=== PATIENT | male | born 1960 | race Caucasian/White ===

== ENCOUNTER 2018-11-16 10:16 | Outpatient (CLI) | payer BC, SELFPAY ==
[2018-11-16 10:50] LABS: Abs Immature Grans 0.05 k/cumm (0.0-0.09); Absolute Basophil Count 0.03 k/cumm (0.0-0.2); Absolute Eosinophil Count 0.41 k/cumm (0.0-0.7); Absolute Monocyte Count 0.86 k/cumm (0.11-0.7); Absolute Neutrophil Count 5.99 k/cumm (1.2-6.7); Basophils % 0.3; Eosinophils % 4.5; HCT 48.6 % (40.0-50.0); HGB 16.4 g/dL (13.5-17.5); Immature Grans % 0.6; Lymphocytes % 18.8; Mean Corp. HGB Concentration 33.7 g/dL (32.0-36.0); Mean Corpuscular Hemoglobin 30.8 pg (27.0-33.0); Mean Corpuscular Volume 91.2 fL (80-95); Mean Platelet Volume 9.9 fL (8.0-11.0); Monocytes % 9.5; Neutrophils % 66.3; Platelet Count 228 x1000/uL (130-400); RBC 5.33 m/cumm (4.50-6.00); RBC Distribution Width 13.4 % (11.8-14.1); White Blood Cell Count 9.04 k/cumm (4.4-10.8)
[2018-11-16 12:17] LABS: ALT 69 U/L (12-78); AST 34 U/L (15-37); Albumin 4.1 g/dL (3.4-5.0); Alkaline Phosphatase 74 U/L (46-116); Anion Gap 12.6 mmol/L (3-11); BUN 18 mg/dL (7-18); CO2 25.4 mmol/L (21.0-32.0); CREATININE 1.06 mg/dL (0.70-1.30); Calcium 9.4 mg/dL (8.5-10.1); Chloride 102 mmol/L (98-107); Cholesterol 189 mg/dL (50-200); Glucose 112 mg/dL (70-100); HDL Cholesterol 87 mg/dL (40-60); LDL CHOLESTEROL 80 mg/dL (<100); Potassium 4.6 mmol/L (3.5-5.1); Sodium 140 mmol/L (136-145); TSH (W/Ref FT4) 0.94 uIU/mL (0.358-3.74); Triglyceride 61 mg/dL (30-150)
== END 2018-11-16 10:36 ==
PROVIDERS: PCP Physician Assistant Medical; Visit Provider Nurse Practitioner Family
DX: F33.1 Major depressive disorder, recurrent, moderate (principal); Z79.899 Other long term (current) drug therapy; R53.83 Other fatigue
CPT/HCPCS: 36415; 80053; 80061; 83721; 84443; 85025

== ENCOUNTER 2018-12-20 02:39 | Outpatient (CLI) | payer BC, SELFPAY | END 2018-12-20 02:59 | PROVIDERS: PCP Physician Assistant Medical; Visit Provider Nurse Practitioner Family | DX: R06.02 Shortness of breath (principal); R53.83 Other fatigue | CPT/HCPCS: 93005; 93010 ==

== ENCOUNTER 2019-02-06 00:20 | Outpatient (CLI) | payer BC, SELFPAY ==
--- NOTE | 2019-02-06 13:00 | ETT_ITS ---
*[facility]* *[facility]* [address] [place] [address] Stress Electrocardiography Theodore protocol Date of study: 02/06/2019 *PATIENT PRESENTATION* Height: 177.8cm (70in) Blood Pressure: Weight: 112.7kg (248lb) BSA: 2.4m^2 Referring physician: Juliette Hamilton Ordering physician: Juliette Hamilton Impressions: Nondiagnostic for ischemia. Recommendations: Suggest getting pharmacological nuclear stress test. Indication: R06.09. History: REASON FOR TESTING: SHORTNESS OF BREATH WITH EXERTION. PT STATES THAT HIS ASTHMA IS NO DIFFERENT THAN USUAL. PMH: DEPRESSION, HYPERTENSION, ASTHMA. FAMILY HX: MOTHER- HYPERTENSION. SMOKING: QUIT 30 YEARS AGO. HAD SMOKED 3PPD X 10 YEARS. EXCERCISE: NO REGULAR EXCERCISE. PMH: Asthma. Risk factors: Family history of coronary artery disease. Hypertension. Obesity. Cholesterol: 189mg/dl. HDL: 87mg/dl. LDL: 80mg/dl. Triglycerides: 189mg/dl. ALLERGIES: NKDA. MEDICATIONS: SIMVSTATIN 20 MG DAILY, SLIDENAFIL 100 MG HS, FLUOXETINE 10 MG DAILY, ALBUTEROL 2 PUFFS BID. Protocol: Theodore protocol. Baseline ECG: NO PREVIOUS EKG FOR COMPARISON. TODAY'S EKG-SINUS BRADYCARDIA, HR 58. Stress protocol: + +---+ +---+ !Stage !HR !BP (mmHg) !Sat! + +---+ +---+ !Baseline supine !58 !150/96 (114) !---! + +---+ +---+ !Baseline standing !63 !140/90 (107) !93%! + +---+ +---+ !Stage I; 1.7mph, 10degrees; 3 min !101!156/90 (112) !89%! + +---+ +---+ !Stage II; 2.5mph, 12degrees; 3 min!114!180/90 (120) !86%! + +---+ +---+ !Recovery; 1 min !90 !200/100 (133)!---! + +---+ +---+ !Recovery; 3 min !71 !170/82 (111) !---! + +---+ +---+ !Recovery; 6 min !71 !150/80 (103) !---! + +---+ +---+ * Stress results: The rate-pressure product for the peak heart rate and blood pressure was 72448ql Hg/min. Stress ECG: EXCERCISE TESTING ENDED IN 6 MINS, 14 SECS DUE TO LOW O2 SATS, FATIGUE AND UNSTABLE WAVEFORMS ON EKG TRACING. MAX HR WAS 120, 75% OF TARGET. HYPERTENSIVE BLOOD PRESSURE AT START OF TESTING AND HYPERTENSIVE BLOOD PRESSURE RESPONSE. OXYGEN SATURATION LOW 86% WITH EXCERCISE. METS: 7.37 ECTOPY: NONE SEEN. ANGINA: NO REPORTED CHEST PAIN OR PRESSURE. ISCHEMIA: NONE SEEN, EKG VERY DIFFICULT TO READ D/T MOTION AND BODY HABITUS. FUNCTIONAL CAPACITY: MILDLY DIMINISHED CAPACITY. Study data: Aaron Spangler MD supervised and was readily available during the procedure. This study was interpreted by [facility]. Study status: Routine. Consent: The risks, benefits, and alternatives to the procedure were explained to the patient and informed consent was obtained. Procedure: Initial setup. A baseline ECG was recorded. Surface ECG leads and manual cuff blood pressure measurements were monitored. Heart sounds: Normal. Lung sounds: Normal. Treadmill exercise testing was performed using the Theodore protocol. Study completion: The patient tolerated the procedure well and was discharged from the lab. Discharge: The patient left the laboratory in stable condition. Birthdate: Patient birthdate: 1960. Sex: Gender: male. Study date: Study date: 02/06/2019. Study time: 00:01 AM. Signature Documentation: The Stress ECG portion of this study was interpreted by Aaron Spangler MD. Electronically signed by Aaron Spangler 02/06/2019 14:36
== END 2019-02-06 00:40 ==
PROVIDERS: PCP Physician Assistant Medical; Visit Provider Physician Assistant Medical
DX: R06.02 Shortness of breath (principal); R06.09 Other forms of dyspnea; I10 Essential (primary) hypertension; E78.5 Hyperlipidemia, unspecified; J45.909 Unspecified asthma, uncomplicated; Z87.891 Personal history of nicotine dependence
CPT/HCPCS: 93017

== ENCOUNTER 2019-03-10 00:04 | Outpatient (CLI) | payer BC, SELFPAY ==
--- NOTE | 2019-03-10 08:15 | MERGEMPI_ITS ---
*[facility]* *[facility]* [address] [place] [address] Myocardial Perfusion Imaging - SPECT Regadenoson Date of study: 03/10/2019 *PATIENT PRESENTATION* Height: 177.8cm (70in) Blood Pressure: Weight: 112.7kg (248lb) BSA: 2.4m^2 Referring physician: Wilmer Armenta Ordering physician: Juliette Hamilton Impressions: - Normal perfusion by Tc99m Sestamibi Imaging. - Abnormal contraction consistent with mild cardiomyopathy. Summary: 1. Myocardial perfusion imaging: No myocardial perfusion defects noted. 2. The calculated left ventricular ejection fraction after stress: 45%. Diffuse left ventricular regional motion abnormalities. Indication: R06.09. History: REASON FOR TESTING: OVER THE LAST 3-4 YEARS PATIENT HAS BEEN EXPERIENCING SOB WITH ACTIVITY WHICH HAS BEEN RELEIVED WITH HIS ASTHMA INHALER. HE ALSO REPORTS CHRONIC FATIGUE. PATIENT DENIES CHEST PAIN/PRESSURE/SOB UPON ARRIVAL TO TESTING TODAY. SIGNIFICANT PAST MEDICAL HISTORY: SHANI, DEPRESSION. SMOKING STATUS: QUIT 1979. SMOKED FOR 10 YEAR 3 PPD. EXERCISE ROUTINE: SEDENTARY LIFESTYLE. PMH: Asthma. Risk factors: Family history of coronary artery disease. Diabetes mellitus. Obesity. Cholesterol: 189mg/dl. HDL: 80mg/dl. LDL: 87mg/dl. Triglycerides: 61mg/dl. ALLERGIES: NO KNOWN MEDICATION ALLERGIES. MEDICATIONS: SIMVASTATIN 20 MG DAILY, SILDENAFIL 100 MG PRN, FLUOXETINE 10 MG DAILY, CELEBREX 100 MG DAILY, METFORMIN 100 MG BID, STERLING 180 MG DAILY. Imaging Technique: Protocol: Querydayoson. Acquisition: Gated SPECT; 1 day - rest/stress. The patient was imaged in the supine position. Attenuation correction used. Isotope administration: - Rest. Tc[99m]-sestamibi. Dose: 12.2mCi. Injection time: 08:15 AM. Injection to stress time: 00:45. - Stress. Tc[99m]-sestamibi. Dose: 38mCi. Injection time: 09:40 PM. 1-2 min before end of exercise Baseline ECG: SINUS BRADYCARDIA. HR 89 BPM. Stress protocol: +--------+--+ + + !Stage !HR!BP (mmHg) !Comments ! +--------+--+ + + !Baseline!84!140/86 (104)! ! +--------+--+ + + !1 min !98!162/84 (110)!Inject Regadenoson.! +--------+--+ + + !3 min !89!160/80 (107)! ! +--------+--+ + + !6 min !85!162/80 (107)! ! +--------+--+ + + * Stress results: STRESS TEST ENDED IN 6 MINUTES 9 SECONDS. NORMAL HEART RATE AND BLOOD PRESSURE RESPONSE TO LEXISCAN INJECTION. NO ECTOPY. NO ANGINA. NO SIGNIFICANT ST SEGMENT CHANGES. The rate-pressure product for the peak heart rate and blood pressure was 22894ob Hg/min. Myocardial perfusion: Imaging information: gated. No myocardial perfusion defects noted. Ventricular Function (Wall Motion): The calculated left ventricular ejection fraction after stress: 45%. Diffuse left ventricular regional motion abnormalities. Study data: Sean Magdaleno MD supervised and was readily available during the procedure. This study was interpreted by [facility]. Study status: Routine. Consent: The risks, benefits, and alternatives to the procedure were explained to the patient and informed consent was obtained. Procedure: Initial setup. A baseline ECG was recorded. Surface ECG leads and manual cuff blood pressure measurements were monitored. Heart sounds: Normal. Lung sounds: Normal. Regadenoson stress test. Stress testing was performed, with regadenoson by intravenous bolus, for a total dose of 0.4mgover 10.00sec, followed by a 5ml saline flush. The infusion was terminated due to per protocol. Study completion: All catheters inserted during the procedure were removed. The patient tolerated the procedure well and was discharged from the lab. Discharge: The patient left the laboratory in stable condition. Birthdate: Patient birthdate: 1960. Sex: Gender: male. Study date: Study date: 03/10/2019. Study time: 00:01 AM. Electronically signed by Sean Magdaleno MD 03/10/2019 16:24
[2019-03-10] MEDS: Regadenoson 0.4 MG/5 ML SYR IVP (12:35)
== END 2019-03-10 00:24 ==
PROVIDERS: PCP Physician Assistant Medical; Visit Provider Physician Assistant Medical
DX: R06.02 Shortness of breath (principal); R53.83 Other fatigue; J45.909 Unspecified asthma, uncomplicated; E11.9 Type 2 diabetes mellitus without complications; Z82.49 Family history of ischemic heart disease and other diseases of the circulatory system; Z87.891 Personal history of nicotine dependence; R94.39 Abnormal result of other cardiovascular function study
CPT/HCPCS: 78452; 93017; J2785

== ENCOUNTER 2019-04-08 00:09 | Outpatient (CLI) | payer BC, SELFPAY ==
--- NOTE | 2019-04-08 14:00 | MERGE_ITS ---
*[facility]* *[facility]* [address] [place] [address] Date of study: 04/08/2019 Transthoracic Echocardiography M-mode, complete 2D, complete spectral Doppler, and color Doppler *STUDY CONCLUSIONS* Summary: 1. Left ventricle: The cavity size was normal. Wall thickness was increased in a pattern of mild LVH. Systolic function was normal. The estimated ejection fraction was 60-65%. Wall motion was normal; there were no regional wall motion abnormalities. 2. Aortic valve: Trileaflet; normal thickness leaflets. There was trivial regurgitation. 3. Aorta: The aorta was mildly to moderately dilated. 4.1 cm. 4. Right ventricle: The cavity size was normal. Wall thickness was normal. Systolic function was normal. 5. Pulmonary arteries: Pulmonary systolic pressure was increased, in the range of 35mm Hg to 40mm Hg. *PATIENT PRESENTATION* Height: 177.8cm (70in ) S/D Pressure: 124 / 72 Weight: 115.7kg (254.5lb ) BSA: 2.43m^2 Test start time: 02:10 PM. Test stop time: 03:00 PM. PERFORMING Unknown PERFORMING [facility] ORDERING Juliette Hamilton REFERRING Juliette Hamilton MARKETING OPERATIONS INTERN RT Yuliya (R)(CT), [facility] *PROCEDURE DATA* Procedure information: The patient was identified by two identifiers. This study was interpreted by [facility]. Pertinent images and digital data are archived for permanent storage and are available for subsequent review. No prior study was available for comparison. Study status: Routine. Transthoracic echocardiography. M-mode, complete 2D, complete spectral Doppler, and color Doppler. A Transthoracic Echocardiogram was performed. Scanning was performed from the parasternal, apical, subcostal, and suprasternal notch acoustic windows. Images were obtained using an [id number] cardiac ultrasound machine. Image quality was adequate. Study completion: The patient tolerated the procedure well. History: PMH: Cardiomyopathy I 42.9 *CARDIAC ANATOMY* Left ventricle: The cavity size was normal. Wall thickness was increased in a pattern of mild LVH. Systolic function was normal. The estimated ejection fraction was 60-65%. Wall motion was normal; there were no regional wall motion abnormalities. Diastolic parameters were normal. Aortic valve: Trileaflet; normal thickness leaflets. Mobility was not restricted. Doppler: Transvalvular velocity was within the normal range. There was no stenosis. There was trivial regurgitation. VTI ratio of LVOT to aortic valve: 0.8. Valve area (VTI): 2.5cm^2. Indexed valve area (VTI): 1cm^2/m^2. Peak velocity ratio of LVOT to aortic valve: 0.86. Valve area (Vmax): 2.7cm^2. Indexed valve area (Vmax): 1.1cm^2/m^2. Mean velocity ratio of LVOT to aortic valve: 0.72. Valve area (Vmean): 2.3cm^2. Indexed valve area (Vmean): 0.9cm^2/m^2. Mean gradient (S): 9.1mm Hg. Peak gradient (S): 16mm Hg. Aorta: The aorta was mildly to moderately dilated. 4.1 cm. Aortic root: The aortic root was mildly dilated. Ascending aorta: The ascending aorta was mildly dilated. Mitral valve: Structurally normal valve. Mobility was not restricted. Doppler: Transvalvular velocity was within the normal range. There was no evidence for stenosis. There was no significant regurgitation. Valve area by pressure half-time: 4.3cm^2. Indexed valve area by pressure half-time: 1.7cm^2/m^2. Peak gradient (D): 2.9mm Hg. Left atrium: The atrium was normal in size. Right ventricle: The cavity size was normal. Wall thickness was normal. Systolic function was normal. Pulmonic valve: Doppler: Transvalvular velocity was within the normal range. There was no evidence for stenosis. There was no significant regurgitation. Peak gradient (S): 4mm Hg. Tricuspid valve: Structurally normal valve. Doppler: Transvalvular velocity was within the normal range. There was no evidence for stenosis. There was trivial regurgitation. Pulmonary artery: Pulmonary systolic pressure was increased, in the range of 35mm Hg to 40mm Hg. Right atrium: The atrium was normal in size. Pericardium: There was no pericardial effusion. Systemic veins: Inferior vena cava: Well visualized. The vessel was patent and normal in size. The respirophasic diameter changes were in the normal range (greater than or equal to 50%). Baseline ECG: Normal sinus rhythm. Measurements Left ventricle Value Reference LV ID, ED, PLAX 5.3 cm 3.5 - 6.0 LV ID, ES, PLAX 3.2 cm 2.1 - 4.0 LV PW thickness, ED, PLAX 1.3 cm LV end-diastolic volume, 1-p A2C 102 ml LV ejection fraction, 1-p A2C 65 % LV end-diastolic volume, 1-p A4C 132 ml LV ejection fraction, 1-p A4C 68 % LV e', lateral 0.101 m/sec LV E/e', lateral 8 LV e', medial 0.119 m/sec LV E/e', medial 7 LV e', average 0.11 m/sec LV E/e', average 8 Ventricular septum Value Reference IVS thickness, ED, PLAX 1.3 cm LVOT Value Reference LVOT ID, A-P 2.0 cm LVOT area 3.2 cm^2 LVOT peak velocity, S 1.71 m/sec LVOT mean velocity, S 1.03 m/sec LVOT VTI, S 33.0 cm LVOT peak gradient, S 11.7 mm Hg LVOT mean gradient, S 5.2 mm Hg Stroke volume (SV), LVOT DP 104 ml Stroke index (SV/bsa), LVOT DP 43 ml/m^2 Aortic valve Value Reference Aortic valve peak velocity, S 2 m/sec Aortic valve mean velocity, S 1.4 m/sec Aortic valve VTI, S 41.0 cm Aortic mean gradient, S 9.1 mm Hg Aortic peak gradient, S 16 mm Hg VTI ratio, LVOT/AV 0.8 Aortic valve area, VTI 2.5 cm^2 Velocity ratio, peak, LVOT/AV 0.86 Aortic valve area, peak velocity 2.7 cm^2 Velocity ratio, mean, LVOT/AV 0.72 Aortic valve area, mean velocity 2.3 cm^2 Aortic valve area/bsa, mean velocity 0.9 cm^2/m^2 Aorta Value Reference Aortic root ID, ED 3.9 cm Ascending aorta ID, A-P, S 4.1 cm Left atrium Value Reference LA ID, A-P, ES 3.5 cm LA ID/bsa, A-P 1.4 cm/m^2 <=2.2 LA volume/bsa, ES, 1-p A4C 23 ml/m^2 LA volume, ES, 2-p 63 ml LA volume/bsa, ES, 2-p 26 ml/m^2 LA/aortic root ratio 0.89 Mitral valve Value Reference Mitral E-wave peak velocity 0.85 m/sec Mitral A-wave peak velocity 0.74 m/sec Mitral deceleration time 178 ms 150 - 230 Mitral pressure half-time 52 ms Mitral peak gradient, D 2.9 mm Hg Mitral E/A ratio, peak 1.15 Mitral valve area, PHT, DP 4.3 cm^2 Pulmonary veins Value Reference Pulmonary vein peak velocity, S 0.6 m/sec Pulmonary vein peak velocity, D 0.42 m/sec Pulmonary vein velocity ratio, peak, 1.44 S/D Pulmonary vein A-wave reversal peak 0.34 m/sec velocity Pulmonary vein A-wave reversal 160 ms duration Tricuspid valve Value Reference Tricuspid regurg peak velocity 2.9 m/sec Tricuspid peak RV-RA gradient 33.6 mm Hg Right atrium Value Reference RA area, ES, A4C (H) 20.5 cm^2 8.3 - 19.5 Pulmonic valve Value Reference Pulmonic peak gradient, S 4 mm Hg Legend: (L) and (H) issa values outside specified reference range. I have personally reviewed the images and have reviewed and edited the reported findings. Electronically signed by Santiago Marquis 04/08/2019 16:08
== END 2019-04-08 00:29 ==
PROVIDERS: PCP Physician Assistant Medical; Visit Provider Physician Assistant Medical
DX: I42.9 Cardiomyopathy, unspecified (principal); I35.1 Nonrheumatic aortic (valve) insufficiency; I10 Essential (primary) hypertension; E11.9 Type 2 diabetes mellitus without complications
CPT/HCPCS: 93306

== ENCOUNTER 2019-11-25 12:16 | Outpatient (REF) | payer BC, SELFPAY ==
[2019-11-25 20:50] LABS: ALT 97 U/L (16-63); AST 50 U/L (15-37); Albumin 4.1 g/dL (3.4-5.0); Alkaline Phosphatase 70 U/L (46-116); Anion Gap 12.9 mmol/L (3-11); BUN 14 mg/dL (7-18); Bilirubin, Total 1.2 mg/dL (0.2-1.0); CO2 26.1 mmol/L (21.0-32.0); CREATININE 1.05 mg/dL (0.70-1.30); Calcium 9.6 mg/dL (8.5-10.1); Calculated LDL 114 mg/dL (<100); Chloride 101 mmol/L (98-107); Cholesterol 222 mg/dL (<200); Glucose 131 mg/dL (74-106); HDL Cholesterol 94 mg/dL (40-60); Hemoglobin A1C 7.1 % (3.8-5.6); Potassium 4.1 mmol/L (3.5-5.1); Sodium 140 mmol/L (136-145); Total Protein 7.5 g/dL (6.4-8.2); Triglyceride 74 mg/dL (<150)
== END 2019-11-25 12:36 ==
LOC: NCHCN 12:16
PROVIDERS: PCP Physician Assistant Medical; Visit Provider Physician Assistant Medical
DX: E78.5 Hyperlipidemia, unspecified (principal); E11.9 Type 2 diabetes mellitus without complications
CPT/HCPCS: 80053; 80061; 83036

== ENCOUNTER 2019-12-19 11:53 | Outpatient (REF) | payer BC, SELFPAY ==
[2019-12-19 19:01] LABS: Abs Immature Grans 0.02 k/cumm (0.0-0.09); Absolute Basophil Count 0.02 k/cumm (0.0-0.2); Absolute Eosinophil Count 0.35 k/cumm (0.0-0.7); Absolute Lymphocyte Count 1.26 k/cumm (1.2-3.4); Absolute Neutrophil Count 6.21 k/cumm (1.2-6.7); Basophils % 0.2; HGB 15.2 g/dL (13.5-17.5); Immature Grans % 0.2 %; Lymphocytes % 14.4; Mean Corp. HGB Concentration 33.8 g/dL (32.0-36.0); Mean Corpuscular Hemoglobin 32.2 pg (27.0-33.0); Mean Corpuscular Volume 95.3 fL (80-95); Mean Platelet Volume 10.5 fL (8.0-11.0); Monocytes % 10.3; Neutrophils % 70.9; Platelet Count 172 x1000/uL (130-400); RBC 4.72 m/cumm (4.50-6.00); RBC Distribution Width 14.4 % (11.8-14.1); White Blood Cell Count 8.76 k/cumm (4.4-10.8)
[2019-12-19 19:19] LABS: ALT 97 U/L (16-63); AST 61 U/L (15-37); Alkaline Phosphatase 62 U/L (46-116); Amylase 166 U/L (25-115); Anion Gap 9.5 mmol/L (3-11); BUN 18 mg/dL (7-18); Bilirubin, Total 1.3 mg/dL (0.2-1.0); CO2 28.5 mmol/L (21.0-32.0); CREATININE 1.15 mg/dL (0.70-1.30); Calcium 8.3 mg/dL (8.5-10.1); Chloride 100 mmol/L (98-107); Glucose 132 mg/dL (74-106); Lipase 156 U/L (73-393); Sodium 138 mmol/L (136-145); Total Protein 7.3 g/dL (6.4-8.2)
== END 2019-12-19 12:13 ==
LOC: NCHCN 11:53
PROVIDERS: PCP Physician Assistant Medical; Visit Provider Physician Assistant Medical
DX: R10.9 Unspecified abdominal pain (principal)
CPT/HCPCS: 80053; 83690; 82150; 85025

== ENCOUNTER 2020-10-11 14:59 | Outpatient (REF) | payer BC, SELFPAY ==
[2020-10-11 17:34] LABS: ALT 60 U/L (16-63); AST 43 U/L (15-37); Albumin 3.9 g/dL (3.4-5.0); Alkaline Phosphatase 100 U/L (46-116); Anion Gap 13.2 mmol/L (3-11); BUN 16 mg/dL (7-18); Bilirubin, Total 0.8 mg/dL (0.2-1.0); CO2 24.8 mmol/L (21.0-32.0); CREATININE 1.14 mg/dL (0.70-1.30); Calcium 9.4 mg/dL (8.5-10.1); Chloride 96 mmol/L (98-107); Glucose 145 mg/dL (74-106); Potassium 3.9 mmol/L (3.5-5.1); Sodium 134 mmol/L (136-145); Total Protein 7.8 g/dL (6.4-8.2)
[2020-10-11 20:48] LABS: Calculated LDL 153 mg/dL (<100); Cholesterol 258 mg/dL (<200); HDL Cholesterol 86 mg/dL (40-60); Triglyceride 96 mg/dL (<150)
[2020-10-12 17:52] LABS: PSA, Diagnostic 2.2 ng/mL (0.0-4.5)
== END 2020-10-11 15:19 ==
LOC: NCHCN 14:59
PROVIDERS: PCP Physician Assistant Medical; Visit Provider Physician Assistant Medical
DX: E78.5 Hyperlipidemia, unspecified (principal); E11.9 Type 2 diabetes mellitus without complications; R39.11 Hesitancy of micturition
CPT/HCPCS: 80053; 80061; 84153

== ENCOUNTER 2020-11-19 13:52 | Outpatient (REF) | payer BC, SELFPAY ==
[2020-11-19 16:15] LABS: TSH (W/Ref FT4) 1.01 uIU/mL (0.36-3.74); Vitamin B12 507 pg/mL (193-986)
[2020-11-22 12:15] LABS: Syphilis Serology (RPR) Negative (Negative)
== END 2020-11-19 13:53 | disposition home or self-care (01) ==
LOC: NCHCN 13:52
PROVIDERS: PCP Physician Assistant Medical; Visit Provider Physician Assistant Medical
DX: R41.82 Altered mental status, unspecified (principal)
CPT/HCPCS: 82607; 84443; 86592

== ENCOUNTER 2021-01-05 10:34 | Outpatient (REF) | payer BC, SELFPAY ==
[2021-01-05 16:15] LABS: ALT 144 U/L (16-63); AST 123 U/L (15-37); Alkaline Phosphatase 67 U/L (46-116); Anion Gap 0.6 mmol/L (3-11); BUN 7 mg/dL (7-18); Bilirubin, Total 1.5 mg/dL (0.2-1.0); CO2 29.4 mmol/L (21.0-32.0); Calcium 9.3 mg/dL (8.5-10.1); Calculated LDL 80 mg/dL (<100); Chloride 105 mmol/L (98-107); Cholesterol 214 mg/dL (<200); Glucose 149 mg/dL (74-106); HDL Cholesterol 124 mg/dL (40-60); Potassium 4.4 mmol/L (3.5-5.1); Sodium 135 mmol/L (136-145); Total Protein 7.8 g/dL (6.4-8.2); Triglyceride 53 mg/dL (<150)
[2021-01-06 13:18] LABS: COVID-19 RT-PCR UVMMC Result Positive (Negative)
== END 2021-01-05 10:35 | disposition home or self-care (01) ==
LOC: NCHCN 10:34
PROVIDERS: PCP Physician Assistant Medical; Visit Provider Physician Assistant Medical
DX: E78.5 Hyperlipidemia, unspecified (principal); Z20.822 Contact with and (suspected) exposure to COVID-19
CPT/HCPCS: 80053; 80061; U0003

== ENCOUNTER 2021-05-24 16:21 | Outpatient (REF) | payer BC, SELFPAY ==
[2021-05-24 19:21] LABS: Abs Immature Grans 0.02 10^3/uL (0.0-0.06); Absolute Basophil Count 0.04 10^3/uL (0.0-0.2); Absolute Eosinophil Count 0.23 10^3/uL (0.0-0.7); Absolute Lymphocyte Count 1.09 10^3/uL (1.2-3.4); Absolute Monocyte Count 1.13 10^3/uL (0.1-0.8); Absolute Neutrophil Count 4.42 10^3/uL (1.2-6.7); Basophils % 0.6; Eosinophils % 3.3; HCT 39.7 % (40.0-50.0); HGB 13.9 g/dL (13.5-17.5); Immature Grans % 0.3; Lymphocytes % 15.7; MCH 34.5 pg (27.0-33.0); MCV 98.5 fL (80-95); MPV 11.6 fL (8.0-11.0); Monocytes % 16.3; Neutrophils % 63.8; Nucleated RBC 0 %; Platelet Count 440 10^3/uL (130-400); RBC 4.03 10^6/uL (4.36-5.78); RDW 13.2 % (11.8-14.1); RDW-SD 47.1 fL; WBC 6.93 10^3/uL (4.4-10.8)
[2021-05-24 20:03] LABS: ALT 84 U/L (16-63); AST 53 U/L (15-37); Albumin 3.7 g/dL (3.4-5.0); Alkaline Phosphatase 58 U/L (46-116); Anion Gap 6.7 mmol/L (3-11); BUN 7 mg/dL (7-18); Bilirubin, Total 0.8 mg/dL (0.2-1.0); CO2 28.3 mmol/L (21.0-32.0); Calcium 9.6 mg/dL (8.5-10.1); Chloride 107 mmol/L (98-107); Glucose 139 mg/dL (74-106); Potassium 4.2 mmol/L (3.5-5.1); Sodium 142 mmol/L (136-145); TSH (W/Ref FT4) 1.45 uIU/mL (0.36-3.74); Total Protein 6.6 g/dL (6.4-8.2)
== END 2021-05-24 16:22 | disposition home or self-care (01) ==
LOC: NCHCN 16:21
PROVIDERS: PCP Physician Assistant Medical; Visit Provider Physician Assistant Medical
DX: R06.00 Dyspnea, unspecified (principal); R53.83 Other fatigue
CPT/HCPCS: 80053; 84443; 85025

== ENCOUNTER 2021-10-14 11:58 | Outpatient (REF) | payer BC, SELFPAY ==
[2021-10-14 20:53] LABS: Hemoglobin A1C 6.4 % (<5.7)
[2021-10-14 21:30] LABS: ALT 97 U/L (16-63); AST 64 U/L (15-37); Albumin 3.9 g/dL (3.4-5.0); Alkaline Phosphatase 59 U/L (46-116); BUN 13 mg/dL (7-18); Bilirubin, Total 1.7 mg/dL (0.2-1.0); Calcium 9.2 mg/dL (8.5-10.1); Calculated LDL 89 mg/dL (<100); Chloride 102 mmol/L (98-107); Cholesterol 181 mg/dL (<200); Glucose 144 mg/dL (74-106); HDL Cholesterol 82 mg/dL (40-60); Potassium 4.3 mmol/L (3.5-5.1); Sodium 138 mmol/L (136-145); Total Protein 7.3 g/dL (6.4-8.2); Triglyceride 53 mg/dL (<150)
[2021-10-17 09:44] LABS: PSA, Screening 0.4 ng/mL (0.0-4.5)
== END 2021-10-14 11:59 | disposition home or self-care (01) ==
LOC: NCHCN 11:58
PROVIDERS: PCP Physician Assistant Medical; Visit Provider Physician Assistant Medical
DX: E11.9 Type 2 diabetes mellitus without complications (principal); E78.5 Hyperlipidemia, unspecified
CPT/HCPCS: 80053; 80061; 84153; 85027; 83036

== ENCOUNTER 2022-05-01 09:09 | Outpatient (REF) | payer OTHER, SELFPAY ==
[2022-05-01 16:24] LABS: HCT 47.1 % (40.0-50.0); HGB 16.1 g/dL (13.5-17.5); MCH 32.5 pg (27.0-33.0); MCHC 34.2 % (32.0-36.0); MCV 95 fL (80-95); MPV 10.6 fL (8.0-11.0); Platelet Count 171 10^3/uL (130-400); RBC 4.95 10^6/uL (4.36-5.78); RDW 13.2 % (11.8-14.1); RDW-SD 46.1 fL; WBC 8.95 10^3/uL (4.4-10.8)
[2022-05-01 16:42] LABS: Hemoglobin A1C 6.9 % (<5.7)
[2022-05-01 16:48] LABS: ALT 86 U/L (16-63); AST 61 U/L (15-37); Alkaline Phosphatase 72 U/L (46-116); Anion Gap 11.2 mmol/L (3-11); BUN 15 mg/dL (7-18); Bilirubin, Total 2.1 mg/dL (0.2-1.0); CO2 24.8 mmol/L (21.0-32.0); CREATININE 1.1 mg/dL (0.70-1.30); Calcium 9.4 mg/dL (8.5-10.1); Chloride 102 mmol/L (98-107); Glucose 194 mg/dL (74-106); Potassium 3.7 mmol/L (3.5-5.1); Sodium 138 mmol/L (136-145); Total Protein 7.9 g/dL (6.4-8.2)
== END 2022-05-01 09:10 | disposition home or self-care (01) ==
LOC: NCHCN 09:09
PROVIDERS: PCP Physician Assistant Medical; Visit Provider Physician Assistant Medical
DX: R79.89 Other specified abnormal findings of blood chemistry (principal); E11.9 Type 2 diabetes mellitus without complications
CPT/HCPCS: 80053; 85027; 83036

== ENCOUNTER 2023-01-26 15:34 | Outpatient (REF) | payer OTHER, SELFPAY ==
[2023-01-26 18:05] LABS: Abs Immature Grans 0.02 10^3/uL (0.0-0.06); Absolute Basophil Count 0.08 10^3/uL (0.0-0.2); Absolute Eosinophil Count 0.37 10^3/uL (0.0-0.7); Absolute Lymphocyte Count 1.27 10^3/uL (1.2-3.4); Absolute Monocyte Count 0.56 10^3/uL (0.1-0.8); Absolute Neutrophil Count 3.81 10^3/uL (1.2-6.7); Basophils % 1.3; Eosinophils % 6.1; HCT 48.9 % (40.0-50.0); HGB 16.7 g/dL (13.5-17.5); Immature Grans % 0.3; Lymphocytes % 20.8; MCH 31.7 pg (27.0-33.0); MCHC 34.2 % (32.0-36.0); MCV 93 fL (80-95); MPV 10.2 fL (8.0-11.0); Monocytes % 9.2; Neutrophils % 62.3; Platelet Count 213 10^3/uL (130-400); RBC 5.27 10^6/uL (4.36-5.78); RDW-SD 44.3 fL; WBC 6.11 10^3/uL (4.4-10.8)
[2023-01-26 18:38] LABS: ALT 122 U/L (16-63); AST 83 U/L (15-37); Albumin 4.2 g/dL (3.4-5.0); Alkaline Phosphatase 74 U/L (46-116); Anion Gap 10.9 mmol/L (3-11); BUN 13 mg/dL (7-18); Bilirubin, Total 1.5 mg/dL (0.2-1.0); CO2 25.1 mmol/L (21.0-32.0); CREATININE 1.1 mg/dL (0.70-1.30); Calcium 9.5 mg/dL (8.5-10.1); Calculated LDL 140 mg/dL (<100); Chloride 102 mmol/L (98-107); Cholesterol 271 mg/dL (<200); Estimated GFR 74.96 (mL/min/1.73m2); Glucose 145 mg/dL (74-106); HDL Cholesterol 118 mg/dL (40-60); Potassium 4.5 mmol/L (3.5-5.1); Sodium 138 mmol/L (136-145); TSH (W/Ref FT4) 1.04 uIU/mL (0.36-3.74); Total Protein 8.6 g/dL (6.4-8.2); Triglyceride 66 mg/dL (<150); Vitamin B12 421 pg/mL (193-986); Vitamin D 25 Total 13.9 ng/mL (30-100)
== END 2023-01-26 15:35 | disposition home or self-care (01) ==
LOC: NCHCN 15:34
PROVIDERS: PCP Physician Assistant Medical; Visit Provider Registered Nurse
DX: F32.9 Major depressive disorder, single episode, unspecified (principal); E66.9 Obesity, unspecified; E55.9 Vitamin D deficiency, unspecified; R41.9 Unspecified symptoms and signs involving cognitive functions and awareness
CPT/HCPCS: 80053; 80061; 82306; 82607; 84443; 85025

== ENCOUNTER 2023-05-03 03:53 | Outpatient (CLI) | payer OTHER, SELFPAY ==
[2023-05-03 16:15] LABS: Ammonia 12 umol/L (11-32)
[2023-05-03 17:58] LABS: ALT 188 U/L (16-63); AST 147 U/L (15-37); Albumin 3.9 g/dL (3.4-5.0); Alkaline Phosphatase 72 U/L (46-116); Bilirubin, Direct 0.6 mg/dL (0.0-0.2); Bilirubin, Total 1.5 mg/dL (0.2-1.0); Total Protein 7.5 g/dL (6.4-8.2)
[2023-05-03 18:06] LABS: Iron 94 ug/dL (65-175); Total Iron Binding Capacity 310 ug/dL (250-450); Transferrin Sat 30 % (20-55)
[2023-05-03 18:07] LABS: Vitamin D 25 Total 17.3 ng/mL (30-100)
== END 2023-05-03 03:54 | disposition home or self-care (01) ==
LOC: LBO 03:53
PROVIDERS: PCP Physician Assistant Medical; Visit Provider Registered Nurse
DX: F33.1 Major depressive disorder, recurrent, moderate (principal); F10.20 Alcohol dependence, uncomplicated; F90.9 Attention-deficit hyperactivity disorder, unspecified type
CPT/HCPCS: 36415; 80076; 82306; 82140; 83540; 83550

== ENCOUNTER 2023-06-29 14:29 | Outpatient (REF) | payer OTHER, SELFPAY ==
[2023-06-29 15:53] LABS: HCT 44.4 % (40.0-50.0); HGB 15.2 g/dL (13.5-17.5); MCH 32.7 pg (27.0-33.0); MCHC 34.2 % (32.0-36.0); MCV 96 fL (80-95); MPV 10.3 fL (8.0-11.0); Platelet Count 158 10^3/uL (130-400); RBC 4.65 10^6/uL (4.36-5.78); RDW 13.4 % (11.8-14.1); RDW-SD 47.4 fL; WBC 6.05 10^3/uL (4.4-10.8)
[2023-06-29 16:14] LABS: ALT 96 U/L (16-63); AST 83 U/L (15-37); Alkaline Phosphatase 68 U/L (46-116); BUN 8 mg/dL (7-18); Bilirubin, Total 1.5 mg/dL (0.2-1.0); CREATININE 1.1 mg/dL (0.70-1.30); Calcium 9.4 mg/dL (8.5-10.1); Chloride 104 mmol/L (98-107); Estimated GFR 74.96 (mL/min/1.73m2); Glucose 194 mg/dL (74-106); Potassium 3.8 mmol/L (3.5-5.1); Sodium 141 mmol/L (136-145); Total Protein 8.4 g/dL (6.4-8.2)
== END 2023-06-29 14:30 | disposition home or self-care (01) ==
LOC: NCHCN 14:29
PROVIDERS: PCP Physician Assistant Medical; Visit Provider Physician Assistant Medical
DX: E11.9 Type 2 diabetes mellitus without complications (principal); K74.60 Unspecified cirrhosis of liver
CPT/HCPCS: 80053; 85027; 83036

== ENCOUNTER 2024-01-16 19:00 | Outpatient (REF) | payer OTHER, SELFPAY ==
[2024-01-16 15:28] LABS: Abs Immature Grans 0.05 10^3/uL (0.0-0.06); Absolute Basophil Count 0.06 10^3/uL (0.0-0.2); Absolute Lymphocyte Count 1.69 10^3/uL (1.2-3.4); Absolute Monocyte Count 0.66 10^3/uL (0.1-0.8); Absolute Neutrophil Count 5.21 10^3/uL (1.2-6.7); Basophils % 0.7; Eosinophils % 6.1; HCT 45.4 % (40.0-50.0); HGB 15.6 g/dL (13.5-17.5); Immature Grans % 0.6; Lymphocytes % 20.7; MCH 32.7 pg (27.0-33.0); MCHC 34.4 % (32.0-36.0); MCV 95 fL (80-95); MPV 10.4 fL (8.0-11.0); Monocytes % 8.1; Neutrophils % 63.8; Platelet Count 180 10^3/uL (130-400); RBC 4.77 10^6/uL (4.36-5.78); RDW 13.1 % (11.8-14.1); RDW-SD 46.2 fL; WBC 8.17 10^3/uL (4.4-10.8)
[2024-01-16 15:44] LABS: ALT 55 U/L (16-63); AST 37 U/L (15-37); Albumin 3.7 g/dL (3.4-5.0); Alkaline Phosphatase 73 U/L (46-116); Anion Gap 10.8 mmol/L (3-11); BUN 16 mg/dL (7-18); Bilirubin, Total 1.1 mg/dL (0.2-1.0); CO2 25.2 mmol/L (21.0-32.0); CREATININE 1.2 mg/dL (0.70-1.30); Calcium 8.8 mg/dL (8.5-10.1); Calculated LDL 69 mg/dL (<100); Chloride 100 mmol/L (98-107); Cholesterol 170 mg/dL (<200); Estimated GFR 67.11 (mL/min/1.73m2); Glucose 280 mg/dL (74-106); HDL Cholesterol 90 mg/dL (40-60); Potassium 4.7 mmol/L (3.5-5.1); Sodium 136 mmol/L (136-145); Total Protein 7.7 g/dL (6.4-8.2); Triglyceride 55 mg/dL (<150)
[2024-01-16 15:56] LABS: Hemoglobin A1C 8.1 % (<5.7)
== END 2024-01-16 19:01 | disposition home or self-care (01) ==
LOC: NCHCN 19:00
PROVIDERS: PCP Physician Assistant Medical; Visit Provider Physician Assistant Medical
DX: E11.9 Type 2 diabetes mellitus without complications (principal); F10.20 Alcohol dependence, uncomplicated; E78.5 Hyperlipidemia, unspecified
CPT/HCPCS: 80053; 80061; 83036; 85025

== ENCOUNTER 2024-03-07 10:57 | Outpatient (REF) | payer OTHER, SELFPAY ==
[2024-03-07 15:13] LABS: Abs Immature Grans 0.03 10^3/uL (0.0-0.06); Absolute Basophil Count 0.05 10^3/uL (0.0-0.2); Absolute Eosinophil Count 0.39 10^3/uL (0.0-0.7); Absolute Lymphocyte Count 1.28 10^3/uL (1.2-3.4); Absolute Neutrophil Count 3.31 10^3/uL (1.2-6.7); Basophils % 0.9 %; HCT 45.3 % (40.0-50.0); HGB 15.4 g/dL (13.5-17.5); Immature Grans % 0.5 %; MCH 32.8 pg (27.0-33.0); MCV 97 fL (80-95); Neutrophils % 59.6 %; Platelet Count 160 10^3/uL (130-400); RBC 4.69 10^6/uL (4.36-5.78); RDW 13.9 % (11.8-14.1); RDW-SD 49.6 fL; WBC 5.56 10^3/uL (4.4-10.8)
[2024-03-07 15:25] LABS: ALT 74 U/L (16-63); AST 57 U/L (15-37); Albumin 4.2 g/dL (3.4-5.0); Alkaline Phosphatase 68 U/L (46-116); Anion Gap 11.7 mmol/L (3-11); BUN 21 mg/dL (7-18); Bilirubin, Total 1.4 mg/dL (0.2-1.0); CO2 24.3 mmol/L (21.0-32.0); CREATININE 1.3 mg/dL (0.70-1.30); Calcium 9.3 mg/dL (8.5-10.1); Chloride 101 mmol/L (98-107); Estimated GFR 60.96 (mL/min/1.73m2); Glucose 189 mg/dL (74-106); Potassium 4.4 mmol/L (3.5-5.1); Sodium 137 mmol/L (136-145)
[2024-03-07 15:52] LABS: Hemoglobin A1C 7.3 % (<5.7)
== END 2024-03-07 10:58 | disposition home or self-care (01) ==
LOC: NCHCN 10:57
PROVIDERS: PCP Physician Assistant Medical; Visit Provider Physician Assistant Medical
DX: E11.9 Type 2 diabetes mellitus without complications (principal); E78.5 Hyperlipidemia, unspecified; Z01.818 Encounter for other preprocedural examination
CPT/HCPCS: 80053; 83036; 85025

== ENCOUNTER 2024-10-06 17:15 | Outpatient (REF) | payer OTHER, SELFPAY ==
--- OUTSIDE RECORDS SUMMARY | 2024-10-06 17:17 | XMS_ITS | Encounter Summary ---
Author Organization [facility] Address [facility] [place] [address] Care Team Providers Care Lmft Name Role Phone Juliette Hamilton Primary Care Provider [phone] Encounter Details Date Type Department Care Team (Late st Contact Info) Description 11/14/2023 [place] [address] Makayla Collier RN Social History Tobacco Use Types Packs/Day Years Used Date Smoking Tobacco: Former Cigarettes 3 10 0 12/21/1977 - 12/22/1987 Smokeless Tobacco: Never Alcohol Use Standard Drinks/Week Comments Yes 0 (1 standard drink = 0.6 oz pur e alcohol) rarely Sex and Gender Information Value Date Recorded Sex Assigned at Not on file Gender Identity Not on file Sexual Orientation Not on file documented as of this encounter Miscellaneous Notes * Telephone Encounter - Makayla Collier RN - 11/14/2023 4:36 PM EST TC with patient to schedule the US (abdomen) that was ordered on 07/06/2023 by NP. Edwards (6-month f/u; due December 2023). The patient stated that he is driving right now, therefore not a good time to schedule. Indicated to patient that I will sent him the phone number for the [place] Dept via the [facility] portal. documented in this encounter Plan of Treatment Not on file documented as of this encounter Visit Diagnoses Not on filedocumented in this encounter Care Teams Lmft Relationship Specialty Start Date End Date Juliette Hamilton PA [address] [place] [address] PCP - General Family Medicine 02/07/21 documented as of this encounter
--- OUTSIDE RECORDS SUMMARY | 2024-10-06 17:17 | XMS_ITS | Encounter Summary ---
Author Organization [facility] Address [address] [place] [address] Care Team Providers Care Print Production Coordinator Name Role Phone Maria A Urena MD Primary Care Provider [phone] Encounter Details Date Type Department Care Team (Late st Contact Info) Description 10/12/2020 Lab Requisition [facility] Pathology & Laboratory Medicine - [address] [address] Outr Resulting Lab, Provider Social History Tobacco Use Types Packs/Day Years Used Date Smoking Tobacco: Never Assessed Interpersonal Safety Answer Date Record ed Physically Hurt Never 05/09/2020 Verbally Threaten Not on file 05/09/2020 Sex and Gender Information Value Date Recorded Sex Assigned at Not on file Legal Sex Male 18:35 EST Gender Identity Not on file Sexual Orientation Not on file documented as of this encounter Plan of Treatment Not on file documented as of this encounter Procedures Procedure Name Priority Date/Time Associated Diagnosis Comments PSA TOTAL, DIAGNOSTIC Routine 10/11/2020 12:20 EST documented in this encounter Results * PSA TOTAL, DIAGNOSTIC (10/11/2020 12:20 EST) PSA 2.2 0.0 - 4.5 ng/mL 10/12/2020 17:47 EST [facility] Blood VENOUS BLOOD / Unknown 10/11/2020 12:20 EST 10/12/2020 15:43 EST Narrative [facility] - 10/12/2020 17:47 EST NOTE: Serum PSA concentration should not be interpreted as absolute evidence for the presence or absence of malignant disease. Assayed on Siemens ADVIA Centaur XPT using chemiluminescent technology.??Values obtained by using different assay methods cannot be used interchangeably. us Provider Outr Resulting Lab CHEMISTRY & BLOOD GA S ORDERABLES Final Result [facility] [address] [place] [address] documented in this encounter Visit Diagnoses Not on filedocumented in this encounter Additional Health Concerns Infection Onset Date Last Indicated Resolved Time COVID-19 01/05/2021 01/05/2021 02/04/2021 22:1 6 EDT documented as of this encounter Care Teams Print Production Coordinator Relationship Specialty Start Date End Date Maria A Urena MD PCP - General 08/14/15 documented as of this encounter
--- OUTSIDE RECORDS SUMMARY | 2024-10-06 17:17 | XMS_ITS | Encounter Summary ---
Author Organization [facility] Address [address] [place] [address] Care Team Providers Care Geometry Tutor Name Role Phone Unavailable Primary Care Provider Unavailabl e Encounter Details Date Type Department Care Team (Late st Contact Info) Description 03/02/2005 Results Only [facility] [address] [place] [address] Ky Tatum MD [address] [place] [phone] Social History Tobacco Use Types Packs/Day Years Used Date Smoking Tobacco: Never Assessed Sex and Gender Information Value Date Recorded Sex Assigned at Not on file Legal Sex Male 18:35 EST Gender Identity Not on file Sexual Orientation Not on file documented as of this encounter Plan of Treatment Not on file documented as of this encounter Procedures Procedure Name Priority Date/Time Associated Diagnosis Comments SURGICAL PATHOLOGY Routine 03/02/2005 0:00 EDT documented in this encounter Results * SURGICAL PATHOLOGY (03/02/2005 0:00 EDT) Pathology Report: SURGICAL PATHOLOGY REPORT Reports generated via electronic interface contain original data; however they are lacking the format of the original report. Caution should be taken when reading/interpreti ng unformatted reports. Name: ? CHANO WAGNER ? Accession #: ? [id number] ? : ? 1960 (Age: 44) ??M ? Collect Date: ? 03/02/2005 ? Location: ? [facility] ? Receive Date: ? 03/02/2005 ? Provider: KY TATUM MD Copy to: LO MEJIA MD ? Final Pathologic Diagnosis: ? Sinus contents, evacuation: - ??Chronic inflammation. Document reviewed and electronically signed by: JEANNE ZAMORA MD Report ??Date: 03/07/2005 17:29 By the signature above, the attending physician certifies that he/she has personally conducted a gross and/or microscopic examination of the described specimens and rendered or confirmed the above diagnosis. Specimen(s) Received: ? Nasal contents Clinical History: ? Dx: ??Chronic sinusitis Gross Description: ? Received in formalin labelled John Paul and nasal contents is a 1.7 x 1.2 x 0.6 cm aggregate of moreira-pink soft tissue admixed with clotted blood, submitted in toto as (A1) ??(A3). ??(Marcella Tenorio)/[facility] End of Report [facility] 03/02/2005 03/02/2005 15: 27 EDT us Ky Tatum MD PATHOLOGY ORDERABLES Final Resul t [facility] [address] [place] [address] documented in this encounter Visit Diagnoses Not on filedocumented in this encounter
--- OUTSIDE RECORDS SUMMARY | 2024-10-06 17:17 | XMS_ITS | Encounter Summary ---
[place] [address] Care Team Providers Care Candles Pourer Name Role Phone Juliette Hamilton Primary Care Provider [phone]- [phone] Reason for Referral * Diagnostic Test (Routine) - Closed Specialty Diagnoses / Procedures Referred By Contac t Referred To Contact Radiology Diagnoses Alcoholic cirrhosis of liver without ascites Procedures CT Abdomen w Contrast CT Abdomen wwo Contrast Gay Moran MD [facility] [place] [address] [facility] [place] [address] Referral ID Status Reason Start Date Expiration Date V isits Requested Visits Authorized [id number] Closed Specialty Service Requested 05/22/2023 11/22/2024 1 1 Reason for Visit * Diagnostic Test (Routine) - Closed Specialty Diagnoses / Procedures Referred By Contac t Referred To Contact Radiology Diagnoses Alcoholic cirrhosis of liver without ascites Procedures CT Abdomen w Contrast CT Abdomen wwo Contrast Gay Moran MD [facility] [place] [address] [facility] [place] [address] Referral ID Status Reason Start Date Expiration Date V isits Requested Visits Authorized [id number] Closed Specialty Service Requested 05/22/2023 11/22/2024 1 1 Encounter Details Date Type Department Care Team (Latest Contact Info) Description 07/04/2023 11:02 AM EDT - 07/04/2023 11:59 PM EDT Hospital Encounter CT Scan at [facility] [place] [address] [facility] [place] [address] Alcoholic cirrhosis of liver without ascites Discharge Disposition: Home Social History Tobacco Use Types Packs/Day Years [...] on file documented as of this encounter Medications at Time of Discharge Medication Sig Dispensed Refills Start Date End Date Ozempic 1 mg/dose (4 mg/3 mL) Pen Injector Inject 1 mg subcutaneously once a week. 03/08/2023 mirtazapine (REMERON) 30 mg Tablet Take 15 mg by mouth nightly. 07/17/2022 tiotropium bromide (Spiriva Respimat) 1.25 mcg/actuation MistIndications:Moder ate persistent asthma, uncomplicated Inhale 2 puffs into the lungs daily. 12 g 3 01/18/2022 LORazepam (Ativan) 1 mg Tablet Take 1 mg by mouth daily as needed. 07/04/2021 Desvenlafaxine 100 mg Tablet Sustained Release 24 hr Take 100 mg by mouth daily. 03/14/2021 tamsulosin (Flomax) 0.4 mg Capsule Take 0.4 mg by mouth daily. 01/11/2021 fluticasone propion-salmeteroL (ADVAIR HFA) 230-21 mcg/actuation HFA Aerosol InhalerIndications:Mo derate persistent asthma, uncomplicated Inhale 2 puffs into the lungs 2 times daily. 3 Inhaler 3 04/15/2020 Combivent Respimat 20-100 mcg/actuation MistIndications:Moder ate persistent asthma, uncomplicated Inhale 1 puff into the lungs every 6 hours as needed for Wheezing. 1 Inhaler 2 02/16/2020 zolpidem (AMBIEN CR) 12.5 mg Tablet, Multiphasic Release Take 12.5 mg by mouth nightly as needed. 11/19/2018 celecoxib (CELEBREX) 100 mg Capsule Take 100 mg by mouth 2 times daily. 2018 metFORMIN (GLUCOPHAGE-XR) 500 mg Tablet Sustained Release 24 hr Take 1,000 mg by mouth 2 times daily. 12/19/2016 simvastatin (ZOCOR) 20 mg Tablet Take 40 mg by mouth nightly. lamoTRIgine (LAMICTAL) 100 mg tablet Take 200 mg by mouth daily. celecoxib (CeleBREX) 100 mg capsule Take 200 mg by mouth daily. 09/29/2022 08/20/2023 vitamin D 50,000 unit capsule Take 50,000 Units by mouth once a week. 05/04/2023 08/20/2023 omeprazole (PriLOSEC) 20 mg Capsule, Delayed Release(E.C.) Take 20 mg by mouth daily. 01/21/2021 08/20/2023 ARIPiprazole (ABILIFY) 10 mg Tablet Take 10 mg by mouth daily. 12/07/2018 08/20/2023 modafinil (PROVIGIL) 200 mg Tablet Take 200 mg by mouth daily. 11/12/2018 08/20/2023 armodafiniL (NuvigiL) 200 mg Tablet Take 200 mg by mouth daily. 08/20/2023 cetirizine (ZYRTEC) 10 mg Tablet Take 10 mg by mouth daily. Reported on 03/12/2017 08/20/2023 Atomoxetine (Strattera) 80 mg Capsule Take 1 capsule by mouth daily. 08/20/2023 sildenafiL (VIAGRA) 100 mg Tablet Take 100 mg by mouth as needed for Erectile Dysfunction. PRN 08/20/2023 documented as of this encounter Plan of Treatment Not on file documented as of this encounter Procedures Procedure Name Priority Date/Time Associated Diagnosis Comments CT ABDOMEN W CONTRAST Routine 07/04/2023 11:28 AM EDT Alcoholic cirrhosis of liver without ascites documented in this encounter Results * CT Abdomen w Contrast (07/04/2023 11:28 AM EDT) Anatomical Region Laterality Modality Abdomen Computed Tomogra phy Impressions 07/05/2023 8:39 AM EDT 1. ??Hepatic steatosis. 2. ??No abnormality to correspond to lesions seen on prior ultrasound. ??No suspicious hepatic lesions. LI-RADS Categories: LR-TIV = Tumor in vein LR-5 = Definitely hepatocellular carcinoma (concordant with OPTN 5) LR-4 = Probably hepatocellular carcinoma LR-3 = Intermediate probability for hepatocellular carcinoma LR-2 = Probably benign LR-1 = Definitely benign LR-TR Viable = Treated, probably or definitely viable LR-TR Equivocal = Treated, equivocal viable LR-TR Nonviable = Treated, probably or definitely not viable LR-TR Nonevaluable = Treated, Response not evaluable (due to image omission or degradation) LR-M = Probably or definitely malignant but not HCC specific LR-NC = Not categorizable (due to image omission or degradation) NOTE: LI-RADS categories should be interpreted in the context of other available data, such as biomarkers and the patient's prior probability of developing or having hepatocellular carcinoma. The LI-RADS / OPTN classification of liver lesions has been adopted to standardize CT and MRI scan reporting in patients at risk for hepatocellular carcinoma. The imaging criteria for definite hepatocellular carcinoma are concordant for the LI-RADS and OPTN systems. LI-RADS criteria and documentation are available online at https://www.acr.org/Clinical-Resources/Fxcrnqzes-ibt-Vwui-Systems/LI-RADS. This report utilizes LI-RADS version 2018. Thank you for letting us participate in the care of this patient. ??If you are a health care provider and have any questions regarding this report, please contact the number below. ??For patients who have questions please contact the health urgent care physician assistant that requested your imaging first. ? Narrative 07/05/2023 8:39 AM EDT EXAMINATION: CT ABDOMEN W CONTRAST CLINICAL HISTORY: 62-year-old male with indeterminate hepatic lesions. ??Hepatic cirrhosis. ??2 approximately 1 cm nodules on screening ultrasound. ??Elevated AFP. Significant claustrophobia. TECHNIQUE: Helical CT of the abdomen following the intravenous administration of contrast. Administered 120.0 ml of OMNIPAQUE 350.00 mg/ml. Oral contrast was not administered. COMPARISON: Correlation is made to abdominal ultrasound dated May 22, 2023 FINDINGS: Chocolatier Images: Noncontributory. Lower chest: There is mild dependent atelectasis bilaterally. ??There is a a few air-containing cyst at the bilateral lung bases. ??There is mild multifocal atherosclerotic calcification of the coronary arteries. Liver: Prior hepatic interventions: None. Liver Morphology: The liver is diffusely hypoattenuating, consistent with hepatic steatosis. ??There are no focal enhancing hepatic lesions. ??There is no abnormality to correspond to lesions seen on prior sonographic examination. Portal Vein: Patent. Varices: None. Ascites: None. Bile ducts: Normal. Gallbladder: Normal. Pancreas: Normal. Spleen: Normal. Adrenals: Normal. Kidneys: Normal. Vasculature: The aorta is normal in course and caliber. ??There is mild multifocal atherosclerotic calcification of the abdominal aorta and its branch vessels. ??The inferior vena cava is normal in course and caliber. ??The superior mesenteric, splenic, and portal veins are patent. ??The hepatic veins are patent. The renal veins are patent. Lymph Nodes: No pathologically enlarged lymph nodes. Bowel: Limited evaluation the distal esophagus is unremarkable. ??The stomach is partially distended. ??The duodenum is normal in course and caliber. ??The remainder of the visualized small and large bowel are within normal limits. Peritoneum and retroperitoneum: No free fluid or loculated fluid collection. No pneumoperitoneum. No mesenteric inflammation. Abdominal wall: Normal. Osseous structures: There are no suspicious osseous lesions. ??There are mild degenerative changes of visualized spine with endplate sclerosis and osteophyte formation. ??There is a densely sclerotic, 989 Hounsfield unit, lesion within the T9 vertebral body, consistent with a bone island. ??There is a similar sclerotic focus within the L4 vertebral body, also consistent with a bone island. ??There is grade 1 anterolisthesis of L4 and L5. Procedure Note Eran Choe, DO - 07/05/2023 EXAMINATION: CT ABDOMEN W CONTRAST CLINICAL HISTORY: 62-year-old male with indeterminate hepatic lesions.Hepatic cirrhosis. 2 approximately 1 cm nodules on screening ultrasound.Elevated AFP. Significant claustrophobia. TECHNIQUE: Helical CT of the abdomen following the intravenousadministration of contrast. Administered 120.0 ml of OMNIPAQUE 350.00 mg/ml. Oral contrastwas not administered. COMPARISON: Correlation is made to abdominal ultrasound dated May FINDINGS: Chocolatier Images: Noncontributory. Lower chest: There is mild dependent atelectasis bilaterally. There is aa few air-containing cyst at the bilateral lung bases. There is mildmultifocal atherosclerotic calcification of the coronary arteries. Liver: Prior hepatic interventions: None. Liver Morphology: The liver is diffusely hypoattenuating, consistentwith hepatic steatosis. There are no focal enhancing hepatic lesions. Thereis no abnormality to correspond to lesions seen on prior sonographicexamination. Portal Vein: Patent. Varices: None. Ascites: None. Bile ducts: Normal. Gallbladder: Normal. Pancreas: Normal. Spleen: Normal. Adrenals: Normal. Kidneys: Normal. Vasculature: The aorta is normal in course and caliber. There is mild multifocal atherosclerotic calcification of the abdominal aorta and itsbranch vessels. The inferior vena cava is normal in course and caliber. Thesuperior mesenteric, splenic, and portal veins are patent. The hepatic veins arepatent. The renal veins are patent. Lymph Nodes: No pathologically enlarged lymph nodes. Bowel: Limited evaluation the distal esophagus is unremarkable. Thestomach is partially distended. The duodenum is normal in course and caliber. The remainder of the visualized small and large bowel are within normallimits. Peritoneum and retroperitoneum: No free fluid or loculated fluidcollection. No pneumoperitoneum. No mesenteric inflammation. Abdominal wall: Normal. Osseous structures: There are no suspicious osseous lesions. There aremild degenerative changes of visualized spine with endplate sclerosis andosteophyte formation. There is a densely sclerotic, 989 Hounsfield unit, lesionwithin the T9 vertebral body, consistent with a bone island. There is a similarsclerotic focus within the L4 vertebral body, also consistent with a bone island.There is grade 1 anterolisthesis of L4 and L5. IMPRESSION 1. Hepatic steatosis. 2. No abnormality to correspond to lesions seen on prior ultrasound.No suspicious hepatic lesions. LI-RADS Categories: LR-TIV = Tumor in vein LR-5 = Definitely hepatocellular carcinoma (concordant with OPTN 5) LR-4 = Probably hepatocellular carcinoma LR-3 = Intermediate probability for hepatocellular carcinoma LR-2 = Probably benign LR-1 = Definitely benign LR-TR Viable = Treated, probably or definitely viable LR-TR Equivocal = Treated, equivocal viable LR-TR Nonviable = Treated, probably or definitely not viable LR-TR Nonevaluable = Treated, Response not evaluable (due to imageomission or degradation) LR-M = Probably or definitely malignant but not HCC specific LR-NC = Not categorizable (due to image omission or degradation) NOTE: LI-RADS categories should be interpreted in the context of otheravailable data, such as biomarkers and the patient's prior probability of developingor having hepatocellular carcinoma. The LI-RADS / OPTN classification ofliver lesions has been adopted to standardize CT and MRI scan reporting inpatients at risk for hepatocellular carcinoma. The imaging criteria for definite hepatocellular carcinoma are concordant for the LI-RADS and OPTNsystems. LI-RADS criteria and documentation are available online at https://www.acr.org/Clinical-Resources/Paqsurpgy-ynt-Fbev-Systems/LI-RADS.This report utilizes LI-RADS version 2018. Thank you for letting us participate in the care of this patient. If youare a health care provider and have any questions regarding this report,please contact the number below. For patients who have questions please contactthe health urgent care physician assistant that requested your imaging first. Gay Moran MD IMG CT ORDERABLES documented in this encounter Visit Diagnoses Diagnosis Alcoholic cirrhosis of liver without ascites Alcoholic cirrhosis of liver documented in this encounter Administered Medications Inactive Administered Medications - up to 3 most recent administrations Medication Order MAR Action Action Date Dose Rate Site iohexoL (Omnipaque) (350 mg/mL) solution 0-200 mL 0-200 mL, Intravenous, ONCE PRN, 1 dose, Starting on Sun07/04/23 at 1121, Until Sun07/04/23 at 1121, Per Protocol, Warning Vesicant/Irritant Medication , Radiology Contrast, Routine Given 07/04/2023 11:21 AM EDT 120 mLs documented in this encounter Care Teams Candles Pourer Relationship Specialty Start Date End Date Juliette Hamilton PA [address] [place] [address] PCP - General Family Medicine 02/07/21 documented as of this encounter
--- OUTSIDE RECORDS SUMMARY | 2024-10-06 17:17 | XMS_ITS | Encounter Summary ---
[place] [address] Care Team Providers Care Coconut Boiler Name Role Phone Juliette Hamilton Primary Care Provider +1- [phone] Reason for Visit * Reason Onset Date Comments Appointment 11/21/2023 US/Abdomen Encounter Details Date Type Department Care Team ([facility] Contact Info) Description 11/21/2023 [place] [id number] Yin Mendez RN Appointment (US/Abdomen) Social History Tobacco Use Types Packs/Day Years [...] encounter Miscellaneous Notes * Telephone Encounter - Yin Mendez RN - 11/21/2023 12:51 PM EST Reached out to patient to schedule Ultra Sound/Abdomen ([facility]) Unique Edwards APRN ordered 07/06/23 to be completed 12/2023 Spoke with patient and he was transferred to Radiology/US to schedule the above imaging documented in this encounter Plan of Treatment Not on file documented as of this encounter Visit Diagnoses Not on filedocumented in this encounter Care Teams Coconut Boiler Relationship Specialty Start Date End Date Juliette Hamilton PA [address] [place] [address] PCP - General Family Medicine 02/07/21 documented as of this encounter
--- OUTSIDE RECORDS SUMMARY | 2024-10-06 17:17 | XMS_ITS | Continuity of Care Document ---
Author Organization [facility] Ambulatory Clinics Address [address] [place] [address] Care Team Providers Care Client Services Coordinator Name Role Phone LONA HOROWITZ PA-C Primary Care Andres betsey Encounter [facility] NBR [id number] Date(s): 10/22/23 - 10/22/23 [facility] Ambulatory Clinics [address] [place], [place] [address] Encounter Diagnosis Erectile dysfunction(Discharge Diagnosis) - 10/22/23 Discharge Disposition: Home or Self Care Attending Physician: Brandy Jones MD Allergies, Adverse Reactions, Alerts Substance Reaction Severity Status Lipitor Unknown Active PROzac Unknown Active Assessment and Plan Future Appointments Medications Advair Diskus 100 mcg-50 mcg inhalation powder 0 Refill(s) Start Date: 08/24/23 Status: Ordered celecoxib 100 mg oral capsule 0 Refill(s) Start Date: 08/24/23 Status: Ordered Combivent Respimat CFC free 20 mcg-100 mcg/inh inhalation aerosol 1 puffs, Inhale, QID, # 4 g, 0 Refill(s) Start Date: 08/24/23 Status: Ordered DuoNeb 0 Refill(s) Start Date: 08/24/23 Status: Ordered metFORMIN 500 mg oral tablet 500 mg = 1 tab, Oral, BID, # 180 tab, 0 Refill(s) Start Date: 08/24/23 Status: Ordered modafinil 200 mg oral tablet 0 Refill(s) Start Date: 08/24/23 Status: Ordered simvastatin 20 mg oral tablet 0 Refill(s) Start Date: 08/24/23 Status: Ordered Strattera 80 mg oral capsule 80 mg = 1 cap, Oral, every morning, # 30 cap, 0 Refill(s) Start Date: 08/24/23 Status: Ordered traZODone 100 mg oral tablet 0 Refill(s) Start Date: 08/24/23 Status: Ordered zolpidem 6.25 mg oral tablet, extended release 0 Refill(s) Start Date: 08/24/23 Status: Ordered ZyrTEC 10 mg oral tablet 0 Refill(s) Start Date: 08/24/23 Status: Ordered Problem List Condition Confirmation Course Effective Dates Status Health St atus Informant Erectile dysfunction Confirmed Active Peyronie's disease Confirmed Active 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 Procedures Procedure Date Related Diagnosis Body Site Status Tonsillectomy Completed Vital Signs Most recent to oldest [Reference Range]: 1 Temperature Temporal Artery [36-38 Deg C ] 36.7 Deg C (10/22/23 8:40 AM) Peripheral Pulse Rate [60-100 bpm] 80 bp m (10/22/23 8:40 AM) Blood Pressure [90-140/60-90 mmHg] 154/8 2mmHg *HI* (10/22/23 8:40 AM) Mean Arterial Pressure, Cuff [70-110 mmH g] 106 mmHg (10/22/23 8:40 AM) Weight 117.93 kg (10/22/23 8:40 AM) Weight Measured (lbs) 259.991 lb (10/22/23 8:40 AM) Weight Dosing 117.930 kg (10/22/23 8:40 AM) [place] Body Weight Calculated 73.181 kg (10/22/23 8:40 AM) Height 178 cm (10/22/23 8:40 AM) Height/Length Measured (inches) 70.08 in ch (10/22/23 8:40 AM) BSA Measured 2.41 m2 (10/22/23 8:40 AM) Body Mass Index 37.22 kg/m2 (10/22/23 8:40 AM) Social History Social History Type Response Tobacco Former tobacco user Tobacco Use:. 3 PPD per day. Sex Physician Outpatient Note * Brandy Jones MD: PERFORM Event Display: Office Clinic Note Physician Authored Date: [id number] LEENA WAGNER :1960 Age:62 years Sex:Male Visit Date:10/22/2023 Primary Care Physician: LONA HOROWITZ PA-C History of Present Illness Mr. Wagner is a pleasant 62 ??year-old man who presents today for follow-up of ED in the context of Peyronie's disease.? He first noticed the curvature??over a year ago.?He thinks the curvature has stabilized, and it does not cause him or his partner any pain or difficulties with intercourse.?? He does not recall any inciting trauma.? He was last seen on this in February 2022. ?? The curvature is to the left, and measures about 20 degrees. He denies penile pain, and the curvature does not cause his partner any discomfort during intercourse.? He has also had ED for years, and feels it has gotten much worse over the last year. He has been using Viagra for the past 11 years, but states that it no longer works for him.? He has not had a morning erection in years.? He has not noticed much change in his libido; he feels his sexual desire is normal.? He currently only ever gets a partial erection that is not adequate for intercourse. ?? He also complains of anorgasmia. He has not been able to orgasm for years, and is not sure why thisis the case because he does feel adequately aroused. He is not sure if the issue related to losing the erection prior to orgasm. ?? He has minimal LUTS. He denies nocturia. He voids about every 3h while awake.? He has occasionalurinary urgency. He has a fairly strong stream, and never strains to void.? He takes tamsulosin,and finds it??fairly helpful.?? He denies gross hematuria. He has never had urolithiasis.?? He denies dysuria, denies SP pain. ?? His co-morbidities include DMII, cardiomyopathy, covid-induced asthma, and SHANI. Physical Exam Vitals & Measurements T:??36.7?C ??(Temporal Artery)?? HR:??80??(Peripheral)?? BP:??154/82?? SpO2:??91%?? HT:??178??cm?? WT:??117.93??kg?? BMI:??37.22?? BSA:??2.41?? GENERAL APPEARANCE:??alert and oriented in NAD; appropriate with good affect.??.?? NEURO:??grossly intact.?? HEENT:??NCAT; EOMI.?? NECK:??supple.?? CHEST:??symmetric excursions.?? ABDOMEN:??soft, NT, ND.?? MUSCULOSKELETAL:??good gait and station.?? EXTREMITIES:??no c/c/e??.?? BACK/SPINE:??no CVAT.?? :??deferred. Assessment/Plan ASSESSMENT:?? Mr. Wagner is a pleasant 62 year-old man with ED that is no longer responding to oral medication. He also has mild Peyronie's disease. We discussed both intracavernosal injection therapy for ED, as well as IPP placement.?? He would like to trial Trimix. ?? PLAN: 1. He will follow up for Trimix teaching. 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 Erectile dysfunction Peyronie's disease Historical No qualifying data Procedure/Surgical History ???Tonsillectomy Medications Advair Diskus 100 mcg-50 mcg inhalation powder celecoxib 100 mg oral capsule Combivent Respimat CFC free 20 mcg-100 mcg/inh inhalation aerosol, 1 puffs, Inhale, QID DuoNeb metFORMIN 500 mg oral tablet, 500 mg= 1 tab, Oral, BID modafinil 200 mg oral tablet simvastatin 20 mg oral tablet Strattera 80 mg oral capsule, 80 mg= 1 cap, Oral, every morning traZODone 100 mg oral tablet zolpidem 6.25 mg oral tablet, extended release ZyrTEC 10 mg oral tablet Allergies Lipitor PROzac Social History Alcohol Current, Beer, Daily Electronic Cigarette/Vaping Electronic Cigarette Use: Never. Tobacco Former tobacco user Tobacco Use:. 3 PPD per day. Family History Cancer: Father. Diabetes mellitus: Mother. Hypertension: Mother. Electronically Signed on 10/22/23 09:12 AM Brandy Jones MD Patient Care team information Care Team Personnel Name: CARLOS MANUEL CAREY, LONA CARREON Position: No Access Member Role: Primary Care Physician Address: Address: [address] Care Team Related Persons Name: HUMBERTO WAGNER
--- OUTSIDE RECORDS SUMMARY | 2024-10-06 17:17 | XMS_ITS | Encounter Summary ---
Author Organization [facility] Address [address] [place] [address] Care Team Providers Care Community Fundraiser Name Role Phone Maria A Urena MD Primary Care Provider [phone] Encounter Details Date Type Department Care Team ([facility] st Contact Info) Description 01/05/2021 Lab Requisition [facility] Pathology & Laboratory Medicine - [address] [address] Outr Resulting Lab, Provider Social History Tobacco [...] Procedure Name Priority Date/Time Associated Diagnosis Comments ZZCOVID-19 TEST [facility] PCR Today 01/05/2021 8:30 EDT COVID-19 TESTING Routine 01/05/2021 8:30 EDT documented in this encounter Results * COVID-19 TEST [facility] PCR (01/05/2021 8:30 EDT) Swab ENTIRE NASOPHARYNX / Unknown 01/05/2021 8:30 EDT 01/05/2021 21:51 EDT us Provider Outr Resulting Lab MICROBIOLOGY - GENER AL ORDERABLES Final Result [facility] [address] [place] [address] * (ABNORMAL) COVID-19 TESTING (01/05/2021 8:30 EDT) COVID-19 rt-PCR Result Positive( AA) Negative 01/06/2021 13:13 EDT [facility] Comment: This test has not been FDA cleared or approved. This test has been authorized by FDA under an EUA for use by authorized laboratories. This test has been authorized only for detection of nucleic acid from 2019-nCoV, not for any other viruses or pathogens. This test is only authorized for the duration of the declaration that circumstances exist justifying the authorization of emergency use of in vitro diagnostic tests for detection and/or diagnosis of 2019-nCoV under section 564(b)(1) of Act, 21 U.S.C ?? 360bbb-3(b) (1), unless the authorization is terminated or revoked sooner. Testing was performed using the tyler SARS-CoV-2 assay ([employer] on the Tyler 6800 System Performing Lab [facility] [address] [facility] 01/06/2021 13:13 EDT [facility] Swab 01/05/2021 8:30 EDT 01/05/2021 21:51 EDT us Provider Outr Resulting Lab MICROBIOLOGY - GENER AL ORDERABLES Final Result [facility] [address] [place] [address] documented in this encounter Visit Diagnoses Not on filedocumented in this encounter Additional Health Concerns Infection Onset Date Last Indicated Resolved Time COVID-19 01/05/2021 01/05/2021 02/04/2021 22:1 6 EDT documented as of this encounter Care Teams Community Fundraiser Relationship Specialty Start Date End Date Maria A Urena MD PCP - General 08/14/15 documented as of this encounter
--- OUTSIDE RECORDS SUMMARY | 2024-10-06 17:17 | XMS_ITS | Encounter Summary ---
Author Organization [facility] Address [address] [place] [address] Care Team Providers Care Machines Technician Name Role Phone Maria A Urena MD Primary Care Provider Encounter Details Date Type Department Care Team (Late st Contact Info) Description 03/12/2020 Lab Requisition [facility] Pathology & Laboratory Medicine - [address] [address] Baljeet Vuong MD [address] [place] [id number] Encounter for screening for malignant neoplasm of colon Social History Tobacco Use Types Packs/Day Years [...] Priority Date/Time Associated Diagnosis Comments SURGICAL PATHOLOGY Today 03/12/2020 10 :23 EDT Encounter for screening for malignant neoplasm of colon documented in this encounter Results * SURGICAL PATHOLOGY (03/12/2020 10:23 EDT) Final Diagnosis A. COLON, TRANSVERSE, POLYP, BIOPSY: - Tubular adenoma. B. COLON, PROXIMAL ASCENDING, POLYP, BIOPSY: - Fragments of tubular adenoma. C. COLON, DISTAL ASCENDING, POLYP, BIOPSY: - Tubular adenoma. D. COLON, MID TRANSVERSE, POLYP, BIOPSY: - Fragments of tubular adenoma. E. COLON, PROXIMAL DESCENDING, POLYP, BIOPSY: - Tubular adenoma. 03/15/2020 12:27 [facility] at 1227 Attestation By the signature below, the attending physician certifies that they have 1) personally conducted a gross and/or microscopic examination of the described specimen(s), and/or personally interpreted the results of laboratory testing of the described specimen(s), and 2) personally rendered or confirmed the above diagnosis. 03/15/2020 12:27 [facility] at 1227 Clinical History Abdominal pain 03/15/2020 12:27 [facility] Gross Description A. Received in formalin labelled with proper patient identification (initials R, G) and A. Transverse colon polyp is a single moreira tissue (0.4 x 0.3 x 0.3 cm). Submitted intact in A1. B. Received in formalin labelled with proper patient identification (initials R, G) and B. Proximal ascending colon polyp is several firm pale moreira focally moreira pieces of tissue (0.8 x 0.8 x 0.2 cm). Submitted intact in B1. C. Received in formalin labelled with proper patient identification (initials R, G) and C. Distal ascending colon polyp are three moreira focally dark moreira tissues (0.4 x 0.2 x 0.2 cm to 0.2 x 0.1 x 0.1 cm). Entirely submitted in C1. D. Received in formalin labelled with proper patient identification (initials R, G) and D. Mid transverse colon polyp are four moreira tissues (0.5 x 0.4 x 0.3 cm to 0.2 x 0.1 x 0.1 cm). Entirely submitted in D1-D2. E. Received in formalin labelled with proper patient identification (initials R, G) and E. Proximal descending colon polyp are two moreira tissues (0.3 x 0.2 x 0.2 cm and 0.2 x 0.2 x 0.1 cm). Entirely submitted in E1. Roland Motta 03/13/2020 8:05 03/15/2020 12:27 [facility] Scanned Images 03/15/2020 12:27 [facility] Tissue DESCENDING COLON STRUCTURE / Unknown 03/12/2020 10:23 EDT 03/12/2020 16:56 EDT Tissue specimen (specimen) ASCENDING COLON STRUCTURE / Unknown 03/12/2020 10:23 EDT 03/12/2020 16:56 EDT Tissue specimen (specimen) ASCENDING COLON STRUCTURE / Unknown 03/12/2020 10:23 EDT 03/12/2020 16:56 EDT Tissue specimen (specimen) TRANSVERSE COLON STRUCTURE / Unknown 03/12/2020 10:23 EDT 03/12/2020 16:56 EDT Tissue specimen (specimen) DESCENDING COLON STRUCTURE / Unknown 03/12/2020 10:23 EDT 03/12/2020 16:56 EDT us Baljeet Vuong MD PATHOLOGY ORDERABLES Final Result [facility] [address] [place] [address] documented in this encounter Visit Diagnoses Diagnosis Encounter for screening for malignant neoplasm of colon Special screening for malignant neoplasms, colon documented in this encounter Additional Health Concerns Infection Onset Date Last Indicated Resolved Time COVID-19 01/05/2021 01/05/2021 02/04/2021 22:1 6 EDT documented as of this encounter Care Teams Machines Technician Relationship Specialty Start Date End Date Maria A Urena MD PCP - General 08/14/15 documented as of this encounter
--- OUTSIDE RECORDS SUMMARY | 2024-10-06 17:17 | XMS_ITS | Encounter Summary ---
Author Organization [facility] [place] [place] [address] Care Team Providers Care Mailer Name Role Phone Juliette Hamilton Primary Care Provider [phone] Encounter Details Date Type Department Care Team (Late st Contact Info) Description 08/15/2024 Orders [place] [address] [facility] [place] [address] Hepatic cirrhosis, unspecified hepatic cirrhosis type, unspecified whether ascites present Social History Tobacco Use Types Packs/Day Years [...] as of this encounter Plan of Treatment Scheduled Orders Name Type Priority Associated Diagnoses Orde r Schedule US Abdomen Limited Hepatology Protocol Imaging Routine Hepatic cirrhosis, unspecified hepatic cirrhosis type, unspecified whether ascites present Expected: 08/15/2024, Expires: 02/14/2025 Comprehensive metabolic panel Non-fasting Lab Routine Hepatic cirrhosis, unspecified hepatic cirrhosis type, unspecified whether ascites present Expected: 08/15/2024 (Approximate), Expires: 08/15/2025 CBC (with Diff) Lab Routine Hepatic cirrhosis, unspecified hepatic cirrhosis type, unspecified whether ascites present Expected: 08/15/2024 (Approximate), Expires: 08/15/2025 Prothrombin Time Lab Routine Hepatic cirrhosis, unspecified hepatic cirrhosis type, unspecified whether ascites present Expected: 08/15/2024 (Approximate), Expires: 08/15/2025 AFP tumor marker Lab Routine Hepatic cirrhosis, unspecified hepatic cirrhosis type, unspecified whether ascites present Expected: 08/15/2024 (Approximate), Expires: 02/14/2025 documented as of this encounter Visit Diagnoses Diagnosis Hepatic cirrhosis, unspecified hepatic cirrhosis type, unspecified whether ascites present documented in this encounter Care Teams Mailer Relationship Specialty Start Date End Date Juliette Hamilton PA [address] [place] [address] PCP - General Family Medicine 02/07/21 documented as of this encounter
--- OUTSIDE RECORDS SUMMARY | 2024-10-06 17:17 | XMS_ITS | Continuity of Care Document ---
Author Organization [facility] Address [address] [place] [address] Care Team Providers Care Senior Risk Manager Name Role Phone LONA HOROWITZ PA-C Primary Care Andres betsey Encounter [facility] FIN NBR [id number] Date(s): 05/12/24 - 05/12/24 [facility] [address] [place], [place] [address] Discharge Disposition: Home Allergies, Adverse Reactions, Alerts Substance Reaction Severity Status atorvastatin Unknown Unknown Active Lipitor Unknown Active PROzac Unknown Active Assessment and Plan Future Appointments Future Scheduled Tests Radiology* MRI Spine Lumbar w/o Contrast 05/09/24 Medications Advair Diskus 100 mcg-50 mcg inhalation [...] Related Diagnosis Body Site Status Tonsillectomy Completed Social History Social History Type Response Tobacco Former tobacco user Tobacco Use:. 3 PPD per day. Sex Patient Care team information Care Team Personnel Name: LONA HOROWITZ PA-C Position: No Access Member Role: Primary Care Physician Address: Address: [address] Care Team Related Persons Name: HUMBERTO WAGNER
--- OUTSIDE RECORDS SUMMARY | 2024-10-06 17:17 | XMS_ITS | Encounter Summary ---
Author Organization [facility] Address [facility] [place] [address] Care Team Providers Care Sculpture Instructor Name Role Phone Juliette Hamilton Primary Care Provider [phone] Encounter Details Date Type Department Care Team (Late st Contact Info) Description 09/29/2024 [place] [address] Makayla Collier RN Social History [...] Telephone Encounter - Makayla Collier RN - 09/29/2024 10:30 AM EST Reaching out to assist patient in scheduling the US (Abdomen Limited Hepatology Protocol) ordered on 08/15/24 by NP. Edwards. The patient stated that he is driving, therefore not a good time to schedule. He said that he doesn't use the [facility] portal. Asked pt to call the GI clinic to coordinate imaging, labs, f/u visit. documented in this encounter Plan of Treatment Not on file documented as of this encounter Visit Diagnoses Not on filedocumented in this encounter Care Teams Sculpture Instructor Relationship Specialty Start Date End Date Juliette Hamilton PA [address] [place] [address] PCP - General Family Medicine 02/07/21 documented as of this encounter
--- OUTSIDE RECORDS SUMMARY | 2024-10-06 17:17 | XMS_ITS | Clinical Summary ---
Author Organization [facility] Address [facility] [place] [address] Care Team Providers Care Computer Video Game Designer Name Role Phone Juliette Hamilton Primary Care Provider [phone]- [phone] Allergies Active Allergy Reactions Criticality Noted Date Comments House Dust Mite 02/11/2021 Medications Medication Sig Dispensed Refills Start Date End Date Status lamoTRIgine (LAMICTAL) 100 mg tablet Take 200 mg by mouth daily. Active simvastatin (ZOCOR) 20 mg Tablet Take 40 mg by mouth nightly. Active metFORMIN (GLUCOPHAGE-XR) 500 mg Tablet Sustained Release 24 hr Take 1,000 mg by mouth 2 times daily. 12/19/2016 Active zolpidem (AMBIEN CR) 12.5 mg Tablet, Multiphasic Release Take 12.5 mg by mouth nightly as needed. 11/19/2018 Active celecoxib (CELEBREX) 100 mg Capsule Take 100 mg by mouth 2 times daily. 2018 Active Combivent Respimat 20-100 mcg/actuation MistIndications:Mod erate persistent asthma, uncomplicated Inhale 1 puff into the lungs every 6 hours as needed for Wheezing. 1 Inhaler 2 02/16/2020 Active fluticasone propion-salmeteroL (ADVAIR HFA) 230-21 mcg/actuation HFA Aerosol InhalerIndications: Moderate persistent asthma, uncomplicated Inhale 2 puffs into the lungs 2 times daily. 3 Inhaler 3 04/15/2020 Active Desvenlafaxine 100 mg Tablet Sustained Release 24 hr Take 100 mg by mouth daily. 03/14/2021 Active tamsulosin (Flomax) 0.4 mg Capsule Take 0.4 mg by mouth daily. 01/11/2021 Active LORazepam (Ativan) 1 mg Tablet Take 1 mg by mouth daily as needed. 07/04/2021 Active tiotropium bromide (Spiriva Respimat) 1.25 mcg/actuation MistIndications:Mod erate persistent asthma, uncomplicated Inhale 2 puffs into the lungs daily. 12 g 3 01/18/2022 Active mirtazapine (REMERON) 30 mg Tablet Take 15 mg by mouth nightly. 07/17/2022 Active Vraylar 1.5 mg capsule Take 1.5 mg by mouth daily. 08/14/2023 Active Ozempic 1 mg/dose (4 mg/3 mL) Pen Injector Inject 1 mg subcutaneously once a week. 03/08/2023 Active lisinopriL (Zestril) 20 mg tablet Take 20 mg by mouth daily. Active traMADoL (Ultram) 50 mg tablet Take 50 mg by mouth every 6 hours as needed. 10/18/2023 Active cyclobenzaprine (Flexeril) 10 mg tablet 10/18/2023 Active Active Problems Patient Care Coordination No te Formatting of this note migh t be different from the original. 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 Seen in f/u 07/2010 and continued to have insufficient sleep (7 hours) but symptoms improved as on dextroamphetamine. Encounters Date Type Department Care Team Description 10/06/2024 [place] [address] Makayla Collier RN 09/29/2024 [place] [address] Makayla Collier RN 09/05/2024 [place] [address] Angela Marquez 08/15/2024 Orders [place] [address] Unique Edwards APRN Hepatic cirrhosis, unspecified hepatic cirrhosis type, unspecified whether ascites present from Last 3 Months Immunizations Name Administration Dates Next Due Influenza Quadrivalent, Preservative Free 2021 Pneumococcal 23-Valent Polysaccharide (Pneumovax 23) 05/16/2004 Family History Medical History Relation Comments Chronic Obstructive Pulmonary Disease Mother Rheumatologic Disease Mother Relation Status Comments Mother Social History Tobacco Use Types Packs/Day Years Used Date Smoking Tobacco: Former Cigarettes 3 10 0 12/21/1977 - 12/22/1987 Smokeless Tobacco: Never Tobacco Cessation:Counseling Given: Not Answered Alcohol Use Standard Drinks/Week Comments Yes 0 (1 standard drink = 0.6 oz pur e alcohol) rarely Sex and Gender Information Value Date Recorded Sex Assigned at Not on file Gender Identity Not on file Sexual Orientation Not on file Last Filed Vital Signs Vital Sign Reading Time Taken Comments Blood Pressure 138/71 10/29/2023 9:58 AM EST Pulse 84 10/29/2023 9:58 AM EST Temperature 35.9 ??C (96.6 ??F) 10/29/2023 9:58 AM ES T Respiratory Rate 16 10/29/2023 9:58 AM EST Oxygen Saturation 90% 10/29/2023 9:58 AM EST Inhaled Oxygen Concentration - - Weight 117.9 kg (260 lb) 10/29/2023 9:58 AM EST Height 172.7 cm (5' 8) 10/29/2023 9:58 AM EST Body Mass Index 39.53 10/29/2023 9:58 AM EST Plan of Treatment Health Maintenance Due Date Last Done Comments CT Colonography 1960 FIT DNA 1960 FIT 1960 Sigmoidoscopy 1960 Tetanus/Diphtheria/Pertussis Vaccines (1 - Tdap) 1977 Pneumoccocal Vaccine: 65+ (2 of 2 - PCV) 05/16/2005 05/16/2004 Zoster vaccine (1 of 2) 2008 Advance Directive 2013 RSV Vaccine (1 - Risk 60-74 years 1-dose series) 2018 AAA Screen 12/25/2023 Covid-19 Vaccine (1 - 2023- season) 2024 Influenza (Flu) vaccine (1 o f 1 - Influenza standard series) 06/08/2024 06/26/2022 Diabetes Screening (HgbA1C o r Glucose) 05/22/2026 05/22/2023, 05/19/2022, 04/01/2021 Colonoscopy 08/28/2032 08/28/2022, 08/28/2022 Colorectal Cancer Screening 08/28/2032 Sigmoidoscopy (10 year) with FIT yearly 08/28/2032 08/28/2022, 08/28/2022 HIV screen Completed 05/19/2022 Hepatitis C Screening Completed 05/19/2022 Procedures Procedure Name Priority Date/Time Associated Diagnosis Comments COMPREHENSIVE METABOLIC PANEL Routine 05/22/2023 11:26 AM EDT Alcoholic cirrhosis of liver without ascites COLONOSCOPY Routine 08/28/2022 11:11 AM EST HC HIV SCREEN, 4TH GENERATION Routine 05/19/2022 10:13 AM EDT Elevated liver enzymes HC HEPATITIS C ANTIBODY Routine 05/19/2022 10:13 AM EDT Elevated liver enzymes from Last 3 Months or Most Recently Relevant to Health Maintenance Results * (ABNORMAL) Comprehensive metabolic panel (non-fasting) (05/22/2023 11:26 AM EDT) Glucose 174 65 - 199 mg/dL [facility] Comment:Diabetes: >=200 mg/d L plus symptoms Blood Urea Nitrogen 7(L) 10 - 20 mg/dL [facility] Creatinine 0.88 0.80 - 1.50 mg/dL [facility] Sodium 141 135 - 145 mmol/L [facility] Potassium 4.2 3.5 - 5.0 mmol/L [facility] Comment: Please note: ??Patients with WBC >100,000 may have falsely elevated Potassium levels. ??For accurate Potassium quantification in these patients send serum separator tube (gold top) for subsequent determinations. ??Contact the Clinical Chemistry Laboratory if there are any questions. Chloride 104 98 - 107 mmol/L [facility] Carbon Dioxide 24 22 - 31 mmol/L [facility] Anion Gap 13 5 - 15 mmol/L [facility] Calcium 9.6 8.5 - 10.5 mg/dL [facility] Protein, Total 7.6 6.1 - 8.0 g/dL [facility] Albumin 4.3 3.2 - 5.2 g/dL [facility] Aspartate Aminotransferase 117(H) 0 - 39 unit/L [facility] Alanine Aminotransferase 146(H) 0 - 55 unit/L [facility] Alkaline Phosphatase 72 40 - 130 unit/L [facility] Bilirubin, Total 1.4(H) 0.2 - 1.3 mg/dL [facility] Est Glomerular Filtration Rate 96 >=60 mL/min/1. 73 m?? [facility] Comment: This patient's estimated GFR was calculated using the 2020 CKD-EPI equation. The estimated GFR can vary from the measured GFR by up to 30% in the absence of rapidly changing kidney function. Assessment of the estimated GFR is not appropriate when creatinine concentrations are rapidly changing. For clinical situations in which a more precise estimate of GFR is necessary, consider alternative methods of GFR estimation such as a 24-hour urine creatinine clearance. Assignment of CKD stage 1-5 for patients with an eGFR near the transition point between stages may be based on clinical assessment of muscle mass and symptoms in addition to eGFR. Blood 05/22/2023 11:2 6 AM EDT 05/22/2023 11:46 AM EDT Narrative Resulting Agency Comment Spec In Lab Gay Moran MD CHEMISTRY ORDERABLES [facility] [place] [address] * COLONOSCOPY (08/28/2022 11:11 AM EST) [facility] COLONOSCOPY [facility] Procedure Date: 08/28/2022 11:11 AM ? Patient Name: Chano Coker ? Date of : 1960 ? Age: 61 ? Order #: [id number] ? Instrument Name: [id number] ? Procedure: ? Colonoscopy Indications: ? High risk colon cancer ? surveillance: Personal history of ? colonic polyps Providers: ? Breezy Saldivar MD, Dash Hodges ? Nancy Hobbs, ? High School Teacher Referring : ?MORGAN Sparks Medicines: ? Monitored Anesthesia Care Complications: ? No immediate complications. Procedure: ? Pre-Anesthesia Assessment: ? - Prior to the procedure, a History ? and Physical was performed, and ? patient medications and allergies ? were reviewed. The patient is ? competent. The risks and benefits ? of the procedure and the sedation ? options and risks were discussed ? with the patient. All questions ? were answered and informed consent ? was obtained. Patient ? identification and proposed ? procedure were verified by the ? physician in the pre-procedure ? area. Mental Status Examination: ? alert and oriented. Airway ? Examination: normal oropharyngeal ? airway and neck mobility. ? Respiratory Examination: clear to ? auscultation. CV Examination: ? normal. Prophylactic Antibiotics: ? The patient does not require ? prophylactic antibiotics. Prior ? Anticoagulants: The patient has ? taken no anticoagulant or ? antiplatelet agents. ASA Grade ? Assessment: III - A patient with ? severe systemic disease. After ? reviewing the risks and benefits, ? the patient was deemed in ? satisfactory condition to undergo ? the procedure. The anesthesia plan ? was to use monitored anesthesia ? care (MAC). Immediately prior to ? administration of medications, the ? patient was re-assessed for ? adequacy to receive sedatives. The ? heart rate, respiratory rate, ? oxygen saturations, blood pressure, ? adequacy of pulmonary ventilation, ? and response to care were monitored ? throughout the procedure. The ? physical status of the patient was ? re-assessed after the procedure. ? The procedure, indications, ? benefits, risks and alternatives ? were explained to the patient. ? Specifically discussed were ? potential complications including, ? but not limited to, bleeding, ? perforation, infection, missing a ? cancer, and adverse medication ? reactions. The patient was placed ? in the left lateral decubitus ? position, and a digital rectal exam ? was performed. The Colonoscope was ? inserted in the anus and under ? direct visualization, advanced to ? the cecum, identified by ? appendiceal orifice and ileocecal ? valve. Careful inspection was made ? as the colonoscope was withdrawn. ? The colonoscopy was performed ? without difficulty. The patient ? tolerated the procedure well. The ? quality of the bowel preparation ? was good. ? Findings: ? The perianal and digital rectal examinations were ? normal. ? Four sessile polyps were found in the sigmoid colon ? and transverse colon. The polyps were 3 to 4 mm in ? size. These polyps were removed with a cold snare. ? Resection and retrieval were complete. 3 polyps in ? transverse (one jar) and one in sigmoid (one jar) ? Moderate Sedation: ? Not applicable - See Anesthesia documentation Impression: ?- Four 3 to 4 mm polyps in the ? sigmoid colon and in the transverse ? colon, removed with a cold snare. ? Resected and retrieved. Recommendation: ?- Await pathology results ? Attending Participation: ? I personally performed the entire procedure. ? ___ Breezy Saldivar MD 08/28/2022 11:52:57 AM This report has been signed electronically. Number of Addenda: 0 Note Initiated On: 08/28/2022 11:11 AM PROVATION 08/28/2022 11:1 1 AM EST Unknown GENERAL SURGICAL ORD ERABLES Performing Organization Address City/[facility]/ZIP Co de Phone Number PROVATION * Hepatitis C Antibody (05/19/2022 10:13 AM EDT) Hepatitis C Antibody Negative Negative [facility] Blood 05/19/2022 10:1 3 AM EDT 05/19/2022 10:20 AM EDT Narrative Resulting Agency Comment Spec In Lab Gay Moran MD CHEMISTRY ORDERABLES [facility] [place] [address] * HIV Screen, 4th Generation (MC/CGP/APD/NLH) (05/19/2022 10:13 AM EDT) HIV Ab/Ag Screen Negative Negative [facility] Comment: This 4th Generation HIV test screens for the presence of the HIV-1 p24 antigen as well as antibodies reactive against HIV-1 and HIV-2. A negative screen does not rule out an acute HIV infection. If acute HIV infection is suspected, testing should be repeated in 2 - 3 weeks or HIV nucleic acid testing performed. HIV Comment Low Risk of HIV Infection [facility] Blood 05/19/2022 10:1 3 AM EDT 05/19/2022 10:20 AM EDT Narrative Resulting Agency Comment Spec In Lab Gay Moran MD CHEMISTRY ORDERABLES [facility] [place] [address] from Last 3 Months or Most Recently Relevant to Health Maintenance Care Teams Computer Video Game Designer Relationship Specialty Start Date End Date Juliette Hamilton PA [address] [place], [place] [address] PCP - General Family Medicine 02/07/21
--- OUTSIDE RECORDS SUMMARY | 2024-10-06 17:17 | XMS_ITS | Continuity of Care Document ---
Author Organization [facility] Address [address] [place] [address] Care Team Providers Care Teamsite Developer Name Role Phone LONA HOROWITZ PA-C Primary Care Andres leggett Encounter [facility] NBR [id number] Date(s): 08/22/23 - 08/22/23 [facility] [address] [place] [address]- [place] Discharge Disposition: Home or Self Care Attending Physician: LONA HOROWITZ PA-C Admitting Physician: LONA HOROWITZ PA-C Referring Physician: LONA HOROWITZ PA-C Assessment and Plan Future Appointments Results Radiology Reports * Exam Date Time Procedure Performing Provider Status 08/22/23 9:53 AM XR Spine Lumbosacral 2 or 3 Views Harrison Carranza (Verified) Notes: (XR Spine Lumbosacral 2 or 3 Views) Reason For Exam: BACK PAIN XR Spine Lumbosacral 2 or 3 Views EXAM DESCRIPTION: XR Spine Lumbosacral 2 or 3 Views 08/22/2023 INDICATION: BACK PAIN COMPARISON: 05/16/2021 IMPRESSION: No acute fracture. Grade 1 anterolisthesis at L4-5 with mild retrolisthesis at L2-3 and L3-4. Mild dextroscoliosis Spondylotic changes in the mid-lower lumbar region as well as in the visualized lower thoracic spine with intervertebral disc space narrowing and endplate osteophyte formation SI joints appear symmetric Regional vascular calcification. JOB #: [id number] Final Signed by: Manny Knight MD Signed (Electronic Signature): 08/22/2023 9:57 am Patient Care team information Care Team Personnel Name: LONA HOROWITZ PA-C Position: No Access Member Role: Primary Care Physician Address: Address: [place] [address] [address] [place] [address]- Care Team Related Persons Name: HUMBERTO WAGNER
--- OUTSIDE RECORDS SUMMARY | 2024-10-06 17:17 | XMS_ITS | Encounter Summary ---
Author Organization [facility] [place] [address] Care Team Providers Care Director Of Instruction Name Role Phone Juliette Hamilton Primary Care Provider +1- [phone] Encounter Details Date Type Department Care Team (Latest Contact Info) Description 01/04/2024 Travel Social History Tobacco Use Types Packs/Day Years [...] on filedocumented in this encounter Care Teams Director Of Instruction Relationship Specialty Start Date End Date Juliette Hamilton PA [address] [place], [place] [address] PCP - General Family Medicine 02/07/21 documented as of this encounter
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
--- OUTSIDE RECORDS SUMMARY | 2024-10-06 17:17 | XMS_ITS | Encounter Summary ---
Author Organization [facility] [place] [address] Care Team Providers Care Desizing Pad Operator Name Role Phone Juliette [place] Primary Care Provider [phone]- [phone] Encounter Details Date Type Department Care Team (Late st Contact Info) Description 07/04/2023 1:30 PM EDT Office [place] [id number] Unique Mike ASSISTANT REFINERY OPERATOR [facility] [place] [address] Hepatic cirrhosis, unspecified hepatic cirrhosis type, unspecified [...] on file documented as of this encounter Last Filed Vital Signs Vital Sign Reading Time Taken Comments Blood Pressure 145/91 07/04/2023 1:49 PM EDT Pulse 81 07/04/2023 1:49 PM EDT Temperature - - Respiratory Rate - - Oxygen Saturation 96% 07/04/2023 1:49 PM EDT Inhaled Oxygen Concentration - - Weight 118.2 kg (260 lb 8 oz) 07/04/2023 1:49 PM EDT Height 172.7 cm (5' 8) 07/04/2023 1:49 PM EDT Body Mass Index 39.61 07/04/2023 1:49 PM EDT documented in this encounter Progress Notes * Unique Mike APRN - 07/04/2023 1:30 PM EDT Hepatology Follow Up Note Patient: Chano Wagner Gender: male : 1960 Provider: Unique Mike NP Referring Physician: MORGAN Marin Problem List: #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 These may represent focal fatty sparing but the differential diagnosis includes regenerating nodules and HCC. Latest Reference Range & Units 05/22/23 11:26 AFP <=8.3 ng/mL 10.6 (H) #At risk for esophageal varices - EUS negative for varices 08/2022 #MELD 3.0 - 8 on 05/22/2023 #History of colon polyps - Reports having annual colonoscopy in [place] due to high number of colon polyps, last colonoscopy 2 years ago (delayed due to COVID) - [place] 08/2022, 3 TA in transverse (3-4 mm), one hyperplastic polyp sigmoid Interval History: He is here today for results of his CT scan which was done to follow up on nodules on his recent ultrasound. Current Outpatient Medications Medication Sig Dispense Refill mirtazapine (REMERON) 30 mg Tablet tiotropium bromide (Spiriva Respimat) 1.25 mcg/actuation Mist Inhale 2 puffs into the lungs daily. 12 g 3 LORazepam (Ativan) 1 mg Tablet Take 1 mg by mouth daily as needed. Desvenlafaxine 100 mg Tablet Sustained Release 24 hr Take 100 mg by mouth daily. omeprazole (PriLOSEC) 20 mg Capsule, Delayed Release(E.C.) Take 20 mg by mouth daily. tamsulosin (Flomax) 0.4 mg Capsule Take 0.4 mg by mouth daily. fluticasone propion-salmeteroL (ADVAIR HFA) 230-21 mcg/actuation HFA Aerosol Inhaler Inhale 2 puffsinto the lungs 2 times daily. 3 Inhaler 3 Combivent Respimat 20-100 mcg/actuation Mist Inhale 1 puff into the lungs every 6 hours as needed for Wheezing. 1 Inhaler 2 zolpidem (AMBIEN CR) 12.5 mg Tablet, Multiphasic Release Take 12.5 mg by mouth nightly as needed. ARIPiprazole (ABILIFY) 10 mg Tablet Take 10 mg by mouth daily. celecoxib (CELEBREX) 100 mg Capsule Take 100 mg by mouth 2 times daily. modafinil (PROVIGIL) 200 mg Tablet Take 200 mg by mouth daily. armodafiniL (NuvigiL) 200 mg Tablet Take 200 mg by mouth daily. metFORMIN (GLUCOPHAGE-XR) 500 mg Tablet Sustained Release 24 hr Take 1,000 mg by mouth 2 times daily. simvastatin (ZOCOR) 20 mg Tablet Take 20 mg by mouth nightly. cetirizine (ZYRTEC) 10 mg Tablet Take 10 mg by mouth daily. Reported on 03/12/2017 Atomoxetine (Strattera) 80 mg Capsule Take 1 capsule by mouth daily. sildenafiL (VIAGRA) 100 mg Tablet Take 100 mg by mouth as needed for Erectile Dysfunction. PRN lamoTRIgine (LAMICTAL) 100 mg tablet Take 200 mg by mouth daily. No current facility-administered medications for this visit. Vitals: 07/04/23 1349 BP: (!) 145/91 BP Location (NBP): Right arm Patient Position: Sitting BP Cuff Sizes: Large Adult (32-43 cm) Pulse: 81 SpO2: 96% Weight: 118.2 kg (260 lb 8 oz) Height: 172.7 cm (5' 8) Body mass index is 39.61 kg/m??. Exam: Looks well CT Abdomen 07/04/2023: IMPRESSION 1. Hepatic steatosis. 2. No abnormality to correspond to lesions seen on prior ultrasound. No suspicious hepatic lesions. Assessment and Plan: #EtOH Cirrhosis Discussed low MELD 3.0 score indicating preserved liver function. #Follow up CT scan for nodules seen on ultrasound. CT scan today shows no liver lesions. AFP was slightly elevated to 10.6 on last blood work in May, can continue to monitor and repeat ultrasound in 6 months. #At risk for esophageal varices EUS negative for varices 08/2022, next screening due in 08/2024. Unique Mike APRN Section of Gastroenterology [place] [address] Cc: MORGAN Marin documented in this encounter Plan of Treatment Not on file documented as of this encounter Results * US Abdomen Limited Hepatology Protocol (01/04/2024 9:33 AM EDT) Anatomical Region Laterality Modality Abdomen Ultrasound 01/04/2024 9:32 AM EDT Impressions 01/04/2024 10:00 AM EDT 1. Mild hepatomegaly with markedly increased hepatic echogenicity, decreased through sound transmission and capsular nodularity suggesting steatosis and cirrhosis. No focal hepatic lesion seen. 2. The main portal vein is patent with normal directional flow. 3. No ascites. 4. The gallbladder and biliary ductal system are normal. Thank you for letting us participate in the care of this patient. If you are a health care provider and have any questions regarding this report, please contact the number above. For patients who have questions, please contact the health janitor caretaker that requested your imaging first. ?Medardo Trent, Staff Physician Electronically Signed Final Report ?? 01/04/2024 09:59 am Narrative 01/04/2024 10:00 AM EDT Abdominal ? (Signed Final 01/04/2024 09:59 am) PATIENT INFO: ID #: ? [id number] ?: ??[birth year] (63 yrs)(M) Name: ? CHANO WAGNER ? Visit Date: 01/04/2024 09:32 am PERFORMED BY: Attending: ?Miley SALOMON, Medardo Severino Performed By: ? Hitesh Reyna RDMS Referred By: ?UNIQUE MIKE Location: ? [place] [facility] Hep[facility] Protocol - Abdominal ?[id number] Limited Survey Single Organ or Quadrant - [id number] INDICATIONS: cirrhosis, screen for HCC COMPARISON: US: Hepatology 05/22/23 ------ LIVER: ------ Right Lobe Length: ?? 17.5 ?? cm Echogenicity/Echotexture: ?? Coarse, echogenic heterogenous ? parenchyma with capsular ? nodularity Portal Veins: ?Hepatopetal Comment: ?No focal lesion seen. Hepatomegaly. GALLBLADDER: Cholelithiasis: ?No stones visualized Wall Thickness: ?Normal wall thickness Focal Tenderness: ?Negative sonographic Ambriz's sign Comment: ?No pericholecystic fluid or wall hyperemia seen. BILIARY TRACT: Intrahepatic Ducts: ?? Normal Extrahepatic Ducts: ?? Normal Common Duct Size: ? 3.2 ? mm FLUID COLLECTIONS: Ascites not present on 4 quadrant evaluation. Procedure Note Medardo Trent MD - 01/04/2024 Abdominal (Signed Final 01/04/2024 09:59 am) PATIENT INFO: ID #: [id number] : [birth year] (63 yrs)(M) Name: CHANO WAGNER Visit Date: 01/04/2024 09:32 am PERFORMED BY: Attending: Medardo Trent MD Performed By: Hitesh Reyna RDMS Referred By: UNIQUE MIKE Location: [place] SERVICE(S) [facility] Hepat[facility] Protocol - Abdominal [id number] Limited Survey Single Organ or Quadrant - [id number] INDICATIONS: cirrhosis, screen for HCC COMPARISON: US: Hepatology 05/22/23 ------ LIVER: ------ Right Lobe Length: 17.5 cm Echogenicity/Echotexture: Coarse, echogenic heterogenous parenchyma with capsular nodularity Portal Veins: Hepatopetal Comment: No focal lesion seen. Hepatomegaly. GALLBLADDER: Cholelithiasis: No stones visualized Wall Thickness: Normal wall thickness Focal Tenderness: Negative sonographic Ambriz's sign Comment: No pericholecystic fluid or wall hyperemia seen. BILIARY TRACT: Intrahepatic Ducts: Normal Extrahepatic Ducts: Normal Common Duct Size: 3.2 mm FLUID COLLECTIONS: Ascites not present on 4 quadrant evaluation. IMPRESSION 1. Mild hepatomegaly with markedly increased hepatic echogenicity, decreased through sound transmission and capsular nodularity suggesting steatosis and cirrhosis. No focal hepatic lesion seen. 2. The main portal vein is patent with normal directional flow. 3. No ascites. 4. The gallbladder and biliary ductal system are normal. Thank you for letting us participate in the care of this patient. If you are a health care provider and have any questions regarding this report, please contact the number above. For patients who have questions, please contact the health janitor caretaker that requested your imaging first. Medardo Trent, Staff Physician Electronically Signed Final Report 01/04/2024 09:59 am Unique Mike APRN [facility] [place] [facility] GEN ORDERAB LES documented in this encounter Visit Diagnoses Diagnosis Hepatic cirrhosis, unspecified hepatic cirrhosis type, unspecified whether ascites present Hepatic cirrhosis, unspecified hepatic cirrhosis type, unspecified whether ascites present documented in this encounter Care Teams Desizing Pad Operator Relationship Specialty Start Date End Date Juliette [place] PA [address] [place] [address] PCP - General Family Medicine 02/07/21 documented as of this encounter
--- OUTSIDE RECORDS SUMMARY | 2024-10-06 17:17 | XMS_ITS | Encounter Summary ---
Author [facility] [place] [address] Care Team Providers Care Refrigeration System Installer Name Role Phone Juliette Hamilton Primary Care Provider [phone] Encounter Details Date Type Department Care Team (Late st Contact Info) Description 05/22/2023 Telephone [place] [id number] Indiana Sheffield Social History Tobacco Use Types Packs/Day Years [...] encounter Miscellaneous Notes * Telephone Encounter - Indiana Sheffield - 05/22/2023 3:32 PM EDT Called patient again to let him know that he does not need to go to the 3L Lab at 10:00 am on 07/04/[address] scan because he had blood work drawn today and those labs will be within the45 day guideline (it will have only been 43 days since his most recent labs were drawn). LVM for patient. * Telephone Encounter - Indiana Sheffield - 05/22/2023 2:47 PM EDT Called and lvm for patient with upcoming appointment information-as ordered and requested by Gay Cantu MD. LAB SundayJuly 04 10:00 AM (Arrive by 9:45 AM) Lab 3L [facility] [id number] Arrive at: Environmental Sustainability Manager Area 3L CT Abd W/WO SundayJuly 04 11:20 AM (Arrive by 11:05 AM) Please arrive at the time instructed to complete oral preparation for your examination. CT Scan at [facility] [id number] Arrive at: 3Z RADIOLOGY Follow Up Visit with Unique Edwards SundayJuly 04 1:30 PM (Arrive by 1:15 PM) Gastroenterology at [facility] [id number] Arrive at: Environmental Sustainability Manager Area 4L documented in this encounter Plan of Treatment Not on file documented as of this encounter Visit Diagnoses Not on filedocumented in this encounter Care Teams Refrigeration System Installer Relationship Specialty Start Date End Date Juliette Hamilton PA [address] [place] [address] PCP - General Family Medicine 02/07/21 documented as of this encounter
--- OUTSIDE RECORDS SUMMARY | 2024-10-06 17:17 | XMS_ITS | Encounter Summary ---
[place] [address] Care Team Providers Care Cotton Candy Maker Name Role Phone Juliette Hamilton Primary Care Provider [phone]- [phone] Encounter Details Date Type Department Care Team (Latest Contact Info) Description 05/22/2023 11:30 AM EDT Laboratory Appointment [place] [phone] Alcoholic cirrhosis of liver without ascites Social History Tobacco Use Types Packs/Day Years [...] Procedure Name Priority Date/Time Associated Diagnosis Comments HEMOGRAM Routine 05/22/2023 11:26 AM EDT Alcoholic cirrhosis of liver without ascites DIFFERENTIAL, AUTOMATED Routine 05/22/2023 11:26 AM EDT Alcoholic cirrhosis of liver without ascites AFP TUMOR MARKER Routine 05/22/2023 11:2 6 AM EDT Alcoholic cirrhosis of liver without ascites PROTHROMBIN TIME Routine 05/22/2023 11:2 6 AM EDT Alcoholic cirrhosis of liver without ascites CBC (WITH DIFF) Routine 05/22/2023 11:26 AM EDT Alcoholic cirrhosis of liver without ascites COMPREHENSIVE METABOLIC PANEL Routine 05/22/2023 11:26 AM EDT Alcoholic cirrhosis of liver without ascites documented in this encounter Results * Differential, Automated (05/22/2023 11:26 AM EDT) Neutrophil % 73.7 % [facility] Neutrophil Absolute 4.97 1.70 - 6.10 x10(3)/[facility] Lymph % 15.1 % [facility] Lymphocytes Abs 1.0 0.9 - 3.2 x10(3)/[facility]ORAT[facility] Monocyte % 9.0 % [facility] Monocyte Abs 0.6 0.3 - 0.9 x10(3)/[facility]OR[facility] Eos % 1.0 % [facility] Eosinophils Abs 0.1 0.0 - 0.4 x10(3)/[facility] Basophil % 0.6 % [facility] Baso Absolute 0.0 0.0 - 0.1 x10(3)/[facility] Immature Gran % 0.60 % [facility] Comment: Immature granulocytes(IG's)percentage and absolute count will include metamyelocytes, myelocytes, and promyelocytes. Blood smears from CBCs yielding IG's will be scanned manually for concordance. If this scan disagrees with the automated IG or if promyelocytes are noted, a manual differential will be performed. Immature Gran Absolute 0.04 0.00 - 0.04 x10(3)/[facility] Blood 05/22/2023 11:2 6 AM EDT 05/22/2023 11:46 AM EDT Narrative Resulting Agency Comment Spec In Lab Gay Moran MD HEMATOLOGY ORDERABLE S [facility] [place] [address] * (ABNORMAL) Hemogram (05/22/2023 11:26 AM EDT) White Blood Cell 6.8 4.0 - 9.5 x10(3)/mc L [facility] Red Blood Cell 4.66 4.58 - 5.54 x10(6)/mc L [facility] Hemoglobin 15.5 13.7 - 16.5 g/dL [facility] Hematocrit 45.2 40.5 - 48.5 % [facility] Mean Cell Volume 97.0(H) 82.9 - 93.1 fL [facility] Mean Cell Hemoglobin 33.3(H) 27.5 - 32.1 pg [facility] Mean Cell Hemoglobin Concentration 34.3 32.0 - 35.7 g/dL [facility] Platelet 217 145 - 357 x10(3)/mc L [facility] RDW Standard Deviation 46.7(H) 36.0 - 45.0 fL [facility] RDW coefficient of variation 13.0 11.4 - 13.8 % [facility] Mean Platelet Volume 9.2 7.6 - 12.9 fL [facility] NRBC% auto 0.0 % [facility] NRBC Absolute 0.000 0.000 - 0.000 x10(3)/ L [facility] Blood 05/22/2023 11:2 6 AM EDT 05/22/2023 11:46 AM EDT Narrative Resulting Agency Comment Spec In Lab Gay Moran MD HEMATOLOGY ORDERABLE S [facility] [place] [address] * (ABNORMAL) Comprehensive metabolic panel (non-fasting) (05/22/2023 11:26 AM EDT) Glucose 174 65 - 199 mg/dL [facility] Comment:Diabetes: >=200 mg/d L plus symptoms Blood Urea Nitrogen 7(L) 10 - 20 mg/dL [facility] Creatinine 0.88 0.80 - 1.50 mg/dL [facility] Sodium 141 135 - 145 mmol/L [facility] Potassium 4.2 3.5 - 5.0 mmol/L [facility] Comment: Please note: ??Patients with WBC >100,000 may have falsely elevated Potassium levels. ??For accurate Potassium quantification in these patients send serum separator tube (gold top) for subsequent determinations. ??Contact the Clinical Chemistry Laboratory if there are any questions. Chloride 104 98 - 107 mmol/L [facility] Carbon Dioxide 24 22 - 31 mmol/L [facility] Anion Gap 13 5 - 15 mmol/L [facility] Calcium 9.6 8.5 - 10.5 mg/dL [facility] Protein, Total 7.6 6.1 - 8.0 g/dL [facility] Albumin 4.3 3.2 - 5.2 g/dL [facility] Aspartate Aminotransferase 117(H) 0 - 39 unit/L [facility] Alanine Aminotransferase 146(H) 0 - 55 unit/L [facility] Alkaline Phosphatase 72 40 - 130 unit/L [facility] Bilirubin, Total 1.4(H) 0.2 - 1.3 mg/dL [facility] Est Glomerular Filtration Rate 96 >=60 mL/min/1. 73 m?? [facility] Comment: This patient's estimated GFR was [...] In Lab Gay Moran MD CHEMISTRY ORDERABLES [facility] [place] [address] * (ABNORMAL) Prothrombin Time (05/22/2023 11:26 AM EDT) Prothrombin Time 12.6(H) 9.4 - 12.5 sec [facility] International Normalization Ratio 1.1 [facility] Comment: An INR <2.0 indicates adequate procoagulant activity for hemostasis in most patients without underlying bleeding disorders, though the INR may not adequately reflect hemostatic capacity in patients with liver disease and synthetic impairment. The recommended target INR range for therapeutic anticoagulation is 2.0 ? 3.0 for most applications, though lower and higher ranges may be appropriate depending on clinical circumstances. Blood 05/22/2023 11:2 6 AM EDT 05/22/2023 11:46 AM EDT Narrative Resulting Agency Comment Spec In Lab Gay Moran MD HEMATOLOGY ORDERABLE S Performing Organization Address City/[facility]/ZIP Co de Phone Number [facility] [place] [address] * (ABNORMAL) AFP tumor marker (05/22/2023 11:26 AM EDT) Alpha Fetoprotein 10.6(H) <=8.3 ng/mL [facility] Comment: This result was generated using a Mat Jessie immunoassay. ??Results obtained from other methods or manufacturers cannot be used interchangeably with this method. Blood 05/22/2023 11:2 6 AM EDT 05/22/2023 11:46 AM EDT Narrative Resulting Agency Comment Spec In Lab Gay Moran MD CHEMISTRY ORDERABLES Performing Organization Address City/[facility] Co de Phone Number [facility] [place] [address] documented in this encounter Visit Diagnoses Diagnosis Alcoholic cirrhosis of liver without ascites Alcoholic cirrhosis of liver documented in this encounter Care Teams Cotton Candy Maker Relationship Specialty Start Date End Date Juliette Hamilton PA [address] [place] [address] PCP - General Family Medicine 02/07/21 documented as of this encounter
--- OUTSIDE RECORDS SUMMARY | 2024-10-06 17:17 | XMS_ITS | Encounter Summary ---
Author Organization [facility] Address [address] [place] [address] Care Team Providers Care Junior Automation Engineer Name Role Phone Maria A Urena MD Primary Care Provider [phone] Encounter Details Date Type Department Care Team (Late st Contact Info) Description 10/15/2021 Lab Requisition [facility] Pathology & Laboratory Medicine - [address] [address] Outr Resulting Lab, Provider Social History Tobacco [...] Associated Diagnosis Comments PSA TOTAL, DIAGNOSTIC Routine 10/14/2021 8:55 EST documented in this encounter Results * PSA TOTAL, DIAGNOSTIC (10/14/2021 8:55 EST) PSA 0.4 0.0 - 4.5 ng/mL 10/17/2021 9:40 EST [facility] Blood VENOUS BLOOD / Unknown 10/14/2021 8:55 EST 10/16/2021 16:26 EST Narrative [facility] - 10/17/2021 9:40 EST NOTE: Serum PSA concentration should not be interpreted as absolute evidence for the presence or absence of malignant disease. Assayed on Siemens ADVIA Centaur XPT using chemiluminescent technology.??Values obtained by using different assay methods cannot be used interchangeably. us Provider Outr Resulting Lab CHEMISTRY & BLOOD GA S ORDERABLES Final Result [facility] [address] [place] [id number] documented in this encounter Visit Diagnoses Not on filedocumented in this encounter Care Teams Junior Automation Engineer Relationship Specialty Start Date End Date Maria A Urena MD PCP - General 08/14/15 documented as of this encounter
--- OUTSIDE RECORDS SUMMARY | 2024-10-06 17:17 | XMS_ITS | Continuity of Care Document ---
Author Organization [facility] Address [address] [place] [address] Care Team Providers Care Icd 9 Coder Name Role Phone LONA HOROWITZ PA-C Primary Care Andres leggett Encounter [facility] NBR [id number] Date(s): 05/09/24 - 05/09/24 [facility] [address] [place], [place] [address] Encounter Diagnosis Lumbar radicular pain(Discharge Diagnosis) - 05/09/24 Lumbar spondylosis(Discharge Diagnosis) - 05/09/24 Spondylolisthesis of lumbar region(Discharge Diagnosis) - 05/09/24 Discharge Disposition: Home or Self Care Attending Physician: Sintia Powell DO Referring Physician: LONA HOROWITZ PA-C Allergies, Adverse Reactions, Alerts Substance Reaction Severity Status atorvastatin Unknown Unknown Active Lipitor Unknown Active PROzac Unknown Active Assessment and Plan Extracted from: [facility] Note - Pain Management A uthor:Sintia Powell DO Date:05/09/24 Lumbar radicular pain??M54.1 6 Ordered: MRI Spine Lumbar w/o Contrast, 05/09/24, Routine, Reason: low back pain with radiation down anterior legs with intermittent numbness in feet, evaluate for stenosis, No, No, please send MRI to [facility], Transport Mode: Ambulatory, Lumbar radicular pain... ?? Lumbar spondylosis??M47.816 Ordered: MRI Spine Lumbar w/o Contrast, 05/09/24, Routine, Reason: low back pain with radiation down anterior legs with intermittent numbness in feet, evaluate for stenosis, No, No, please send MRI to [facility], Transport Mode: Ambulatory, Lumbar radicular pain... ?? Spondylolisthesis of lumbar region??M43.16 Ordered: MRI Spine Lumbar w/o Contrast, 05/09/24, Routine, Reason: low back pain with radiation down anterior legs with intermittent numbness in feet, evaluate for stenosis, No, No, please send MRI to [facility] [place] [facility], Transport Mode: Ambulatory, Lumbar radicular pain... ? Chano??is here for evaluation of back pain with??intermittent leg pain and numbness/tingling.?? Pain is worse with standing in place and better with walking or sitting.?? Symptoms do appear to be radicular in nature. ??X-ray of the lumbar spine was completed in August 2023 which shows??degenerative disc change most significant at L5-S1. ??At L4-5, there is??grade 1 spondylolisthesis.?? There is also multilevel??facet arthropathy. ?? His leg symptoms appear to be radicular in nature, suspect possible lumbar canal??stenosis at L4-5 given spondylolisthesis. ??He is agreeable to pursuing an MRI of the lumbar spine to??further evaluate the etiology of his symptoms.?? Briefly reviewed??potential treatment options once the lumbar MRI is complete, including??a lumbar epidural steroid injection, if indicated. ??He states he would be interested in moving forward with an injection once the additional imaging is complete.? He will follow up in clinic after lumbar MRI is complete to review findings and confirm next steps. ? Future Appointments Future Scheduled Tests Radiology* MRI [...] Most recent to oldest [Reference Range]: 1 Peripheral Pulse Rate [60-100 bpm] 88 bp m (05/09/24 3:53 PM) Blood Pressure [90-140/60-90 mmHg] 134/7 8mmHg (05/09/24 3:53 PM) Mean Arterial Pressure, Cuff [65-140 mmH g] 97 mmHg (05/09/24 3:53 PM) Weight 123.01 kg (05/09/24 3:53 PM) Weight Measured (lbs) 271.19 lb (05/09/24 3:53 PM) Weight Dosing 123.010 kg (05/09/24 3:53 PM) [place] Body Weight Calculated 73 kg (05/09/24 3:53 PM) Height 177.80 cm (05/09/24 3:53 PM) Height/Length Measured (inches) 70 inch (05/09/24 3:53 PM) BSA Measured 2.46 m2 (05/09/24 3:53 PM) Body Mass Index 38.91 kg/m2 (05/09/24 3:53 PM) Social History Social History Type Response Tobacco Former tobacco user Tobacco Use:. 3 PPD per day. Sex Physician Outpatient Note * Sintia Powell, DO: PERFORM, MODIFY Event Display: Office Clinic Note Physician Authored Date: [id number] CHANO WAGNER Jesus :1960 Age:63 years Sex:Male Visit Date:05/09/2024 Primary Care Physician: LONA HOROWITZ PA-C Chief Complaint Lower back pain in L4 and L5 History of Present Illness ?? Chano is here for evaluation of??low back pain, which has been ongoing??for at least 20 years, gradually worsening. ??Pain is across both sides of the low back which is sharp and stabbing in quality.?? He describes a burning discomfort radiating down the front of both legs??to the shins. ??He de scribes??intermittent numbness??in the legs??and tingling in the toes.?? Pain is worse with standing still. ??Pain tends to be better with walking and is also better with sitting and laying down. ??He states that he needs to sit while doing dishes. ??70% of the discomfort is in the low back versus 30% in the legs. ??He states he participated in physical therapy??last year??in [place]??withoutany improvement in his symptoms.?? He takes Celebrex daily, mainly for??wrist??pain. ??He states hewas recently started on a new medication for his back pain but he is not sure??the name of the medication. Review of Systems Constitutional:?No fevers/chills Respiratory:?shortness of breath on exertion due to asthma Cardiovascular:?No Chest pain Gastrointestinal:?No bowel dysfunction Genitourinary:?No bladder dysfunction Musculoskeletal:??Positive for back pain Neurological: No new weakness,??+ numbness/tingling Physical Exam Vitals & Measurements HR:??88??(Peripheral)?? BP:??134/78?? SpO2:??93%?? HT:??177.80??cm?? WT:??123.01??kg?? BMI:??38.91?? BSA:??2.46?? General: no acute distress HEENT: Facial movements symmetric Resp: Breathing comfortably, unlabored respirations Lumbar ROM: Flexion to 70 degrees, extension to about 5 degrees.?? mild tenderness to palpation of the right lower lumbar??paraspinal/SI joint Facet loading negative on left, mildly positive on right Neuro: Motor:Strength is 5 out of 5 lower extremities bilaterally HF KE AD PF Sensation:Intact to light touch lower extremities bilaterally Reflexes: Unable to obtain reflexes at knees and ankles.??No clonus. Provocative tests: Seated straight leg raise appears negative Hips: No groin pain with internal or external rotation. Gait: steady?? Assessment/Plan Lumbar radicular pain??M54.16 Ordered: MRI Spine Lumbar w/o Contrast, 05/09/24, Routine, Reason: low back pain with radiation down anterior legs with intermittent numbness in feet, evaluate for stenosis, No, No, please send MRI to [facility] [place] [facility], Transport Mode: Ambulatory, Lumbar radicular pain... ?? Lumbar spondylosis??M47.816 Ordered: MRI Spine Lumbar w/o Contrast, 05/09/24, Routine, Reason: low back pain with radiation down anterior legs with intermittent numbness in feet, evaluate for stenosis, No, No, please send MRI to [facility] [place] [facility], Transport Mode: Ambulatory, Lumbar radicular pain... ?? Spondylolisthesis of lumbar region??M43.16 Ordered: MRI Spine Lumbar w/o Contrast, 05/09/24, Routine, Reason: low back pain with radiation down anterior legs with intermittent numbness in feet, evaluate for stenosis, No, No, please send MRI to [facility] [place] [facility], Transport Mode: Ambulatory, Lumbar radicular pain... ? Chano??is here for evaluation of back pain with??intermittent leg pain and numbness/tingling.?? Pain is worse with standing in place and better with walking or sitting.?? Symptoms do appear to be radicular in nature. ??X-ray of the lumbar spine was completed in August 2023 which shows??degenerative disc change most significant at L5-S1. ??At L4-5, there is??grade 1 spondylolisthesis.?? There is also multilevel??facet arthropathy. ?? His leg symptoms appear to be radicular in nature, suspect possible lumbar canal??stenosis at L4-5 given spondylolisthesis. ??He is agreeable to pursuing an MRI of the lumbar spine to??further evaluate the etiology of his symptoms.?? Briefly reviewed??potential treatment options once the lumbar MRIis complete, including??a lumbar epidural steroid injection, if indicated. ??He states he would be interested in moving forward with an injection once the additional imaging is complete.? He will follow up in clinic after lumbar MRI is complete to review findings and confirm next steps. Images X-ray lumbar spine from August 2023 independently interpreted and agree with radiology report Problem List/Past Medical History Ongoing Anorgasmia of [...] 10 mg oral tablet Allergies Lipitor PROzac atorvastatin??(Unknown) Social History Alcohol Current, Beer, Daily Electronic Cigarette/Vaping Electronic Cigarette Use: Never. Tobacco Former tobacco user Tobacco Use:. 3 PPD per day. Family History Cancer: Father. Diabetes mellitus: Mother. Hypertension: Mother. Electronically Signed on 05/09/2024 16:27 EDT Sintia Powell, Patient Care team information Care Team Personnel Name: LONA HOROWITZ PA-C Position: No Access Member Role: Primary Care Physician Address: Address: [facility] [address] [place] [address]- Care Team Related Persons Name: HUMBERTO WAGNER
--- OUTSIDE RECORDS SUMMARY | 2024-10-06 17:17 | XMS_ITS | Encounter Summary ---
Author Organization [facility] Address [facility] [place] [address] Care Team Providers Care Income Tax Consultant Name Role Phone Juliette Hamilton Primary Care Provider +1- [phone] Encounter Details Date Type Department Care Team (Late st Contact Info) Description 10/29/2023 10:30 AM EST Office [place] [phone] Maine Henley MD [facility] [place] [address] Moderate persistent asthma, uncomplicated; SHANI on CPAP; Post-acute COVID-19 syndrome Social History Tobacco Use Types Packs/Day Years [...] Mass Index 39.53 10/29/2023 9:58 AM EST documented in this encounter Patient Instructions * Patient Instructions* Maine Henley MD - 10/29/2023 10:30 AM EST Try to increase your exercise this winter. You could try walking in the pool. The number for [facility] to ask about their pool is [phone] (main phone number; ask to transferred to the [facility].) Talk to your PCP about the RSV vaccine. I'd encourage you to get this vaccine to protect you from the respiratory syncicial virus. I recommend you get an updated pneumonia vaccine when you turn 63 too. documented in this encounter Progress Notes * Maine Henley MD - 10/29/2023 10:30 AM EST Images from the original note were not included. [facility] Section of Pulmonary and Critical Care Medicine Outpatient Consultation Date of Encounter: 10/29/2023 Reason for Evaluation: Mr. Chano Coker returns to the pulmonary clinic for follow-up of asthmaand recent covid19 infection. I independently interviewed the patient, have examined the patient ifthis visit was conducted in the office and have reviewed available records. Dear MORGAN Marin, As you know, Chano Coker is a 62 y.o. male with asthma and covid19 pneumonia spring 2020, and resolved pulmonary abscess, last seen in pulmonary clinic in April 2023. Mr. Coker reports he is doing pretty well. Still gets winded walking short distances, avoids walking up stairs due to dyspnea. Does not experience wheezing or cough. Having back pain ongoing in lumbar spine, chronic changes, no acute injury. Short term memory remains very poor; ongoing issue since covid infection. No recent acute illnesses. No recent infections or prednisone use. Still using cpap nightly, works well, uses consistently. He previously looked into pulmonary rehab but there was no local option and distance remains a barrier. Remains on advair 230-21 two puffs BID and spiriva respimat 1.25 mcg two inhalations daily, combivent PRN (uses regularly when walking), zyrtec daily. He remains on [facility] disability related to his covid19 illness/dyspnea. 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 No improvement in dyspnea over the past year to change this assessment. No smoke exposure. Current Medications at Start of Encounter: Outpatient Medications Prior to Visit Medication Sig Dispense Refill traMADoL (Ultram) 50 mg tablet Take 50 mg by mouth every 6 hours as needed. cyclobenzaprine (Flexeril) 10 mg tablet Vraylar 1.5 mg capsule Take 1.5 mg by mouth daily. lisinopriL (Zestril) 20 mg tablet Take 20 mg by mouth daily. mirtazapine (REMERON) 30 mg Tablet Take 15 mg by mouth nightly. tiotropium bromide (Spiriva Respimat) 1.25 mcg/actuation Mist Inhale 2 puffs into the lungs daily. 12 g 3 LORazepam (Ativan) 1 mg Tablet Take 1 mg by mouth daily as needed. Desvenlafaxine 100 mg Tablet Sustained Release 24 hr Take 100 mg by mouth daily. tamsulosin (Flomax) 0.4 [...] 12.5 mg by mouth nightly as needed. celecoxib (CELEBREX) 100 mg Capsule Take 100 mg by mouth 2 times daily. lamoTRIgine (LAMICTAL) 100 mg tablet Take 200 mg by mouth daily. Ozempic 1 mg/dose (4 mg/3 mL) Pen Injector Inject 1 mg subcutaneously once a week. metFORMIN (GLUCOPHAGE-XR) 500 mg Tablet Sustained Release 24 hr Take 1,000 mg by mouth 2 times daily. simvastatin (ZOCOR) 20 mg Tablet Take 40 mg by mouth nightly. No facility-administered medications prior to visit. Review of Systems: A focused ROS was completed and was positive as noted in HPI, and otherwise negative. Physical Examination: BP 138/71 (BP Location (NBP): Left arm, Patient Position: Sitting, BP Cuff Sizes: Large Adult (32-43 cm)) Pulse 84 Temp 35.9 ??C (96.6 ??F) (Temporal) Resp 16 Ht 172.7 cm (5' 8) Wt 117.9 kg (260 lb) SpO2 90% BMI 39.53 kg/m?? GEN: NAD, alert, conversational, comfortable, overweight HEENT: MMM, neck supple CV: RRR, no murmur PULM: normal WOB, small inspiratory crackles left lung base, no wheezing ABD: soft, ND MSK: no joint swelling, he is easily ambulatory EXT: no significant edema NEURO: AAO, voice is clear Pulmonary Function Test Results: 06/08/2021: Findings: FEV1 2.44 L (72% pred), FVC 3.42 L (78% pred), FEV1/FVC 71; DLCO 71% pred Impression: normal airflow, mildly impaired diffusing capacity Prior spirometry in 2018 shows moderate airflow obstruction with reduced FEF 25- 75 flows, normal DLCO, and normal total lung volume with increased RV and RV/TLC. Ambulatory oxygen testing 03/2022: SpO2 decreased from 97% to 90% with ambulation of 500 feet on room air. 04/30/2023: Findings: FEV1 2.29 L (71% pred), FVC 3.43 L (81% pred), FEV1/FVC 67; DLCO 77% predicted. Impression: normal airflow, normal diffusing capacity. Compared with prior testing in 2020 the diffusing capacity is increased and now normal. Labs, Microbiology and Imaging: I personally reviewed relevant laboratory, microbiologic and radiology results which were significant for: Chest CT 04/18/2021: near-complete resolution of prior right cavitary lesion, with some residual scarring, minimal atelectasis. eosinophils 100 in 03/2021, 200 on 05/19/2022, 100 on 05/22/2023 Hgb 15.5 AST/ALT 117 and 146 in 05/2023, T bili 1.[address] 07/04/2023: hepatic steatosis Immunization History: Flu vaccine: has had 2022 flu vaccine COVID-19 vaccine: has had primary and at least one booster Pneumovax: has had pneumovax-23 in 2003 Impression and Recommendations: Chano Coker is a 62 y.o. man with moderate persistent asthma, SHANI on CPAP, resolved pulmonary cavitary pneumonia, allergies and rhinitis, with post-covid syndrome involving persistent and limiting exertional dyspnea, memory impairment and fatigue following covid19 infection in spring 2020, as well as deconditioning and possible component of restriction from obesity. Prior workup shows normalairflow and normal diffusing capacity, with moderate desaturation with ambulation. Overall respiratory health is stable over the past > 1 year. Increased exercise and weight loss are strongly encouraged to address his dyspnea; we discussed option of trying pool walking as back pain has been limiting exercise. At baseline he does not require supplemental oxygen, but supplemental oxygen has been helpful for management of dyspnea when sick and he may use supplemental O2 as needed with activity for dyspnea. He remains on high dose ICS/LABA and LAMA therapy for asthma, and should continue to use combivent or albuterol before exercise and PRN. Not a good candidate for singulair given ongoing depression. He remains on nocturnal chronic CPAP for SHANI, managed by sleep team. RSV vaccine recommended; he wishes to discuss this with his PCP. Updated pneumovax-20 also appropriate this year. Summary Recommendations: - continue advair 230-21 two puffs BID and spiriva respimat 1.25 mcg two inhalations daily, combivent PRN, zyrtec PRN during allergy season - continue nocturnal CPAP use - exercise and weight loss encouraged; try pool walking - may use supplemental NC O2 with exertion for dyspnea when experiencing acute respiratory flares, goal sat >/=88% Follow-up with in-office visit in 1 year Thank you for involving me in Mr. Coker's care. Please feel free to contact me with any further questions or concerns. I personally spent 24 minutes of this encounter with the patient discussing their pulmonary diseaseand treatment recommendations as outlined in my assessment and plan above. This visit involved a total of 42 minutes of clinical time on day of visit. MD Jennifer [facility] [address] Dept: [phone] Loc: [phone] documented in this encounter Plan of Treatment Not on file documented as of this encounter Visit Diagnoses Diagnosis Moderate persistent asthma, uncomplicated Unspecified asthma SHANI on CPAP Obstructive sleep apnea (adult) (pediatric) Post-acute COVID-19 syndrome documented in this encounter Care Teams Income Tax Consultant Relationship Specialty Start Date End Date Juliette Hamilton PA [address] [place] [address] PCP - General Family Medicine 02/07/21 documented as of this encounter
--- OUTSIDE RECORDS SUMMARY | 2024-10-06 17:17 | XMS_ITS | Encounter Summary ---
Author Organization [facility] [place] [address] Care Team Providers Care Barrel Charrer Helper Name Role Phone Juliette Hamilton Primary Care Provider [phone]- [phone] Encounter Details Date Type Department Care Team (Latest Contact Info) Description 10/29/2023 Travel Social History Tobacco Use Types Packs/Day [...] on filedocumented in this encounter Care Teams Barrel Charrer Helper Relationship Specialty Start Date End Date Juliette Hamilton PA [address] [place], [place] [address] PCP - General Family Medicine 02/07/21 documented as of this encounter
--- OUTSIDE RECORDS SUMMARY | 2024-10-06 17:17 | XMS_ITS | Encounter Summary ---
Author Organization [facility] Address [address] [place] [address] Care Team Providers Care Truck Trailer Mechanic Name Role Phone Maria A Urena MD Primary Care Provider [phone] Encounter Details Date Type Department Care Team (Late st Contact Info) Description 11/19/2020 Lab Requisition [facility] Pathology & Laboratory Medicine - [address] [address] Outr Resulting Lab, Provider Social History Tobacco [...] Procedure Name Priority Date/Time Associated Diagnosis Comments SYPHILIS SEROLOGY Routine 11/19/2020 11: 10 EST documented in this encounter Results * SYPHILIS SEROLOGY (11/19/2020 11:10 EST) Syphilis Serology Negative Negative 11/22/2020 12:11 EST [facility] Blood VENOUS BLOOD / Unknown 11/19/2020 11:10 EST 11/19/2020 21:18 EST us Provider Outr Resulting Lab IMMUNOLOGY AND SEROL OGY ORDERABLES Final Result [facility] [address] [place] [address] documented in this encounter Visit Diagnoses Not on filedocumented in this encounter Additional Health Concerns Infection Onset Date Last Indicated Resolved Time COVID-19 01/05/2021 01/05/2021 02/04/2021 22:1 6 EDT documented as of this encounter Care Teams Truck Trailer Mechanic Relationship Specialty Start Date End Date Maria A Urena MD PCP - General 08/14/15 documented as of this encounter
--- OUTSIDE RECORDS SUMMARY | 2024-10-06 17:17 | XMS_ITS | Clinical Summary ---
Author Organization [facility] Address [address] [place] [address] Care Team Providers Care Forming Machine Tender Name Role Phone Maria A Urena MD Primary Care Provider [phone] Social History Tobacco Use Types Packs/Day Years Used Date Smoking Tobacco: Never Assessed Interpersonal Safety Answer Date Record ed Physically Hurt Never 05/09/2020 Verbally Threaten Not on file 05/09/2020 Sex and Gender Information Value Date Recorded Sex Assigned at Not on file Legal Sex Male 18:35 EST Gender Identity Not on file Sexual Orientation Not on file Plan of Treatment Health Maintenance Due Date Last Done Comments Hepatitis C Screen 1960 Fall Risk Screening 12/25/2023 COVID-19 Vaccine (2023-25 season) 2024 RSV Immunization ( o r 60+ Years) (1 - 1-dose 75+ series) 2033 Insurance [facility] OOS Care Teams Forming Machine Tender Relationship Specialty Start Date End Date Maria A Urena MD PCP - General 08/14/15
--- OUTSIDE RECORDS SUMMARY | 2024-10-06 17:17 | XMS_ITS | Continuity of Care Document ---
Author Organization [facility] Amb[facility] Address [address] [place] [address] Care Team Providers Care French Folder Name Role Phone LONA HOROWITZ PA-C Primary Care Andres leggett Encounter 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) - 08/06/24 Lumbar canal stenosis(Discharge Diagnosis) - 08/06/24 Spondylolisthesis of lumbar region(Discharge Diagnosis) - 08/06/24 Discharge Disposition: Home or Self Care Attending Physician: Sintia Powell DO Referring Physician: LONA HOROWITZ PA-C Allergies, Adverse Reactions, Alerts Substance Criticality Severity Reaction Reaction Severity Status atorvastatin Unable to assess criticality Unknown Unknown Active Lipitor Unable to assess criticality Unknown Active PROzac Unable to assess criticality Unknown Active Assessment and Plan Future Appointments [...] Range]: 1 Peripheral Pulse Rate [60-100 bpm] 100 b pm (08/06/24 11:33 AM) Respiratory Rate [12-24 br/min] 20 br/mi n (08/06/24:33 AM) Blood Pressure [90-120/60-80 mmHg] 126/7 6mmHg *HI* (08/06/24 11:33 AM) Mean Arterial Pressure, Cuff [65-140 mmH g] 93 mmHg (08/06/24 11:33 AM) Weight 119.7 kg (08/06/24: AM) Weight Measured (lbs) 263.893 lb (08/06/24 11: AM) Weight Dosing 119.700 kg (08/06/24: AM) [place] Body Weight Calculated 73 kg (08/06/24: AM) Height 177.80 cm (08/06/24: AM) Height/Length Measured (inches) 70 inch (08/06/24:33 AM) BSA Measured 2.43 m2 (08/06/24: AM) Body Mass Index 37.86 kg/m2 (08/06/24 11:33 AM) Social History Social History Type Response Tobacco Former tobacco user Tobacco Use:. 3 PPD per day. Sex Sex Representation Male (finding) Patient Care team information Care Team Personnel Name: LONA HOROWITZ PA-C Position: No Access Member Role: Primary Care Physician Address: [place] [address]- Care Team Related Persons Name: HUMBERTO WAGNER Insurance Providers Guarantor name: LEENA WAGNER Health Plan Information #: 2 Payer: MEDICARE [facility] Member Number: [id number] Policy Number: NA Health Plan Information #: 1 Payer: [facility] Member Number: [id number] Policy Number: NA
--- OUTSIDE RECORDS SUMMARY | 2024-10-06 17:17 | XMS_ITS | Encounter Summary ---
Author Organization [facility] [place] [address] Care Team Providers Care Uptwister Tender Name Role Phone Juliette Hamilton Primary Care Provider [phone]- [phone] Encounter Details Date Type Department Care Team (Latest Contact Info) Description 07/04/2023 Travel Social History Tobacco Use Types Packs/Day [...] on filedocumented in this encounter Care Teams Uptwister Tender Relationship Specialty Start Date End Date Juliette Hamilton PA [address] [place], [place] [address] PCP - General Family Medicine 02/07/21 documented as of this encounter
--- OUTSIDE RECORDS SUMMARY | 2024-10-06 17:17 | XMS_ITS | Referral Summary ---
Author Organization [facility] Address [address] [place] [address] Care Team Providers Care Chiller Operator Name Role Phone Maria A Urena MD Primary Care Provider Social History Tobacco Use Types Packs/Day Years Used Date Smoking Tobacco: Never Assessed Interpersonal Safety Answer Date Record ed Physically Hurt Never 05/09/2020 Verbally Threaten Not on file 05/09/2020 Sex and Gender Information Value Date Recorded Sex Assigned at Not on file Legal Sex Male 18:35 EST Gender Identity Not on file Sexual Orientation Not on file Plan of Treatment Not on file Insurance [facility] OOS Care Teams Chiller Operator Relationship Specialty Start Date End Date Maria A Urena MD PCP - General 08/14/15
--- OUTSIDE RECORDS SUMMARY | 2024-10-06 17:17 | XMS_ITS | Encounter Summary ---
Author Organization [facility] Address [facility] [place] [address] Care Team Providers Care Drain Tiler Name Role Phone Juliette Hamilton Primary Care Provider [phone] Encounter Details Date Type Department Care Team (Latest Contact Info) Description 01/04/2024 8:52 AM EDT - 01/04/2024 11:59 PM EDT Hospital Encounter [place] [address] Unique Mike, BLUEPRINT ASSEMBLER [facility] [place] [address] Hepatic cirrhosis, unspecified hepatic cirrhosis type, unspecified whether ascites present Discharge Disposition: Home Social History Tobacco Use [...] Sig Dispensed Refills Start Date End Date traMADoL (Ultram) 50 mg tablet Take 50 mg by mouth every 6 hours as needed. 10/18/2023 cyclobenzaprine (Flexeril) 10 mg tablet 10/18/2023 Vraylar 1.5 mg capsule Take 1.5 mg by mouth daily. 08/14/2023 Ozempic 1 mg/dose (4 mg/3 mL) Pen Injector Inject 1 mg subcutaneously once a week. 03/08/2023 lisinopriL (Zestril) 20 mg tablet Take 20 mg by mouth daily. mirtazapine (REMERON) 30 mg Tablet Take 15 mg by mouth nightly. 07/17/2022 tiotropium bromide (Spiriva Respimat) 1.25 mcg/actuation MistIndications:Modera te persistent asthma, uncomplicated Inhale 2 puffs into the lungs daily. 12 g 3 01/18/2022 LORazepam (Ativan) 1 mg Tablet Take 1 mg by mouth daily as needed. 07/04/2021 Desvenlafaxine 100 mg Tablet Sustained Release 24 hr Take 100 mg by mouth daily. 03/14/2021 tamsulosin (Flomax) 0.4 mg Capsule Take 0.4 mg by mouth daily. 01/11/2021 fluticasone propion-salmeteroL (ADVAIR HFA) 230-21 mcg/actuation HFA Aerosol InhalerIndications:Mod erate persistent asthma, uncomplicated Inhale 2 puffs into the lungs 2 times daily. 3 Inhaler 3 04/15/2020 Combivent Respimat 20-100 mcg/actuation MistIndications:Modera te persistent asthma, uncomplicated Inhale 1 puff into [...] tablet Take 200 mg by mouth daily. documented as of this encounter Plan of Treatment Not on file documented as of this encounter Procedures Procedure Name Priority Date/Time Associated Diagnosis Comments US ABDOMEN LIMITED HEPATOLOGY PROTOCOL Routine 01/04/2024 9:33 AM EDT Hepatic cirrhosis, unspecified hepatic cirrhosis type, unspecified whether ascites present documented in this encounter Results * US Abdomen Limited [...] gallbladder and biliary ductal system are normal. Electronically signed by: Medardo Trent MD, [facility] ([phone]), at 01/04/2024 9:53 AM Thank you for letting us participate in the care of this patient. If you are a health care provider and have any questions regarding this report, please contact the number above. For patients who have questions, please contact the health sub acute care nurse that requested your imaging first. ?Medardo Trent, Staff Physician Electronically Signed Final Report ?? 01/04/2024 09:59 am Narrative 01/04/2024 10:00 AM EDT Abdominal ? (Signed Final 01/04/2024 09:59 am) PATIENT INFO: ID #: ? [id number] ?: ??[birth year] (63 yrs)(M) Name: ? CHANO WAGNER ? Visit Date: 01/04/2024 09:32 am PERFORMED BY: Attending: ?Miley SALOMON, Medardo Severino Performed By: ? Hitesh Reyna RDMS Referred By: ?UNIQUE MIKE Location: ? [place] SERVICE(S) PROVIDED: [facility] - Hepatology Protocol - Abdominal ?[id number] Limited Survey Single Organ or Quadrant - [id number] INDICATIONS: cirrhosis, screen for HCC COMPARISON: US: [...] 01/04/2024 09:59 am) PATIENT INFO: ID #: [id number] : [birth year] (63 yrs)(M) Name: CHANO WAGNER Visit Date: 01/04/2024 09:32 am PERFORMED BY: Attending: Medardo Trent MD Performed By: Hitehs Reyna RDMS Referred By: UNIQUE MIKE Location: [place] SERVICE(S) PROVIDED: [facility] - Hepatology Protocol - Abdominal [id number] Limited Survey Single Organ or Quadrant - [id number] INDICATIONS: cirrhosis, screen for HCC COMPARISON: US: [...] gallbladder and biliary ductal system are normal. Electronically signed by: Medardo Trent MD, [facility] ([phone]), at 01/04/2024 9:53 AM Thank you for letting us participate in the care of this patient. If you are a health care provider and have any questions regarding this report, please contact the number above. For patients who have questions, please contact the health sub acute care nurse that requested your imaging first. Medardo Trent, Staff Physician Electronically Signed Final Report 01/04/2024 09:59 am Unique Mike APRN IMG US GEN ORDERAB LES documented in this encounter Visit Diagnoses Diagnosis Hepatic cirrhosis, unspecified hepatic cirrhosis type, unspecified whether ascites present documented in this encounter Care Teams Drain Tiler Relationship Specialty Start Date End Date Juliette Hamilton PA [address] [place] [address] PCP - General Family Medicine 02/07/21 documented as of this encounter
--- OUTSIDE RECORDS SUMMARY | 2024-10-06 17:17 | XMS_ITS | Encounter Summary ---
Author Organization [facility] Address [facility] [place] [address] Care Team Providers Care Magisterial District Judge Name Role Phone Juliette Hamilton Primary Care Provider [phone]- [phone] Encounter Details Date Type Department Care Team (Late st Contact Info) Description 10/06/2024 [place] [address] Makayla Collier RN Social History [...] Telephone Encounter - Makayla Collier RN - 10/06/2024 11:19 AM EST Reaching out to assist patient in scheduling the US (Abdomen Limited Hepatology Protocol) ordered on 08/15/24 by NP. Edwards. The patient declined, stating that he just doesn't want to do this. Ordering provider notified. documented in this encounter Plan of Treatment Not on file documented as of this encounter Visit Diagnoses Not on filedocumented in this encounter Care Teams Magisterial District Judge Relationship Specialty Start Date End Date Juliette Hamilton PA [address] [place] [address] PCP - General Family Medicine 02/07/21 documented as of this encounter
--- OUTSIDE RECORDS SUMMARY | 2024-10-06 17:17 | XMS_ITS | Encounter Summary ---
Author Organization [facility] [place] [address] Care Team Providers Care Pediatric Nurse Practitioner Name Role Phone Juliette Hamilton Primary Care Provider +1- [phone] Encounter Details Date Type Department Care Team ([facility] st Contact Info) Description 09/05/2024 Telephone [place] [id number] Angela Marquez Social History Tobacco Use Types Packs/Day Years [...] encounter Miscellaneous Notes * Telephone Encounter - Angela Marquez - 09/05/2024 11:19 AM EST I called and left a voice mail for this patient he is over due for his labs, ultrasound and follow up with Unique Edwards. I am sending him a recall letter as well. documented in this encounter Plan of Treatment Not on file documented as of this encounter Visit Diagnoses Not on filedocumented in this encounter Care Teams Pediatric Nurse Practitioner Relationship Specialty Start Date End Date Juliette Hamilton PA [address] [place] [address] PCP - General Family Medicine 02/07/21 documented as of this encounter
--- OUTSIDE RECORDS SUMMARY | 2024-10-06 17:17 | XMS_ITS | Encounter Summary ---
Author Organization [facility] [place] [address] Care Team Providers Care Orange Picker Machine Operator Name Role Phone Juliette Hamilton Primary Care Provider +1- [phone] Encounter Details Date Type Department Care Team (Latest Contact Info) Description 05/22/2023 Travel Social History Tobacco Use Types Packs/Day [...] on filedocumented in this encounter Care Teams Orange Picker Machine Operator Relationship Specialty Start Date End Date Juliette Hamilton PA [address] [place], [place] [address] PCP - General Family Medicine 02/07/21 documented as of this encounter
--- OUTSIDE RECORDS SUMMARY | 2024-10-06 17:17 | XMS_ITS | Encounter Summary ---
Author Organization [facility] Address [address] [place] [address] Care Team Providers Care Sound Ranging Crewmember Name Role Phone Unavailable Primary Care Provider Unavailabl e Encounter Details Date Type Department Care Team (Late st Contact Info) Description 01/04/2009 Before PRISM Converted Visit (Maple) [facility] Medicine [address] [id number] Homero Velasquez MD [address] [place] [address] Social History Tobacco Use Types Packs/Day Years [...] Date/Time Associated Diagnosis Comments SURGICAL PATHOLOGY Routine 01/04/2009 0:00 EDT documented in this encounter Results * SURGICAL PATHOLOGY (01/04/2009 0:00 EDT) Pathology Report: SURGICAL PATHOLOGY REPORT ? Reports generated via electronic interface contain original data; ? however they are lacking the format of the original report. ? Caution should be taken when reading/interpreti ng unformatted reports. ? Name: ? CHANO WAGNER ? Accession #: ? [id number] ? : ? 1960 (Age: 48) ??M ? Collect Date: ? 01/04/2009 ? Location: ? [facility] ? Receive Date: ? 01/04/2009 ? Provider: HOMERO WALKO MD ? Copy to: GUY READY MD ? Final Pathologic Diagnosis: ? A. ?Colon, descending/sigmoid , 45 cm, biopsy: ? 1. ?Focal superficial active colitis. ??See comment. ? 2. ? Melanosis coli, mild. ? B. ?Colon, rectosigmoid, 15 cm, polyp, biopsy: ? 1. ?Juvenile-type (retention) polyp. ? 2. ? No dysplasia identified. ? C. ?Colon, valve/15 cm, biopsy: ? 1. ?Colonic mucosa with surface hyperplastic changes. ? 2. ? No dysplasia identified. ? Comment: ? Sections from the descending/sigmoid colon (A) show focal acute ? inflammation involving the superficial epithelium with patchy, mild melanosis ?? coli. ??No architectural distortion or granulomas are identified to suggest ? chronicity. ??Overall, the findings are nonspecific but could be related to an ?? acute/self-limited infectious colitis versus possible prep effect. ??Clinical and endoscopic correlation is recommended. ??(Dr. Le)/mpl ? Document reviewed and electronically signed by: ? Dyana Le, MD ? Report ??Date: 01/06/2009 13:28 ? By the signature above, the attending physician certifies that he/she has ? personally conducted a gross and/or microscopic examination of the described ? specimens and rendered or confirmed the above diagnosis. ? Specimen(s) Received: ? A. ?Bx descending-sigmoid 45 cm ? B. ? Rectosigmoid polyp 15 cm ? C. ? Valve 15 cm mucosa ? Clinical History: ? Colorectal screening; A. Patchy colitis ? Gross Description: ? Received in Suman's fixative labelled Chano Wagner and #1 bx ? descending sigmoid, patchy colitis 45 cm are two biopsies measuring 0.2 x 0.2 x 0.1 cm each. ??The specimen is submitted intact as (A). ? Received in Suman's fixative labelled Chano Wagner and #2 rectosigmoid polyp 15 cm is a 1.2 x 1.0 x 0.9 cm polypoid structure. ??The resection margin ?? is inked black and the specimen is serially sectioned and submitted entirely as (B1) to (B3). ? Received in Suman's fixative labelled Chano Wagner and #3 bx valve 15 ?? cm mucosa are five biopsies which vary in size from 0.2 x 0.2 x 0.2 cm up to ?? 0.5 x 0.2 x 0.2 cm. ??The specimen is submitted intact as (C1) and (C2). ??(JUAN CARLOS ? Tessitore)/tmg ? End of Report ? [facility] 01/04/2009 01/04/2009 9:3 1 EDT us Homero Velasquez MD PATHOLOGY ORDERABLES Final Resul t [facility] [address] [place] [address] documented in this encounter Visit Diagnoses Not on filedocumented in this encounter
--- OUTSIDE RECORDS SUMMARY | 2024-10-06 17:18 | XMS_ITS | Encounter Summary ---
Author Organization [facility] [place] [address] Care Team Providers Care Growth Media Mixer Mushroom Name Role Phone Juliette Hamilton Primary Care Provider +1- [phone] Reason for Visit * Auth/Cert Specialty Diagnoses / Procedures Referred By Contac t Referred To Contact Diagnoses ?cirrhosis, ALFORD/EtOH, elevated liver enzymes >30 yrs, Fibroscan elevated Procedures PRO ENDOSCOPIC US EXAM, ESOPH PRO COLONOSCOPY, DIAGNOSTIC UPPER EUS- ENDOSCOPIC ULTRASOUND COLONOSCOPY, DIAGNOSTIC Breezy Saldivar MD [facility] [address] [facility] Referral ID Status Reason Start Date Expiration Date Visits Re quested Visits Authorized [id number] 1 1 Encounter Details Date Type Department Care Team (Late st Contact Info) Description 08/28/2022 11:19 AM EST Anesthesia Event [place] [address] Shantal Wadsworth MD [facility] [place] [address] Anesthesia Record Procedure Summary Procedure Name Responsible Anesthesiologist Anesthesia Start Time Anesthesia Stop Time UPPER EUS- ENDOSCOPIC ULTRASOUND (WRVU 3.47) (Trunk) Shantal Wadsworth MD 08/28/22 1119 08/28/22 1225 Events Date Time Event Comment 08/28/2022 0955 1119 AN Verify 1119 Start 1119 An Start Data 1125 An Induction 1128 Anesthesia Ready 1140 Break/Relief In I assumed ca re for Break Relief before which we: 1. Identified the patient 2. Identified the responsible provider(s) 3. Reviewed the pertinent medical history 4. Discussed the surgical plan and course 5. Reviewed intra-op anesthesia management and issues during anesthesia 6. Set expectations for the relief (and/or post-procedure) period 7. Allowed opportunity for questions and acknowledgement of understanding SHANTAL WADSWORTH MD 1218 an stop data 1225 Recovery or ICU Handoff Traci ent care was transferred to the destination unit staff after review of the patient's medical history, current anesthetic/surgical status and plan, according to the Provider Handoff Checklist. 1225 Stop Meds Name Total Propofol 200 mg Propofol INF 949.2 mg lactated ringers infusion 400 mL * Agents Name O2 Air N2O O2 Auxiliary Flowmeter 1 * Blood No blood administrations on file. Lines, Drains, and Airways Type Details Placement Removal Supraglottic Oral Airway: 100 mm (5) 01/29/15 1032 by Amanda Combs CRNA (RETIRED) Peripheral IV Line - Single Lumen 08/28/22; 1111; cephalic vein (lateral side of arm), right; [id number] catheter system; US Not Used; 22 gauge; Marcella Benito RN; distraction; 0; 08/28/22; 1400 08/28/22 1111 by Tiffanie Benito, YAMILE 08/28/22 1400 by Norma Moran RN documented in this encounter Social History Tobacco Use Types Packs/Day Years [...] on file documented as of this encounter OR Notes * Anesthesia Postprocedure Evaluation - Shantal Wadsworth MD - 08/28/2022 12:38 PM EST Department of Anesthesiology Post-procedure Note Patient: Chano Coker Procedure Summary Date: 08/28/22 Room / Location: [facility] ENDO 2 / [facility] ENDOSCOPY Anesthesia Start: 1119 Anesthesia Stop: 1225 Procedures: UPPER EUS- ENDOSCOPIC ULTRASOUND (Trunk) COLONOSCOPY, POLYPECTOMY, REMOVAL LESION BY SNARE (WRVU 4.67) (Trunk) FINE NEEDLE ASPIRATION BIOPSY, INC US GUIDANCE; FIRST LESION Diagnosis: Elevated liver enzymes (?cirrhosis, ALFORD/EtOH, elevated liver enzymes >30 yrs, Fibroscan elevated) Surgeons: Breezy Saldivar MD Responsible Provider: Shantal Wadsworth MD Anesthesia Type: general ASA Status: 3 All Anesthesia Providers: Anesthesiologist: Shantal Wadsworth MD SIGNALER: Shanell Maharaj CRNA Vitals Value Taken Time BP 131/88 08/28/22 1230 Temp Pulse Resp 18 08/28/22 1230 SpO2 91 % 08/28/22 1238 Pain Level 0 08/28/22 1230 Vitals shown include unvalidated device data. Patient Location: PACU/[facility] Level of Consciousness: Awake and Alert Pain Management: Satisfactory Analgesia PONV: None Cardiovascular Status: At Baseline Respiratory Status: Room Air and Stable Respiratory Status Postoperative Fluid Status: Intravascular EUvolemia Possible Anesthetic Complications: NONE apparent at time of evaluation Final Primary Anesthesia Type: General (The anesthetic type performed was the same as planned.) Comments: Mr. Coker tolerated the procedure well and without complication. VSS on RA. * Anesthesia Preprocedure Evaluation - Shantal Wadsworth MD - 08/28/2022 9:45 AM EST Pre-Anesthesia Evaluation for: Chano Coker a 61 y.o. male. Procedure(s): UPPER EUS- ENDOSCOPIC ULTRASOUND COLONOSCOPY, DIAGNOSTIC Patient Active Problem List Diagnosis Date Noted ??? 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 Osteoarthritis of right wrist 12/21/2014 ??? Insufficient sleep syndrome 07/31/2011 ??? Insomnia 07/31/2011 ??? Depression 07/31/2011 ??? SHANI on CPAP 05/16/2009 Past Medical History: Diagnosis Date ??? Depression 07/31/2011 ??? Insomnia 07/31/2011 ??? Insufficient sleep syndrome 07/31/2011 ??? SHANI on CPAP 05/16/2009 Past Surgical History: Procedure Laterality Date ??? PRO REMOVAL OF PROX ROW CARPAL BONES Right 01/29/2015 CARPECTOMY, ALL BONES OF PROXIMAL ROW performed by Garcia Campos MD at [facility] Social History Tobacco Use ??? Smoking status: Former Packs/day: 3.00 Years: 10.00 Pack years: 30.00 Types: Cigarettes Quit date: 12/22/1987 Years since quittin.7 ??? Smokeless tobacco: Never Substance Use Topics ??? Alcohol use: Yes Comment: rarely Social History Substance and Sexual Activity Drug Use No Allergies Allergen Reactions ??? House Dust Mite Medications: MAR and/or home medications have been reviewed. Physical Exam: Preprocedure Vitals Current as of 08/28/22 0945 No BP, pulse, respiration, SpO2, or temperature recorded. Height: 177.8 cm (5' 10) (05/19/22) Weight: 114 kg (251 lb 6.4 oz) (05/19/22) BMI: 36.07 IBW: 73 kg (160 lb 15 oz) Airway Assessment: Mallampati: III TM distance: >3 FB Neck ROM: full Cardiovascular Assessment: system normal Pulmonary Assessment: pulmonary exam normal Dental Assessment: - normal exam Misc Assessment: Patient is wearing No contact(s). IV access: Peripheral line Last Filed Perioperative Cognitive Screening None Anesthesia Plan: ASA 3 general, with a(n) intravenous induction Mr. Coker is a 61 year old male with PMhx of SHANI on CPAP, asthma, depression, insufficient sleep syndrome and a question of cirrhosis/ALFORD/elevated liver enzymes scheduled for EUS/colonoscopy. Pt has NKDA. Plan for preoperative Duoneb, propofol gtt. Risks were discussed at length, and all questions and concerns were addressed. Consent was obtained, and the appropriate paperwork was placed in the patient's chart. Region - Other Informed Consent: Anesthetic plan and risks discussed with patient. Plan discussed with SIGNALER. Anesthesia Screening documented in this encounter Plan of Treatment Not on file documented as of this encounter Visit Diagnoses Not on filedocumented in this encounter Administered Medications Inactive Administered Medications - up to 3 most recent administrations Medication Order MAR Action Action Date Dose Rate Site lactated ringers infusion 100 mL/hr, Intravenous, CONTINUOUS, Starting on Sun08/28/22 at 1115, Until Sun08/28/22 at 1223, Endoscopy (Day of Procedure) Restarted 08/28/2022 11:53 AM EST New Bag 08/28/2022 11:12 AM EST 100 mL/hr 100 mL/hr propofoL (Diprivan) (10 mg/mL) infusion Intravenous, CONTINUOUS PRN, Starting on Sun08/28/22 at 1125, Until Sun08/28/22 at 1225, Anesthesia Intra-op, Routine New Bag 08/28/2022 11:25 AM EST 200 mcg/kg/min 135.6 mL/hr propofoL (Diprivan) 10 mg/mL bolus injection (Anesthesia) Intravenous, PRN, Starting on Sun08/28/22 at 1125, Until Sun08/28/22 at 1225, Anesthesia Intra-op Given 08/28/2022 11:29 AM EST 50 mg Given 08/28/2022 11:27 AM EST 50 mg Given 08/28/2022 11:26 AM EST 50 mg documented in this encounter Care Teams Growth Media Mixer Mushroom Relationship Specialty Start Date End Date Juliette Hamilton PA [address] [place] [address] PCP - General Family Medicine 02/07/21 documented as of this encounter
--- OUTSIDE RECORDS SUMMARY | 2024-10-06 17:18 | XMS_ITS | Encounter Summary ---
Author Organization [place] [address] Care Team Providers Care Web Application Dev Specialist Name Role Phone Juliette Hamilton Primary Care Provider +1- [phone] Encounter Details Date Type Department Care Team (Late st Contact Info) Description 12/20/2022 [place] [phone] Jose Yost RN Social History Tobacco Use Types Packs/Day [...] encounter Miscellaneous Notes * Telephone Encounter - Jose Yost RN - 12/20/2022 3:10 PM EDT RN called back and was able to reach Rajat. RN updated that paperwork had been received, and wouldbe forwarded to provider. * Telephone Encounter - Jose Yost RN - 12/20/2022 3:06 PM EDT Copied from CRM #[id number]. Topic: Specialty Dept CRMs - Generic Call >> Dec 20, 2022 12:46 PM Madisyn Abdi wrote: Specialist: Dr Henley Relationship (if other than patient-full name): rajat/[employer] Reason for Call: Rajat called to ask about the fax that was received 12/01/22 regarding permanent disability. He would like it to be completed and returned to him. Please call him to discuss documented in this encounter Plan of Treatment Not on file documented as of this encounter Visit Diagnoses Not on filedocumented in this encounter Care Teams Web Application Dev Specialist Relationship Specialty Start Date End Date Juliette Hamilton PA [address] [place] [address] PCP - General Family Medicine 02/07/21 documented as of this encounter
--- OUTSIDE RECORDS SUMMARY | 2024-10-06 17:18 | XMS_ITS | Encounter Summary ---
[place] [address] Care Team Providers Care Mud Grinder Name Role Phone Juliette Hamilton Primary Care Provider +1- [phone] Encounter Details Date Type Department Care Team (Late st Contact Info) Description 02/14/2022 Telephone [place] [phone] Suzanne Geller Social History Tobacco Use Types Packs/Day Years [...] on filedocumented in this encounter Care Teams Mud Grinder Relationship Specialty Start Date End Date Juliette Hamilton PA [address] [place] [address] PCP - General Family Medicine 02/07/21 documented as of this encounter
--- OUTSIDE RECORDS SUMMARY | 2024-10-06 17:18 | XMS_ITS | Encounter Summary ---
Author Organization [facility] Address [facility] [place] [address] Care Team Providers Care Certified Ophthalmic Assistant Name Role Phone Juliette Hamilton Primary Care Provider +1- [phone] Encounter Details Date Type Department Care Team (Latest Contact Info) Description 05/19/2022 9:23 AM EDT - 05/19/2022 11:59 PM EDT Hospital [place] [address] Guy Moran MD [facility] [place] [address] Elevated liver enzymes Discharge Disposition: Home Social History Tobacco Use [...] Sig Dispensed Refills Start Date End Date tiotropium bromide (Spiriva Respimat) 1.25 mcg/actuation MistIndications:Moderate persistent asthma, uncomplicated Inhale 2 puffs into the lungs daily. 12 g 3 01/18/2022 LORazepam (Ativan) 1 mg Tablet Take 1 mg by mouth daily as needed. 07/04/2021 Desvenlafaxine 100 mg Tablet Sustained Release 24 hr Take 100 mg by mouth daily. 03/14/2021 tamsulosin (Flomax) 0.4 mg Capsule Take 0.4 mg by mouth daily. 01/11/2021 fluticasone propion-salmeteroL (ADVAIR HFA) 230-21 mcg/actuation HFA Aerosol InhalerIndications:Moder ate persistent asthma, uncomplicated Inhale 2 puffs into the lungs 2 times daily. 3 Inhaler 3 04/15/2020 Combivent Respimat 20-100 mcg/actuation MistIndications:Moderate persistent asthma, uncomplicated Inhale 1 puff into [...] tablet Take 200 mg by mouth daily. omeprazole (PriLOSEC) 20 mg Capsule, Delayed Release(E.C.) Take 20 mg by mouth daily. 01/21/2021 08/20/2023 traZODone (Desyrel) 100 mg Tablet Take 200 mg by mouth nightly as needed. 03/10/2021 06/26/2022 ARIPiprazole (ABILIFY) 10 mg Tablet Take 10 [...] Comments US ABDOMEN LIMITED HEPATOLOGY PROTOCOL Routine 05/19/2022 9:42 AM EDT Elevated liver enzymes documented in this encounter Results * US Abdomen Limited Hepatology Protocol (05/19/2022 9:42 AM EDT) Anatomical Region Laterality Modality Abdomen Ultrasound 05/19/2022 9:40 AM EDT Impressions 05/19/2022 10:03 AM EDT 1. ??Hepatomegaly and fatty infiltration of the liver without focal lesion identified. 2. ??The study is otherwise within normal limits. Thank you for letting us participate in the care of this patient. If you are a health care provider and have any questions regarding this report, please contact the number above. For patients who have questions, please contact the health direct care staffer that requested your imaging first. ??Zaira Cisneros, [facility] & Dept Chair - Rad Electronically Signed Final Report ?? 05/19/2022 10:02 am Narrative 05/19/2022 10:03 AM EDT Abdominal ? (Signed Final 05/19/2022 10:02 am) PATIENT INFO: ID #: ? [id number] ?: ??[birth year] (61 yrs)(M) Name: ? CHANO WAGNER ? Visit Date: 05/19/2022 09:40 am PERFORMED BY: Performed By: ? Anna Mckeon RDMS Attending: ?Amelia SALOMON, Zaira Juarez Referred By: ?GUY MORAN Location: ? [place] [facility] Hep[facility] Protocol - Abdominal ?[id number] Limited Survey Single Organ or Quadrant - [id number] INDICATIONS: pt with elevated liver enzymes >30 years, ALFORD risk factors, EtOH, ?steatosis, ?cirrhosis, ?portal hypertension ------ LIVER: ------ Right Lobe Length: ?? 17.4 ?? cm Echogenicity/Echotexture: ?? Markedly increased echogenicity Portal Veins: ?Hepatopetal Comment: ?No focal lesion seen. GALLBLADDER: Cholelithiasis: ?No stones visualized Wall Thickness: ?1. mm Focal Tenderness: ?Negative sonographic Ambriz's sign BILIARY TRACT: Intrahepatic Ducts: ?? Normal Extrahepatic Ducts: ?? Normal Common Duct Size: ? 3.0 ? mm ------- SPLEEN: ------- Size (cm) ?L: ??9.2 ? AP: ??9.1 ? TV: ??3.2 Vol (ml): ?140.3 Comment: ?Within Normal Limits FLUID COLLECTIONS: No ascites seen in the imaged RUQ and RLQ. Procedure Note Zaira Cisneros MD - 05/19/2022 Abdominal (Signed Final 05/19/2022 10:02 am) PATIENT INFO: ID #: [id number] : [birth year] (61 yrs)(M) Name: CHANO WAGNER Visit Date: 05/19/2022 09:40 am PERFORMED BY: Performed By: Anna Mckeon RDMS Attending: Zaira Cisneros MD Referred By: GUY MORAN Location: [place] SERVICE(S) PROVIDED: [facility] - Hepatology Protocol - Abdominal [id number] Limited Survey Single Organ or Quadrant - [id number] INDICATIONS: pt with elevated liver enzymes >30 years, ALFORD risk factors, EtOH, ?steatosis, ?cirrhosis, ?portal hypertension ------ LIVER: ------ Right Lobe Length: 17.4 cm Echogenicity/Echotexture: Markedly increased echogenicity Portal Veins: Hepatopetal Comment: No focal lesion seen. GALLBLADDER: Cholelithiasis: No stones visualized Wall Thickness: 1. mm Focal Tenderness: Negative sonographic Ambriz's sign BILIARY TRACT: Intrahepatic Ducts: Normal Extrahepatic Ducts: Normal Common Duct Size: 3.0 mm ------- SPLEEN: ------- Size (cm) L: 9.2 AP: 9.1 TV: 3.2 Vol (ml): 140.3 Comment: Within Normal Limits FLUID COLLECTIONS: No ascites seen in the imaged RUQ and RLQ. IMPRESSION 1. Hepatomegaly and fatty infiltration of the liver without focal lesion identified. 2. The study is otherwise within normal limits. Thank you for letting us participate in the care of this patient. If you are a health care provider and have any questions regarding this report, please contact the number above. For patients who have questions, please contact the health direct care staffer that requested your imaging first. Zaira Cisneros, [facility] & Dept Chair - Rad Electronically Signed Final Report 05/19/2022 10:02 am Guy Moran MD IMG US GEN ORDERABLE S documented in this encounter Visit Diagnoses Diagnosis Elevated liver enzymes Nonspecific elevation of levels of transaminase or lactic acid dehydrogenase (LDH) documented in this encounter Care Teams Certified Ophthalmic Assistant Relationship Specialty Start Date End Date Juliette Hamilton PA [address] [place] [address] PCP - General Family Medicine 02/07/21 documented as of this encounter
--- OUTSIDE RECORDS SUMMARY | 2024-10-06 17:18 | XMS_ITS | Encounter Summary ---
Author Organization [facility] [place] [address] Care Team Providers Care Public Relations Player Name Role Phone Juliette Hamilton Primary Care Provider +1- [phone] Reason for Visit * Reason Onset Date Comments Referral 01/30/2022 Pulmonary Rehab Encounter Details Date Type Department Care Team ([facility] Contact Info) Description 01/30/2022 [place] [phone] Jose Yost RN Referral (Pulmonary Rehab) Social History Tobacco Use Types Packs/Day Years [...] Miscellaneous Notes * Telephone Encounter - Jose Ysot RN - 01/30/2022 10:08 AM EDT RN called [place], confirming that they had received the previously submitted Pulmonary Rehab Referral. RN called patient and updated that referral had been received. RN requested patient call RN back ifhe did not heard from their office to allow follow up. documented in this encounter Plan of Treatment Not on file documented as of this encounter Visit Diagnoses Not on filedocumented in this encounter Care Teams Public Relations Player Relationship Specialty Start Date End Date Juliette Hamilton PA [address] [place] [address] PCP - General Family Medicine 02/07/21 documented as of this encounter
--- OUTSIDE RECORDS SUMMARY | 2024-10-06 17:18 | XMS_ITS | Encounter Summary ---
Author Organization [facility] Address [facility] [place] [address] Care Team Providers Care Pilot Boat Deckhand Name Role Phone Juliette Hamilton Primary Care Provider +1- [phone] Reason for Visit * Consultation (Routine) - Closed Specialty Diagnoses / Procedures Referred By Contac t Referred To Contact Gastroenterology Diagnoses Elevated LFTs liver - elevated lfts Juliette Hamilton PA [address] [place] [address] [facility] [address] [place] [address] Referral ID Status Reason Start Date Expiration Date V isits Requested Visits Authorized [id number] Closed Consult, Test & Treat PCP Updated and/or Approved 12/30/2021 12/30/2022 1 1 Encounter Details Date Type Department Care Team (Latest Contact Info) Description 02/20/2022 11:30 AM EDT TH Visit (TeleHealth) [place] [address] Guy Moran MD [facility] [place] [address] Elevated liver enzymes Social History Tobacco Use Types Packs/Day Years [...] as of this encounter Progress Notes * Guy Moran MD - 02/20/2022 11:30 AM EDT Images from the original note were not included. GASTROENTEROLOGY TELEHEALTH PROGRAM - NEW PATIENT VISIT Chief Complaint: Chano Wagner is a 61 y.o. patient referred for consultation by Dr. Hamilton for elevated liver enzymes. History of Present Illness: 61 y.o. male with with asthma and covid19 pneumonia spring 2020, pulmonary abscess, colon polyps, DM type 2, hyperlipidemia, and EtOH abuse. He reports his liver enzymes have been elevated since his early 30's. No jaundice, ascites, N/V, or hepatic encephalopathy. He have black stools, no sticky or loose, about once per week. He does not take iron, eat liver, ordrink Guiness. EtOH: 1-12 beers per day, with 3 days a week with 12 beers in a day. He reports drinking around this level for the last 8 years. He reports being sober 30 years due to health issues, but started drinking again 10 years ago. He had a DUI 7-8 years ago. No issues at work due to EtOH. ALFORD risk factors: obese, DM type 2, and hyperlipidemia He reports prior testing Hep B and Hep C with PCP, but unsure when this was done. No blood transfusions. Tattoo (non-professional at age 8, professionally done 10 years ago). No IV drug use or intranasal drug use. No other risk factors for viral hepatitis. No family history of liver disease. Latest Reference Range & Units 04/01/21 10:55 Total Bilirubin 0.2 - 1.3 mg/dL 1.8 (H) Alk Phos 40 - 130 unit/L 64 AST 0 - 39 unit/L 96 (H) ALT 0 - 55 unit/L 105 (H) Review of systems: 14-point review of systems reviewed and negative except as above. Medications: Outpatient Medications Prior to Visit Medication Sig Dispense Refill ??? tiotropium bromide (Spiriva Respimat) 1.25 mcg/actuation Mist Inhale 2 puffs into the lungs daily. 12 g 3 ??? LORazepam (Ativan) 1 mg Tablet Take 1 mg by mouth daily as needed. ??? Desvenlafaxine 100 mg Tablet Sustained Release 24 hr Take 100 mg by mouth daily. ??? omeprazole (PriLOSEC) 20 mg Capsule, Delayed Release(E.C.) Take 20 mg by mouth daily. ??? traZODone (Desyrel) 100 mg Tablet Take 200 mg by mouth nightly as needed. ??? tamsulosin (Flomax) 0.4 mg Capsule Take 0.4 mg by mouth daily. ??? fluticasone propion-salmeteroL (ADVAIR HFA) 230-21 mcg/actuation HFA Aerosol Inhaler Inhale 2 puffs into the lungs 2 times daily. 3 Inhaler 3 ??? Combivent Respimat 20-100 mcg/actuation Mist Inhale 1 puff into the lungs every 6 hours as needed for Wheezing. 1 Inhaler 2 ??? zolpidem (AMBIEN CR) 12.5 mg Tablet, Multiphasic Release Take 12.5 mg by mouth nightly as needed. ??? ARIPiprazole (ABILIFY) 10 mg Tablet Take 10 mg by mouth daily. ??? celecoxib (CELEBREX) 100 mg Capsule Take 100 mg by mouth 2 times daily. ??? modafinil (PROVIGIL) 200 mg Tablet Take 200 mg by mouth daily. ??? armodafiniL (NuvigiL) 200 mg Tablet Take 200 mg by mouth daily. ??? metFORMIN (GLUCOPHAGE-XR) 500 mg Tablet Sustained Release 24 hr Take 1,000 mg by mouth 2 times daily. ??? simvastatin (ZOCOR) 20 mg Tablet Take 20 mg by mouth nightly. ??? cetirizine (ZYRTEC) 10 mg Tablet Take 10 mg by mouth daily. Reported on 03/12/2017 ??? Atomoxetine (Strattera) 80 mg Capsule Take 1 capsule by mouth daily. ??? sildenafiL (VIAGRA) 100 mg Tablet Take 100 mg by mouth as needed for Erectile Dysfunction. ??? lamoTRIgine (LAMICTAL) 100 mg tablet Take 200 mg by mouth daily. No facility-administered medications prior to visit. Allergies: is allergic to house dust mite. Past Medical History: has a past medical history of Depression (07/31/2011), Insomnia (07/31/2011),Insufficient sleep syndrome (07/31/2011), and SHANI on CPAP (05/16/2009). DM type 2, HLD, EtOH abuse. Past Surgical History: has a past surgical history that includes Removal Of Prox Row Carpal Bones (65810) (Right, 01/29/2015). Family History: family history includes Chronic Obstructive Pulmonary Disease in his mother; Rheumatologic Disease in his mother. Denies family history of colon cancer, IBD, liver disease, or celiac disease in mother father or other family members Social History: reports that he quit smoking about 34 years ago. His smoking use included cigarettes. He has a 30.00 pack-year smoking history. He has never used smokeless tobacco. He reports currentalcohol use. He reports that he does not use drugs. Physical exam: No Physical Examination performed during this telemedicine visit Laboratory studies, imaging, and procedures (my review of prior records): See HPI Assessment/Plan: Mr. Wagner is a 61 y.o. patient with elevated liver enzymes per her's report dating back for 30 years. Reviewed that he he has significant risk factors for metabolic associated fatty liver disease and his level of alcohol consumption is also concerning for alcohol-related liver disease. However, Iwould recommend testing for genetic causes of liver disease (iron studies, ferritin, alpha-1 antitrypsin levels), autoimmune causes of liver disease (AFUA, IgG level, SPEP, smooth muscle antibody, andantimitochondrial antibody), and viral hepatitis (hepatitis B, hepatitis C, and HIV). I recommendedan ultrasound to assess the liver parenchyma given his long duration of elevated liver enzymes as well as to assess the spleen to look for signs of cirrhosis and portal hypertension. Finally, I have recommended an in person visit to allow for FibroScan for fibrosis assessment. I did advise him thateven if a cause other than alcohol was found as a cause for his elevated liver enzymes consuming alcohol would only exacerbate the elevation in his liver tests and potentially cause worsening fibrosis. I advised to reduce his alcohol consumption or preferably stop all alcohol consumption. He stateshe feels he can stop all alcohol consumption and denies any prior symptoms of withdrawal. The patient was located in [place] at the time of their visit. Guy Moran MD [facility] [place] [id number] documented in this encounter Plan of Treatment Not on file documented as of this encounter Results * A1AT Serum Concentration (05/19/2022 10:13 AM EDT) A1AT 116 90 - 200 mg/dL [facility] Blood 05/19/2022 10:1 3 AM EDT 05/19/2022 10:20 AM EDT Narrative Resulting Agency Comment Spec In Lab Guy Moran MD CHEMISTRY ORDERABLES [facility] [place] [address] * (ABNORMAL) Ferritin (05/19/2022 10:13 AM EDT) Ferritin 723(H) 30 - 400 ng/mL [facility] Comment: Pediatric reference ranges not verified at [facility], interpret with caution. Reference ranges for females greater than 50 years of age approach values for men, i.e., 30-400 ng/mL. Blood 05/19/2022 10:1 3 AM EDT 05/19/2022 10:20 AM EDT Narrative Resulting Agency Comment Spec In Lab Guy Moran MD CHEMISTRY ORDERABLES [facility] [place] [address] * (ABNORMAL) Iron and TIBC (05/19/2022 10:13 AM EDT) Iron 163(H) 45 - 160 mcg/dL [facility] TIBC 329 250 - 450 mcg/dL [facility] Iron Saturation 50 20 - 50 % [facility] Blood 05/19/2022 10:1 3 AM EDT 05/19/2022 10:20 AM EDT Narrative Resulting Agency Comment Spec In Lab Guy Moran MD CHEMISTRY ORDERABLES Performing Organization Address [facility] Co de Phone Number [facility] [place] [address] * Protein Electrophoresis, serum (05/19/2022 10:13 AM EDT) Total Prot Electrophoresis 7.8 6.1 - 8.0 g/dL [facility] Albumin Electrophoresis 4.66 3.60 - 6.00 g/dL [facility] Alpha 1 Globulin 0.17 0.10 - 0.30 g/dL [facility] Alpha 2 Globulin 0.85 0.40 - 0.90 g/dL [facility] Beta Globulin 1.00 0.50 - 1.00 g/dL [facility] Gamma Globulin 1.12 0.50 - 1.30 g/dL [facility] M1 Band None Detected None Detected [facility] Blood 05/19/2022 10:1 3 AM EDT 05/19/2022 10:20 AM EDT Narrative Resulting Agency Comment Spec In Lab Guy Moran MD CHEMISTRY ORDERABLES Performing Organization Address [facility] de Phone Number [facility] [place] [address] * IgG (05/19/2022 10:13 AM EDT) Immunoglobulin G 1,347 700 - 1,600 mg/dL [facility] Comment: Pediatric Reference Intervals obtained from the Caliper Reference Interval project. http://www.sickkids.ca/caliperproject/index.html Blood 05/19/2022 10:1 3 AM EDT 05/19/2022 10:20 AM EDT Narrative Resulting Agency Comment Spec In Lab Guy Moran MD CHEMISTRY ORDERABLES Performing Organization Address City/[facility]/ZIP Co de Phone Number [facility] [place] [address] * (ABNORMAL) Mitochondrial Antibody, M2 (05/19/2022 10:13 AM EDT) Mitochon Ab (FEBRUARY) 0.1(H) <0.1 (Negative) U [facility] Comment: Interpretation: Borderline (0.1-0.3) Test Performed by: [facility] [place] [address] Cloth Bolt Bander: Barber Henao M.D. Ph.D.; CLIA# [id number] Blood 05/19/2022 10:1 3 AM EDT 05/19/2022 3:27 PM EDT Narrative Resulting Agency Comment Spec In Lab Guy Moran MD LAB SEND OUT ORDERAB LES Performing Organization Address [facility]/ZIP Co de Phone Number [facility] [place] [address] * Smooth Muscle Antibody (05/19/2022 10:13 AM EDT) Pathologist [facility] Sm Muscle Ab (FEBRUARY) Negative Negative [facility] Comment: Negative: No further testing will be performed ADDITIONAL INFORMATION This test was developed and its performance characteristics determined by [facility] in a manner consistent with CLIA requirements. This test has not been cleared or approved by the U.S. Food and Drug Administration. Test Performed by: [facility] [place] [address] Cloth Bolt Bander: Barber Henao M.D. Ph.D.; CLIA# [id number] Blood 05/19/2022 10:1 3 AM EDT 05/19/2022 3:27 PM EDT Narrative Resulting Agency Comment Spec In Lab Guy Moran MD LAB SEND OUT ORDERAB LES Performing Organization Address [facility]/ZIP Co de Phone Number [facility] [place] [address] * (ABNORMAL) AFUA (05/19/2022 10:13 AM EDT) AFUA Ab Screen Test ?Result ? Flag ??Unit ??RefValue Antinuclear Ab, HEp-2 Substrate, ?Positive 1:160 ??@ ?<1:80 (Negative) ??S ? ADDITIONAL INFORMATION --------- ?Method: Immunofluorescence using HEp-2 cellular substrate. ??AFUA Titer: ?1:160 ??AFUA Pattern: ?Speckled ?Test Performed by: ?[facility] ?[address] [place] [address] ?Cloth Bolt Bander: Barber Henao M.D. Ph.D.; CLIA# [id number] ([id number]) [facility] Blood 05/19/2022 10:1 3 AM EDT 05/19/2022 3:27 PM EDT Narrative Resulting Agency Comment Spec In Lab Guy Moran MD LAB SEND OUT ORDERAB LES [facility] [place] [address] * HIV Screen, 4th Generation ([facility]/CGP/APD/NLH) (05/19/2022 10:13 AM EDT) HIV Ab/Ag Screen Negative Negative [facility] Comment: This 4th Generation HIV [...] HIV Comment Low Risk of HIV Infection [facility] Blood 05/19/2022 10:1 3 AM EDT 05/19/2022 10:20 AM EDT Narrative Resulting Agency Comment Spec In Lab Guy Moran MD CHEMISTRY ORDERABLES Performing Organization Address [facility]/ZIP Co de Phone Number [facility] [place] [address] * Hepatitis C Antibody (05/19/2022 10:13 AM EDT) Hepatitis C Antibody Negative Negative [facility] Blood 05/19/2022 10:1 3 AM EDT 05/19/2022 10:20 AM EDT Narrative Resulting Agency Comment Spec In Lab Guy Moran MD CHEMISTRY ORDERABLES Performing Organization Address City/[facility]/ZIP Co de Phone Number [facility] [place] [address] * Hepatitis B Core Antibody, Total (05/19/2022 10:13 AM EDT) Hepatitis B Core Antibody Negative Negative [facility] Blood 05/19/2022 10:1 3 AM EDT 05/19/2022 10:20 AM EDT Narrative Resulting Agency Comment Spec In Lab Guy Moran MD CHEMISTRY ORDERABLES Performing Organization Address City/[facility]/ZIP Co de Phone Number [facility] [place] [address] * Hepatitis B Surface Antigen (05/19/2022 10:13 AM EDT) Hepatitis B Surface Antigen Negative Negative [facility] Blood 05/19/2022 10:1 3 AM EDT 05/19/2022 10:20 AM EDT Narrative Resulting Agency Comment Spec In Lab Guy Moran MD CHEMISTRY ORDERABLES Performing Organization Address [facility] Co de Phone Number [facility] [place] [address] * Hepatitis B Surface Antibody (05/19/2022 10:13 AM EDT) Hepatitis B Surface Antibody, Quantitative <3.5 IU/L [facility] Comment: HepB Surface Ab Quant: Unvaccinated: < 8.5 IU/L Vaccinated: > 11.5 IU/L Hepatitis B Surface Antibody Negative [facility] Comment: Patient is presumed to be not vaccinated or immune to HBV infection. Expected Results: Vaccinated: Positive Unvaccinated: Negative Blood 05/19/2022 10:1 3 AM EDT 05/19/2022 10:20 AM EDT Narrative Resulting Agency Comment Spec In Lab Guy Moran MD CHEMISTRY ORDERABLES Performing Organization Address [facility] Co de Phone Number [facility] [place] [address] * Hepatitis A Antibody, Total (05/19/2022 10:13 AM EDT) Hepatitis A ANTIBODY, TOTAL Negative Negative [facility] Blood 05/19/2022 10:1 3 AM EDT 05/19/2022 10:20 AM EDT Narrative Resulting Agency Comment Spec In Lab Guy Moran MD CHEMISTRY ORDERABLES Performing Organization Address City/[facility]/ZIP Co de Phone Number [facility] [place] [address] * (ABNORMAL) Prothrombin Time (05/19/2022 10:13 AM EDT) Prothrombin Time 13.6(H) 9.4 - 12.[address] [facility] International Normalization Ratio 1.2 [facility] Comment: An INR <2.0 indicates adequate procoagulant activity for hemostasis in most patients without underlying bleeding disorders, though the INR may not adequately reflect hemostatic capacity in patients with liver disease and synthetic impairment. The recommended target INR range for therapeutic anticoagulation is 2.0 ? 3.0 for most applications, though lower and higher ranges may be appropriate depending on clinical circumstances. Blood 05/19/2022 10:1 3 AM EDT 05/19/2022 10:20 AM EDT Narrative Resulting Agency Comment Spec In Lab Guy Moran MD HEMATOLOGY ORDERABLE S [facility] [place] [address] * (ABNORMAL) Comprehensive metabolic panel (non-fasting) (05/19/2022 10:13 AM EDT) Pathologist [facility] Glucose 220(H) 65 - 199 mg/dL [facility] Comment:Diabetes: >=200 mg/d L plus symptoms Blood Urea Nitrogen 8(L) 10 - 20 mg/dL [facility] Creatinine 0.95 0.80 - 1.50 mg/dL [facility] Sodium 132(L) 135 - 145 mmol/L [facility] Potassium 4.1 3.5 - 5.0 mmol/L [facility] Comment: Please note: ??Patients with WBC >100,000 may have falsely elevated Potassium levels. ??For accurate Potassium quantification in these patients send serum separator tube (gold top) for subsequent determinations. ??Contact the Clinical Chemistry Laboratory if there are any questions. Chloride 99 98 - 107 mmol/L [facility] Carbon Dioxide 24 22 - 31 mmol/L [facility] Anion Gap 9 5 - 15 mmol/L [facility] Calcium 9.3 8.5 - 10.5 mg/dL [facility] Protein, Total 7.9 6.1 - 8.0 g/dL [facility] Albumin 4.4 3.2 - 5.2 g/dL [facility] Aspartate Aminotransferase 78(H) 0 - 39 unit/L [facility] Alanine Aminotransferase 82(H) 0 - 55 unit/L [facility] Alkaline Phosphatase 87 40 - 130 unit/L [facility] Bilirubin, Total 1.8(H) 0.2 - 1.3 mg/dL [facility] Est Glomerular Filtration Rate 90 >=60 mL/min/1. 73 m?? [facility] Comment: This patient's estimated GFR was [...] and symptoms in addition to eGFR. Blood 05/19/2022 10:1 3 AM EDT 05/19/2022 10:20 AM EDT Narrative Resulting Agency Comment Spec In Lab Guy Moran MD CHEMISTRY ORDERABLES [facility] [place] [address] * US Abdomen Limited Hepatology Protocol (05/19/2022 [...] who have questions, please contact the health healthcare architect that requested your imaging first. ??Zaira Cisneros, [facility] & Dept Chair - Rad Electronically Signed Final Report ?? 05/19/2022 10:02 am Narrative 05/19/2022 10:03 AM EDT Abdominal ? (Signed Final 05/19/2022 10:02 am) PATIENT INFO: ID #: ? [id number] ?: ??[birth year] (61 yrs)(M) Name: ? CHANO WAGNER ? Visit Date: 05/19/2022 09:40 am PERFORMED BY: Performed By: ? Anna Mckeon RDMS Attending: ?Amelia SALOMON, Zaira Juarez Referred By: ?GUY MORAN Location: ? [place] SERVICE(S) PROVIDED: [facility] - Hepatology Protocol - Abdominal ?87005 Limited Survey Single Organ or Quadrant - [id number] INDICATIONS: pt with elevated liver enzymes >30 [...] 05/19/2022 10:02 am) PATIENT INFO: ID #: [id number] : [birth year] (61 yrs)(M) Name: CHANO WAGNER Visit Date: 05/19/2022 09:40 am PERFORMED BY: Performed By: Anna Mckeon RDMS Attending: Zaira Cisneros MD Referred By: GUY MORAN Location: [place] SERVICE(S) PROVIDED: [facility] - Hepatology Protocol - Abdominal 62572 Limited Survey Single Organ or Quadrant - [id number] INDICATIONS: pt with elevated liver enzymes >30 [...] who have questions, please contact the health healthcare architect that requested your imaging first. Zaira Cisneros, [facility] & Dept Chair - Rad Electronically Signed Final Report 05/19/2022 10:02 am Guy Moran MD IMG US GEN ORDERABLE S documented in this encounter Visit Diagnoses Diagnosis Elevated liver enzymes Nonspecific elevation of levels of transaminase or lactic acid dehydrogenase (LDH) Elevated liver enzymes Nonspecific elevation of levels of transaminase or lactic acid dehydrogenase (LDH) documented in this encounter Care Teams Pilot Boat Deckhand Relationship Specialty Start Date End Date Juliette Hamilton PA [address] [place] [address] PCP - General Family Medicine 02/07/21 documented as of this encounter
--- OUTSIDE RECORDS SUMMARY | 2024-10-06 17:18 | XMS_ITS | Encounter Summary ---
Author Organization [facility] [place] [address] Care Team Providers Care Tie Buyer Name Role Phone Juliette Hamilton Primary Care Provider +1- [phone] Encounter Details Date Type Department Care Team (Late st Contact Info) Description 02/15/2023 [place] [id number] Jose Yost RN Social History Tobacco Use [...] Telephone Encounter - Jose Yost RN - 02/15/2023 2:53 PM EDT RN updated that paperwork was awaiting completion from Dr. Henley. This will be faxed once received from provider. * Telephone Encounter - Jose Yost RN - 02/15/2023 2:43 PM EDT Copied from CRM #[id number]. Topic: Specialty Dept CRMs - Generic Call >> February 15, 2023 12:44 PM Madisyn Abdi wrote: Specialist: Dr Henley Relationship (if other than patient-full name): svetlana [facility] Reason for Call: Svetlana called again wondering when the disability form will be signed off. The form is in Dr Henley's folder. Please call him to discuss documented in this encounter Plan of Treatment Not on file documented as of this encounter Visit Diagnoses Not on filedocumented in this encounter Care Teams Tie Buyer Relationship Specialty Start Date End Date Juliette Hamilton PA [address] [place] [address] PCP - General Family Medicine 02/07/21 documented as of this encounter
--- OUTSIDE RECORDS SUMMARY | 2024-10-06 17:18 | XMS_ITS | Encounter Summary ---
Author Organization [facility] [place] [address] Care Team Providers Care Hot Dipper Name Role Phone Juliette Hamilton Primary Care Provider +1- [phone] Encounter Details Date Type Department Care Team (Late st Contact Info) Description 03/17/2022 Telephone [place] [phone] Madisyn Abdi Social History Tobacco Use Types Packs/Day Years [...] encounter Miscellaneous Notes * Telephone Encounter - Madisyn Abdi - 03/17/2022 8:22 AM EDT resched pft due to work conflict.pt aware dtl documented in this encounter Plan of Treatment Not on file documented as of this encounter Visit Diagnoses Not on filedocumented in this encounter Care Teams Hot Dipper Relationship Specialty Start Date End Date Juliette Hamilton PA [address] [place] [address] PCP - General Family Medicine 02/07/21 documented as of this encounter
--- OUTSIDE RECORDS SUMMARY | 2024-10-06 17:18 | XMS_ITS | Encounter Summary ---
Author Organization [facility] [place] [address] Care Team Providers Care Forklift Driver Name Role Phone Juliette Hamilton Primary Care Provider +1- [phone] Encounter Details Date Type Department Care Team (Late st Contact Info) Description 03/29/2022 Orders [place] [address] Korey Murray MD [facility] [place] [address] Supplemental oxygen dependent Social History Tobacco Use Types Packs/Day Years [...] Type Priority Associated Diagnoses Orde r Schedule Pulmonary Function Testing PFT Routine Supplemental oxygen dependent Expected: 03/29/2022, Expires: 09/28/2023 documented as of this encounter Visit Diagnoses Diagnosis Supplemental oxygen dependent Dependence on supplemental oxygen documented in this encounter Care Teams Forklift Driver Relationship Specialty Start Date End Date Juliette Hamilton PA [address] [place] [address] PCP - General Family Medicine 02/07/21 documented as of this encounter
--- OUTSIDE RECORDS SUMMARY | 2024-10-06 17:18 | XMS_ITS | Encounter Summary ---
Author Organization [facility] [place] [address] Care Team Providers Care Hog Pusher Name Role Phone Juliette Hamilton Primary Care Provider +1- [phone] Reason for Visit * Reason Onset Date Comments Disability Paperwork 01/16/2023 Encounter Details Date Type Department Care Team (Late st Contact Info) Description 01/16/2023 [place] [phone] Jose Yost RN Disability Paperwork Social History Tobacco Use Types Packs/Day Years [...] Telephone Encounter - Jose Yost RN - 01/16/2023 1:22 PM EDT Rec'd copy of disability paperwork from [employer], via [employer]. Put in red folder and dropped in Dr. Henley's inbox. documented in this encounter Plan of Treatment Not on file documented as of this encounter Visit Diagnoses Not on filedocumented in this encounter Care Teams Hog Pusher Relationship Specialty Start Date End Date Juliette Hamilton PA [address] [place] [address] PCP - General Family Medicine 02/07/21 documented as of this encounter
--- OUTSIDE RECORDS SUMMARY | 2024-10-06 17:18 | XMS_ITS | Encounter Summary ---
Author Organization [facility] [place] [address] Care Team Providers Care Hall Manager Name Role Phone Juliette Hamilton Primary Care Provider +1- [phone] Encounter Details Date Type Department Care Team (Late st Contact Info) Description 06/23/2022 Telephone [place] [phone] Abby Cordero RMA Social History Tobacco Use Types Packs/Day Years [...] encounter Miscellaneous Notes * Telephone Encounter - Abby Cordero RMA - 06/23/2022 3:57 PM EDT Spoke with pt... allergies, meds & tobacco reviewed. documented in this encounter Plan of Treatment Not on file documented as of this encounter Visit Diagnoses Not on filedocumented in this encounter Care Teams Hall Manager Relationship Specialty Start Date End Date Juliette Hamilton PA [address] [place] [address] PCP - General Family Medicine 02/07/21 documented as of this encounter
--- OUTSIDE RECORDS SUMMARY | 2024-10-06 17:18 | XMS_ITS | Encounter Summary ---
Author Organization [facility] Address [facility] [place] [address] Care Team Providers Care Furniture Painter Name Role Phone Juliette Hamilton Primary Care Provider +1- [phone] Encounter Details Date Type Department Care Team (Late st Contact Info) Description 11/01/2022 10:00 AM EST [place] [phone] Maine Henley MD [facility] [place] [address] Moderate persistent asthma, uncomplicated; SHANI on CPAP; Post-acute COVID-19 syndrome; Class 2 obesity with body mass index (BMI) of 36.0 to 36.9 in adult, unspecified obesity type, unspecified whether serious comorbidity present Social History Tobacco Use Types Packs/Day [...] Sign Reading Time Taken Comments Blood Pressure 149/94 11/01/2022 9:43 AM EST Pulse 80 11/01/2022 9:43 AM EST Temperature 36.3 ??C (97.3 ??F) 11/01/2022 9:43 AM ES T Respiratory Rate 20 11/01/2022 9:43 AM EST Oxygen Saturation 93% 11/01/2022 9:43 AM EST Inhaled Oxygen Concentration - - Weight 112.7 kg (248 lb 6.4 oz) 11/01/2022 9:43 AM EST Height 177.8 cm (5' 10) 11/01/2022 9:43 AM EST Body Mass Index 35.64 11/01/2022 9:43 AM EST documented in this encounter Patient Instructions * Patient Instructions* Maine Henley MD - 11/01/2022 10:00 AM EST Keep working on increasing exercise and working on weight loss. Continue on inhalers. documented in this encounter Progress Notes * Maine Henley MD - 11/01/2022 10:00 AM EST Images from the original note were not included. [facility] Section of Pulmonary and Critical Care Medicine Outpatient Consultation Date of Encounter: 11/01/2022 Reason for Evaluation: Mr. Chano Coker returns to the pulmonary clinic for follow-up of asthmaand recent covid19 infection. I independently interviewed the patient, have examined the patient ifthis visit was conducted in the office and have reviewed available records. Dear MORGAN Marin, As you know, Chano Coker is a 61 y.o. male with asthma and covid19 pneumonia spring 2020, and resolved pulmonary abscess, last seen in pulmonary clinic in Jun 2022. Mr. Coker reports he is still struggling with shortness of breath with walking. Unchanged from June. Gets very winded and breathless with moderate activity. Dyspnea improves with pausing to catch his breath and sometimes when he uses rescue combivent. No chest congestion. Doesn't notice much cough or wheezing. Does walk the dog 2-3 times a day. Trying to exercise more. Sinuses are doing okay, had a cold a few weeks ago that is slowly resolving. No fevers, but having some fatigue. Memory is still a challenge, difficult short term memory. Started on modafinil, helps some with energy. No chest pain, no leg swelling. Occasionally remembers to use oxygen during the day when short of breath, but isn't using very much. Using CPAP at night consistently though. Sleeping well. He looked into pulmonary rehab but there was no local option. He has had covid19 vaccine primary series and booster #1. Remains on advair 230-21 two puffs BID and spiriva respimat 1.25 mcg two inhalations daily, combivent PRN (using only occasionally now), zyrtec daily. Hasn't been able to return to work activities. He remains on snf disability related to his covid19 illness. No smoke exposure. Current Medications at Start [...] Take 20 mg by mouth daily. ??? fluticasone propion-salmeteroL [...] mg by mouth 2 times daily. ??? armodafiniL (NuvigiL) 200 mg Tablet Take 200 mg by mouth daily. ??? metFORMIN (GLUCOPHAGE-XR) 500 mg Tablet Sustained Release 24 hr Take 1,000 mg by mouth 2 times daily. ??? simvastatin (ZOCOR) 20 mg Tablet Take 20 mg by mouth nightly. ??? sildenafiL (VIAGRA) 100 mg Tablet Take 100 mg by mouth as needed for Erectile Dysfunction. PRN ??? mirtazapine (REMERON) 30 mg Tablet ??? tamsulosin (Flomax) 0.4 mg Capsule Take 0.4 mg by mouth daily. ??? modafinil (PROVIGIL) 200 mg Tablet Take 200 mg by mouth daily. ??? cetirizine (ZYRTEC) 10 mg Tablet Take 10 mg by mouth daily. Reported on 03/12/2017 ??? Atomoxetine (Strattera) 80 mg Capsule Take 1 capsule by mouth daily. ??? lamoTRIgine (LAMICTAL) 100 mg tablet Take 200 mg by mouth daily. No facility-administered medications prior to visit. Review of Systems: A focused ROS was completed and was positive as noted in HPI, and otherwise negative. Physical Examination: BP (!) 149/94 Pulse 80 Temp 36.3 ??C (97.3 ??F) (Temporal) Resp 20 Ht 177.8 cm (5' 10) Wt 112.7 kg (248 lb 6.4 oz) SpO2 93% BMI 35.64 kg/m?? GEN: NAD, alert, conversational, generally well appearing, overweight HEENT: MMM, neck supple CV: RRR, no murmur PULM: normal WOB, lungs are clear, no crackles or wheezing ABD: soft, ND MSK: no joint swelling, he is easily ambulatory EXT: no edema, not tender NEURO: AAO, voice is clear Pulmonary Function [...] ambulation of 500 feet on room air. Labs, Microbiology and Imaging: I personally reviewed relevant laboratory, microbiologic and radiology results which were significant for: Chest CT 04/18/2021: near-complete resolution of prior right cavitary lesion, with some residual scarring, minimal atelectasis. Last eosinophils 100 in 03/2021, 200 on 05/19/2022 Hgb 17 Immunization History: Flu vaccine: has had 2021 flu vaccine COVID-19 vaccine: has had primary and at least one booster Pneumovax: Prevnar-13: Impression and Recommendations: Chano Coker is a 61 y.o. man with moderate persistent asthma, SHANI on CPAP, resolved pulmonary cavitary pneumonia, history of rhinitis, with post-covid syndrome involving persistent and limiting exertional dyspnea, memory impairment and fatigue following covid19 infection in spring 2020, as well as deconditioning and possible component of restriction from obesity. He feels he is not making further progress despite triple inhaled therapy; lungs are clear and he does not seem to have increase in asthma symptoms. We will repeat PFTs to assess for new pulmonary baseline and airflow obstruction with his next visit. Increased exercise and weight loss are strongly encouraged to address his dyspnea. He may use supplemental O2 as needed with activity for dyspnea, though saturation was adequate withambulation on room air when tested in the clinic. He remains on high dose ICS/LABA and LAMA therapy for asthma, and should continue to use combivent or albuterol before exercise and PRN. He remains on nocturnal chronic CPAP for SHANI, managed by sleep team. Summary Recommendations: - increased exercise and weight loss strongly recommended - continue advair 230-21 two puffs BID and spiriva respimat 1.25 mcg two inhalations daily, combivent PRN, zyrtec daily - continue nocturnal CPAP use - may use supplemental NC O2 with exertion for dyspnea, goal sat >/=88% - repeat osiris/DLCO/ambulatory O2 testing with next visit. Follow-up with in-office visit in 4 months Thank you for involving me in Mr. Coker's care. Please feel free to contact me with any further questions or concerns. I personally spent 25 minutes of this encounter with the patient discussing their pulmonary diseaseand treatment recommendations as outlined in my assessment and plan above. This visit involved a total of 35 minutes of clinical time on day of visit. Maine Henley MD [facility] PULMONOLOGY AT [facility] [address] Dept: [phone] Loc: [phone] documented in this encounter Plan of Treatment Not on file documented as of this encounter Results * Pulmonary Function Testing (04/30/2023 2:04 PM EDT) FVC Actual Pre-BD 3.43 L COMPAS PFT FVC Pre-BD % of Predicted 81 % COMPAS PFT FVC Predicted 4.21 L COMPAS PFT FVC Pre-BD Z-Score -1.24 COMPAS PFT FVC Lower Limits of Normal 3.17 L COMPAS PFT FEV1 Actual Pre-BD 2.29 L COMPAS PFT FEV1 Pre-BD % of Predicted 71 % COMPAS PFT FEV1 Predicted 3.24 L COMPAS PFT FEV1 Pre-BD Z-Score -1.85 COMPAS PFT FEV1 Lower Limits of Normal 2.40 L COMPAS PFT FEV1 / FVC Actual Pre-BD 67 % COMPAS PFT FEV1/FVC Pre-BD Z-Score -1.32 COMPAS PFT FEV1 / FVC LLN 64 % COMPAS PFT [id number] Actual Pre-BD 1.30 L/s COMPAS PFT OPA25-15 Pre-BD % of Predicted 49 % COMPAS PFT SOS46-58 Predicted 2.63 L/s COMPAS PFT HET70-41 Pre-BD Z-Score -1.54 COMPAS PFT DLCO Hb Actual Pre-BD 19.69 mL/min/mmHg COMPAS PFT DLCO Hb Pre-BD % of Predicted 77 % COMPAS PFT DLCO Hb Pre-BD Z-Score -1.45 COMPAS PFT DLCO Hb Predicted 25.48 mL/min/mmHg COMPAS PFT DLCO UNC ACT PRE-BD 19.69 mL/min/mmHg COMPAS PFT DLCO UNC PRE-BD % of PRED 77 % COMPAS PFT DLCO UNC PRE-BD Z-SCORE -1.45 % COMPAS PFT DLCO UNC Predicted 25.48 mL/min/mmHg COMPAS PFT DLCO/VA Actual Pre-BD 3.13 mL/min/mmHg /L COMPAS PFT DLCO/VA Pre-BD % of Predicted 74 % COMPAS PFT DLCO/VA Pre-BD Z-Score -1.70 COMPAS PFT DLCO/VA Predicted 4.21 mL/min/mmHg /L COMPAS PFT Narrative COMPAS PFT - 04/30/2023 2:04 PM EDT FINDINGS: FEV1 is reduced, FVC and FEV1/VC are normal. Diffusion capacity is normal. IMPRESSION: Spirometry with non-specific isolated reduction in FEV1. No diffusion impairment. By ATS criteria, these pulmonary function tests do not support a diagnosis of COPD, but note the FEV1/FVC ratio (67 %) is less than 70 %, but above the lower limit of normal (64 %). ??There was a 6% desaturation to 90% with ambulation. Procedure Note Korey Murray MD - 05/01/2023 FINDINGS: FEV1 is reduced, FVC and FEV1/VC are normal. Diffusion capacityis normal. IMPRESSION: Spirometry with non-specific isolated reduction in FEV1. Nodiffusion impairment. By ATS criteria, these pulmonary function tests do not support a diagnosisof COPD, but note the FEV1/FVC ratio (67 %) is less than 70 %, but above the lower limit ofnormal (64 %). There was a 6% desaturation to 90% with ambulation. Maine Henley MD PFT ORDERABLES COMPAS PFT documented in this encounter Visit Diagnoses Diagnosis Moderate persistent asthma, uncomplicated Unspecified asthma SHANI on CPAP Obstructive sleep apnea (adult) (pediatric) Post-acute COVID-19 syndrome Class 2 obesity with body mass index (BMI) of 36.0 to 36.9 in adult, unspecified obesity type, unspecified whether serious comorbidity present Moderate persistent asthma, uncomplicated Unspecified asthma documented in this encounter Care Teams Furniture Painter Relationship Specialty Start Date End Date Juliette Hamilton PA [address] [place] [address] PCP - General Family Medicine 02/07/21 documented as of this encounter
--- OUTSIDE RECORDS SUMMARY | 2024-10-06 17:18 | XMS_ITS | Encounter Summary ---
[place] [address] Care Team Providers Care Breeder Hen Service Technician Name Role Phone Juliette Hamilton Primary Care Provider +1- [phone] Encounter Details Date Type Department Care Team (Late st Contact Info) Description 03/26/2023 [place] [phone] Suzanne Geller Social History Tobacco Use Types [...] on filedocumented in this encounter Care Teams Breeder Hen Service Technician Relationship Specialty Start Date End Date Juliette Hamilton PA [address] [place] [address] PCP - General Family Medicine 02/07/21 documented as of this encounter
--- OUTSIDE RECORDS SUMMARY | 2024-10-06 17:18 | XMS_ITS | Encounter Summary ---
Author Organization [facility] [place] [address] Care Team Providers Care Design Engineer Name Role Phone Juliette Hamilton Primary Care Provider +1- [phone] Encounter Details Date Type Department Care Team (Latest Contact Info) Description 04/30/2023 Travel Social History Tobacco Use Types Packs/Day [...] on filedocumented in this encounter Care Teams Design Engineer Relationship Specialty Start Date End Date Juliette Hamilton PA [address] [place], [place] [address] PCP - General Family Medicine 02/07/21 documented as of this encounter
--- OUTSIDE RECORDS SUMMARY | 2024-10-06 17:18 | XMS_ITS | Encounter Summary ---
[place] [address] Care Team Providers Care Distribution Transformer Assembler Name Role Phone Juliette aHmilton Primary Care Provider +1- [phone] Encounter Details Date Type Department Care Team (Late st Contact Info) Description 03/23/2022 [place] [phone] Suzanne Geller Social History Tobacco Use Types [...] on filedocumented in this encounter Care Teams Distribution Transformer Assembler Relationship Specialty Start Date End Date Juliette Hamilton PA [address] [place] [address] PCP - General Family Medicine 02/07/21 documented as of this encounter
--- OUTSIDE RECORDS SUMMARY | 2024-10-06 17:18 | XMS_ITS | Encounter Summary ---
Author Organization [facility] [place] [address] Care Team Providers Care Framework Developer Name Role Phone Juliette Hamilton Primary Care Provider +1- [phone] Reason for Visit * Reason Onset Date Comments Disability Paperwork 03/12/2023 Encounter Details Date Type Department Care Team (Late st Contact Info) Description 03/12/2023 Telephone [place] [phone] Latasha Win RN Disability Paperwork Social History Tobacco Use [...] encounter Miscellaneous Notes * Telephone Encounter - Anna Sanches RN - 03/26/2023 6:52 AM EDT Copied from [facility] #[id number]. Topic: Specialty Dept CRMs - Form Status >> Jan 30, 2023 1:07 PM Duarte Nava wrote: Form Status Request Specialist Maine Henley MD Relationship (if other than patient-full name): Danilo Santos [employer] Type of Form/Paperwork: Long-term disability How Was Form/Paperwork Given to Office: Faxed Date Form/Paperwork was Sent to Office: 12/01/2022 Tom stated the Disablity forms need to be completed, signed and faxed back to [phone], please use ref #[id number]. Patient Informed, completion of this request can take 5-7 business days. * Telephone Encounter - Latasha Win RN - 03/12/2023 4:22 PM EDT Call placed to patient to follow-up. Chano states he is doing fine, and advises that he rescheduled his visit for May. He is willing to come sooner if there is a cancellation. He would like to have ultrasound performed here at but willing to have labs drawn locally. He asks if orders can be faxed to PCP office. Will work to arrange for sooner follow-up visit. November lab orders faxed to PCP office. * Telephone Encounter - Latasha Win RN - 03/12/2023 4:20 PM EDT ----- Message from Gay Moran MD sent at 03/06/2023 2:55 PM EDT ----- Regarding: No show He didn't come in for his appointments today, can you reach out to check on him? thanks documented in this encounter Plan of Treatment Not on file documented as of this encounter Visit Diagnoses Not on filedocumented in this encounter Care Teams Framework Developer Relationship Specialty Start Date End Date Juliette Hamilton PA [address] [place] [address] PCP - General Family Medicine 02/07/21 documented as of this encounter
--- OUTSIDE RECORDS SUMMARY | 2024-10-06 17:18 | XMS_ITS | Encounter Summary ---
Author Organization [facility] [place] [address] Care Team Providers Care Retail Inventory Control Clerk Name Role Phone Juliette Hamilton Primary Care Provider +1- [phone] Encounter Details Date Type Department Care Team (Late st Contact Info) Description 01/27/2022 Telephone [place] [phone] Madisyn Abdi Social History Tobacco Use Types [...] * Telephone Encounter - Madisyn Abdi - 01/27/2022 12:27 PM EDT pt states that Dr Henley was going to send a referral for Pulm Rehab [facility] fax [phone]. any questions call pt documented in this encounter Plan of Treatment Not on file documented as of this encounter Visit Diagnoses Not on filedocumented in this encounter Care Teams Retail Inventory Control Clerk Relationship Specialty Start Date End Date Juliette Hamilton PA [address] [place] [address] PCP - General Family Medicine 02/07/21 documented as of this encounter
--- OUTSIDE RECORDS SUMMARY | 2024-10-06 17:18 | XMS_ITS | Encounter Summary ---
Author Organization [facility] [place] [address] Care Team Providers Care Modeler Name Role Phone Juliette Hamilton Primary Care Provider +1- [phone] Reason for Visit * Reason Onset Date Comments Referral 01/27/2022 Pulmonary Rehab Encounter Details Date Type Department Care Team ([facility] Contact Info) Description 01/27/2022 [place] [phone] Jose Yost RN Referral (Pulmonary Rehab) Social [...] Telephone Encounter - Jose Yost RN - 01/31/2022 12:31 PM EDT Faxed completed pulmonary rehab referral, signed by Dr. Henley, to [facility]. Attached to this was the following items: Patient Demographics, Office Visit Notes dated 01/02/2022 PFT results dated 06/08/2021 Fax submission confirmation time stamped for 01/27/2022 @ 9834. 31 pages with cover sheet. documented in this encounter Plan of Treatment Not on file documented as of this encounter Visit Diagnoses Not on filedocumented in this encounter Care Teams Modeler Relationship Specialty Start Date End Date Juliette Hamilton PA [address] [place] [address] PCP - General Family Medicine 02/07/21 documented as of this encounter
--- OUTSIDE RECORDS SUMMARY | 2024-10-06 17:18 | XMS_ITS | Encounter Summary ---
[place] [address] Care Team Providers Care Senior Publications Specialist Name Role Phone Juliette Hamilton Primary Care Provider +1- [phone] Reason for Referral * Diagnostic Test (Routine) - Closed Specialty Diagnoses / Procedures Referred By Contac t Referred To Contact Radiology Diagnoses Alcoholic cirrhosis of liver without ascites Procedures CT Abdomen w Contrast CT Abdomen wwo Contrast Gay Moran MD [facility] [place] [address] [facility] [place] [address] Referral ID Status Reason Start Date Expiration Date V isits Requested Visits Authorized [id number] Closed Specialty Service Requested 05/22/2023 11/22/2024 1 1 Encounter Details Date Type Department Care Team (Late st Contact Info) Description 05/22/2023 1:00 PM EDT Office [place] [address] Gay Moran MD [facility] [place] [address] Alcoholic cirrhosis of liver without ascites Social [...] Sign Reading Time Taken Comments Blood Pressure 154/79 05/22/2023 1:08 PM EDT Pulse 98 05/22/2023 1:08 PM EDT Temperature - - Respiratory Rate - - Oxygen Saturation - - Inhaled Oxygen Concentration - - Weight 112.2 kg (247 lb 6.4 oz) 05/22/2023 1:08 PM EDT Height 172.7 cm (5' 8) 05/22/2023 1:08 PM EDT Body Mass Index 37.62 05/22/2023 1:08 PM EDT documented in this encounter Progress Notes * Gay Moran MD - 05/22/2023 1:00 PM EDT Gastroenterology and Hepatology Follow Up Note Patient: Chano Coker : 1960 Provider: Gay Moran MD Problem List: #Cirrhosis secondary to EtOH Liver [...] polyps - Reports having annual colonoscopy in [place] due to high number of colon polyps, last colonoscopy 2 years ago (delayed due to COVID) - [place] 08/2022, 3 TA in transverse (3-4 mm), one hyperplastic polyp sigmoid Interval History: No signs of liver decompensation. He reports cutting back on his alcohol to 3-4 beers per day. Current Outpatient Medications Medication Sig Dispense Refill [...] current facility-administered medications for this visit. Vitals: 05/22/23 1308 BP: 154/79 BP Location ([facility]): Right arm Patient Position: Sitting BP Cuff Sizes: Adult (25-34 cm) Pulse: 98 Weight: 112.2 kg (247 lb 6.4 oz) Height: 172.7 cm (5' 8) Body mass index is 37.62 kg/m??. Exam: Looks well Assessment and Plan: #EtOH Cirrhosis Discussed low MELD 3.0 score indicating preserved liver function. Advised he continue to work with psychiatry on stopping all alcohol consumption. #Two liver nodules on screening ultrasound Discussed elevated AFP and two new nodules on ultrasound. Discussed the importance of follow up cross section imaging as these could be HCC. He has significant claustrophobia with MRI, therefore willorder CT abdomen with same day visit to review the results. #At risk for esophageal varices EUS negative for varices 08/2022, next screening due in 08/2024. Gay Moran MD Section of Gastroenterology & Hepatology [address] [place] [address] Cc: MORGAN Marin documented in this encounter Plan of Treatment Not on file documented as of this encounter Results * CT Abdomen w [...] criteria and documentation are available online at [email or web address]. This report utilizes LI-RADS version 2018. Thank you for letting us participate in the care of this patient. ??If you are a health care provider and have any questions regarding this report, please contact the number below. ??For patients who have questions please contact the health janitor caretaker that requested your imaging first. ? Electronically signed by: Eran Choe DO, [facility] ([phone]), at 07/05/2023 8:39 AM Narrative 07/05/2023 8:39 AM EDT EXAMINATION: CT [...] abdominal ultrasound dated May 22, 2023 FINDINGS: [employer] Images: Noncontributory. Lower chest: There is mild [...] L4 and L5. Procedure Note Eran Choe, - 07/05/2023 EXAMINATION: CT ABDOMEN W CONTRAST CLINICAL HISTORY: 62-year-old male with indeterminate hepatic lesions.Hepatic cirrhosis. 2 approximately 1 cm nodules on screening ultrasound.Elevated AFP. Significant claustrophobia. TECHNIQUE: Helical CT of the abdomen following the intravenousadministration of contrast. Administered 120.0 ml of OMNIPAQUE 350.00 mg/ml. Oral contrastwas not administered. COMPARISON: Correlation is made to abdominal ultrasound dated May FINDINGS: [employer] Images: Noncontributory. Lower chest: There is mild [...] criteria and documentation are available online at [email or web address].org/Clinical-[email or web address].This report utilizes LI-RADS version 2018. Thank you for letting us participate in the care of this patient. If youare a health care provider and have any questions regarding this report,please contact the number below. For patients who have questions please contactthe health janitor caretaker that requested your imaging first. Electronically signed by: Eran Choe DO, [facility]([phone]), at 07/05/2023 8:39 AM Gay Moran MD IMG CT ORDERABLES documented in this encounter Visit Diagnoses Diagnosis Alcoholic cirrhosis of liver without ascites Alcoholic cirrhosis of liver Alcoholic cirrhosis of liver without ascites Alcoholic cirrhosis of liver documented in this encounter Care Teams Senior Publications Specialist Relationship Specialty Start Date End Date Juliette Hamilton PA [address] [place] [address] PCP - General Family Medicine 02/07/21 documented as of this encounter
--- OUTSIDE RECORDS SUMMARY | 2024-10-06 17:18 | XMS_ITS | Encounter Summary ---
Author Organization [facility] [place] [address] Care Team Providers Care Tawer Name Role Phone Juliette Hamilton Primary Care Provider +1- [phone] Encounter Details Date Type Department Care Team (Latest Contact Info) Description 03/29/2022 8:51 AM EDT - 03/29/2022 11:59 PM EDT Hospital En[place] [address] Supplemental oxygen dependent Discharge Disposition: Home Social History Tobacco Use [...] Function Testing PFT Routine Supplemental oxygen dependent 1 Occurrences starting 03/29/2022 until 03/29/2022 Pulmonary Function Testing PFT Routine Supplemental oxygen dependent 1 Occurrences starting 08/16/2022 until 08/16/2022 documented as of this encounter Visit Diagnoses Diagnosis Supplemental oxygen dependent Dependence on supplemental oxygen documented in this encounter Care Teams Tawer Relationship Specialty Start Date End Date Juliette Hamilton PA [address] [place] [address] PCP - General Family Medicine 02/07/21 documented as of this encounter
--- OUTSIDE RECORDS SUMMARY | 2024-10-06 17:18 | XMS_ITS | Encounter Summary ---
[place] [address] Care Team Providers Care Hog Pusher Name Role Phone Juliette Hamilton Primary Care Provider +1- [phone] Encounter Details Date Type Department Care Team (Latest Contact Info) Description 05/19/2022 10:30 AM EDT Laboratory Appointment Lab [address] [place] [id number] Elevated liver enzymes Social History Tobacco Use [...] Priority Date/Time Associated Diagnosis Comments HEMOGRAM Routine 05/19/2022 10:13 AM EDT Elevated liver enzymes DIFFERENTIAL, AUTOMATED Routine 05/19/20 10:13 AM EDT Elevated liver enzymes HC HEPATITIS C ANTIBODY Routine 05/19/20 10:13 AM EDT Elevated liver enzymes HC IRON BINDING CAPACITY Routine 05/19/2022 10:13 AM EDT Elevated liver enzymes HC A1AT (ALPHA-1 ANTITRYPSIN) Routine 05/19/2022 10:13 AM EDT Elevated liver enzymes HC HEPATITIS A, TOTAL Routine 05/19/2022 10:13 AM EDT Elevated liver enzymes HC PCH MITOCHONDRIAL ANTIBODY Routine 05/19/2022 10:13 AM EDT Elevated liver enzymes HC HEPATITIS B CORE AB Routine 10:13 AM EDT Elevated liver enzymes HC PCH SMOOTH MUSCLE AB, SERUM Routine 05/19/2022 10:13 AM EDT Elevated liver enzymes HC HIV SCREEN, 4TH GENERATION Routine 05/19/2022 10:13 AM EDT Elevated liver enzymes HC HEPATITIS B SURFACE AB Routine 05/19/2022 10:13 AM EDT Elevated liver enzymes HC HEPATITIS B SURFACE AG Routine 05/19/2022 10:13 AM EDT Elevated liver enzymes HC PROTHROMBIN TIME Routine 05/19/2022 1 0:13 AM EDT Elevated liver enzymes HC CBC,PLT & AUTO DIFF Routine 10:13 AM EDT Elevated liver enzymes HC PCH ANATITRE (ANDPATTERN) Routine 05/19/2022 10:13 AM EDT Elevated liver enzymes HC SERUM PROT. ELECTROPHORESIS Routine 05/19/2022 10:13 AM EDT Elevated liver enzymes HC IGG, SERUM Routine 05/19/2022 10:13 AM EDT Elevated liver enzymes HC FERRITIN, SERUM Routine 05/19/2022 10 :13 AM EDT Elevated liver enzymes COMPREHENSIVE METABOLIC PANEL Routine 05/19/2022 10:13 AM EDT Elevated liver enzymes documented in this encounter Results * (ABNORMAL) Differential, Automated (05/19/2022 10:13 AM EDT) Neutrophil % 69.0 % [facility] Neutrophil Absolute 4.60 1.70 - 6.10 x10(3)/[facility] Lymph % 17.9 % [facility] Lymphocytes Abs 1.2 0.9 - 3.2 x10(3)/[facility] Monocyte % 8.7 % [facility] Monocyte Abs 0.6 0.3 - 0.9 x10(3)/[facility] Eos % 2.7 % [facility] Eosinophils Abs 0.2 0.0 - 0.4 x10(3)/[facility] Basophil % 0.9 % [facility] Baso Absolute 0.1 0.0 - 0.1 x10(3)/[facility] LAB[facility] Immature Gran % 0.80 % [facility] Comment: Immature granulocytes(IG's)percentage and absolute count will include metamyelocytes, myelocytes, and promyelocytes. Blood smears from CBCs yielding IG's will be scanned manually for concordance. If this scan disagrees with the automated IG or if promyelocytes are noted, a manual differential will be performed. Immature Gran Absolute 0.05(H) 0.00 - 0.04 x10(3)/[facility] Blood 05/19/2022 10:1 3 AM EDT 05/19/2022 10:20 AM EDT Narrative Resulting Agency Comment Spec In Lab Gay Moran MD HEMATOLOGY ORDERABLE S [facility] [place] [address] * (ABNORMAL) Hemogram (05/19/2022 10:13 AM EDT) White Blood Cell 6.7 4.0 - 9.5 x10(3)/[facility] Red Blood Cell 5.13 4.58 - 5.54 x10(6)/mc L [facility] Hemoglobin 17.0(H) 13.7 - 16.5 g/dL [facility] Hematocrit 48.4 40.5 - 48.5 % [facility] Mean Cell Volume 94.3(H) 82.9 - 93.1 fL [facility] Mean Cell Hemoglobin 33.1(H) 27.5 - 32.1 pg [facility] Mean Cell Hemoglobin Concentration 35.1 32.0 - 35.7 g/dL [facility] Platelet 197 145 - 357 x10(3)/mc L [facility] RDW Standard Deviation 46.0(H) 36.0 - 45.0 [facility] RDW coefficient of variation 13.3 11.4 - 13.8 % [facility] Mean Platelet Volume 9.9 7.6 - 12.9 [facility] NRBC% auto 0.0 % [facility] NRBC Absolute 0.000 0.000 - 0.000 x10(3)/mc L [facility] Blood 05/19/2022 10:1 3 AM EDT 05/19/2022 10:20 AM EDT Narrative Resulting Agency Comment Spec In Lab Gay Moran MD HEMATOLOGY ORDERABLE S [facility] [place] [address] * (ABNORMAL) Comprehensive metabolic panel (non-fasting) (05/19/2022 10:13 AM EDT) Glucose 220(H) 65 - 199 mg/dL [facility] Comment:Diabetes: >=200 mg/d L plus symptoms Blood Urea Nitrogen 8(L) 10 - 20 mg/dL [facility] Creatinine 0.95 0.80 - 1.50 mg/dL [facility] Sodium 132(L) 135 - 145 mmol/L [facility] Potassium 4.1 3.5 - 5.0 mmol/L [facility] Comment: Please note: ??Patients with WBC >100,000 may have falsely elevated Potassium levels. ??For accurate Potassium quantification in these patients send serum separator tube (gold top) for subsequent determinations. ??Contact the Clinical Chemistry Laboratory if there are any questions. Chloride 99 98 - 107 mmol/L [facility] Carbon Dioxide 24 22 - 31 mmol/L [facility] Anion Gap 9 5 - 15 mmol/L [facility] Calcium 9.3 8.5 - 10.5 mg/dL [facility] Protein, Total 7.9 6.1 - 8.0 g/dL [facility] Albumin 4.4 3.2 - 5.2 g/dL [facility] Aspartate Aminotransferase 78(H) 0 - 39 unit/L [facility] Alanine Aminotransferase 82(H) 0 - 55 unit/L [facility] Alkaline Phosphatase 87 40 - 130 unit/L [facility] Bilirubin, Total 1.8(H) 0.2 - 1.3 mg/dL [facility] Est Glomerular Filtration Rate 90 >=60 mL/min/1. 73 m?? [facility] Comment: This patient's estimated GFR [...] Moran MD CHEMISTRY ORDERABLES Performing Organization Address [facility]/ZIP Co de Phone Number [facility] [place] [address] * (ABNORMAL) Prothrombin Time (05/19/2022 10:13 AM EDT) Prothrombin Time 13.6(H) 9.4 - 12.5 sec [facility] International Normalization Ratio 1.2 [facility] Comment: An INR <2.0 indicates [...] MD HEMATOLOGY ORDERABLE S Performing Organization Address [facility]/ZIP Co de Phone Number [facility] [place] [address] * Hepatitis A Antibody, Total (05/19/2022 10:13 AM EDT) Pathologist [facility] Hepatitis A ANTIBODY, TOTAL Negative Negative [facility] Blood 05/19/2022 10:1 3 AM EDT 05/19/2022 10:20 AM EDT Narrative Resulting Agency Comment Spec In Lab Gay Moran MD CHEMISTRY ORDERABLES Performing Organization Address [facility] Co de Phone Number [facility] [place] [address] * Hepatitis B Surface Antibody (05/19/2022 10:13 AM EDT) Pathologist [facility] Hepatitis B Surface Antibody, Quantitative <3.5 IU/L [facility] Comment: HepB Surface Ab Quant: Unvaccinated: < 8.5 IU/L Vaccinated: > 11.5 IU/L Hepatitis B Surface Antibody Negative [facility] Comment: Patient is presumed to be not vaccinated or immune to HBV infection. Expected Results: Vaccinated: Positive Unvaccinated: Negative Blood 05/19/2022 10:1 3 AM EDT 05/19/2022 10:20 AM EDT Narrative Resulting Agency Comment Spec In Lab Gay Rizwan Moran MD CHEMISTRY ORDERABLES Performing Organization Address City/[facility]/ZIP Co de Phone Number [facility] [place] [address] * Hepatitis B Surface Antigen (05/19/2022 10:13 AM EDT) Hepatitis B Surface Antigen Negative Negative [facility] Blood 05/19/2022 10:1 3 AM EDT 05/19/2022 10:20 AM EDT Narrative Resulting Agency Comment Spec In Lab Gay Rizwan Moran MD CHEMISTRY ORDERABLES Performing Organization Address City/[facility]/ZIP Co de Phone Number [facility] [place] [address] * Hepatitis B Core Antibody, Total (05/19/2022 10:13 AM EDT) Hepatitis B Core Antibody Negative Negative [facility] Blood 05/19/2022 10:1 3 AM EDT 05/19/2022 10:20 AM EDT Narrative Resulting Agency Comment Spec In Lab Gay Rizwan Moran MD CHEMISTRY ORDERABLES Performing Organization Address City/[facility]/ZIP Co de Phone Number [facility] [place] [address] * Hepatitis C Antibody (05/19/2022 10:13 AM EDT) Hepatitis C Antibody Negative Negative [facility] Blood 05/19/2022 10:1 3 AM EDT 05/19/2022 10:20 AM EDT Narrative Resulting Agency Comment Spec In Lab Gay Moran MD CHEMISTRY ORDERABLES Performing Organization Address [facility] Co de Phone Number [facility] [place] [address] * HIV Screen, 4th Generation ([facility]/CGP/APD/NLH) (05/19/2022 10:13 AM EDT) HIV Ab/Ag Screen Negative Negative [facility] Comment: This 4th Generation HIV [...] HIV Comment Low Risk of HIV Infection [facility] Blood 05/19/2022 10:1 3 AM EDT 05/19/2022 10:20 AM EDT Narrative Resulting Agency Comment Spec In Lab Gay Moran MD CHEMISTRY ORDERABLES Performing Organization Address [facility] Co de Phone Number [facility] [place] [address] * (ABNORMAL) AFUA (05/19/2022 10:13 AM EDT) AFUA Ab Screen Test ?Result ? Flag ??Unit ??RefValue Antinuclear Ab, HEp-2 Substrate, ?Positive 1:160 ??@ ?<1:80 (Negative) ??S ? ADDITIONAL INFORMATION --------- ?Method: Immunofluorescence using HEp-2 cellular substrate. ??AFUA Titer: ?1:160 ??AFUA Pattern: ?Speckled ?Test Performed by: ?[facility] [employer] [facility] ?[address] [place] [address] ?Bell Staff: Barber Henao M.D. Ph.D.; CLIA# [id number] ([id number]) [facility] Blood 05/19/2022 10:1 3 AM EDT 05/19/2022 3:27 PM EDT Narrative Resulting Agency Comment Spec In Lab Gay Moran MD LAB SEND OUT ORDERAB LES [facility] [place] [address] * Smooth Muscle Antibody (05/19/2022 10:13 AM EDT) Sm Muscle Ab (MAY) Negative Negative [facility] Comment: Negative: No further testing will be performed ADDITIONAL INFORMATION This test was developed and its performance characteristics determined by [facility] in a manner consistent with CLIA requirements. This test has not been cleared or approved by the U.S. Food and Drug Administration. Test Performed by: [facility] [address] [place] [address] Bell Staff: Barber Henao M.D. Ph.D.; CLIA# [id number] Blood 05/19/2022 10:1 3 AM EDT 05/19/2022 3:27 PM EDT Narrative Resulting Agency Comment Spec In Lab Gay Moran MD LAB SEND OUT ORDERAB LES Performing Organization Address City/[facility]/ZIP Co de Phone Number [facility] [place] [address] * (ABNORMAL) Mitochondrial Antibody, M2 (05/19/2022 10:13 AM EDT) [facility] Mitochon Ab (FEBRUARY) 0.1(H) <0.1 (Negative) U [facility] Comment: Interpretation: Borderline (0.1-0.3) Test Performed by: [facility] [address] [place] [address] Bell Staff: Barber Henao M.D. Ph.D.; CLIA# [id number] Blood 05/19/2022 10:1 3 AM EDT 05/19/2022 3:27 PM EDT Narrative Resulting Agency Comment Spec In Lab Gay Moran MD LAB SEND OUT ORDERAB LES Performing Organization Address [facility]/ZIP Co de Phone Number [facility] [place] [address] * IgG (05/19/2022 10:13 AM EDT) [facility] Immunoglobulin G 1,347 700 - 1,600 mg/dL [facility] Comment: Pediatric Reference Intervals obtained from the Caliper Reference Interval project. http://www.sickkids.ca/caliperproject/index.html Blood 05/19/2022 10:1 3 AM EDT 05/19/2022 10:20 AM EDT Narrative Resulting Agency Comment Spec In Lab Gay Moran MD CHEMISTRY ORDERABLES Performing Organization Address [facility]/ZIP Co de Phone Number [facility] [place] [address] * Protein Electrophoresis, serum (05/19/2022 10:13 AM EDT) [facility] Total Prot Electrophoresis 7.8 6.1 - 8.0 g/dL [facility] Albumin Electrophoresis 4.66 3.60 - 6.00 g/dL [facility] Alpha 1 Globulin 0.17 0.10 - 0.30 g/dL [facility] Alpha 2 Globulin 0.85 0.40 - 0.90 g/dL [facility] Beta Globulin 1.00 0.50 - 1.00 g/dL [facility] Gamma Globulin 1.12 0.50 - 1.30 g/dL [facility] M1 Band None Detected None Detected [facility] Blood 05/19/2022 10:1 3 AM EDT 05/19/2022 10:20 AM EDT Narrative Resulting Agency Comment Spec In Lab Gay Moran MD CHEMISTRY ORDERABLES Performing Organization Address City/[facility]/ZIP Co de Phone Number [facility] [place] [address] * (ABNORMAL) Iron and TIBC (05/19/2022 10:13 AM EDT) Iron 163(H) 45 - 160 mcg/dL [facility] TIBC 329 250 - 450 mcg/dL [facility] Iron Saturation 50 20 - 50 % [facility] Blood 05/19/2022 10:1 3 AM EDT 05/19/2022 10:20 AM EDT Narrative Resulting Agency Comment Spec In Lab Gay Moran MD CHEMISTRY ORDERABLES [facility] [place] [address] * (ABNORMAL) Ferritin (05/19/2022 10:13 AM EDT) Ferritin 723(H) 30 - 400 ng/mL [facility] Comment: Pediatric reference ranges not verified at [facility], interpret with caution. Reference ranges for females greater than 50 years of age approach values for men, i.e., 30-400 ng/mL. Blood 05/19/2022 10:1 3 AM EDT 05/19/2022 10:20 AM EDT Narrative Resulting Agency Comment Spec In Lab Gay Moran MD CHEMISTRY ORDERABLES Performing Organization Address City/[facility]/ZIP Co de Phone Number [facility] [place] [address] * A1AT Serum Concentration (05/19/2022 10:13 AM EDT) A1AT 116 90 - 200 mg/dL [facility] Blood 05/19/2022 10:1 3 AM EDT 05/19/2022 10:20 AM EDT Narrative Resulting Agency Comment Spec In Lab Gay Moran MD CHEMISTRY ORDERABLES Performing Organization Address City/[facility] Co de Phone Number [facility] [place] [address] documented in this encounter Visit Diagnoses Diagnosis Elevated liver enzymes Nonspecific elevation of levels of transaminase or lactic acid dehydrogenase (LDH) documented in this encounter Care Teams Hog Pusher Relationship Specialty Start Date End Date Juliette Hamilton PA [address] [place] [address] PCP - General Family Medicine 02/07/21 documented as of this encounter
--- OUTSIDE RECORDS SUMMARY | 2024-10-06 17:18 | XMS_ITS | Encounter Summary ---
Author Organization [facility] [place] [address] Care Team Providers Care Finger Grip Machine Operator Name Role Phone Juliette Hamilton Primary Care Provider [phone]- [phone] Reason for Visit * Auth/Cert Specialty Diagnoses / Procedures Referred By Contac t Referred To Contact Diagnoses ?cirrhosis, ALFORD/EtOH, elevated liver enzymes >30 yrs, Fibroscan elevated Procedures PRO ENDOSCOPIC US EXAM, ESOPH PRO COLONOSCOPY, DIAGNOSTIC UPPER EUS- ENDOSCOPIC ULTRASOUND COLONOSCOPY, DIAGNOSTIC Breezy Saldivar MD [facility] [address] [facility] Referral ID Status Reason Start Date Expiration Date Visits Re quested Visits Authorized [id number] 1 1 Encounter Details Date Type Department Care Team (Latest Contact Info) Description 08/28/2022 9:28 AM EST - 08/28/2022 2:10 PM [facility] Hospital Encounter [place] [address] Breezy Saldivar MD [facility] [place] [address] Discharge Disposition: Home Social History Tobacco Use [...] Sign Reading Time Taken Comments Blood Pressure 136/94 08/28/2022 1:50 PM EST Pulse 59 08/28/2022 11:02 AM EST Temperature - - Respiratory Rate 18 08/28/2022 1:50 PM EST Oxygen Saturation 95% 08/28/2022 1:50 PM EST Inhaled Oxygen Concentration - - Weight - - Height - - Body Mass Index - - documented in this encounter Discharge Instructions * Discharge Instructions* Norma Robbins RN - 08/28/2022 12:23 PM EST Colonoscopy: What to Expect at Home Your Recovery Your doctor will talk to you about when you will need your next colonoscopy. Your doctor can help you decide how often you need to be checked. This will depend on the results of your test and your risk for colorectal cancer. After the test, you may be bloated or have gas pains. You may need to pass gas. If a biopsy was done or a polyp was removed, you may have streaks of blood in your stool (feces) for a few days. Problems such as heavy rectal bleeding may not occur until several weeks after the test. This isn't common. But it can happen after polyps are removed. This care sheet gives you a general idea about how long it will take for you to recover. But each person recovers at a different pace. Follow the steps below to get better as quickly as possible. How can you care for yourself at home? Activity Rest when you feel tired. You can do your normal activities when it feels okay to do so. Diet Follow your doctor's directions for eating. Unless your doctor has told you not to, drink plenty of fluids. This helps to replace the fluids that were lost during the colon prep. Do not drink alcohol. Medicines Your doctor will tell you if and when you can restart your medicines. He or she will also give you instructions about taking any new medicines. If you take blood thinners, such as warfarin (Coumadin), clopidogrel (Plavix), or aspirin, be sure to talk to your doctor. He or she will tell you if and when to start taking those medicines again. Make sure that you understand exactly what your doctor wants you to do. If polyps were removed or a biopsy was done during the test, your doctor may tell you not to take aspirin or other anti-inflammatory medicines for a few days. These include ibuprofen (Advil, Motrin) and naproxen (Aleve). Other instructions For your safety, do not drive or operate machinery until the medicine wears off and you can think clearly. Your doctor may tell you not to drive or operate machinery until the day after your test. Do not sign legal documents or make major decisions until the medicine wears off and you can think clearly. The anesthesia can make it hard for you to fully understand what you are agreeing to. Additional Information for Sedation Patients For patients who received sedation: You may have received medications before and/or during your procedure which effects your judgement and reaction time. Do not drive, operate machinery, drink alcoholic beverages or make important decisions for 24 hours. Be careful on stairs as you may be unsteady on your feet. You may eat a regular diet as tolerated. Do not smoke if you are alone. IV site: Slight redness or tenderness is normal, you can use a warm compress if you would like. If tenderness and/or redness increase or if foul drainage occurs, please contact your Doctor. Please call [phone] before 8pm Mon-Fri with problems, questions or concerns. If you call after 8pm or on weekends, call the Hospital at [phone] and ask to speak to the Director Of Emergency Nursing specification manager and the pilot plant operator will contact that person for you. When should you call for help? Call [phone] anytime you think you may need emergency care. For example, call if: You passed out (lost consciousness). You pass maroon or bloody stools. You have trouble breathing. Call your doctor now or seek immediate medical care if: You have pain that does not get better after you take pain medicine. You are sick to your stomach or cannot drink fluids. You have new or worse belly pain. You have blood in your stools. You have a fever. You cannot pass stools or gas. Watch closely for changes in your health, and be sure to contact your doctor if you have any problems. Where can you learn more? myD- View your After Visit Summary and more online at [email or web address] If you would like to provide feedback about your hospital experience, please call the Office of Patient and Family Relations at . If you have received this After Visit Summary in error, please immediately return it in person to the department, or notify the [facility] Privacy Office by calling toll free at between the hours of 8AM and 5PM to arrange for our retrieval of the documents at no cost to you. Content Version: 12.2 ?? 5240-9909 [email or web address]. Care instructions adapted under license by [facility]. If you have questions about a medical condition or this instruction, always ask your healthcare professional. [email or web address] disclaims any warranty or liability for your use of this information. documented in this encounter Medications at Time of Discharge Medication Sig Dispensed Refills Start Date End Date mirtazapine (REMERON) 30 mg Tablet Take 15 mg by mouth nightly. 07/17/2022 tiotropium bromide (Spiriva Respimat) 1.25 mcg/actuation MistIndications:Moderate [...] PRN 08/20/2023 documented as of this encounter H&P Notes * Breezy Saldivar MD - 08/28/2022 11:20 AM EST PROBLEM LIST Patient Active Problem List Diagnosis Code ??? SHANI on CPAP G47.33, Z99.89 ??? Insufficient sleep syndrome F51.12 ??? Insomnia G47.00 ??? Depression F32.A ??? 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 Osteoarthritis of left wrist M19.032 HISTORY OF PRESENT ILLNESS Chano Coker is a 61 y.o. y/o who presents for EUS for liver bx to stage cirrhosis and surveillance colonoscopy (paz hx of polyps). MEDICATIONS No current facility-administered medications on file prior to encounter. Current Outpatient Medications on File Prior to Encounter Medication Sig Dispense Refill ??? LORazepam (Ativan) 1 mg Tablet Take [...] 2 times daily. 3 Inhaler 3 ??? zolpidem (AMBIEN CR) 12.5 mg Tablet, Multiphasic Release Take 12.5 mg by mouth nightly as needed. ??? ARIPiprazole (ABILIFY) 10 mg Tablet Take 10 mg by mouth daily. ??? armodafiniL (NuvigiL) 200 mg Tablet Take 200 mg by mouth daily. ??? metFORMIN (GLUCOPHAGE-XR) 500 mg Tablet Sustained Release 24 hr Take 1,000 mg by mouth 2 times daily. ??? simvastatin (ZOCOR) 20 mg Tablet Take 20 mg by mouth nightly. ??? Atomoxetine (Strattera) 80 mg Capsule Take 1 capsule by mouth daily. ??? tiotropium bromide (Spiriva Respimat) 1.25 mcg/actuation Mist Inhale 2 puffs into the lungs daily. 12 g 3 ??? tamsulosin (Flomax) 0.4 mg Capsule Take 0.4 mg by mouth daily. ??? Combivent Respimat 20-100 mcg/actuation Mist Inhale 1 puff into the lungs every 6 hours as needed for Wheezing. 1 Inhaler 2 ??? celecoxib (CELEBREX) 100 mg Capsule Take 100 mg by mouth 2 times daily. ??? modafinil (PROVIGIL) 200 mg Tablet Take 200 mg by mouth daily. ??? cetirizine (ZYRTEC) 10 mg Tablet Take 10 mg by mouth daily. Reported on 03/12/2017 ??? sildenafiL (VIAGRA) 100 mg Tablet Take 100 mg by mouth as needed for Erectile Dysfunction. ??? lamoTRIgine (LAMICTAL) 100 mg tablet Take 200 mg by mouth daily. PHYSICAL EXAM: Blood pressure 133/82, pulse 59, SpO2 95 %. GEN: Alert, cooperative. Pleasant. In NAD MP II ASA III HEENT: No oropharyngeal lesions. Neck supple. No masses. Thyroid symmetric LUNGS: CTAB CARD: RRR without m/g/r RECENT LABS No results found for this or any previous visit (from the past 24 hour(s)). ASSESSMENT AND PLAN Chano Coker is a 61 y.o. y/o who presents for endoscopic evaluation. Risks extensively discussed including bleeding, infection, reaction to anesthesia, perforation, pancreatitis, bile duct injury, missing a cancer and/or other unforseen complication. Specially discussed the risk of bleeding extensively or bile duct injury related to liver biopsy. Consent signed and patient well informed of the risks of the procedure. documented in this encounter Plan of Treatment Not on file documented as of this encounter Procedures Procedure Name Priority Date/Time Associated Diagnosis Comments SPECIMEN TO PATHOLOGY Routine 08/28/2022 12:10 PM EST SPECIMEN TO PATHOLOGY Routine 08/28/2022 11:54 AM EST SPECIMEN TO PATHOLOGY Routine 08/28/2022 11:54 AM EST SURGICAL PATHOLOGY REPORT Routine 08/28/2022 11:44 AM EST Fine Needle Aspiration Bx W/Us Gdn 1St Lesion (78708) 08/28/2022 11:20 AM EST Elevated liver enzymes Colonoscopy, Nic Hughes, Snare ([id number]) 08/28/2022 11:20 AM EST Elevated liver enzymes Endoscopic Us Exam, Esoph ([id number]) 08/28/2022 11:20 AM EST Elevated liver enzymes COLONOSCOPY Routine 08/28/2022 11:11 AM EST UPPER EUS-ENDOSCOPIC ULTRASOUND Routine 08/28/2022 11:11 AM EST documented in this encounter Results * Specimen to Pathology (08/28/2022 12:10 PM EST) AP Specimen 08/28/2022 12:1 0 PM EST 08/28/2022 12:10 PM EST [facility] - 08/28/2022 12:10 PM EST Specimen requisition ordered. ??Separate Pathology report to follow Breezy Saldivar MD PATHOLOGY/CYTOLOGY ORDERABLES Performing Organization Address [facility] [place] [address] * Specimen to Pathology (08/28/2022 11:54 AM EST) AP Specimen 08/28/2022 11:5 4 AM EST 08/28/2022 11:54 AM EST Narrative [facility] - 08/28/2022 11:54 AM EST Specimen requisition ordered. ??Separate Pathology report to follow Breezy Saldivar MD PATHOLOGY/CYTOLOGY ORDERABLES Performing Organization Address [facility] [place] [address] * Specimen to Pathology (08/28/2022 11:54 AM EST) AP Specimen 08/28/2022 11:5 4 AM EST 08/28/2022 11:54 AM EST Narrative [facility] - 08/28/2022 11:54 AM EST Specimen requisition ordered. ??Separate Pathology report to follow Breezy Saldivar MD PATHOLOGY/CYTOLOGY ORDERABLES Performing Organization Address [facility] [place] [address] * Surgical Pathology Report (08/28/2022 11:44 AM EST) Pathologist [facility] Final Diagnosis [id number] ? Location: 4T; EA07; A The signing pathologist has (i) examined the relevant preparation(s) for the specimen(s) and (ii) rendered or confirmed the diagnosis(es). . ?Surgical Pathology DIAGNOSIS A - Transverse colon polyps, resection (Multiple): - ??Fragments of tubular adenoma. B - Sigmoid colon polyp, resection: - ??Hyperplastic polyp. C - Liver, biopsy: - Moderate steatosis with steatohepatitis, ?stage 4/4 (cirrhosis) ??(see note). Note: ??Ballooning hepatocytes are ??conspicuous . Chronic parenchymal and septal inflammation is mild. Iron stain is negative. Trichrome stain was evaluated for final diagnosis. KISHAN total score* = 5 - Steatosis ?= 2 - Lobular Inflammation = 1 - Ballooning ? = 2 Fibrosis score ?? = 4 *(KISHAN >/= 4 with at least 1 in each component represents steatohepatitis) ?KISHAN SCORING Steatosis ? 0 ??<5% ?1 ??5-33% ?2 ??34-66% ?3 ??67-100% Lobular Inflammation ??0 ??no foci ?1 ??< 2 foci per 200x field ?2 ??2-4 foci per 200x field ?3 ??> 4 foci per 200 x field Ballooning ?0 ??None ?1 ??Rare or diagnostically borderline ?2 ??Many or prominent ballooned hepatocytes ?FIBROSIS SCORE None ?0 Mild zone 3 perisinusoidal ?1a Moderate zone 3 perisinusoidal ?1b Portal/periportal only ?1c Portal, periportal and perisinusoidal ?? 2 Bridging ?3 Cirrhosis ? 4 Electronically signed by: ?Kiko SALOMON, Booker Verified: ??08/30/2022 15:13 ??Pathologist Performed at: ??-[facility] Dept. [place]ology, [place] [address] Ship Unloader: Liz Calvert MD, FCAP, ??CLIA Certificate: [id number] ADDITIONAL STUDIES Whole slide scan: A1, TRICHROME . SPECIMEN(S) SUBMITTED A - Transverse colon polyps, resection (Multiple) B - Sigmoid colon polyp, resection (1) C - Liver, biopsy (1) CLINICAL INFORMATION 61-year-old male; Hx of polyps, surveillance colonoscopy. SPECIMEN PROCESSING A - Labeled/Fixative: Transverse colon polyps, formalin. Quantity/Size: Three, ranging from 0.6-1.0 cm. Tissue Description: Soft, wells-pink tissues. Sections/Processi ng: Largest fragment is bisected and the specimen is entirely submitted in 1 cassette labeled A1. B - Labeled/Fixative: Sigmoid colon polyp, formalin. Quantity/Size: Single, 1.1 cm. Tissue Description: Wells-pink polypoid tissue. Sections/Processi ng: Inked, trisected and entirely submitted in 1 cassette labeled B1. C - Labeled/Fixative: Liver, formalin. Quantity/Size: Fragments, ranging from 0.3 x 0.1-1.4 x 0.1 cm Tissue Description: Wells-pink needle core biopsies. Sections/Processi ng: Entirely submitted in 1 cassette labeled C1. ??jnr 08/30/2022 3:13 PM [facility] LIVER STRUCTURE / Unknown 08/28/2022 11:44 AM EST 08/28/2022 11:44 AM EST GI Biopsy 08/28/2022 11:4 4 AM EST 08/28/2022 11:44 AM EST LIVER STRUCTURE / Unknown 08/28/2022 11:44 AM EST 08/28/2022 11:44 AM EST Breezy Saldivar MD PATHOLOGY/CYTOLOGY ORDERABLES [facility] [place] [address] * COLONOSCOPY (08/28/2022 11:11 AM EST) COLONOSCOPY [facility] Endoscopy Procedure Date: 08/28/2022 11:11 AM ? Patient Name: Chano Coker ? N: [id number] ? Date of : 1960 ? Age: 61 ? Order #: [id number] ? Instrument Name: [id number]- [id number] ? Procedure: ? Colonoscopy Indications: ? High risk colon cancer ? surveillance: Personal history of ? colonic polyps Providers: ? Breezy Saldivar MD, Dash Hodges ? Nancy Hobbs, ? Seed Collector Referring : ?MORGAN Sparks Medicines: ? Monitored [...] AM EST Unknown GENERAL SURGICAL ORD ERABLES PROVATION * UPPER EUS-ENDOSCOPIC ULTRASOUND (08/28/2022 11:11 AM EST) UPPER ENDOSCOPIC ULTRASOUND [facility] Endoscopy Procedure Date: 08/28/2022 11:11 AM ? Patient Name: Chano Coker ? Date of : 1960 ? Age: 61 ? Order #: [id number] ? Instrument Name: [id number]- [id number] - [id number] ? Procedure: ? Upper EUS Indications: ? EUS guided liver bx Providers: ? Breezy Saldivar MD, Dash Hodges ? Nancy Hobbs, ? Seed Collector Referring : ?MORGAN Sparks Medicines: ? Monitored [...] cancer, and adverse medication ? reactions. The Endoscope was ? introduced through the mouth, and ? advanced to the third part of ? duodenum. The Endoscope was ? introduced through the mouth, and ? advanced to the third part of ? duodenum. The upper EUS was ? accomplished without difficulty. ? The patient tolerated the procedure ? well. ? Findings: ? ENDOSCOPIC FINDING: : ? The examined esophagus was endoscopically normal. The ? GE junction was at 39 cm. There were no esophageal ? biopsies. ? The entire examined stomach was endoscopically normal ? with the exception of a slight scalloping appearance ? consistent with portal hypertensive gastropathy. ? There were no gastric varices. ? The examined duodenum was endoscopically normal. ? ENDOSONOGRAPHIC FINDING: : ? There was no sign of significant endosonographic ? abnormality in the esophagus, stomach, duodenum or ? celiac axis. ? There was no sign of significant endosonographic ? abnormality in the ampulla. ? There was no sign of significant endosonographic ? abnormality in the left lobe of the liver. Fine ? needle biopsy was performed. Color Doppler imaging ? was utilized prior to needle puncture to confirm a ? lack of significant vascular structures within the ? needle path. One pass was made with the 19 gauge ? SharkCore biopsy needle using a transgastric ? approach. A visible core of tissue was obtained. ? Final cytology results are pending. ? There was no sign of significant endosonographic ? abnormality in the entire pancreas. The pancreatic ? duct measured up to 2 mm in diameter. ? No lymphadenopathy seen. ? Moderate Sedation: ? Not applicable - See Anesthesia documentation Impression: ?- Liver bx performed ? - Mild portal hypertensive ? gastropathy ? - No esophageal or gastric varices Recommendation: ?- Await biopsy results ? Attending Participation: ? I personally performed the entire procedure. ? ___ Breezy Saldivar MD 08/28/2022 12:14:25 PM This report has been signed electronically. Number of Addenda: 0 Note Initiated On: 08/28/2022 11:11 AM PROVATION 08/28/2022 11:1 1 AM EST Unknown GENERAL SURGICAL ORD ERABLES PROVATION documented in this encounter Visit Diagnoses Not on filedocumented in this encounter Administered Medications Inactive Administered Medications - up to 3 most recent administrations Medication Order MAR Action Action Date Dose Rate Site ipratropium-albuteroL (Duoneb) 0.5 mg-3 mg(2.5 mg base)/3 mL nebulizer solution 3 mL 3 mL, Nebulization, ONCE, 1 dose, On Sun08/28/22 at 1100, Day of Surgery (Day of Procedure), Routine Given 08/28/2022 10:46 AM EST 3 mLs lactated ringers infusion 100 mL/hr, Intravenous, CONTINUOUS, Starting on Sun08/28/22 at 1115, Until Sun08/28/22 at 1223, Endoscopy (Day of Procedure) Restarted 08/28/2022 11:53 AM EST New Bag 08/28/2022 11:12 AM EST 100 mL/hr 100 mL/hr documented in this encounter Active and Recently Administered Medications Times are shown in EST. Scheduled Medication Order 08/26/2022 08/27/2022 08/28/2022 ipratropium-albuteroL (Duoneb) 0.5 mg-3 mg(2.5 mg base)/3 mL nebulizer solution 3 mL (COMPLETED) 3 mL, Nebulization, ONCE, 1 dose, On Sun08/28/22 at 1100, Day of Surgery (Day of Procedure), Routine 1046 (Given - Provid er: Bindu Morejon RN) Continuous Medication Order 08/26/2022 08/27/2022 08/28/2022 lactated ringers infusion (CANCELED) 100 mL/hr, Intravenous, CONTINUOUS, Starting on Sun08/28/22 at 1115, Until Sun08/28/22 at 1223, Endoscopy (Day of Procedure) 1112 (New Bag - Prov ider: Tiffanie Benito RN)1152 (Paused - Provider: Shantal Wadsworth MD - Comment: Switch to gravity)1153 (Restarted - Provider: Shantal Wadsworth MD)1212 (Anesthesia Volume Adjustment - Provider: Shantal Wadsworth MD) documented in this encounter Care Teams Finger Grip Machine Operator Relationship Specialty Start Date End Date Juliette Hamilton PA [address] [place] [address] PCP - General Family Medicine 02/07/21 documented as of this encounter
--- OUTSIDE RECORDS SUMMARY | 2024-10-06 17:18 | XMS_ITS | Encounter Summary ---
[place] [address] Care Team Providers Care Manager Dairy Name Role Phone Juliette Hamitlon Primary Care Provider +1- [phone] Reason for Referral * Psychiatric (Routine) - Closed Specialty Diagnoses / Procedures Referred By Contac t Referred To Contact Psychiatry Diagnoses Depression, unspecified depression type TREATMENT RESISTANT DEPRESSION DESPITE MULTIPLE MED Fely Hahn, SHERIF [address] [place] [address] [facility] [place] [address] Referral ID Status Reason Start Date Expiration Date V isits Requested Visits Authorized [id number] Closed Consult, Test & Treat PCP Updated and/or Approved 05/04/2023 05/03/2024 6 6 Encounter Details Date Type Department Care Team (Latest Contact Info) Description 05/04/2023 Transcribe Orders eDH Incoming Referrals [phone] Fely Hahn, SEMICONDUCTOR [employer] ETCHER STRIPPER [address] [facility] [place] [id number] Depression, unspecified depression type Social History Tobacco Use Types Packs/Day Years [...] of this encounter Plan of Treatment Scheduled Referrals Name Type Priority Associated Diagnoses Orde r Schedule Referral to Psychiatry Outpatient Referral Routine Depression, unspecified depression type Ordered: 05/04/2023 documented as of this encounter Visit Diagnoses Diagnosis Depression, unspecified depression type documented in this encounter Care Teams Manager Dairy Relationship Specialty Start Date End Date Juliette Hamilton PA [address] [place] [address] PCP - General Family Medicine 02/07/21 documented as of this encounter
--- OUTSIDE RECORDS SUMMARY | 2024-10-06 17:18 | XMS_ITS | Encounter Summary ---
Author Organization [facility] [place] [address] Care Team Providers Care Ironer Machine Name Role Phone Juliette Hamilton Primary Care Provider +1- [phone] Encounter Details Date Type Department Care Team (Latest Contact Info) Description 11/01/2022 Travel Social History Tobacco Use Types Packs/Day [...] on filedocumented in this encounter Care Teams Ironer Machine Relationship Specialty Start Date End Date Juliette Hamilton PA [address] [place], [place] [id number] PCP - General Family Medicine 02/07/21 documented as of this encounter
--- OUTSIDE RECORDS SUMMARY | 2024-10-06 17:18 | XMS_ITS | Encounter Summary ---
[facility] [place] [address] Care Team Providers Care Creative Art Director Name Role Phone Juliette Hamilton Primary Care Provider +1- [phone] Encounter Details Date Type Department Care Team (Late st Contact Info) Description 10/31/2022 [place] [id number] Abby Cordero RMA Social History Tobacco Use [...] Telephone Encounter - Abby Cordero RMA - 10/31/2022 1:11 PM EST Spoke with pt... allergies, meds, & tobacco reviewed. documented in this encounter Plan of Treatment Not on file documented as of this encounter Visit Diagnoses Not on filedocumented in this encounter Care Teams Creative Art Director Relationship Specialty Start Date End Date Juliette Hamilton PA [address] [place] [address] PCP - General Family Medicine 02/07/21 documented as of this encounter
--- OUTSIDE RECORDS SUMMARY | 2024-10-06 17:18 | XMS_ITS | Encounter Summary ---
Author Organization [facility] Address [facility] [place] [address] Care Team Providers Care Minute Clerk Name Role Phone Juliette Hamilton Primary Care Provider [phone]- [phone] Encounter Details Date Type Department Care Team (Late st Contact Info) Description 04/30/2023 3:00 PM EDT [place] [phone] Maine Henley MD [facility] [place] [address] Moderate persistent asthma, uncomplicated; SHANI on CPAP; Post-acute COVID-19 syndrome; Class 2 obesity in adult, unspecified BMI, unspecified obesity type, unspecified whether serious comorbidity [...] Sign Reading Time Taken Comments Blood Pressure 132/81 04/30/2023 2:32 PM EDT Pulse 79 04/30/2023 2:32 PM EDT Temperature 36.4 ??C (97.5 ??F) 04/30/2023 2:32 PM ED T Respiratory Rate 16 04/30/2023 2:32 PM EDT Oxygen Saturation 91% 04/30/2023 2:32 PM EDT Inhaled Oxygen Concentration - - Weight 109 kg (240 lb 4.8 oz) 04/30/2023 2:32 PM EDT Height 173.4 cm (5' 8.27) 04/30/2023 2:32 PM ED T Body Mass Index 36.25 04/30/2023 2:32 PM EDT documented in this encounter Progress Notes * Maine Henley MD - 04/30/2023 3:00 PM EDT Images from the original note were not included. [facility] Outpatient Consultation Date of Encounter: 04/30/2023 Reason for Evaluation: Mr. Chano Coker returns [...] abscess, last seen in pulmonary clinic in Oct 2022. Mr. Coker reports he is doing pretty well. Still gets short of breath with exertion, unchanged. Gets winded with walking short distances. Has to stop walking frequently on hills due to dyspnea. Does try to walk for exercise, but distance is limited. Still has baseline chest phlegm daily and describes this as mild. Denies cough or wheezing though. Had more dyspnea this spring with allergy season, used oxygen some then for dyspnea. No acute respiratory flares or ED visits. No LE edema or chest pain. He has some dog bites - new puppy - not infected. Memory remains a challenge. This has been an ongoing issues since covid19 infection 2020. Impacts ability to attend to daily activities (ex: trouble remembering what to potato picker at the grocery store.) Depression has been worse recently. Working with PCPs office on this. Using CPAP at night consistently though. Sleeping well. He previously looked into pulmonary rehab but there was no local option and distance remains a barrier. Remains on advair 230-21 two puffs BID and spiriva respimat 1.25 mcg two inhalations daily, combivent PRN (using only occasionally now), zyrtec daily. Hasn't been able to return to work activities. 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 No smoke exposure. Current Medications at Start of Encounter: Outpatient Medications Prior to Visit Medication Sig Dispense Refill mirtazapine (REMERON) 30 mg Tablet tiotropium bromide (Spiriva Respimat) 1.25 mcg/actuation Mist Inhale 2 puffs into the lungs daily. 12 g 3 omeprazole (PriLOSEC) 20 mg Capsule, Delayed Release(E.C.) [...] 100 mg by mouth 2 times daily. armodafiniL (NuvigiL) 200 mg Tablet Take 200 mg by mouth daily. metFORMIN (GLUCOPHAGE-XR) 500 mg Tablet Sustained Release 24 hr Take 1,000 mg by mouth 2 times daily. Atomoxetine (Strattera) 80 mg Capsule Take 1 capsule by mouth daily. sildenafiL (VIAGRA) 100 mg Tablet Take 100 mg by mouth as needed for Erectile Dysfunction. PRN LORazepam (Ativan) 1 mg Tablet Take 1 mg by mouth daily as needed. Desvenlafaxine 100 mg Tablet Sustained Release 24 hr Take 100 mg by mouth daily. modafinil (PROVIGIL) 200 mg Tablet Take 200 mg by mouth daily. simvastatin (ZOCOR) 20 mg Tablet Take 20 mg by mouth nightly. cetirizine (ZYRTEC) 10 mg Tablet Take 10 mg by mouth daily. Reported on 03/12/2017 lamoTRIgine (LAMICTAL) 100 mg tablet Take 200 mg by mouth daily. No facility-administered medications prior to visit. Review of Systems: A focused ROS was completed and was positive as noted in HPI, and otherwise negative. Physical Examination: BP 132/81 Pulse 79 Temp 36.4 ??C (97.5 ??F) (Temporal) Resp 16 Ht 173.4 cm (5' 8.27) Wt 109 kg (240 lb 4.8 oz) SpO2 91% BMI 36.25 kg/m?? GEN: NAD, alert, conversational, generally well appearing, overweight HEENT: MMM, neck supple CV: RRR, no murmur PULM: normal WOB, CTAB, no wheezing ABD: soft, ND MSK: no [...] one booster Pneumovax: has had pneumovax-23 in 2004 Impression and Recommendations: Chano Cokre is a 62 y.o. man with moderate persistent asthma, SHANI on CPAP, resolved pulmonary cavitary pneumonia, allergies and rhinitis, with post-covid syndrome involving persistent and limiting exertional dyspnea, memory impairment and fatigue following covid19 infection in spring 2020, as well as deconditioning and possible component of restriction from obesity. He remains on triple inhaled therapy and updated PFTs show normal airflow and normalization of diffusing capacity (improved from prior), but he continues to have significant exertional dyspnea which limits activity and frequent increase in respiratory symptoms in response to environmental triggers such as dyspnea and allergies. Unfortunately functional recovery seems to have plateaued despite improved lung function. Increased exercise and weight loss are strongly encouraged to address his dyspnea. At baseline he does not require supplemental [...] managed by sleep team. Summary Recommendations: - continue advair 230-21 two puffs BID and spiriva respimat 1.25 mcg two inhalations daily, combivent PRN, zyrtec PRN during allergy season - continue nocturnal CPAP use - exercise and weight loss encouraged - may use supplemental NC O2 with exertion for dyspnea, goal sat >/=88% Follow-up with in-office visit in 6 months Thank you for involving me in Mr. Coker's care. Please feel free to contact me with any further questions or concerns. Maine Henley MD [facility] PULMONOLOGY AT [facility] [address] Dept: [phone] Loc: [phone] documented in this encounter Plan of Treatment Not on file documented as of this encounter Visit Diagnoses Diagnosis Moderate persistent asthma, uncomplicated Unspecified asthma SHANI on CPAP Obstructive sleep apnea (adult) (pediatric) Post-acute COVID-19 syndrome Class 2 obesity in adult, unspecified BMI, unspecified obesity type, unspecified whether serious comorbidity present documented in this encounter Care Teams Minute Clerk Relationship Specialty Start Date End Date Juliette Hamilton PA [address] [place] [address] PCP - General Family Medicine 02/07/21 documented as of this encounter
--- OUTSIDE RECORDS SUMMARY | 2024-10-06 17:18 | XMS_ITS | Encounter Summary ---
Author Organization [facility] [place] [address] Care Team Providers Care Software Tools Engineer Name Role Phone Juliette Hamilton Primary Care Provider [phone]- [phone] Encounter Details Date Type Department Care Team (Late st Contact Info) Description 02/28/2023 Telephone [place] [phone] Jose Yost RN Social History Tobacco Use [...] Telephone Encounter - Jose Yost RN - 02/28/2023 12:59 PM EDT RN faxed last office visit notes (dated 11/01/2022), along with original home oxygen orders to [facility], Attn: Elizabeth. Fax submission confirmation time stamped for 02/28/2023 @ 2760, 14 pages with coversheet. * Telephone Encounter - Jose Yost RN - 02/28/2023 12:57 PM EDT Copied from [facility] #[id number]. Topic: Specialty Dept CRMs - Generic Call >> February 26, 2023 3:16 PM Meggan Morejon wrote: Specialist: Dr. Maine Henley Relationship (if other than patient-full name):Elizabeth-[employer] Assistant Superintendent Reason for Call: Elizabeth called and is inquiring if the patient is currently 24 hour oxygen. Please call to further discuss or fax document. Claim # [id number] documented in this encounter Plan of Treatment Not on file documented as of this encounter Visit Diagnoses Not on filedocumented in this encounter Care Teams Software Tools Engineer Relationship Specialty Start Date End Date Juliette Hamilton PA [address] [place] [address] PCP - General Family Medicine 02/07/21 documented as of this encounter
--- OUTSIDE RECORDS SUMMARY | 2024-10-06 17:18 | XMS_ITS | Encounter Summary ---
Author Organization [facility] [place] [address] Care Team Providers Care Manager Social Services Name Role Phone Juliette Hamilton Primary Care Provider [phone]- [phone] Encounter Details Date Type Department Care Team (Latest Contact Info) Description 10/10/2022 11:30 AM EST TH Visit (TeleHealth) [place] [address] Gay Moran MD [facility] [place] [address] Alcoholic cirrhosis of liver without ascites Social [...] as of this encounter Progress Notes * Gay Moran MD - 10/10/2022 11:30 AM EST GASTROENTEROLOGY TELEMEDICINE PROGRAM - ESTABLISHED PATIENT VISIT Chief Complaint: Leena Coker is a 61 y.o. patient of Juliette Hamilton PA here for follow-up of cirrhosis. Detailed history: #Elevated liver enzymes ? Latest Reference Range & Units 04/01/21 10:55 05/19/22 10:13 Total Bilirubin 0.2 - 1.3 mg/dL 1.8 (H) 1.8 (H) Alk Phos 40 - 130 unit/L 64 87 AST 0 - 39 unit/L 96 (H) 78 (H) ALT 0 - 55 unit/L 105 (H) 82 (H) ? Liver Fibrosis Score (Fib 4) was 2.75 [...] Moderate steatosis with steatohepatitis, stage 4/4 (cirrhosis) #History of colon polyps - Reports having annual colonoscopy in [place] due to high number of colon polyps, last colonoscopy 2 years ago (delayed due to COVID) - [place] 08/2022, 3 TA in transverse (3-4 mm), one hyperplastic polyp sigmoid Interval history: He reports cutting back on his EtOH. He had one bottle of wine yesterday, but that was his only EtOH that week. He reports he had stopped 30 years in the past. He is working with his psychiatrist on achieving sobriety. MELD-Na score: 11 at 05/19/2022 10:13 AM MELD score: 11 at 05/19/2022 10:13 AM Calculated from: Serum Creatinine: 0.95 mg/dL (Using min of 1 mg/dL) at 05/19/2022 10:13 AM Serum Sodium: 132 mmol/L at 05/19/2022 10:13 AM Total Bilirubin: 1.8 mg/dL at 05/19/2022 10:13 AM INR(ratio): 1.2 at 05/19/2022 10:13 AM Age: 61 years Review of systems: 14-point review of systems [...] Take 20 mg by mouth daily. ??? tamsulosin (Flomax) 0.4 mg Capsule Take [...] syndrome (07/31/2011), and SHANI on CPAP (05/16/2009). Past Surgical History: has a past surgical history that includes Removal Of Prox Row Carpal Bones (64090) (Right, 01/29/2015); Endoscopic Us Exam, Esoph (03383) (N/A, 08/28/2022); Colonoscopy, Audrey Taveras (90930) (N/A, 08/28/2022); and Fine Needle Aspiration Bx W/Us Gdn 1St Lesion (20622) (08/28/2022). Family History: family history includes Chronic Obstructive Pulmonary Disease in his mother; Rheumatologic Disease in his mother. Social History: reports that he quit smoking about 34 years ago. His smoking use included cigarettes. He has a 30.00 pack-year smoking history. He has never used smokeless tobacco. He reports currentalcohol use. He reports that he does not use drugs. Physical exam: No Physical Examination performed during this telemedicine visit Laboratory studies, imaging, and procedures (my review of prior records): Admission on 08/28/2022, Discharged on 08/28/2022 Component Date Value Ref Range Status ??? COLONOSCOPY 08/28/2022 Final Value:[facility] Procedure Date: 08/28/2022 11:11 AM Patient Name: Leena Coker Date of : 1960 Age: 61 Order #: [id number] Instrument Name: [id number]- [id number] Procedure: Colonoscopy Indications: High risk colon cancer surveillance: Personal history of colonic polyps Providers: Breezy Saldivar MD, Nancy Melendez, Fur Mixer Operator Referring MD: MORGAN Sparks Medicines: Monitored Anesthesia Care Complications: No immediate complications. Procedure: Pre-Anesthesia Assessment: - Prior to the procedure, a History and Physical was performed, and patient medications and allergies were reviewed. The patient is competent. The risks and benefits of the procedure and the sedation options and risks were discussed with the patient. All questions were answered and informed consent was obtained. Patient identification and proposed procedure were verified by the physician in the pre-procedure area. Mental Status Examination: alert and oriented. Airway Examination: normal oropharyngeal airway and neck mobility. Respiratory Examination: clear to auscultation. CV Examination: normal. Prophylactic Antibiotics: The patient does not require prophylactic antibiotics. Prior Anticoagulants: The patient has taken no anticoagulant or antiplatelet agents. ASA Grade Assessment: III - A patient with severe systemic disease. After reviewing the risks and benefits, the patient was deemed in satisfactory condition to undergo the procedure. The anesthesia plan was to use monitored anesth esia care (MAC). Immediately prior to administration of medications, the patient was re-assessed for adequacy to receive sedatives. The heart rate, respiratory rate, oxygen saturations, blood pressure, adequacy of pulmonary ventilation, and response to care were monitored throughout the procedure. The physical status of the patient was re-assessed after the procedure. The procedure, indications, benefits, risks and alternatives were explained to the patient. Specifically discussed were potential complications including, but not limited to, bleeding, perforation, infection, missing a cancer, and adverse medication reactions. The patient was placed in the left lateral decubitus position, and a digital rectal exam was performed. The Colonoscope was inserted in the anus and under direct visualization, advanced to the cecum, identified by appendiceal orifice and ileocecal valve. Careful inspection was made as the colonoscope was withdrawn. The colonoscopy was performed without difficulty. The patient tolerated the procedure well. The quality of the bowel preparation was good. Findings: The perianal and digital rectal examinations were normal. Four sessile polyps were found in the sigmoid colon and transverse colon. The polyps were 3 to 4 mm in size. These polyps were removed with a cold snare. Resection and retrieval were complete. 3 polyps in transverse (one jar) and one in sigmoid (one jar) Moderate Sedation: Not applicable - See Anesthesia documentation Impression: - Four 3 to 4 mm polyps in the sigmoid colon and in the transverse colon, removed with a cold snare. Resected and retrieved. Recommendation: - Await pathology results Attending Participation: I personally performed the entire procedure. ___ Breezy Saldivar MD 08/28/2022 11:52:57 AM This report has been signed electronically. Number of Addenda: 0 Note Initiated On: 08/28/2022 11:11 AM ??? UPPER ENDOSCOPIC ULTRASOUND 08/28/2022 Final Value:[facility] Procedure Date: 08/28/2022 11:11 AM Patient Name: Leena Coker Date of : 1960 Age: 61 Order #: [id number] Instrument Name: [id number]- [id number] Procedure: Upper EUS Indications: EUS guided liver bx Providers: Breezy Saldivar MD, aNncy Melendez, Fur Mixer Operator Referring MD: MORGAN Sparks Medicines: Monitored Anesthesia Care Complications: No immediate complications. Procedure: Pre-Anesthesia Assessment: - Prior to the procedure, a History and Physical was performed, and patient medications and allergies were reviewed. The patient is competent. The risks and benefits of the procedure and the sedation options and risks were discussed with the patient. All questions were answered and informed consent was obtained. Patient identification and proposed procedure were verified by the physician in the pre-procedure area. Mental Status Examination: alert and oriented. Airway Examination: normal oropharyngea l airway and neck mobility. Respiratory Examination: clear to auscultation. CV Examination: normal. Prophylactic Antibiotics: The patient does not require prophylactic antibiotics. Prior Anticoagulants: The patient has taken no anticoagulant or antiplatelet agents. ASA Grade Assessment: III - A patient with severe systemic disease. After reviewing the risks and benefits, the patient was deemed in satisfactory condition to undergo the procedure. The anesthesia plan was to use monitored anesthesia care (MAC). Immediately prior to administration o f medications, the patient was re-assessed for adequacy to receive sedatives. The heart rate, respiratory rate, oxygen saturations, blood pressure, adequacy of pulmonary ventilation, and response to care were monitored throughout the procedure. The physical status of the patient was re-assessed after the procedure. The procedure, indications, benefits, risks and alternatives were explained to the patient. Specifically discussed were potential complications including, but not limited to, bleeding, perforation, infection, missing a cancer, and adverse medication reactions. The Endoscope was introduced through the mouth, and advanced to the third part of duodenum. The Endoscope was introduced through the mouth, and advanced to the third part of duodenum. The upper EUS was accomplished without difficulty. The patient tolerated the procedure well. Findings: ENDOSCOPIC FINDING: : The examined esophagus was endoscopically normal. The GE junction was at 39 cm. There were no esophageal biopsies. The entire examined stomach was endoscopically normal with the exception of a slight scalloping appearance consistent with portal hypertensive gastropathy. There were no gastric varices. The examined du odenum was endoscopically normal. ENDOSONOGRAPHIC FINDING: : There was no sign of significant endosonographic abnormality in the esophagus, stomach, duodenum or celiac axis. There was no sign of significant endosonographic abnormality in the ampulla. There was no sign of significant endosonographic abnormality in the left lobe of the liver. Fine needle biopsy was performed. Color Doppler imaging was utilized prior to needle puncture to confirm a lack of significant vascular structures within the needle path. One pass was made with the 19 gauge Software 2000 biopsy needle using a transgastric approach. A visible core of tissue was obtained. Final cytology results are pending. There was no sign of significant endosonographic abnormality in the entire pancreas. The pancreatic duct measured up to 2 mm in diameter. No lymphadenopathy seen. Moderate Sedation: Not applicable - See Anesthesia documentation Impression: - Liver bx performed - Mild portal hypertensive gastropathy - No esophageal or gastric varices Recommendation: - Await biopsy results Attending Participation: I personally performed the entire procedure. Breezy Saldivar MD 08/28/2022 12:14:25 PM This report has been signed electronically. Number of Addenda: 0 Note Initiated On: 08/28/2022 11:11 AM ??? Surgical Pathology Report 08/28/2022 Final Value:[id number] Location: 4T; EA07; A The signing pathologist has (i) examined the relevant preparation(s) for the specimen(s) and (ii) rendered or confirmed the diagnosis(es). . Surgical Pathology DIAGNOSIS A - Transverse colon polyps, resection (Multiple): - Fragments of tubular adenoma. B - Sigmoid colon polyp, resection: - Hyperplastic polyp. C - Liver, biopsy: - Moderate steatosis with steatohepatitis, stage 4/4 (cirrhosis) (see note). Note: Ballooning hepatocytes are conspicuous . Chronic parenchymal and septal inflammation is mild. Iron stain is negative. Trichrome stain was evaluated for final diagnosis. KISHAN total score* = 5 - Steatosis = 2 - Lobular Inflammation = 1 - Ballooning = 2 Fibrosis score = 4 *(KISHAN >/= 4 with at least 1 in each component represents steatohepatitis) KISHAN SCORING Steatosis 0 <5% 1 5-33% 2 34-66% 3 67-100% Lobular Inflammation 0 no foci 1 < 2 foci per 200x field 2 2-4 foci per 200x field 3 > 4 foci per 200 x field Ballooning 0 None 1 Rare or diagnostically borderline 2 Many or prominent ballooned hepatocytes FIBROSIS SCORE None 0 Mild zone 3 perisinusoidal 1a Moderate zone 3 perisinusoidal 1b Portal/periportal only 1c Portal, periportal and perisinusoidal 2 Bridging 3 Cirrhosis 4 Electronically signed by: Booker Hoover MD Verified: 08/30/2022 15:13 Pathologist Performed at: -[facility] Dept. of Pathology, [place] [id number] Survey Technician: Liz Calvert MD, FCAP, [place] Certificate: [id number] ADDITIONAL STUDIES Whole slide scan: A1, TRICHROME . SPECIMEN(S) SUBMITTED A - Transverse colon polyps, resection (Multiple) B - Sigmoid colon polyp, resection (1) C - Liver, biopsy (1) CLINICAL INFORMATION 61-year-old male; Hx of polyps, surveillance colonoscopy. SPECIMEN PROCESSING A - Labeled/Fixative: Transverse colon polyps, formalin. Quantity/Size: Three, ranging from 0.6-1.0 cm. Tissue Description: Soft, moreira-pink tissues. Sections/Processing: Largest fragment is bisected and the specimen is entirely submitted in 1 cassette labeled A1. B - Labeled/Fixative: Sigmoid colon polyp, formalin. Quantity/Size: Single, 1.1 cm. Tissue Description: Moreira-pink polypoid tissue. Sections/Processing: Inked, trisected and entirely submitted in 1 cassette labeled B1. C - Labeled/Fixative: Liver, formalin. Quantity/Size: Fragments, ranging from 0.3 x 0.1-1.4 x 0.1 cm Tissue Description: Moreira-pink needle core biopsies. Sections/Processing: Entirely submitted in 1 cassette labeled C1. jnr Assessment/Plan: Mr. Coker is a 61 y.o. patient with cirrhosis secondary to EtOH. We reviewed that his liver biopsy confirms cirrhosis of the liver secondary to alcohol. He will continue to work with his psychiatrist on achieving sobriety. He declined any medications at this time to help with alcohol use disorder. Reviewed his increased risk for development of hepatocellular carcinoma. Recommend an ultrasound every 6 months. Last ultrasound was negative in May 2022. Ultrasound ordered for November 2022. Reviewed the meld score. His current meld score is 11 which is low. Recommended continued sobriety andgood nutrition to help improve his liver function and avoid hepatic decompensation. EGD in August2022 was negative for varices, next upper endoscopy due in August 2024. I will see him in clinic in November 2022 for repeat her laboratory investigations at the time of his ultrasound. I spent 20 minutes face to face with the patient. 20 minutes were spent on counseling and discussion as of the above during this telemedicine visit. The patient was located in [place] at the time of their visit. Approximae time in review of records and documentation 10 minutes. Approximate total time devoted to this single encounter on the day of the encounter: 30 minutes Gay Moran [place] [address] documented in this encounter Plan of Treatment Not on file documented as of this encounter Results * (ABNORMAL) AFP tumor marker (05/22/2023 11:26 AM EDT) Alpha Fetoprotein 10.6(H) <=8.3 ng/mL [facility] Comment: This result was generated using a Mat Jessie immunoassay. ??Results obtained from other methods or manufacturers cannot be used interchangeably with this method. Blood 05/22/2023 11:2 6 AM EDT 05/22/2023 11:46 AM EDT Narrative Resulting Agency Comment Spec In Lab Gay Moran MD CHEMISTRY ORDERABLES Performing Organization Address [facility] Co de Phone Number [facility] [place] [address] * (ABNORMAL) Prothrombin Time (05/22/2023 11:26 AM EDT) Prothrombin Time 12.6(H) 9.4 - 12.5 sec [facility] International Normalization Ratio 1.1 [facility] Comment: An INR <2.0 indicates [...] MD HEMATOLOGY ORDERABLE S Performing Organization Address City/[facility]/ZIP Co de Phone Number [facility] [place] [address] * (ABNORMAL) Comprehensive metabolic panel (non-fasting) (05/22/2023 11:26 AM EDT) Glucose 174 65 - 199 mg/dL [facility] Comment:Diabetes: >=200 mg/d L plus symptoms Blood Urea Nitrogen 7(L) 10 - 20 mg/dL [facility] Creatinine 0.88 0.80 - 1.50 mg/dL [facility] Sodium 141 135 - 145 mmol/L [facility] Potassium 4.2 3.5 - 5.0 mmol/L [facility] Comment: Please note: ??Patients with WBC >100,000 may have falsely elevated Potassium levels. ??For accurate Potassium quantification in these patients send serum separator tube (gold top) for subsequent determinations. ??Contact the Clinical Chemistry Laboratory if there are any questions. Chloride 104 98 - 107 mmol/L [facility] Carbon Dioxide 24 22 - 31 mmol/L [facility] Anion Gap 13 5 - 15 mmol/L [facility] Calcium 9.6 8.5 - 10.5 mg/dL [facility] Protein, Total 7.6 6.1 - 8.0 g/dL [facility] Albumin 4.3 3.2 - 5.2 g/dL [facility] Aspartate Aminotransferase 117(H) 0 - 39 unit/L [facility] Alanine Aminotransferase 146(H) 0 - 55 unit/L [facility] Alkaline Phosphatase 72 40 - 130 unit/L [facility] Bilirubin, Total 1.4(H) 0.2 - 1.3 mg/dL [facility] Est Glomerular Filtration Rate 96 >=60 mL/min/1. 73 m?? [facility] Comment: This patient's estimated GFR [...] In Lab Gay Moran MD CHEMISTRY ORDERABLES [facility] [place] [address] * US Abdomen Limited Hepatology Protocol (05/22/2023 10:47 AM EDT) Anatomical Region Laterality Modality Abdomen Ultrasound 05/22/2023 10:1 0 AM EDT Impressions 05/22/2023 11:01 AM EDT 1. Diffusely echogenic liver without capsular nodularity consistent with chronic liver disease. There are two, small hypoechoic foci in the right lobe of the liver measuring 1.2 and 0.8 cm respectively. These may represent focal fatty sparing but the differential diagnosis includes regenerating nodules and HCC. MRI is recommended for more specific characterization. 2. The main portal vein is patent with normal directional flow. No splenomegaly or ascites. 3. The gallbladder and biliary ductal system are normal. Thank you for letting us participate in the care of this patient. If you are a health care provider and have any questions regarding this report, please contact the number above. For patients who have questions, please contact the health manager progressive care that requested your imaging first. ?Medardo Trent, Staff Physician Electronically Signed Final Report ?? 05/22/2023 11:00 am Narrative 05/22/2023 11:01 AM EDT Abdominal ? (Signed Final 05/22/2023 11:00 am) PATIENT INFO: ID #: ? [id number] ?: ??[birth year] (62 yrs)(M) Name: ? LEENA Gann KRISTY ? Visit Date: 05/22/2023 10:10 am PERFORMED BY: Attending: ?Miley SALOMON, Medardo Severino Performed By: ? Pat Hyde RDMS Referred By: ?GAY MORAN Location: ? [place] [facility] Hepat[facility] Protocol - Abdominal ?07060 Limited Survey Single Organ or Quadrant - [id number] INDICATIONS: cirrhosis, HCC screening COMPARISON: US abdomen limited hepatology protocol 05/19/2022 ------ LIVER: ------ Right Lobe Length: ?? 14.7 ?? cm Echogenicity/Echotexture: ?? Diffusely Echogenic Portal Veins: ?Hepatopetal Comment: ?Irregular hypoechoic areas in right lobe, possible ? areas of fatty sparing. GALLBLADDER: Cholelithiasis: ?No stones visualized Wall Thickness: ?3.0 mm Focal Tenderness: ?Negative sonographic Ambriz's sign Comment: ?Distended gallbladder. BILIARY TRACT: Intrahepatic Ducts: ?? Normal Extrahepatic Ducts: ?? Normal Common Duct Size: ? 4.0 ? mm FLUID COLLECTIONS: Ascites not present on 4 quadrant evaluation. Procedure Note Medardo Trent MD - 05/22/2023 Abdominal (Signed Final 05/22/2023 11:00 am) PATIENT INFO: ID #: [id number] : [birth year] (62 yrs)(M) Name: LEENA COKER Visit Date: 05/22/2023 10:10 am PERFORMED BY: Attending: Medardo Trent MD Performed By: Pat Hyde RDMS Referred By: GAY MORAN Location: [facility] SERVICE(S) PROVIDED: [facility] - Hepatology Protocol - Abdominal 87158 Limited Survey Single Organ or Quadrant - [id number] INDICATIONS: cirrhosis, HCC screening COMPARISON: US abdomen limited hepatology protocol 05/19/2022 ------ LIVER: ------ Right Lobe Length: 14.7 cm Echogenicity/Echotexture: Diffusely Echogenic Portal Veins: Hepatopetal Comment: Irregular hypoechoic areas in right lobe, possible areas of fatty sparing. GALLBLADDER: Cholelithiasis: No stones visualized Wall Thickness: 3.0 mm Focal Tenderness: Negative sonographic Ambriz's sign Comment: Distended gallbladder. BILIARY TRACT: Intrahepatic Ducts: Normal Extrahepatic Ducts: Normal Common Duct Size: 4.0 mm FLUID COLLECTIONS: Ascites not present on 4 quadrant evaluation. IMPRESSION 1. Diffusely echogenic liver without capsular nodularity consistent with chronic liver disease. There are two, small hypoechoic foci in the right lobe of the liver measuring 1.2 and 0.8 cm respectively. These may represent focal fatty sparing but the differential diagnosis includes regenerating nodules and HCC. MRI is recommended for more specific characterization. 2. The main portal vein is patent with normal directional flow. No splenomegaly or ascites. 3. The gallbladder and biliary ductal system are normal. Thank you for letting us participate in the care of this patient. If you are a health care provider and have any questions regarding this report, please contact the number above. For patients who have questions, please contact the health manager progressive care that requested your imaging first. Medardo Trent, Staff Physician Electronically Signed Final Report 05/22/2023 11:00 am Gay Moran MD IMG GEN ORDERABLE S documented in this encounter Visit Diagnoses Diagnosis Alcoholic cirrhosis of liver without ascites Alcoholic cirrhosis of liver Alcoholic cirrhosis of liver without ascites Alcoholic cirrhosis of liver documented in this encounter Care Teams Manager Social Services Relationship Specialty Start Date End Date Juliette Hamilton PA [address] [place] [address] PCP - General Family Medicine 02/07/21 documented as of this encounter
--- OUTSIDE RECORDS SUMMARY | 2024-10-06 17:18 | XMS_ITS | Encounter Summary ---
[facility] [place] [address] Care Team Providers Care Cartridge Feeder Name Role Phone Juliette Hamilton Primary Care Provider +1- [phone] Encounter Details Date Type Department Care Team (Latest Contact Info) Description 04/30/2023 1:20 PM EDT - 04/30/2023 11:59 PM EDT Hospital [place] [address] Moderate persistent asthma, uncomplicated Discharge Disposition: Home Social History Tobacco Use [...] 200 mg by mouth daily. 09/29/2022 08/20/2023 omeprazole (PriLOSEC) 20 mg Capsule, Delayed [...] Procedure Name Priority Date/Time Associated Diagnosis Comments COMMON PULMONARY FUNCTION TEST Routine 04/30/2023 2:04 PM EDT Moderate persistent asthma, uncomplicated documented in this encounter Results * Pulmonary Function Testing [...] / FVC LLN 64 % COMPAS PFT [id number] Actual Pre-BD 1.30 L/s COMPAS PFT [id number] Pre-BD % of Predicted 49 % COMPAS PFT [id number] Predicted 2.63 L/s COMPAS PFT [id number] Pre-BD Z-Score -1.54 COMPAS PFT DLCO Hb [...] Diagnosis Moderate persistent asthma, uncomplicated Unspecified asthma documented in this encounter Care Teams Cartridge Feeder Relationship Specialty Start Date End Date Juliette Hamilton PA [address] [place] [address] PCP - General Family Medicine 02/07/21 documented as of this encounter
--- OUTSIDE RECORDS SUMMARY | 2024-10-06 17:18 | XMS_ITS | Encounter Summary ---
Author Organization [facility] [place] [address] Care Team Providers Care Autocad Technician Name Role Phone Juliette Hamilton Primary Care Provider +1- [phone] Reason for Visit * Reason Onset Date Comments Request For Record 07/31/2022 Encounter Details Date Type Department Care Team ([facility] Contact Info) Description 07/31/2022 [place] [address] Jose Yost RN Request For Record Social History Tobacco Use Types Packs/Day Years [...] Telephone Encounter - Jose Yost RN - 07/31/2022 9:45 AM EDT Rec'd records request from [facility]. Forwarded to Medical Records Release of Information documented in this encounter Plan of Treatment Not on file documented as of this encounter Visit Diagnoses Not on filedocumented in this encounter Care Teams Autocad Technician Relationship Specialty Start Date End Date Juliette Hamilton PA [address] [place] [address] PCP - General Family Medicine 02/07/21 documented as of this encounter
--- OUTSIDE RECORDS SUMMARY | 2024-10-06 17:18 | XMS_ITS | Encounter Summary ---
Author Organization [facility] [place] [address] Care Team Providers Care Shrink Pit Operator Name Role Phone Juliette Hamilton Primary Care Provider +1- [phone] Encounter Details Date Type Department Care Team (Late st Contact Info) Description 03/01/2023 [place] [phone] Jsoe Yost RN Social History Tobacco Use Types [...] Telephone Encounter - Jose Yost RN - 03/01/2023 1:14 PM EDT Refaxed the following: Office visit notes dated 11/01/2022, Home Oxygen Order dated 09/28/2021. Fax submission confirmation time stamped for 03/01/2023 @ 1183. * Telephone Encounter - Jose Yost RN - 03/01/2023 12:58 PM EDT Copied from CRM #[id number]. Topic: Specialty Dept CRMs - Generic Call >> February 28, 2023 4:12 PM Remedios Reed wrote: Specialist: Maine Henley MD Relationship (if other than patient-full name): Elizabeth - [facility] Reason for Call: Elizabeth from [facility] called and stated that she received the fax, however, stated that only the cover sheet came through but not the notes. Elizabeth stated that she will need this re faxed. Please call with any questions. documented in this encounter Plan of Treatment Not on file documented as of this encounter Visit Diagnoses Not on filedocumented in this encounter Care Teams Shrink Pit Operator Relationship Specialty Start Date End Date Juliette Hamilton PA [address] [place] [address] PCP - General Family Medicine 02/07/21 documented as of this encounter
--- OUTSIDE RECORDS SUMMARY | 2024-10-06 17:18 | XMS_ITS | Encounter Summary ---
Author Organization [facility] [place] [address] Care Team Providers Care Leader Tier Name Role Phone Juliette Hamilton Primary Care Provider +1- [phone] Reason for Visit * Auth/Cert Specialty Diagnoses / Procedures Referred By Contac t Referred To Contact Diagnoses ?cirrhosis, [place]/EtOH, elevated liver enzymes >30 yrs, Fibroscan elevated Procedures PRO ENDOSCOPIC US EXAM, ESOPH PRO COLONOSCOPY, DIAGNOSTIC UPPER EUS- ENDOSCOPIC ULTRASOUND COLONOSCOPY, DIAGNOSTIC Breezy Saldivar MD [facility] [place] [address] [facility] Referral ID Status Reason Start Date Expiration Date Visits Re quested Visits Authorized [id number] 1 1 Encounter Details Date Type Department Care Team (Late st Contact Info) Description 08/28/2022 11:15 AM EST - 08/28/2022 12:45 PM EST Surgery [place] [address] Breezy Saldivar MD [facility] [place] [address] UPPER EUS- ENDOSCOPIC ULTRASOUND (WRVU 3.47) Social History Tobacco Use Types Packs/Day Years [...] Sign Reading Time Taken Comments Blood Pressure 126/82 08/28/2022 12:40 PM EST Pulse 59 08/28/2022 11:02 AM EST Temperature - - Respiratory Rate 18 08/28/2022 12:40 PM EST Oxygen Saturation 96% 08/28/2022 12:40 PM EST Inhaled Oxygen Concentration - - [...] occurs, please contact your Doctor. Please call [phone] before 8pm Mon-Fri with problems, questions or concerns. If you call after 8pm or on weekends, call the Hospital at [phone] and ask to speak to the Finisher Screwdown traffic control signaler and the electric car operator will contact that person for you. When should you call for help? Call [phone] anytime you think you may need emergency [...] any problems. Where can you learn more? [facility] View your After Visit Summary and more online at [email or web address] If you would like to provide feedback [...] cost to you. Content Version: 12.2 ?? [id number] CONEXANCE MD. Care instructions adapted under license by [facility]. If you have questions about a medical condition or this instruction, always ask your healthcare professional. CONEXANCE MD disclaims any warranty or liability for your [...] Needle Aspiration Bx W/Us Gdn 1St Lesion (06285) 08/28/2022 11:20 AM EST Elevated liver enzymes Colonoscopy, Nic Hughes, Snare (00032) 08/28/2022 11:20 AM EST Elevated liver enzymes Endoscopic Us Exam, Esoph (28228) 08/28/2022 11:20 AM EST Elevated liver enzymes COLONOSCOPY Routine 08/28/2022 11:11 AM EST UPPER EUS-ENDOSCOPIC ULTRASOUND Routine 08/28/2022 11:11 AM EST documented in this encounter Results * Specimen to Pathology (08/28/2022 12:10 PM EST) AP Specimen 08/28/2022 12:1 0 PM EST 08/28/2022 12:10 PM EST [facility] LABORATORY - 08/28/2022 12:10 PM EST Specimen requisition ordered. ??Separate Pathology report to follow Breezy Sladivar MD PATHOLOGY/CYTOLOGY ORDERABLES Performing Organization Address [facility] [place] [address] * Specimen to Pathology (08/28/2022 11:54 AM EST) AP Specimen 08/28/2022 11:5 4 AM EST 08/28/2022 11:54 AM EST Narrative [facility] - 08/28/2022 11:54 AM EST Specimen requisition ordered. ??Separate Pathology report to follow Breezy Saldivar MD PATHOLOGY/CYTOLOGY ORDERABLES Performing Organization Address [facility] [place] [address] * Specimen to Pathology (08/28/2022 11:54 AM EST) AP Specimen 08/28/2022 11:5 4 AM EST 08/28/2022 11:54 AM EST Narrative [facility] - 08/28/2022 11:54 AM EST Specimen requisition ordered. ??Separate Pathology report to follow Breezy Saldivar MD PATHOLOGY/CYTOLOGY ORDERABLES Performing Organization Address [facility] [place] [address] * Surgical Pathology Report (08/28/2022 11:44 AM EST) Pathologist [facility] Final Diagnosis [id number] ? Location: 4T; EA07; A The signing [...] Booker Verified: ??08/30/2022 15:13 ??Pathologist Performed at: ??-[facility] Dept. of Pathology, [place] [address] Patient Transition Specialist: Liz Calvert MD, FCAP, ??CLIA Certificate: [id number] ADDITIONAL STUDIES Whole slide scan: A1, TRICHROME [...] cassette labeled C1. ??jnr 08/30/2022 3:13 PM EST [facility] LIVER STRUCTURE / Unknown 08/28/2022 11:44 AM EST 08/28/2022 11:44 AM EST GI Biopsy 08/28/2022 11:4 4 AM EST 08/28/2022 11:44 AM EST LIVER STRUCTURE / Unknown 08/28/2022 11:44 AM EST 08/28/2022 11:44 AM EST Breezy Saldivar MD PATHOLOGY/CYTOLOGY ORDERABLES [facility] [place] [address] * COLONOSCOPY (08/28/2022 11:11 AM EST) COLONOSCOPY [facility] Endoscopy Procedure Date: 08/28/2022 11:11 AM ? Patient Name: Chano Coker ? N: [id number] ? Date of : 1960 ? Age: 61 ? Order #: [id number] ? Instrument Name: [id number] ? Procedure: ? Colonoscopy Indications: ? High risk colon cancer ? surveillance: Personal history of ? colonic polyps Providers: ? Breezy Saldivar MD, Dash Hodges ? Nancy Hobbs, ? Hog Room Supervisor Referring : ?MORGAN Sparks Medicines: ? Monitored [...] (08/28/2022 11:11 AM EST) UPPER ENDOSCOPIC ULTRASOUND [facility] Endoscopy Procedure Date: 08/28/2022 11:11 AM ? Patient Name: Chano Coker ? Date of : 1960 ? Age: 61 ? Order #: [id number] ? Instrument Name: [id number]- [id number] - [id number] ? Procedure: ? Upper EUS Indications: ? EUS guided liver bx Providers: ? Breezy Saldivar MD, Dash Hodges ? Nancy Hobbs, ? Hog Room Supervisor Referring : ?MORGAN Sparks Medicines: ? Monitored [...] PROVATION documented in this encounter Visit Diagnoses Diagnosis Elevated liver enzymes Nonspecific elevation of levels of transaminase or lactic acid dehydrogenase (LDH) documented in this encounter Administered Medications Inactive [...] 1112 (New Bag - Prov ider: Tiffanie M Thong, RN)1152 (Paused - Provider: Shantal Wadsworth MD - Comment: Switch to gravity)1153 (Restarted - Provider: Shantal Wadsworth MD)1212 (Anesthesia Volume Adjustment - Provider: Shantal Wadsworth MD) documented in this encounter Care Teams Leader Tier Relationship Specialty Start Date End Date Juliette Hamilton PA [address] [place] [address] PCP - General Family Medicine 02/07/21 documented as of this encounter
--- OUTSIDE RECORDS SUMMARY | 2024-10-06 17:18 | XMS_ITS | Encounter Summary ---
Author Organization [facility] Address [facility] [place] [address] Care Team Providers Care Top Spotter Name Role Phone Juliette Hamilton Primary Care Provider +1- [phone] Encounter Details Date Type Department Care Team (Latest Contact Info) Description 05/22/2023 10:07 AM EDT - 05/22/2023 11:59 PM EDT Hospital [place] [address] Guy Moran MD [facility] [place] [address] Alcoholic cirrhosis of liver without ascites Discharge [...] Comments US ABDOMEN LIMITED HEPATOLOGY PROTOCOL Routine 05/22/2023 10:47 AM EDT Alcoholic cirrhosis of liver without ascites documented in this encounter Results * US Abdomen Limited Hepatology Protocol (05/22/2023 [...] have questions, please contact the health manager wound care that requested your imaging first. ?Medardo Trent, Staff Physician Electronically Signed Final Report ?? 05/22/2023 11:00 am Narrative 05/22/2023 11:01 AM EDT Abdominal ? (Signed Final 05/22/2023 11:00 am) PATIENT INFO: ID #: ? [id number] ?: ??[birth year] (62 yrs)(M) Name: ? CHANO WAGNER ? Visit Date: 05/22/2023 10:10 am PERFORMED BY: Attending: ?Miley SALOMON, Medardo Severino Performed By: ? Pat Hyde RDMS Referred By: ?GUY MORAN Location: ? [place] [facility] - Abdominal ?46165 Limited Survey Single Organ or Quadrant - [id number] INDICATIONS: cirrhosis, HCC screening COMPARISON: US abdomen [...] 05/22/2023 11:00 am) PATIENT INFO: ID #: [id number] : [birth year] (62 yrs)(M) Name: CHANO WAGNER Visit Date: 05/22/2023 10:10 am PERFORMED BY: Attending: Medardo Trent MD Performed By: Pat Hyde RDMS Referred By: GUY MORAN Location: [place] [facility]ICE[facility] Hep[facility] Protocol - Abdominal 79822 Limited Survey Single Organ or Quadrant - [id number] INDICATIONS: cirrhosis, HCC screening COMPARISON: US abdomen [...] have questions, please contact the health manager wound care that requested your imaging first. Medardo Trent, Staff Physician Electronically Signed Final Report 05/22/2023 11:00 am Guy Moran MD IMG US GEN ORDERABLE S documented in this encounter Visit Diagnoses Diagnosis Alcoholic cirrhosis of liver without ascites Alcoholic cirrhosis of liver documented in this encounter Care Teams Top Spotter Relationship Specialty Start Date End Date Juliette Hamilton PA [address] [place] [address] PCP - General Family Medicine 02/07/21 documented as of this encounter
--- OUTSIDE RECORDS SUMMARY | 2024-10-06 17:18 | XMS_ITS | Encounter Summary ---
Author Organization [facility] [place] [address] Care Team Providers Care Development Coach Name Role Phone Juliette Hamilton Primary Care Provider +1- [phone] Encounter Details Date Type Department Care Team (Latest Contact Info) Description 06/26/2022 9:00 AM EDT [place] [address] [facility] [place] [address] Moderate persistent asthma, uncomplicated; SHANI on CPAP; Post-acute COVID-19 syndrome; Class 2 obesity with body mass index (BMI) of 36.0 to 36.9 in adult, unspecified obesity type, unspecified whether serious comorbidity present; Physical deconditioning Social History Tobacco Use Types Packs/Day Years [...] Sign Reading Time Taken Comments Blood Pressure 142/74 06/26/2022 9:05 AM EDT Pulse 94 06/26/2022 9:05 AM EDT Temperature 36.9 ??C (98.4 ??F) 06/26/2022 9:05 AM ED T Respiratory Rate 20 06/26/2022 9:05 AM EDT Oxygen Saturation 94% 06/26/2022 9:05 AM EDT Inhaled Oxygen Concentration - - Weight 115.3 kg (254 lb 3.2 oz) 06/26/2022 9:05 AM EDT Height 177.8 cm (5' 10) 06/26/2022 9:05 AM EDT Body Mass Index 36.47 06/26/2022 9:05 AM EDT documented in this encounter Patient Instructions * Patient Instructions* Maine Henley MD - 06/26/2022 9:00 AM EDT Start exercising, 30 minutes 3 to 5 days a week. You should use oxygen if your SpO2 is <88% with exercise; otherwise okay to use for shortness ofbreath even if oxygen doesn't drop below 88%. Consider stopping drinking soda to help with weight loss. Please discuss your memory concerns and your elevated blood pressure with your PCP. documented in this encounter Progress Notes * Maine Henley MD - 06/26/2022 9:00 AM EDT Images from the original note were not included. [facility] Section of Pulmonary and Critical Care Medicine Outpatient Consultation Date of Encounter: 06/26/2022 Reason for Evaluation: Mr. Chano Coker returns to the pulmonary clinic for follow-up of asthmaand recent covid19 infection. I independently interviewed the patient, have examined the patient ifthis visit was conducted in the office and have reviewed available records. Dear MORGAN Marin, As you know, Chano Coker is a 61 y.o. male with asthma and covid19 pneumonia spring 2020, and pulmonary abscess, last seen in pulmonary clinic in December 2021. Mr. Coker reports that he is still feeling pretty short of breath with any activity. Over the summer he noticed the humidity made him a lot more short of breath. Has been using oxygen PRN for dyspnea more in the heat. He denies wheezing, cough, chest congestion, chest pain. Denies LE edema. Denies any sinus allergies or allergic triggers. He has not had any acute flares or ED visits. No recent infections. Exercise currently includes walking when golfing about once a week. Thinking about rejoining a gym. He looked into pulmonary rehab but there was no local option. He has gained about 20 lbs recently. Identifies drinking a lot of soda as a challenge. Still dealing with short term memory challenges. Has not yet discussed with PCP. Forgets what he was sent to the store for, for instance. He is back to using the CPAP nightly, sleeping well. Helps a lot. No longer requiring oxygen through the CPAP per sleep med recs. He has had covid19 vaccine primary series and booster #1. Remains on advair 230-21 two puffs BID and spiriva respimat 1.25 mcg two inhalations daily, combivent PRN (using only occasionally now), zyrtec daily. 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 He remains on assisted disability related to his covid19 illness. No [...] Take 100 mg by mouth daily. ??? tamsulosin (Flomax) [...] tablet Take 200 mg by mouth daily. ??? omeprazole (PriLOSEC) 20 mg Capsule, Delayed Release(E.C.) Take 20 mg by mouth daily. ??? traZODone (Desyrel) 100 mg Tablet Take 200 mg by mouth nightly as needed. ??? armodafiniL (NuvigiL) 200 mg Tablet Take 200 mg by mouth daily. No facility-administered medications prior to visit. Review of Systems: A focused ROS was completed and was positive as noted in HPI, and otherwise negative. Physical Examination: BP 142/74 (BP Location (NBP): Left arm, Patient Position: Sitting) Pulse 94 Temp 36.9 ??C (98.4??F) (Temporal) Resp 20 Ht 177.8 cm (5' 10) Wt 115.3 kg (254 lb 3.2 oz) SpO2 94% BMI 36.47 kg/m?? GEN: NAD, alert, conversational, generally well appearing, overweight HEENT: MMM, neck supple, no adenopathy or tenderness CV: RRR, no murmur PULM: normal WOB, lungs are clear, no crackles or wheezing, easy exhalation ABD: soft, protuberant MSK: no joint swelling, he is easily [...] 05/19/2022 Hgb 17 Immunization History: Flu vaccine: receiving with visit today COVID-19 vaccine: has had primary and booster #1 Pneumovax: Prevnar-13: Impression and Recommendations: Chano Coker is a 61 y.o. 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 I think he also has a component of deconditioning and obesity contributing to his dyspnea. Unfortunately there is not a local pulmonary rehab option available. We discussed the benefit of starting slowly with exercise such as walking and upper arm exercises; he seems motivated to do some of this now, and plans to join a local gym and walk his dog more. I think this could very significantly improve his dyspnea. On recent testing he did not need supplemental oxygen when walking indoors on a flat surface, but he continues to find this helpful for significant exertion and when it is very humid; I encouraged him to monitor his SpO2 with exercise and use supplemental O2 if SpO2< 88%. He remains on high dose ICS/LABA and LAMA therapy for asthma, and I advised him to use combivent oralbuterol before exercise and PRN. He remains on nocturnal chronic CPAP for SHANI, managed by sleep team. I did encourage him to discuss his memory concerns with his PCP. I also encouraged him to get a covid19 booster; he will consider this. Summary Recommendations: - increased exercise strongly recommended; he plans to start now 30 min/day at least 3 days per week - weight loss also encouraged; dietary counseling done at visit and he will try to stop drinking soda now - continue advair 230-21 two puffs BID and spiriva respimat 1.25 mcg two inhalations daily, combivent PRN, zyrtec daily - continue nocturnal CPAP use - may use supplemental NC O2 with exertion, goal sat >/=88% - 2021 flu vaccine received with this visit - covid19 vaccine booster encouraged Follow-up with in-office visit in 3 months Thank you for involving me in Mr. Coker's care. Please feel free to contact me with any further questions or concerns. I personally spent 25 minutes of this encounter with the patient discussing their pulmonary diseaseand treatment recommendations as outlined in my assessment and plan above. This visit involved a total of 40 minutes of clinical time on day of visit. Maine Henley MD N [facility] PULMONOLOGY AT [facility] [address] Dept: [phone] Loc: [phone] documented in this encounter Plan of Treatment Not on file documented as of this encounter Visit Diagnoses Diagnosis Moderate persistent asthma, uncomplicated Unspecified asthma SHANI on CPAP Obstructive sleep apnea (adult) (pediatric) Post-acute COVID-19 syndrome Class 2 obesity with body mass index (BMI) of 36.0 to 36.9 in adult, unspecified obesity type, unspecified whether serious comorbidity present Physical deconditioning Debility, unspecified documented in this encounter Care Teams Development Coach Relationship Specialty Start Date End Date Juliette Hamilton PA [address] [place] [address] PCP - General Family Medicine 02/07/21 documented as of this encounter
--- OUTSIDE RECORDS SUMMARY | 2024-10-06 17:18 | XMS_ITS | Encounter Summary ---
Author Organization Formerly [facility] [place] [address] Care Team Providers Care Wooden Frame Builder Name Role Phone Juliette Hamilton Primary Care Provider +1- [phone] Encounter Details Date Type Department Care Team (Late st Contact Info) Description 05/19/2022 11:30 AM EDT Office [place] [phone] Gay Moran MD [facility] [place] [address] Elevated liver enzymes; Personal history of colonic polyps Social History Tobacco Use Types Packs/Day Years [...] Sign Reading Time Taken Comments Blood Pressure 145/107 05/19/2022 11:15 AM EDT Pulse 102 05/19/2022 11:15 AM EDT Temperature - - Respiratory Rate - - Oxygen Saturation - - Inhaled Oxygen Concentration - - Weight 114 kg (251 lb 6.4 oz) 05/19/2022 11:15 A M EDT Height 177.8 cm (5' 10) 05/19/2022 11:15 AM EDT Body Mass Index 36.07 05/19/2022 11:15 AM EDT documented in this encounter Progress Notes * Gay Moran MD - 05/19/2022 11:30 AM EDT Gastroenterology and Hepatology Follow Up Note Patient: Chano Coker : 1960 Provider: Gay Moran MD Problem List: #Elevated liver enzymes Latest Reference Range & Units 04/01/21 10:55 05/19/22 10:13 Total Bilirubin 0.2 - 1.3 mg/dL 1.8 (H) 1.8 (H) Alk Phos 40 - 130 unit/L 64 87 AST 0 - 39 unit/L 96 (H) 78 (H) ALT 0 - 55 unit/L 105 (H) 82 (H) Liver Fibrosis Score (Fib 4) was 2.75 at 05/19/2022 11:36 AM Risk of Fibrosis Low Intermediate High NAFLD Less than 1.3 1.3-2.67 Greater than 2.67 Hepatitis C Less than 1.45 1.45-3.25 Greater than 3.25 #History of colon polyps - Reports having annual colonoscopy in [place] due to high number of colon polyps, last colonoscopy 2 years ago (delayed due to COVID) Interval History: He reports doing well. He continues to drink EtOH daily, reports some light and some heavy days. Current Outpatient Medications Medication Sig Dispense Refill ??? tiotropium bromide [...] current facility-administered medications for this visit. Vitals: 05/19/22 1115 BP: (!) 145/107 BP Location ([facility]): Right arm Patient Position: Sitting BP Cuff Sizes: Large Adult (32-43 cm) Pulse: (!) 102 Weight: 114 kg (251 lb 6.4 oz) Height: 177.8 cm (5' 10) Body mass index is 36.07 kg/m??. Exam: Looks well Fibroscan Results: Mean kPa: 29.5 Mean IQR: 17% (goal is <30 %) Success rate: 88% (goal is >60%) Predicted fibrosis stage: F4 CAP: 398 Assessment and Plan: #Elevated liver enzymes, ?cirrhosis We reviewed that his ultrasound today showed significant hepatic steatosis but no overt signs of cirrhosis (nodular liver, splenomegaly, ascites). His liver enzymes remain elevated. We reviewed that we have asked if he significantly cut back to ideally stop all alcohol consumption. We discussed that his FibroScan today and fib 4 are concerning for high-grade fibrosis to cirrhosis of the liver. Recommended an EUS guided liver biopsy. Follow-up visit 2 weeks after liver biopsy. #History of colon polyps We will work on obtaining his prior colonoscopies from [place]. Based on history recommend colonoscopy for high risk colon cancer surveillance. Gay Moran MD Section of Gastroenterology & Hepatology [address] [place] [address] Time spent reviewing records prior to this encounter: 5 minutes Time spent during encounter with patient including counselin minutes Time spent documenting encounter after office visit: 5 minutes Approximate total time devoted to this single encounter on the day of the encounter: 25 minutes This is exclusive of the time spent performing the Fibroscan procedure. Cc: MORGAN Marin documented in this encounter Plan of Treatment Scheduled Orders Name Type Priority Associated Diagnoses Orde r Schedule FibroScan Procedures Routine Elevated liver enzymes Ordered: 05/19/2022 documented as of this encounter Visit Diagnoses Diagnosis Elevated liver enzymes Nonspecific elevation of levels of transaminase or lactic acid dehydrogenase (LDH) Personal history of colonic polyps documented in this encounter Care Teams Wooden Frame Builder Relationship Specialty Start Date End Date Juliette Hamilton PA [address] [place] [address] PCP - General Family Medicine 02/07/21 documented as of this encounter
--- OUTSIDE RECORDS SUMMARY | 2024-10-06 17:18 | XMS_ITS | Encounter Summary ---
Author Organization [facility] [place] [address] Care Team Providers Care Mint Wafer Depositor Name Role Phone Juliette Hamilton Primary Care Provider +1- [phone] Encounter Details Date Type Department Care Team (Late st Contact Info) Description 03/28/2022 Orders [place] [address] Maine Henley MD [facility] [address] Supplemental oxygen dependent Social History Tobacco Use [...] Testing PFT Routine Supplemental oxygen dependent Expected: 03/30/2022, Expires: 09/29/2022 documented as of this encounter Visit Diagnoses Diagnosis Supplemental oxygen dependent Dependence on supplemental oxygen documented in this encounter Care Teams Mint Wafer Depositor Relationship Specialty Start Date End Date Juliette Hamilton PA [address] [place] [address] PCP - General Family Medicine 02/07/21 documented as of this encounter
--- OUTSIDE RECORDS SUMMARY | 2024-10-06 17:18 | XMS_ITS | Encounter Summary ---
Author Organization [facility] [place] [address] Care Team Providers Care International Controller Name Role Phone Juliette Hamilton Primary Care Provider +1- [phone] Encounter Details Date Type Department Care Team (Late st Contact Info) Description 07/21/2022 Telephone [place] [phone] Citlalli Red Social History Tobacco Use Types Packs/Day Years [...] encounter Miscellaneous Notes * Telephone Encounter - Neda Citlalli Sanjuanita - 07/21/2022 9:49 AM EDT Chano Coker [id number] Diagnosis/Indication:?cirrhosis, ALFORD/EtOH, elevated liver enzymes >30 yrs, Fibroscan elevated Please review patient chart to confirm if previous Endoscopy procedure was performed within system. If yes, take note of Anesthesia type used. If previous procedure found, and with MAC/propofol Anesthesia support was used, schedule this procedure with Anesthesia and skip the Anesthesia portion of questions. If not performed within system, not performed at all, or performed with IVCS, ask Anesthesia questions. SCHEDULING QUESTIONS (ask all patient these questions) 1. Have you ever had a/an Colonoscopy and Upper EUS before? Yes: Date madan colo 2 years ago If yes, did you have any problems with the procedure (such as waking up during the procedure, pain or difficulties afterwards, etc.)? No What type of sedation was used: Other: unknown 2. Do you take any blood thinners or have you been diagnosed with a bleeding disorder that increases your risk of bleeding with procedures? No 3. Do you have a Pacemaker or Defibrillator device? If yes, send pool message to Cardiology with patient information and date or procedure. No 4. Are you a diabetic? If yes, call PCP/managing provider to discuss use of prep and any questions or concerns related to. Yes: Controlled by diet or medication? Medication 5. Do you take any iron supplements or vitamins that contain iron? No 6. Do you have a preference regarding the gender of your provider? No ANESTHESIA QUESTIONS (YES to any question, please book with Anesthesia support) 7. Have you ever been diagnosed with any of the following: Pulmonary Hypertension, Atrial Fibrillation (A-Fib) and/or Congential Heart Disease? No 8. Have you ever had an allergic or adverse reaction to Fentanyl or Versed? No 9. Have you had a problem with sedation or anesthesia? (Waking up during procedure, extreme confusion after, etc.) No 10. Do you have a diagnosis of Obstructive Sleep Apnea? Yes 11. Do you use a c-pap machine? C-Pap 12. Do you use an oxygen tank at home? Yes 13. Do you use a rescue inhaler more than twice per day? (COPD, severe asthma) Yes 14. Do you experience breathing problems when you lay flat for a period of time? No 15. Do you take prescription narcotic pain medications, including suboxone or methodone? No SCHEDULING CONFIRMATIONS: Please note any and all parts of your conversation with the patient here. 16. We offer all new patients an opportunity to have an appointment with one of our associate care providers to learn more about your upcoming procedure, ask questions and get answers. These appointments are offered via telehealth. Would you be interested in scheduling this appointment? (Only ask if NEW referral patient; skip this question if [facility] provider ordered the procedure.) No 17. Is there any other information or concerns you would like to us to share with your care team inrelation to your upcoming scheduled procedure? No 18. You must have a responsible libertarian who will drive you to your procedure, stay on campus for the entire duration of your procedure, and drive you home from your procedure. Who will likely be your route salesman and driver for the procedure? *Please Verify the height and weight, and adjust if height and/or weight have changed* Estimated body mass index is 36.47 kg/m?? as calculated from the following: Height as of 06/26/22: 177.8 cm (5' 10). Weight as of 06/26/22: 115.3 kg (254 lb 3.2 oz). Age:61 y.o. documented in this encounter Plan of Treatment Not on file documented as of this encounter Visit Diagnoses Not on filedocumented in this encounter Care Teams International Controller Relationship Specialty Start Date End Date Juliette Hamilton PA [address] [place] [address] PCP - General Family Medicine 02/07/21 documented as of this encounter
--- OUTSIDE RECORDS SUMMARY | 2024-10-06 17:18 | XMS_ITS | Encounter Summary ---
Author Organization [facility] [place] [address] Care Team Providers Care Spd Tech Name Role Phone Juliette Hamilton Primary Care Provider +1- [phone] Reason for Visit * Reason Onset Date Comments Reminder Appointment 02/20/2022 Encounter Details Date Type Department Care Team ([facility] Contact Info) Description 02/20/2022 Telephone [place] [phone] Blanka Coker CCMA Reminder Appointment Social History Tobacco Use Types Packs/Day Years [...] encounter Miscellaneous Notes * Telephone Encounter - Blanka Coker CCMA - 02/20/2022 9:10 AM EDT Called patient to review medications and allergies for their upcoming gastroenterology Type of Appointment: Telehealth appointment. Reach Patient during MA Check: No, Left Message Was unable to reach patient before appointment time Notes for the provider: Notes for the nurse: documented in this encounter Plan of Treatment Not on file documented as of this encounter Visit Diagnoses Not on filedocumented in this encounter Care Teams Spd Tech Relationship Specialty Start Date End Date Juliette Hamiltno PA [address] [place] [address] PCP - General Family Medicine 02/07/21 documented as of this encounter
--- OUTSIDE RECORDS SUMMARY | 2024-10-06 17:19 | XMS_ITS | Encounter Summary ---
Author Organization [facility] [place] [address] Care Team Providers Care Business Information Analyst Name Role Phone Juliette Hamilton Primary Care Provider +1- [phone] Reason for Visit * Occupational Therapy (Routine) - Closed Specialty Diagnoses / Procedures Referred By Contac t Referred To Contact Occupational Therapy Diagnoses Osteoarthritis of right wrist, unspecified osteoarthritis type Danita Cisneros PA [facility] [place] [address] [facility] [address] [place] [address] Referral ID Status Reason Start Date Expiration Date V isits Requested Visits Authorized [id number] Closed Evaluate and Treat 03/12/2017 03/12/2018 1 1 Encounter Details Date Type Department Care Team (Late st Contact Info) Description 03/12/2017 10:00 AM EDT Office Visit Occupational Therapy at [facility] [address] [place] [phone] Dash Arzate OT [facility] PHYSICAL MEDICINE & [place] [address] Osteoarthritis of right wrist, unspecified osteoarthritis type; Osteoarthritis of left wrist, unspecified osteoarthritis type Social History Tobacco Use Types Packs/Day Years Used Date Smoking Tobacco: Former Cigarettes Q uit: 12/22/1987 Smokeless Tobacco: Never Alcohol Use Standard Drinks/Week Comments Yes 0 (1 standard drink = 0.6 oz pur e alcohol) rarely Sex and Gender Information Value Date Recorded Sex Assigned at Not on file Gender Identity Not on file Sexual Orientation Not on file documented as of this encounter Progress Notes * Dash Arzate, OT - 03/12/2017 10:00 AM EDT OCCUPATIONAL THERAPY SPLINTING EVALUATION REFERRAL SOURCE: Garcia Campos MD DIAGNOSIS: 1. Osteoarthritis of right wrist, unspecified osteoarthritis type 2. Osteoarthritis of left wrist, unspecified osteoarthritis type DATE OF INJURY: Ongoing over the past year DATE OF SURGERY: 01/29/15 NEXT MD FOLLOW UP: PRN TOTAL TREATMENT TIME: 30 Minutes TIMED CODE TREATMENT TIME: 30 minutes CURRENT HISTORY: Chano Coker is a 56 y.o. year old male who underwent a right proximal row carpectomy on 01/29/15. Chano Coker was seen by Dr. Campos for recheck due to continued bilateral wrist pain today. Chano Coker is referred to Occupational Therapy for evaluation and treatment to include splinting bilaterally. Patient presents today accompanied by spouse. Mechanism of Injury: Patient's symptoms come from use over time. Current Symptoms/functional impairments: Patient presents with swelling, limited strength, stiffness, and limited mobility of his wrists bilaterally. He has difficulty with any resisted hand use or stress through the wrist. 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 Patient works at [employer]. HAND DOMINANCE: Right PAIN: At Rest: 0/10 With Activity: 5/10 FUNCTIONAL LIMITATIONS: Chano Coker identifies difficulty with the following functional activities using the Patient Specific Functional Scale (PSFS): 0/10 (unable to perform) to 10/10 (Able to perform without difficulty) Activity At Evaluation 1.) Sleeping 10 2.) Bathing 10 3.) Gripping 5 4.) Meal Prep. 10 Average: 8.75 TREATMENT TODAY: Educated patient in etiology and biomechanics as related to patient's symptoms Fabricated bilateral volar wrist cock up orthoses Instructed in wear and care, to be worn for activities as needed. ASSESSMENT: Chano Coker presents today with functional limitations due to swelling, limited strength, stiffness, and limited mobility of his wrists. Patient has well fitting orthoses post therapy. Chano Coker is able to demonstrate his home exercises including active wrist and finger motion in all planes within comfort Chano Coker has good potential for gains with therapy. Patient knows to call with any questions or concerns. Short Term Goals (to be met by end of the visit today): Date Goal Met: 03.12.17 1. Chano Coker will be independent with home exercises as evident with demonstration in therapy. Goal Status: Meets 03.12.17 2. Chano Coker will demonstrate independence with donning and doffing of his orthosesand verbalization of purpose. Goal Status: Meets PLAN: Orthosis use for activities, moist heat use daily for pain, recheck with MD SHAW. Patient lives greater than 2 hours away. (X) Chano Coker participated in the evaluation, collaborated on treatment goals, and agrees tothe treatment plan . 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
--- OUTSIDE RECORDS SUMMARY | 2024-10-06 17:19 | XMS_ITS | Encounter Summary ---
Author Organization [facility] [place] [address] Care Team Providers Care Bench Press Operator Name Role Phone Juliette Hamilton Primary Care Provider +1- [phone] Encounter Details Date Type Department Care Team (Late st Contact Info) Description 05/16/2021 Telephone [place] [phone] Anna Zeng RN Social History Tobacco Use Types Packs/Day [...] Miscellaneous Notes * Telephone Encounter - Anna Richard RN - 05/16/2021 10:43 AM EDT Spoke to Chano, his had previously called stating he was not doing well. Pt confirmed he had started the prednisone prescribed by his PCP. Yesterday he was having a hard time breathing but today is better. He does still have some shortness of breath that is intermittent. He denies having any concerns or needs at this time. He will continue to take the prednisone course prescribed by his PCPand reach out to us at any point if he feels he is declining again or hasn't returned to his baseline with the recommended treatment. Pt was appreciative of the call checking in on him and agrees with the plan of calling us if he needs anything before his next appt scheduled for June 08. documented in this encounter Plan of Treatment Not on file documented as of this encounter Visit Diagnoses Not on filedocumented in this encounter Care Teams Bench Press Operator Relationship Specialty Start Date End Date Juliette Hamilton PA [address] [place] [address] PCP - General Family Medicine 02/07/21 documented as of this encounter
--- OUTSIDE RECORDS SUMMARY | 2024-10-06 17:19 | XMS_ITS | Encounter Summary ---
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 Henley. RN sent copy to MATHEW for release of records (as electronically signed by patient). Forwarded to Dr. Henley. documented in this encounter Plan of Treatment Not on file documented as of this encounter Visit Diagnoses Not on filedocumented in this encounter Care Teams Accounting Intern Relationship Specialty Start Date End Date Juliette Hamilton PA [address] [place] [address] PCP - General Family Medicine 02/07/21 documented as of this encounter
--- OUTSIDE RECORDS SUMMARY | 2024-10-06 17:19 | XMS_ITS | Encounter Summary ---
[facility] [place] [address] Care Team Providers Care Merchandising Coordinator Name Role Phone Juliette Hamilton Primary Care Provider +1- [phone] Encounter Details Date Type Department Care Team (Late st Contact Info) Description 03/31/2020 [place] [phone] Mami Plasencia Social History Tobacco Use Types Packs/Day Years [...] encounter Miscellaneous Notes * Telephone Encounter - Mami Plasencia LNA - 03/31/2020 3:28 PM EDT Spoke with pt to reschedule telehealth appt with Dr. Henley (missed 03/31 appt). Scheduled 04/02. documented in this encounter Plan of Treatment Not on file documented as of this encounter Visit Diagnoses Not on filedocumented in this encounter Care Teams Merchandising Coordinator Relationship Specialty Start Date End Date Juliette Hamilton PA [address] [place] [address] PCP - General 12/21/14 05/25/20 documented as of this encounter
--- OUTSIDE RECORDS SUMMARY | 2024-10-06 17:19 | XMS_ITS | Encounter Summary ---
[place] [address] Care Team Providers Care Content Assistant Name Role Phone Juliette Hamilton Primary Care Provider +1- [phone] Encounter Details Date Type Department Care Team (Late st Contact Info) Description 02/09/2021 Telephone [place] [phone] Suzanne Geller Social History Tobacco Use Types [...] on filedocumented in this encounter Care Teams Content Assistant Relationship Specialty Start Date End Date Juliette Hamilton PA [address] [place] [address] PCP - General Family Medicine 02/07/21 documented as of this encounter
--- OUTSIDE RECORDS SUMMARY | 2024-10-06 17:19 | XMS_ITS | Encounter Summary ---
[place] [address] Care Team Providers Care O And M Supervisor Name Role Phone Juliette Hamilton Primary Care Provider +1- [phone] Reason for Visit * Reason Onset Date Comments Disability Paperwork 03/21/2021 [employer] Inc[employer] ent Number Encounter Details Date Type Department Care Team ([facility] Contact Info) Description 03/21/2021 [place] [phone] Jose Yost RN Disability Paperwork ([employer] Incident Number ) Social History Tobacco Use Types Packs/Day Years [...] Telephone Encounter - Jose Yost RN - 03/21/2021 10:27 AM EDT Rec'd voicemail from Brandy from [employer], requesting call back in regards to patient's LTD case. Brandy notes that there was copies of medical records sent, but no forms indicating dates of restriction. She requested call back. RN had faxed copies of the following prior to receiving voicemail: [employer] Medical Release Form Office visit notes dated 02/11/2021 Respiratory Therapy Office Visit Notes dated: 02/11/2021 XR chest PA & Lateral (Generic) results dated: 02/15/2021, CT Chest withOUT contract results dated: 02/24/2021 Fax submission confirmation time stamped for 03/21/2021 @ 1006. 21 pages. Copy of forms was sent toscanning to be included to the patient records, while originals sent to patient's address of file. RN called back Brandy, and updated, explaining that RN had sent this via fax prior to receiving voicemail. Confirmed fax number. Requested call back for any other needs. RN called patient to update that copy of papers sent to home address. He denied any other needs at this time. documented in this encounter Plan of Treatment Not on file documented as of this encounter Visit Diagnoses Not on filedocumented in this encounter Care Teams O And M Supervisor Relationship Specialty Start Date End Date Juliette Hamilton PA [address] [place] [address] PCP - General Family Medicine 02/07/21 documented as of this encounter
--- OUTSIDE RECORDS SUMMARY | 2024-10-06 17:19 | XMS_ITS | Encounter Summary ---
[place] [address] Care Team Providers Care Network Firewall Engineer Name Role Phone Juliette Hamilton Primary Care Provider +1- [phone] Reason for Referral * Consultation (Routine) - Closed Specialty Diagnoses / Procedures Referred By Contac t Referred To Contact Gastroenterology Diagnoses Elevated LFTs liver - elevated lfts Juliette Hamilton PA [address] [place] [address] [facility] [place] [address] Referral ID Status Reason Start Date Expiration Date V isits Requested Visits Authorized [id number] Closed Consult, Test & Treat PCP Updated and/or Approved 12/30/2021 12/30/2022 1 1 Encounter Details Date Type Department Care Team (Late st Contact Info) Description 12/30/2021 Transcribe Orders eDH Incoming Referrals [phone] Juliette Hamilton PA [address] [place] [address] Elevated LFTs Social History Tobacco Use Types Packs/Day Years [...] Scheduled Referrals Name Type Priority Associated Diagnoses Order Schedule Referral to Gastroenterology Outpatient Referral Routine Elevated LFTs Ordered: 12/30/2021 documented as of this encounter Visit Diagnoses Diagnosis Elevated LFTs Other abnormal blood chemistry documented in this encounter Care Teams Network Firewall Engineer Relationship Specialty Start Date End Date Juliette Hamilton PA [address] [place] [address] PCP - General Family Medicine 02/07/21 documented as of this encounter
--- OUTSIDE RECORDS SUMMARY | 2024-10-06 17:19 | XMS_ITS | Encounter Summary ---
Author Organization [facility] Address [facility] [place] [address] Care Team Providers Care Chief Wharfinger Name Role Phone Juliette Hamilton Primary Care Provider +1- [phone] Encounter Details Date Type Department Care Team (Late st Contact Info) Description 03/31/2020 [place] [phone] Maine Henley MD [facility] [place] [address] Social History Tobacco Use Types Packs/Day Years [...] encounter Miscellaneous Notes * Telephone Encounter - Maine Henley MD - 03/31/2020 11:08 AM EDT Mr. Coker did not log in to the video platform for his scheduled telehealth visit this morning. Icalled him and he was driving to work as he had forgotten about the visit. He is interested in rescheduling, and he would like to discuss his inhalers since he thinks they are not strong enough anymore. As he was driving we did not discuss this at length now. I will ask our scheduling team to reschedule in the next 1-2 weeks. Maine Henley MD 03/31/2020 11:10 AM documented in this encounter Plan of Treatment Not on file documented as of this encounter Visit Diagnoses Not on filedocumented in this encounter Care Teams Chief Wharfinger Relationship Specialty Start Date End Date Juliette Hamilton [address] [place] [address] PCP - General 12/21/14 05/25/20 documented as of this encounter
--- OUTSIDE RECORDS SUMMARY | 2024-10-06 17:19 | XMS_ITS | Encounter Summary ---
Author Organization [facility] Address [facility] [place] [address] Care Team Providers Care Stock Transfer Clerk Name Role Phone Juliette Hamilton Primary Care Provider +1- [phone] Reason for Visit * Reason Onset Date Comments Other 08/15/2018 Encounter Details Date Type Department Care Team (Late st Contact Info) Description 08/15/2018 Telephone [place] [phone] Garcia Campos MD [facility] [place] [address] Other Social History Tobacco Use Types Packs/Day Years [...] encounter Miscellaneous Notes * Telephone Encounter - Lili Rao - 08/15/2018 3:05 PM EST I called the patient today to speak with him about his bilateral wrist arthritis. He requested two custom cockup bilat wrist splints. In order for occupational therapy was placed, and was sent to [facility]. He will follow-up at [facility] when it is best for him. No further questions or concerns atthis time. * Telephone Encounter - Supriya Jose - 08/15/2018 2:26 PM EST John Paul called to get new braces for both wrists. Please call him back [phone]. documented in this encounter Plan of Treatment Not on file documented as of this encounter Visit Diagnoses Not on filedocumented in this encounter Care Teams Stock Transfer Clerk Relationship Specialty Start Date End Date Juliette Hamilton PA [address] [place] [address] PCP - General 12/21/14 05/25/20 documented as of this encounter
--- OUTSIDE RECORDS SUMMARY | 2024-10-06 17:19 | XMS_ITS | Encounter Summary ---
Author Organization [facility] [place] [address] Care Team Providers Care Transmission Calibration Engineer Name Role Phone Juliette Hamilton Primary Care Provider +1- [phone] Reason for Visit * Reason Onset Date Comments Labs Only 04/04/2021 Encounter Details Date Type Department Care Team ([facility] st Contact Info) Description 04/04/2021 Telephone [place] [phone] Jose Yost RN Labs Only Social History Tobacco Use Types Packs/Day Years [...] Telephone Encounter - Jose Yost RN - 04/04/2021 10:55 AM EDT Faxed completed Hepatic Function Panel, signed by Dr. Henley, to [facility]. Attached to this was a copy of the patient's demographics. Fax submission confirmation time stamped for 04/04/2021 @ 1328. 4 pages with cover sheet. documented in this encounter Plan of Treatment Not on file documented as of this encounter Visit Diagnoses Not on filedocumented in this encounter Care Teams Transmission Calibration Engineer Relationship Specialty Start Date End Date Juliette Hamilton PA [address] [place] [address] PCP - General Family Medicine 02/07/21 documented as of this encounter
--- OUTSIDE RECORDS SUMMARY | 2024-10-06 17:19 | XMS_ITS | Encounter Summary ---
Author Organization [facility] Address [facility] [place] [address] Care Team Providers Care Service Support Representative Name Role Phone Juliette Hamilton Primary Care Provider +1- [phone] Reason for Visit * Reason Comments Referral Encounter Details Date Type Department Care Team (Late st Contact Info) Description 04/26/2018 2:00 PM EDT Office [place] [address] Yehuda Light MD [facility] [place] [address] Restrictive lung disease; Moderate persistent asthma, uncomplicated; CROWDER (dyspnea on exertion) Social History Tobacco Use Types Packs/Day Years [...] Sign Reading Time Taken Comments Blood Pressure 151/87 04/26/2018 1:29 PM EDT Pulse 66 04/26/2018 1:29 PM EDT Temperature - - Respiratory Rate 04/26/2018 1:29 PM EDT Oxygen Saturation 96% 04/26/2018 1:29 PM EDT Inhaled Oxygen Concentration - - Weight 113.9 kg (251 lb) 04/26/2018 1:29 PM EDT Height 175.5 cm (5' 9.1) 04/26/2018 1:29 PM EDT Body Mass Index 36.96 04/26/2018 1:29 PM EDT documented in this encounter Progress Notes * Yehuda Light MD - 04/26/2018 2:00 PM EDT Pulmonary Clinic Consult Note Reason for Consult: I was asked by MORGAN Marin to evaluate this patient for asthma management I have personally interviewed and examined the patient, reviewed history, radiographic studies( if any) and laboratory data(if any). HPI: This is a 57 y.o. male, a former smoker with 3 x 30 pack-year cigarette smoking history quit in , here for asthma management. The patient was diagnosed to for persistent asthma approximately 20 years ago. For a while, he had been on rescue only but he has been on rescues for many years. The patient's c.c is exertional dyspnea. The patient has been taking Advair discus 250 twice daily.He also use combivent respimat every day. Last major flare occured in the past spring time, when he needed prednisone and it was effective. He had no other major asthma exacerbation. The patient has AHR to cold air, perfume, smoke, strong odor, aerosol, He does not exercise regularly. Sometimes regular walking bothers him. The patient has no nocturnal sx. He however has SHANI and uses CPAP. The patient has a history of environmental allergies, dust mite and pollen. ( skin tested long timeago). The patient has h/o naso sinusal disorders. Had sinus surgery. The patient has family hx of lung diseases. His mother had COPD, who was a smoker. His brother and sister have asthma. He had a PFT performed today, which demonstrated reduced FVC and FEV1 with normal ratio, suggestivefor restrictive ventilatory impairment. He had a chest x-ray today which showed an unremarkable chest. Yes/No remark Past hospitalization Mechanical ventilation Environmental allergy y Rhinitis/sinusitis y Asa sensitivity n smoking y pets y Dogs. 3 birds. Childhood asthma Obesity Eosinophilia ( ) Eos > 0.3 IgE elevation ( ) IgE 30-700 FeNO elevation A1AT ANCA Asp F IgG CF sweat CL testing Family history of lung diseases Yes/No remark Nocturnal symptoms Exercise induced symptoms Frequent MYRON use ( >2/wk) Rhinitis/sinusitis sx Airway sensitivity Prednisone in last 6 months yes note Albuterol MDI Combivent Respimat Duoneb Albuterol neb Budesonide neb Formoterol neb Asmanex Qvar Flovent Pulmicort Arnuity Ellipta Advair Symbicort Dulera Breo Ellipta Spiriva Tudorza Incruse Ellipta Anoro Ellipta Stiolto Problem List: Patient Active Problem List Diagnosis Date Noted ??? 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 Osteoarthritis of right wrist 12/21/2014 ??? Insufficient sleep syndrome 07/31/2011 ??? Insomnia 07/31/2011 ??? Depression 07/31/2011 ??? SHANI on CPAP 05/16/2009 PMHx: Past Medical History: Diagnosis Date ??? Depression 07/31/2011 ??? Insomnia 07/31/2011 ??? Insufficient sleep syndrome 07/31/2011 ??? SHANI on CPAP 05/16/2009 FHx: Family History Problem Relation Age of Onset ??? Rheumatologic Disease Mother ??? Chronic Obstructive Pulmonary Disease Mother Social Hx: Social History Substance Use Topics ??? Smoking status: Former Smoker Quit date: 12/22/1987 ??? Smokeless tobacco: Never Used ??? 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 Allergy: Allergies Allergen Reactions ? ? Dust & Pollen Filter Mask [Facial Mask] Medications: Outpatient Prescriptions Marked as Taking for the 04/26/18 encounter (Office Visit) with Yehuda Light MD Medication Sig Dispense Refill ??? ipratropium-albuterol (DUONEB) 0.5 mg-3 mg(2.5 mg base)/3 mL Solution for Nebulization ??? COMBIVENT RESPIMAT 20-100 mcg/actuation Mist ??? metFORMIN (GLUCOPHAGE-XR) 500 mg Tablet Sustained Release 24 hr ??? fluticasone-salmeterol (ADVAIR) 100-50 mcg/dose Disk with Device Inhale 1 puff into the lungs every 12 hours. ??? simvastatin (ZOCOR) 20 mg Tablet Take 20 mg by mouth nightly. ??? cetirizine (ZYRTEC) 10 mg Tablet Take 10 mg by mouth daily. Reported on 03/12/2017 ??? [DISCONTINUED] fluticasone (FLONASE) 50 mcg/actuation Datil, Suspension 2 sprays by Each Nare route daily. ??? [DISCONTINUED] fluticasone (FLOVENT) 220 mcg/actuation HFA Aerosol Inhaler Inhale 2 puffs into the lungs 2 times daily. Reported on 03/12/2017 ??? Atomoxetine (STRATTERA) 80 mg Capsule Take 1 capsule by mouth daily. ??? sildenafil (VIAGRA) 100 mg Tablet Take 100 mg by mouth as needed for Erectile Dysfunction. ??? lamoTRIgine (LAMICTAL) 100 mg tablet Take 200 mg by mouth daily. ROS: x: positive. [ ] Shortness of breath [ ] Abdominal pain or bloating [ ] Frequent or chronic cough [ ] Weight gain or loss [ ] Coughing up blood [ ] Chest pain [ ] Nose, sinus, mouth, throat problems [ ] Palpitations or flutter [ ] Fevers or severe chills [ ] Swelling of hands feet ankles [ ] Night sweats [ ] Convulsions or seizures [ ] Enlarged or swollen lymph glands [ ] Frequent or severe headache [ ] Skin disease or rash [ ] Fainting or loss of consciousness [ ] Easy bruising or bleeding [ ] Extreme fatigue or weakness [ ] Significant joint pains or stiffness [ ] Depression [ ] Changes in bowel habits [ ] Changes in sleep pattern [ ] Changes in appetite [ x ] All unmarked were reviewed and found negative. [ ] other system: Vitals and Physical Exam: BP 151/87 Pulse 66 Resp 20 Ht 175.5 cm (5' 9.1) Wt 113.9 kg (251 lb) SpO2 96% BMI 36.96 kg/m2 Gen: comfortable. Normal breathing pattern and rate. obese HEENT: Pupils equal and round. EOMI, no pallor no icteric sclera on conjunctiva No thrush Neck: No stridor Chest: CTA without wheezing/rhonchi/crackles Symmetric excursion. Cor: RRR, S1S2, No MRG. Abd: ND Extrem: no C/C/E Neuro: no focal deficits Labs/Tests: Diagnostic studies: -CXR: 04/26/2018 FINDINGS: The lungs are clear. The heart size is normal. No pleural effusion, pneumothorax, pneumomediastinum or significant bone abnormality is seen. ?? IMPRESSION No significant abnormality. -CT: -PFTs: date FVC FEV1 FEV/FVC VC TLC RV RV/TLC Dsb SpO2 7..2017 3.35 72 2.24 63 67 -ECHO: -Serology: -PET: -Biopsy: -Other: Labs Summary: -moderate persistent asthma -CROWDER -restriction on PFT, rule out other pulmonary pathology. Impression/recommendation: -57 yo man, a former smoker with h/o asthma for 20 years, here for optimization of treatment. He had a major flare this spring, for which he required prednisone course with improvement. He had not had major exacerbations for many years before this occurred. His c/c is CROWDER but not much cough nor wheezing. He is obese with BMI of 37. Has h/o SHANI and compliant to CPAP. -CXR was normal. PFT however showed reduced FVC and FEV1 with normal ratio, suggestive for restriction. This could be explained by air trapping ( from asthma or COPD or both), restrictive lung disease such as ILD or simply from body habitus. We will need lung volume study for more information. -He has two indoor birds for the last 12 months, one parrot and two cockatiels. Since PFT is c/w restriction, will need to include hypersensitivity pneumonitis ( I.e birds fancier's disease) in the differential. I however think this is less likely the possibility with the normal cxr. We will obtainavian HP serology and DLco ( PFT ) . May consider CT if any of those are abnormal. -In terms of asthma, I will increase his Advair from 250 discus to 230 HFA. Rx was sent. A spacer was given, a demonstration was done. Advised to wean combivent as able. -f/u in 4 weeks with lung volume DLco, FENO. Geoffrey serology today. 50 mins were spent in a face to face conversation with the patient (and accompanying family members, if present) regarding my impressions and recommendations and providing counseling. All the questions were answered. . Separately, I have spent an additional time in reviewing charts/records/labs/tests, or discussion with other health care providers. This does NOT include the time spent in ( ) Smoking cessation counseling ( x ) inhaler technique demonstration and teaching. ( checked if applicable) - I personally reviewed ( x ) radiographic images. ( x ) pulmonary function testing DATA ( ) Laboratory DATA ( apply if checked ) Thank you very much for participating in the care of this patient. Please contact us at [phone] for any further questions or requests. documented in this encounter Miscellaneous Notes * Addendum Note - Barbara Saucedo - 04/26/2018 2:57 PM EDTAddended by: BARBARA SAUCEDO on: 04/26/2018 02:57 PM Modules accepted: Orders documented in this encounter Plan of Treatment Not on file documented as of this encounter Procedures Procedure Name Priority Date/Time Associated Diagnosis Comments GEOFFREY PANEL Routine 04/26/2018 3:03 PM EDT CROWDER (dyspnea on exertion) documented in this encounter Results * Pulmonary Function Testing (05/31/2018 11:52 AM EDT) Narrative Geronimo Dalton MD - 05/31/2018 11:52 AM EDT Geronimo Dalton MD ? 05/31/2018 11:52 AM D. LUNG VOLUMES: FRC and TLC are normal. RV is increased. The pattern of an increased RV and a normal FRC and TLC is consistent with air trapping(OVD) or selective expiratory muscle weakness(RVD). Clinical correlation is required. Yehuda Light MD PFT ORDERABLES * Geoffrey Panel (04/26/2018 3:03 PM EDT) [facility] Geoffrey Panel (MAY) Test ? Result ?Flag ??Unit ??RefValue --------- Geoffrey Panel ??[place] Sera ?Negative ??[place] ?Negative ??Cockatiel ?Negative ??Parakeet ? Negative ??Parrot ? Negative ? -------ADDITIO NAL INFORMATION--- -- ?This result must be correlated with patients clinical ?response and should not solely be considered in the ?diagnosis. ?Test Performed by: ?[facility], Room 5068 ?Ezio Mullen M.D. All[facility] ?[address] ?[place] [address] [facility] Blood specimen (specimen) 04/26/2018 3:03 PM EDT 04/29/2018 8:45 AM EDT Narrative Resulting Agency Comment Spec In Lab Yehuda Light MD LAB SEND OUT ORDERAB LES [facility] [address] [place] [address] documented in this encounter Visit Diagnoses Diagnosis Restrictive lung disease Other diseases of lung, not elsewhere classified Moderate persistent asthma, uncomplicated Unspecified asthma CROWDER (dyspnea on exertion) Other dyspnea and respiratory abnormality Restrictive lung disease Other diseases of lung, not elsewhere classified Moderate persistent asthma, uncomplicated Unspecified asthma documented in this encounter Care Teams Service Support Representative Relationship Specialty Start Date End Date Juliette Hamilton PA [address] [place] [address] PCP - General 12/21/14 05/25/20 documented as of this encounter
--- OUTSIDE RECORDS SUMMARY | 2024-10-06 17:19 | XMS_ITS | Encounter Summary ---
Author Organization [facility] [place] [address] Care Team Providers Care Harvesting Contractor Name Role Phone Juliette Hamilton Primary Care Provider +1- [phone] Encounter Details Date Type Department Care Team (Late st Contact Info) Description 03/22/2020 Telephone [place] [phone] Mami Plasencia Social History Tobacco Use Types [...] Telephone Encounter - Mami Plasencia LNA - 03/22/2020 9:53 AM EDT Spoke with pt re appt on 03/[address] Henley. Changed to telehealth appt. Let pt know where to find directions to get set up. documented in this encounter Plan of Treatment Not on file documented as of this encounter Visit Diagnoses Not on filedocumented in this encounter Care Teams Harvesting Contractor Relationship Specialty Start Date End Date Juliette Hamilton PA [address] [place], [place] [address] PCP - General 12/21/14 05/25/20 documented as of this encounter
--- OUTSIDE RECORDS SUMMARY | 2024-10-06 17:19 | XMS_ITS | Encounter Summary ---
Author Organization [facility] [place] [address] Care Team Providers Care Overhead Distribution Engineer Name Role Phone Juliette Hamilton Primary Care Provider +1- [phone] Encounter Details Date Type Department Care Team (Late st Contact Info) Description 02/24/2021 5:00 PM EDT Ext Surgery or Single Event [facility] [address] [place] [address] Gay Salguero MD [address] [place] [address] DR CARDIOLOGY [place], [place] [id number] SOB (shortness of breath) Social History Tobacco Use Types Packs/Day Years [...] Procedure Name Priority Date/Time Associated Diagnosis Comments ECHO SCAN (SCAN) 02/24/2021 12:0 0 AM EDT documented in this encounter Results * SCAN DOC: ECHO (02/24/2021 12:00 AM EDT) Anatomical Region Laterality Modality Cardiac Other Narrative 02/24/2021 12:00 AM EDT Ordered by an unspecified provider. Scanning Provider MEDIA MGR SCAN EXT O RDR/RSLT documented in this encounter Visit Diagnoses Diagnosis SOB (shortness of breath) Shortness of breath documented in this encounter Care Teams Overhead Distribution Engineer Relationship Specialty Start Date End Date Juliette Hamilton PA [address] [place] [address] PCP - General Family Medicine 02/07/21 documented as of this encounter
--- OUTSIDE RECORDS SUMMARY | 2024-10-06 17:19 | XMS_ITS | Encounter Summary ---
Author Organization [facility] [place] [address] Care Team Providers Care Ap Processor Name Role Phone Juliette Hamilton Primary Care Provider +1- [phone] Encounter Details Date Type Department Care Team (Late st Contact Info) Description 03/28/2018 Orders [place] [address] Yehuda Light MD [facility] [place] [address] Asthma, unspecified asthma severity, unspecified whether complicated, unspecified whether persistent Social History Tobacco Use Types Packs/Day Years [...] this encounter Results * Pulmonary Function Testing (04/26/2018 3:53 PM EDT) Narrative Korey Murray MD - 04/26/2018 3:53 PM EDT Korey Murray MD ? 04/26/2018 ??3:53 PM Pulmonary Function Test Interpretation Spirometry The FVC is reduced. ??FEV1 is reduced. ??The FEV1/FVC ratio is normal. Impression: Reduced FVC suggests concurrent restriction or air trapping, can be confirmed by lung volumes if indicated Korey Murray MD, PhD Yehuda Light MD PFT ORDERABLES * XR Chest PA & Lateral (Generic) (04/26/2018 12:52 PM EDT) Anatomical Region Laterality Modality Chest N/A Digital Radiogra phy Impressions 04/26/2018 1:31 PM EDT No significant abnormality. Narrative 04/26/2018 1:31 PM EDT EXAMINATION: XR CHEST PA AND LATERAL (GENERIC) CLINICAL HISTORY: Asthma TECHNIQUE: Standing PA and lateral chest COMPARISON: None FINDINGS: The lungs are clear. The heart size is normal. No pleural effusion, pneumothorax, pneumomediastinum or significant bone abnormality is seen. Procedure Note Barber Downey MD - 04/26/2018 EXAMINATION: XR CHEST PA AND LATERAL (GENERIC) CLINICAL HISTORY: Asthma TECHNIQUE: Standing PA and lateral chest COMPARISON: None FINDINGS: The lungs are clear. The heart size is normal. No pleural effusion, pneumothorax, pneumomediastinum or significant bone abnormality is seen. IMPRESSION No significant abnormality. Yehuda Light MD IMG DX ORDERABLES documented in this encounter Visit Diagnoses Diagnosis Asthma, unspecified asthma severity, unspecified whether complicated, unspecified whether persistent Asthma, unspecified asthma severity, unspecified whether complicated, unspecified whether persistent Asthma, unspecified asthma severity, unspecified whether complicated, unspecified whether persistent documented in this encounter Care Teams Ap Processor Relationship Specialty Start Date End Date Juliette Hamilton PA [address] [place] [address] PCP - General 12/21/14 05/25/20 documented as of this encounter
--- OUTSIDE RECORDS SUMMARY | 2024-10-06 17:19 | XMS_ITS | Encounter Summary ---
Author Organization [facility] [place] [address] Care Team Providers Care Bus Transportation Manager Name Role Phone Juliette Hamilton Primary Care Provider +1- [phone] Encounter Details Date Type Department Care Team (Late st Contact Info) Description 04/18/2021 Ancillary Procedure Radiology Library at [facility] [place] [phone] Juliette Hamilton PA [address] [place], [place] [id number] Social History Tobacco Use Types Packs/Day Years [...] Procedure Name Priority Date/Time Associated Diagnosis Comments FILM LIBRARY STORAGE ONLY CT CHEST Routine 04/18/2021 12:00 AM EDT documented in this encounter Results * Film Library- Storage Only CT Chest (04/18/2021 12:00 AM EDT) Narrative [facility] - 04/28/2021 9:49 AM EDT This exam is auto-finalizing. It's purpose is for storage only. Juliette MORA IMG FILM LIBRARY O RDERABLES DH [place], [place] documented in this encounter Visit Diagnoses Not on filedocumented in this encounter Care Teams Bus Transportation Manager Relationship Specialty Start Date End Date Juliette Hamilton PA [address] [place] [address] PCP - General Family Medicine 02/07/21 documented as of this encounter
--- OUTSIDE RECORDS SUMMARY | 2024-10-06 17:19 | XMS_ITS | Encounter Summary ---
Author Organization [facility] [place] [address] Care Team Providers Care Side Door Worker Name Role Phone Juliette Hamilton Primary Care Provider +1- [phone] Encounter Details Date Type Department Care Team (Late st Contact Info) Description 03/14/2021 [place] [phone] Brandy Reina Social History Tobacco Use Types Packs/Day Years [...] on filedocumented in this encounter Care Teams Side Door Worker Relationship Specialty Start Date End Date Juliette Hamilton PA [address] [place] [address] PCP - General Family Medicine 02/07/21 documented as of this encounter
--- OUTSIDE RECORDS SUMMARY | 2024-10-06 17:19 | XMS_ITS | Encounter Summary ---
Author Organization [facility] [place] [address] Care Team Providers Care Assessment Clinician Name Role Phone Juliette Hamilton Primary Care Provider +1- [phone] Reason for Referral * Occupational Therapy (Routine) - Closed Specialty Diagnoses / Procedures Referred By Contac t Referred To Contact Occupational Therapy Diagnoses Primary osteoarthritis of right wrist Primary osteoarthritis of left wrist Garcia Campos MD [facility] [place] [address] [facility] [address] [place] [address] Referral ID Status Reason Start Date Expiration Date V isits Requested Visits Authorized [id number] Closed Evaluate and Treat 08/15/2018 08/15/2019 12 12 Encounter Details Date Type Department Care Team (Late st Contact Info) Description 08/15/2018 Orders [place] [address] Garcia Campos MD [facility] ORTHOPAEDIC SURGERY [place], [place] [id number] Primary osteoarthritis of right wrist; Primary osteoarthritis of left wrist Social History Tobacco Use Types Packs/Day Years [...] Referral to Occupational Therapy Outpatient Referral Routine Primary osteoarthritis of right wrist Primary osteoarthritis of left wrist Ordered: 08/15/2018 documented as of this encounter Visit Diagnoses Diagnosis Primary osteoarthritis of right wrist Primary localized osteoarthrosis, forearm Primary osteoarthritis of left wrist Primary localized osteoarthrosis, forearm documented in this encounter Care Teams Assessment Clinician Relationship Specialty Start Date End Date Juliette Hamilton PA [address] [place] [address] PCP - General 12/21/14 05/25/20 documented as of this encounter
--- OUTSIDE RECORDS SUMMARY | 2024-10-06 17:19 | XMS_ITS | Encounter Summary ---
Author Organization [facility] [place] [address] Care Team Providers Care Qlikview Developer Name Role Phone Juliette Hamilton Primary Care Provider +1- [phone] Reason for Visit * Reason Onset Date Comments Other 03/14/2021 Pt requesting up date Encounter Details Date Type Department Care Team (Late st Contact Info) Description 03/14/2021 Telephone [place] [phone] Desilets, Anna Lee RN Other (Pt requesting update) Social History Tobacco Use Types Packs/Day Years [...] Telephone Encounter - Maine Henley MD - 03/15/2021 5:20 PM EDT Reached Mr. Coker by phone. He has ongoing dyspnea, largely unchanged. Some sinus drip but not much lower mucous. No chest painor cough, no fevers. Night sweats previously while on steroids. Still using 3 L O2 24/, sat was 91% this morning on this. He denies any aspiration events or choking. He still has birds. We reviewed his ECHO, which shows normal function, notable for mild septal thickening which I do not think is contributing to his dyspnea, and mild aortic dilation. We reviewed his chest CT, notable for some left peripheral subtle ground glass, which could be related to his recent COVID19 infection but is also non-specific, and a small right cavity, fluid filled, with some small surrounding inflammatory changes. Differential for this includes inflammatory process, cannot exclude malignancy. Given above, and ongoing dyspnea, I recommended we treat for possible pulmonary abscess, with augmentin. He is agreeable to doing this, and I sent a rx for 30 day supply to his pharmacy. He did not feel recent prednisone improved his breathing, and given the non-specific nature of his left lung ground glass I did not recommend restarting any steroids at the moment. He has a visit here in 2 weeks and we will assess clinically at that visit for improvement, with tentative plan to obtain chest CT imaging repeat in 4-6 weeks to follow up on this fluid filled cavity pending his assessment in 2 weeks. Maine Henley MD * Telephone Encounter - Anna Sanches RN - 03/14/2021 3:00 PM EDT Pt has called and LVM requesting an update. Pt states that he had a recent chest CT and an echocardiogram. Pt is requesting an update from Dr. Henley. Anna Sanches RN Department of Pulmonary 5C, [facility] [place] Pager: [phone] documented in this encounter Plan of Treatment Not on file documented as of this encounter Visit Diagnoses Not on filedocumented in this encounter Care Teams Qlikview Developer Relationship Specialty Start Date End Date Juliette Hamilton PA [address] [place] [address] PCP - General Family Medicine 02/07/21 documented as of this encounter
--- OUTSIDE RECORDS SUMMARY | 2024-10-06 17:19 | XMS_ITS | Encounter Summary ---
Author [place] [address] Care Team Providers Care Director Of Claims Name Role Phone Juliette Hamilton Primary Care Provider +1- [phone] Reason for Visit * Consultation (Routine) - Closed Specialty Diagnoses / Procedures Referred By Contac t Referred To Contact Pulmonology Diagnoses ASTHMA Juliette Hamilton PA [address] [place] [address] [facility] Pulmonology [address] [place] [id number] Referral ID Status Reason Start Date Expiration Date V isits Requested Visits Authorized [id number] Closed Consult, Test & Treat [facility] 03/28/2018 03/28/2019 1 1 Encounter Details Date Type Department Care Team (Latest Contact Info) Description 04/26/2018 1:00 PM EDT - 04/26/2018 11:59 PM EDT Hospital [place] [address] Asthma, unspecified asthma severity, unspecified whether complicated, unspecified whether persistent Discharge Disposition: Home Social History Tobacco Use [...] Sig Dispensed Refills Start Date End Date metFORMIN (GLUCOPHAGE-XR) 500 mg Tablet Sustained Release 24 hr Take 1,000 mg by mouth 2 times daily. 12/19/2016 simvastatin (ZOCOR) 20 mg Tablet Take 40 mg by mouth nightly. lamoTRIgine (LAMICTAL) 100 mg tablet Take 200 mg by mouth daily. ipratropium-albuterol (DUONEB) 0.5 mg-3 mg(2.5 mg base)/3 mL Solution for Nebulization 12/21/2017 02/11/2021 COMBIVENT RESPIMAT 20-100 mcg/actuation Mist 11/14/2017 12/26/2018 fluticasone-salmeterol (ADVAIR HFA) 230-21 mcg/actuation HFA Aerosol InhalerIndications:Moder ate persistent asthma, uncomplicated Inhale 2 puffs into the lungs 2 times daily. 1 Inhaler 12 04/26/2018 05/28/2018 cetirizine (ZYRTEC) 10 mg Tablet Take 10 mg by mouth daily. Reported on 03/12/2017 08/20/2023 Atomoxetine (Strattera) 80 mg Capsule Take 1 capsule by mouth daily. 08/20/2023 sildenafiL (VIAGRA) 100 mg Tablet Take 100 mg by mouth as needed for Erectile Dysfunction. PRN 08/20/2023 documented as of this encounter Procedure Notes * Korey Murray MD - 04/26/2018 3:49 PM EDTAssociated Order(s): PULMONARY FUNCTION TEST Pulmonary Function Test Interpretation Spirometry The FVC is reduced. FEV1 is reduced. The FEV1/FVC ratio is normal. Impression: Reduced FVC suggests concurrent restriction or air trapping, can be confirmed by lung volumes if indicated Korey Mruray MD, PhD documented in this encounter Plan of Treatment Not on file documented as of this encounter Procedures Procedure Name Priority Date/Time Associated Diagnosis Comments COMMON PULMONARY FUNCTION TEST Routine 04/26/2018 3:53 PM EDT Asthma, unspecified asthma severity, unspecified whether complicated, unspecified whether persistent documented in this encounter Results * Pulmonary [...] MD, PhD Yehuda Light MD PFT ORDERABLES documented in this encounter Visit Diagnoses Diagnosis Asthma, unspecified asthma severity, unspecified whether complicated, unspecified whether persistent documented in this encounter Care Teams Director Of Claims Relationship Specialty Start Date End Date Juliette Hamilton PA [address] [place] [address] PCP - General 12/21/14 05/25/20 documented as of this encounter
--- OUTSIDE RECORDS SUMMARY | 2024-10-06 17:19 | XMS_ITS | Encounter Summary ---
Author Organization [facility] Address [facility] [place] [address] Care Team Providers Care Ship/Rec/Doc Control Name Role Phone Juliette Hamilton Primary Care Provider +1- [phone] Reason for Visit * Reason Onset Date Comments Pre Procedure Call 03/12/2017 Encounter Details Date Type Department Care Team (Late st Contact Info) Description 03/12/2017 [place] [phone] Garcia Campos MD [facility] [place] [address] Pre Procedure Call Social History Tobacco Use Types Packs/Day Years [...] encounter Miscellaneous Notes * Telephone Encounter - Ariana Pappas - 03/12/2017 1:12 PM EDT I called and left a message for patient to call [phone] directly and schedule surgery with Dr. Campos documented in this encounter Plan of Treatment Not on file documented as of this encounter Visit Diagnoses Not on filedocumented in this encounter Care Teams Ship/Rec/Doc Control Relationship Specialty Start Date End Date Juliette Hamilton PA [address] [place] [address] PCP - General 12/21/14 05/25/20 documented as of this encounter
--- OUTSIDE RECORDS SUMMARY | 2024-10-06 17:19 | XMS_ITS | Encounter Summary ---
[place] [address] Care Team Providers Care Financing Analyst Name Role Phone Juliette Hamilton Primary Care Provider +1- [phone] Reason for Visit * Reason Onset Date Comments Abnormal X-ray 04/28/2021 CT Scan 04/18/20 21 Encounter Details Date Type Department Care Team ([facility] st Contact Info) Description 04/28/2021 Telephone [place] [phone] Jose Yost RN Abnormal X-ray (CT Scan 04/18/2021) Social History Tobacco Use Types Packs/Day Years [...] Telephone Encounter - Jose Yost RN - 04/28/2021 8:53 AM EDT RN faxed image request to [facility]'s imaging department, requesting copy of CTimages from 04/18/2021 under continuity of care. Report received, but no images. Attempt to call and request was met with no answer. Fax submission confirmation time stamped for 04/28/2021 @ 5693, 1 page. documented in this encounter Plan of Treatment Not on file documented as of this encounter Visit Diagnoses Not on filedocumented in this encounter Care Teams Financing Analyst Relationship Specialty Start Date End Date Juliette Hamilton PA [address] [place] [address] PCP - General Family Medicine 02/07/21 documented as of this encounter
--- OUTSIDE RECORDS SUMMARY | 2024-10-06 17:19 | XMS_ITS | Encounter Summary ---
Author Organization [facility] [place] [address] Care Team Providers Care Tree Loader Meat Name Role Phone Juliette Hamilton Primary Care Provider +1- [phone] Encounter Details Date Type Department Care Team (Late st Contact Info) Description 02/25/2021 Telephone [place] [phone] Anna Vivas Social History Tobacco Use Types Packs/Day Years [...] on filedocumented in this encounter Care Teams Tree Loader Meat Relationship Specialty Start Date End Date Juliette Hamilton PA [address] [place] [address] PCP - General Family Medicine 02/07/21 documented as of this encounter
--- OUTSIDE RECORDS SUMMARY | 2024-10-06 17:19 | XMS_ITS | Encounter Summary ---
Author Organization [facility] [place] [address] Care Team Providers Care Skirt Trimmer Name Role Phone Juliette Hamilton Primary Care Provider +1- [phone] Encounter Details Date Type Department Care Team (Late st Contact Info) Description 03/08/2021 Tele[place] [address] Brandy Reina Social History Tobacco Use Types [...] on filedocumented in this encounter Care Teams Skirt Trimmer Relationship Specialty Start Date End Date Juliette Hamilton PA [address] [place] [address] PCP - General Family Medicine 02/07/21 documented as of this encounter
--- OUTSIDE RECORDS SUMMARY | 2024-10-06 17:19 | XMS_ITS | Encounter Summary ---
Author Organization [facility] [place] [address] Care Team Providers Care Object Oriented Programmer Name Role Phone Juliette Hamilton Primary Care Provider +1- [phone] Reason for Visit * Reason Onset Date Comments Medication Refill 01/18/2022 Spiriva rx Encounter Details Date Type Department Care Team (Late st Contact Info) Description 01/18/2022 Refill [place] [address] Maine Henley MD [facility] [place] [address] Moderate persistent asthma, uncomplicated (Primary Dx) Social History Tobacco Use Types Packs/Day Years [...] encounter Visit Diagnoses Diagnosis Moderate persistent asthma, uncomplicated- Primary Unspecified asthma documented in this encounter Care Teams Object Oriented Programmer Relationship Specialty Start Date End Date Juliette Hamilton PA [address] [place] [address] PCP - General Family Medicine 02/07/21 documented as of this encounter
--- OUTSIDE RECORDS SUMMARY | 2024-10-06 17:19 | XMS_ITS | Encounter Summary ---
Author Organization [facility] [place] [address] Care Team Providers Care Java Software Engineer Name Role Phone Juliette Hamilton Primary Care Provider +1- [phone] Encounter Details Date Type Department Care Team (Latest Contact Info) Description 04/02/2020 12:30 PM EDT TH Visit (TeleHealth) [place] [phone] Maine Henley MD [facility] [place] [address] Moderate persistent asthma, uncomplicated; Chronic rhinitis Social History Tobacco Use Types Packs/Day Years [...] as of this encounter Progress Notes * Maine Henley MD - 04/02/2020 12:30 PM EDT Images from the original note were not included. [facility] Section of Pulmonary and Critical Care Medicine Outpatient Consultation Date of Encounter: 04/02/2020 TELEHEALTH VISIT Patient identity was confirmed by name and date of at beginning of this video call. Patient was informed that this telehealth visit is a billable encounter and stated agreement to continue. Reason for Evaluation: Mr. Chano Coker returns to the pulmonary clinic for follow-up of asthma. I independently interviewed the patient, have examined the patient if this visit was conducted in the office and have reviewed available records. Dear MORGAN Marin, As you know, Chano Coker is a 59 y.o. man with history of asthma, previously seen by my colleague Dr. Light in pulmonary clinic fall 2018. Mr. Coker reports that he is experiencing an increase in shortness of breath recently, with and without activity. He is using his rescue inhaler more, 1-2 times most days. Denies any cough, wheezing, chest tightness, chest pain, or sputum production. Dyspnea has been intermittent over the past 4 months. He denies any ED visits, prednisone use, or respiratory infections in the past year. Has some sinus congestion chronically, but doesn't think allergies are contributing to his breathing concerns as this is not significant. He has birds (a cockatiel which he has had for 2 years and a Macaw which he has had for one year), and a dog. He does not believe he is allergic to the birds. He feels he has otherwise been well. He denies any LE edema. He occasionally notices acid reflux (about once a month.) He denies any change in weight. No fevers or chills. He is on advair, reports very consistent use for the past few years, two puffs twice a day with a spacer. He takes zyrtec daily for rhinitis. He denies any tobacco exposure. 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 Current Medications at Start of Encounter: Outpatient Medications Prior to Visit Medication Sig Dispense Refill ??? Combivent Respimat 20-100 mcg/actuation Mist Inhale 1 puff into the lungs every 6 hours as needed for Wheezing. 1 Inhaler 2 ??? zolpidem (AMBIEN CR) 12.5 mg Tablet, Multiphasic Release ??? ARIPiprazole (ABILIFY) 10 mg Tablet ??? celecoxib (CELEBREX) 100 mg Capsule ??? modafinil (PROVIGIL) 200 mg Tablet ??? fluticasone-salmeterol (ADVAIR HFA) 230-21 mcg/actuation HFA Aerosol Inhaler Inhale 2 puffs into the lungs 2 times daily. 3 Inhaler 3 ??? armodafinil (NUVIGIL) 200 mg Tablet Take 200 mg by mouth daily. ??? ipratropium-albuterol (DUONEB) 0.5 mg-3 mg(2.5 mg base)/3 mL Solution for Nebulization ??? metFORMIN (GLUCOPHAGE-XR) 500 mg Tablet Sustained Release 24 hr ??? simvastatin (ZOCOR) 20 mg Tablet Take 20 mg by mouth nightly. ??? cetirizine (ZYRTEC) 10 mg Tablet Take 10 mg by mouth daily. Reported on 03/12/2017 ??? Atomoxetine (STRATTERA) [...] in HPI, and otherwise negative. Physical Examination: Telehealth visit; exam limited. Generally well appearing, comfortable and conversational, overweight. Normal WOB, speaking in full clear sentences. Pulmonary Function Test Results: Not repeated with this telehealth visit. Labs, Microbiology and Imaging: I personally reviewed relevant laboratory, microbiologic and radiology results which were significant for: No new labs or imaging. Impression and Recommendations: Chano Coker is a 59 y/o man with moderate persistent asthma and chronic rhinitis who reports recent increase in dyspnea, which may reflect worsening asthma control. He does not appear to be having an acute exacerbation. He does not have other signs or symptoms to suggest a respiratory infection or inflammatory lung disease, although he does have large birds in the home (visible in his livingroom behind him during this visit) which could be a risk for inflammatory lung disease. I recommended we escalate therapy for asthma with addition of LAMA therapy (spiriva) now, continuation of ICS/LABA (advair), and if symptoms are not improving with this we will repeat spirometry and consider chest imaging. Mr. Coker was encouraged to call if symptoms are worsening before his next scheduled visit. Summary Recommendations: - start spiriva respimat 125 mcg two inhalations once daily - continue advair 230-21 two inhalations BID with spacer - continue combivent PRN - continue zyrtec - if not improving with this, will need in-office spirometry, office visit and possible chest xray F/u 3 months by telehealth; if not improving will plan for clinic visit. Thank you for involving me in Mr. Coker's care. Please feel free to contact me with any further questions or concerns. I personally spent 17 minutes of this telephone/telehealth encounter with the patient discussing their pulmonary disease and treatment recommendations as outlined in my assessment and plan above. This visit involved a total of 25 minutes of clinical time. Maine Henley MD [facility] PULMONOLOGY AT [facility] [address] Dept: [phone] Loc: [phone] documented in this encounter Plan of Treatment Not on file documented as of this encounter Visit Diagnoses Diagnosis Moderate persistent asthma, uncomplicated Unspecified asthma Chronic rhinitis documented in this encounter Care Teams Java Software Engineer Relationship Specialty Start Date End Date Juliette Hamilton PA [address] [place] [address] PCP - General 12/21/14 05/25/20 documented as of this encounter
--- OUTSIDE RECORDS SUMMARY | 2024-10-06 17:19 | XMS_ITS | Encounter Summary ---
Author Organization [facility] [address] Care Team Providers Care State Tested Nursing Assistant Name Role Phone Juliette Hamilton Primary Care Provider +1- [phone] Encounter Details Date Type Department Care Team (Latest Contact Info) Description 05/28/2018 1:21 PM EDT - 05/28/2018 11:59 PM EDT Hospital Encounter [place] [address] Restrictive lung disease; Moderate persistent asthma, uncomplicated Discharge Disposition: Home [...] tablet Take 200 mg by mouth daily. armodafiniL (NuvigiL) 200 mg Tablet Take 200 mg by mouth daily. 08/20/2023 fluticasone-salmeterol (ADVAIR HFA) 230-21 mcg/actuation HFA Aerosol InhalerIndications:Moder ate persistent asthma, uncomplicated Inhale 2 puffs into the lungs 2 times daily. 3 Inhaler 3 05/28/2018 12/26/2018 ipratropium-albuterol (DUONEB) 0.5 mg-3 mg(2.5 mg base)/3 mL Solution for Nebulization 12/21/2017 02/11/2021 COMBIVENT RESPIMAT 20-100 mcg/actuation Mist 11/14/2017 12/26/2018 cetirizine (ZYRTEC) 10 mg Tablet Take 10 mg by mouth daily. Reported on 03/12/2017 08/20/2023 Atomoxetine (Strattera) 80 mg Capsule Take 1 capsule by mouth daily. 08/20/2023 sildenafiL (VIAGRA) 100 mg Tablet Take 100 mg by mouth as needed for Erectile Dysfunction. PRN 08/20/2023 documented as of this encounter Procedure Notes * Geronimo Dalton MD - 05/28/2018 11:59 PM EDTAssociated Order(s): PULMONARY FUNCTION TEST D. LUNG VOLUMES: FRC and TLC are normal. RV is increased. The pattern of an increased RV and a normal FRC and TLC is consistent with air trapping(OVD) or selective expiratory muscle weakness(RVD). Clinical correlation is required. documented in this encounter Plan of Treatment Not on file documented as of this encounter Procedures Procedure Name Priority Date/Time Associated Diagnosis Comments COMMON PULMONARY FUNCTION TEST Routine 05/31/2018 11:52 AM EDT Restrictive lung disease Moderate persistent asthma, uncomplicated documented in this [...] is required. Yehuda Light MD PFT ORDERABLES documented in this encounter Visit Diagnoses Diagnosis Restrictive lung disease Other diseases of lung, not elsewhere classified Moderate persistent asthma, uncomplicated Unspecified asthma documented in this encounter Care Teams State Tested Nursing Assistant Relationship Specialty Start Date End Date Juliette Hamilton PA [address] [place] [address] PCP - General 12/21/14 05/25/20 documented as of this encounter
--- OUTSIDE RECORDS SUMMARY | 2024-10-06 17:19 | XMS_ITS | Encounter Summary ---
Author Organization [facility] [place] [address] Care Team Providers Care Mender Hand Name Role Phone Juliette Hamilton Primary Care Provider +1- [phone] Encounter Details Date Type Department Care Team (Latest Contact Info) Description 01/02/2022 Travel Social History Tobacco Use Types Packs/Day [...] on filedocumented in this encounter Care Teams Mender Hand Relationship Specialty Start Date End Date Juliette Hamilton PA [address] [place], [place] [address] PCP - General Family Medicine 02/07/21 documented as of this encounter
--- OUTSIDE RECORDS SUMMARY | 2024-10-06 17:19 | XMS_ITS | Encounter Summary ---
Author Organization [facility] Address [facility] [place] [address] Care Team Providers Care It Investment/Portfolio Manager Name Role Phone Juliette Hamilton Primary Care Provider [phone] Reason for Visit * Consultation (MARIA GUADALUPE) - Closed Specialty Diagnoses / Procedures Referred By Contac t Referred To Contact Pulmonology Diagnoses Dyspnea, unspecified COVID-19 Juliette Hamilton PA [address] [place] [address] [facility] [place], [place] Pulmonology [address] [place] [id number] Referral ID Status Reason Start Date Expiration Date V isits Requested Visits Authorized [id number] Closed Consult, [facility] PCP Updated and/or Approved 02/02/2021 02/02/2022 12 12 Encounter Details Date Type Department Care Team (Late st Contact Info) Description 02/11/2021 1:30 PM EDT Office [place] [address] Maine Henley MD [facility] [place] [address] Moderate persistent asthma, uncomplicated; Post-acute COVID-19 syndrome; Supplemental oxygen dependent; CROWDER (dyspnea on exertion); Abnormal chest x-ray Social History Tobacco Use Types Packs/Day Years [...] on file documented as of this encounter Patient Instructions * Patient Instructions* Maine Henley MD - 02/11/2021 1:30 PM EDT Please use 3 L O2 at rest and 5 pulse with walking. - get a chest xray today - I am ordering an ECHO of your heart to do at [facility] - continue your inhalers: --- ADVAIR 2 PUFFS TWICE DAILY (with spacer) --- SPIRIVA 2 PUFFS ONCE DAILY --- COMBIVENT 1 PUFF as-needed I would like to see you back in 1 month. We can do that be video visit. documented in this encounter Progress Notes * Maine Henley MD - 02/11/2021 1:30 PM EDT Images from the original note were not included. [facility] Section of Pulmonary and Critical Care Medicine Outpatient Consultation Date of Encounter: 02/11/2021 Reason for Evaluation: Mr. Chano Coker returns to the pulmonary clinic for follow-up of asthmaand recent covid19 infection. I independently interviewed the patient, have examined the patient ifthis visit was conducted in the office and have reviewed available records. Dear MORGAN Marin, As you know, Chano Coker is a 60 y.o. man with history of asthma, last seen in pulmonary clinic in March 2020. Mr. Coker reports that he is feeling very short of breath with light exertion such as walking across the room and gets breathless in conversation. He think his breathing has been worse since last fall from asthma, but he also was diagnosed with covid19 infection in December. He was initially asymptomatic, then about 2 weeks into his covid infection had worsening dyspnea, new hypoxia (sats low 80s on room air per family), and was admitted to [facility] for 6 days. He reports he was on HFNC in the ICU there, treated with steroids and possible remdesivir. Discharged on steroids. Breathinghas been worsening since getting home from the hospital. PCP added prednisone again this past week. He has some sweating from the prednisone. Eating well now; had lost weight with covid infection (30lbs), now gaining some back. Has some anterior chest wall pain. He denies LE edema, fevers. He is taking advair 1 puff BID with spacer; spiriva one inhalation BID. He has been using albuterol 1-2 times per day; this helps He was discharged home on NC O2, using 3 LPM day and night. Had been unable to use his CPAP until last night. He had a chest xray at [facility]; he tells me this was clear at discharge. He has had his first covid19 vaccine. He denies any recent smoking (quit many years ago) Still has dogs and large birds. Current Medications at Start of Encounter: Outpatient Medications Prior to Visit Medication Sig Dispense Refill ??? predniSONE (Deltasone) 10 mg Tablet ??? dextroamphetamine-amphetamine (Adderall) 10 mg Tablet TAKE 1 TABLET BY MOUTH TWICE DAILY WITH 5MG TABLET ??? fluticasone propion-salmeteroL (ADVAIR HFA) 230-21 mcg/actuation HFA Aerosol Inhaler Inhale 2 puffs into the lungs 2 times daily. 3 Inhaler 3 ??? tiotropium bromide (Spiriva Respimat) 1.25 mcg/actuation Mist Inhale 2.5 mcg into the lungs daily. 4 g 11 ??? Combivent Respimat 20-100 mcg/actuation Mist Inhale 1 puff into the lungs every 6 hours as needed for Wheezing. 1 Inhaler 2 ??? zolpidem (AMBIEN CR) 12.5 mg Tablet, Multiphasic Release ??? ARIPiprazole (ABILIFY) 10 mg Tablet ??? celecoxib (CELEBREX) 100 mg Capsule ??? modafinil (PROVIGIL) 200 mg Tablet ??? armodafinil (NUVIGIL) 200 mg Tablet Take [...] mg(2.5 mg base)/3 mL Solution for Nebulization No facility-administered medications prior to visit. Physical Examination: There were no vitals taken for this visit. GEN: NAD, alert, conversational, slightly fatigued appearing HEENT: MMM, neck supple, no adenopathy or tenderness CV: RRR without murmur, quiet heart sounds PULM: increased WOB with ambulation; breath sounds slightly diminished at bases, no crackles or wheezing ABD: soft, NT/ND MSK: no joint swelling, he is ambulatory EXT: no edema, not tender DERM: no rash NEURO: AAO, voice is clear Pulmonary Function Test Results: Not repeated with this visit Labs, Microbiology and Imaging: I personally reviewed relevant laboratory, microbiologic and radiology results which were significant for: CXR 02/11/2021: hazy opacities laterally and at right lung base, and region of possible loculation vsabscess right mid lung field with possible air fluid level; OSH CXHR from December not available for comparison Impression and Recommendations: Chano Coker is a 60 y/o man with moderate persistent asthma, SHANI on CPAP, and rhinitis who hashad increasing dyspnea this year and who additionally developed acute hypoxic illness and increaseddyspnea in the setting of covid19 pneumonia in December of 2020. He has not noticed significant response to prednisone therapy. I am concerned he could have myocarditis contributing to his dyspnea, and recommended an ECHO for this. Post-covid syndrome with dyspnea without cardiac dysfunction is also aconsideration. Additionally, his xray at this visit showed possible air-fluid level on the right concerning for abscess vs possible empyema, for which I am ordering chest CT imaging to clarify. He wou ld like to have this testing done at his local hospital. I am unsure how much of his current dyspnea is from asthma, and recommended he continue on ICS/LABAtherapy with advair BID and continue with LAMA therapy with spiriva (but take this once daily as directed.) He is currently on supplemental O2 after his recent illness; we will reassess his need for supplemental oxygen after clarifying his imaging findings. Summary Recommendations: - ECHO ordered, to be scheduled at [facility] - chest CT ordered after xray with this visit showed possible lung abscess, [place] continue advair 230-21 two puffs BID and spiriva respimat 125 mcg two inhalations daily, combivent PRN, zyrtec - currently on supplemental O2 3 LPM; unclear if will be a chronic need - advised he may continue prednisone as prescribed by PCP, but if no improvement would stop when hecompletes this prescribed course - should resume nocturnal CPAP use for SHANI as soon as he is comfortable doing so Follow-up in 1 month with telehelath visit Thank you for involving me in Mr. Coker's care. Please feel free to contact me with any further questions or concerns. Maine Henley MD [facility] PULMONOLOGY AT [facility] [id number] Dept: [phone] Loc: [phone] documented in this encounter Plan of Treatment Not on file documented as of this encounter Results * (ABNORMAL) XR Chest PA & Lateral (Generic) (02/11/2021 2:48 PM EDT) Anatomical Region Laterality Modality Chest N/A Digital Radiogra phy Impressions 02/11/2021 3:15 PM EDT May consider ongoing infection or scarring following infection. Of note is the loculated air-fluid level posteriorly in the mid chest on the right. Uncertain if this represents loculated pleural fluid or an intrapulmonary abscess. Recommend CT for further evaluation. UNEXPECTED FINDINGS. Thank you for letting us participate in the care of this patient. ??If you are a health care provider and have any questions regarding this report, please contact the number below. ??For patients who have questions please contact the health day care assistant that requested your imaging first. ? Narrative 02/11/2021 3:15 PM EDT EXAMINATION: XR CHEST PA AND LATERAL (GENERIC) CLINICAL HISTORY: covid in December, persistent dyspnea, basilar crackles TECHNIQUE: PA and lateral views of the chest COMPARISON: 04/26/2018 FINDINGS: Peripheral hazy opacities and reticulations are seen at the lateral aspect and base of the left lung and at the base of the right lung. Of note is an air-fluid level posteriorly on the right at the mid chest. No discrete effusion at the posterior costophrenic angles. Cardiomediastinum silhouette is stable. Degenerative changes of the spine. Resulting Agency Comment Unexpected Finding Maine Henley MD IMG DX ORDERABLES documented in this encounter Visit Diagnoses Diagnosis Moderate persistent asthma, uncomplicated Unspecified asthma Post-acute COVID-19 syndrome Supplemental oxygen dependent Dependence on supplemental oxygen CROWDER (dyspnea on exertion) Other dyspnea and respiratory abnormality Abnormal chest x-ray Other nonspecific abnormal finding of lung field Post-acute COVID-19 syndrome Supplemental oxygen dependent Dependence on supplemental oxygen documented in this encounter Care Teams It Investment/Portfolio Manager Relationship Specialty Start Date End Date Juliette Hamilton PA [address] [place] [address] PCP - General Family Medicine 02/07/21 documented as of this encounter
--- OUTSIDE RECORDS SUMMARY | 2024-10-06 17:19 | XMS_ITS | Encounter Summary ---
[place] [address] Care Team Providers Care Courtesy Bus Driver Name Role Phone Juliette Hamilton Primary Care Provider [phone]- [phone] Encounter Details Date Type Department Care Team (Late st Contact Info) Description 02/15/2021 [place] [phone] Anna Vivas Social History Tobacco Use Types [...] on filedocumented in this encounter Care Teams Courtesy Bus Driver Relationship Specialty Start Date End Date Juliette Hamilton PA [address] [place] [address] PCP - General Family Medicine 02/07/21 documented as of this encounter
--- OUTSIDE RECORDS SUMMARY | 2024-10-06 17:19 | XMS_ITS | Encounter Summary ---
Author Organization [facility] Address [facility] [place] [address] Care Team Providers Care Basketball Commentator Name Role Phone Juliette Hamilton Primary Care Provider [phone] Encounter Details Date Type Department Care Team (Late st Contact Info) Description 04/01/2021 9:30 AM EDT [place] [phone] Maine Henley MD [facility] [place] [address] Post-acute COVID-19 syndrome; Supplemental oxygen dependent; SHANI on CPAP; Moderate persistent asthma, uncomplicated; Interstitial lung disease; Abscess of right lung without pneumonia, unspecified part of lung; Transaminitis Social History Tobacco Use Types Packs/Day Years [...] Sign Reading Time Taken Comments Blood Pressure 125/78 04/01/2021 9:35 AM EDT Pulse 99 04/01/2021 9:35 AM EDT Temperature 36.4 ??C (97.5 ??F) 04/01/2021 9:35 AM ED T Respiratory Rate 22 04/01/2021 9:35 AM EDT Oxygen Saturation 95% 04/01/2021 9:35 AM EDT Inhaled Oxygen Concentration - - Weight 106.4 kg (234 lb 9.6 oz) 04/01/2021 9:35 AM EDT Height 177.8 cm (5' 10) 04/01/2021 9:35 AM EDT Body Mass Index 33.66 04/01/2021 9:35 AM EDT documented in this encounter Progress Notes * Maine Henley MD - 04/01/2021 9:30 AM EDT Images from the original note were not included. [facility] Section of Pulmonary and Critical Care Medicine Outpatient Consultation Date of Encounter: 04/01/2021 Reason for Evaluation: Mr. Chano Coker returns to the pulmonary clinic for follow-up of asthmaand recent covid19 infection. I independently interviewed the patient, have examined the patient ifthis visit was conducted in the office and have reviewed available records. Dear MORGAN Marin, As you know, Chano Coker is a 60 y.o. male with asthma and covdi19 pneumonia spring 2020, and pulmonary abscess, last seen in pulmonary clinic February 2021. Mr. Coker reports that his dyspnea remains pretty similar. Still very short of breath when tryingto do normal activities including walking moderate distances, doing dishes, or carrying things. This has been very limiting. He does not have chest pain, wheezing. He does have some chest tightness at times. Not much sinus congestion. He completed a prednisone taper and did not notice any worseningas he finished this. He has not had any recent infections or ED visits. He has not found the combivent inhaler helpful, and has stopped using this. He is taking advair BID with spacer and spiriva daily, and finds them a little helpful. Dyspnea did start last fall, noticed it going up stairs. Slow onset. No fevers. Occasionally has chills. On O2 3L continuous and 5 pulse during the day. Sats mid to low 90s. He has started using CPAP again, with good effect. Augmentin course for the past month has not made any difference in symptoms. We started this a month ago for pulmonary abscess first seen in chest xray in February and confirmed on follow-up chest CT imaging in February. 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 No smoke exposure. Current Medications at Start of Encounter: Outpatient Medications Prior to Visit Medication Sig Dispense Refill ??? Desvenlafaxine 100 mg Tablet Sustained Release 24 hr Take 100 mg by mouth daily. ??? omeprazole (PriLOSEC) 20 mg Capsule, Delayed Release(E.C.) Take 20 mg by mouth daily. ??? traZODone (Desyrel) 100 mg Tablet Take 200 mg by mouth nightly as needed. ??? tamsulosin (Flomax) 0.4 mg Capsule Take 0.4 mg by mouth daily. ??? amoxicillin-clavulanate (Augmentin) 875-125 mg Tablet Take 1 tablet by mouth 2 times daily for 30 days. 60 tablet 0 ??? fluticasone propion-salmeteroL (ADVAIR HFA) 230-21 mcg/actuation HFA Aerosol Inhaler Inhale 2 puffs into the lungs 2 times daily. 3 Inhaler 3 ??? tiotropium bromide (Spiriva Respimat) 1.25 mcg/actuation Mist Inhale 2.5 mcg into the lungs daily. 4 g 11 ??? Combivent Respimat 20-100 mcg/actuation Mist Inhale 1 puff into the lungs every 6 hours as needed for Wheezing. 1 Inhaler 2 ??? ARIPiprazole (ABILIFY) 10 mg Tablet Take 10 mg by mouth daily. ??? celecoxib (CELEBREX) 100 mg Capsule Take 100 mg by mouth 2 times daily. ??? modafinil (PROVIGIL) 200 mg Tablet Take 200 mg by mouth daily. ??? armodafinil (NUVIGIL) 200 mg Tablet Take [...] Take 200 mg by mouth daily. ??? predniSONE (Deltasone) 10 mg Tablet ??? dextroamphetamine-amphetamine (Adderall) 10 mg Tablet TAKE 1 TABLET BY MOUTH TWICE DAILY WITH 5MG TABLET ??? zolpidem (AMBIEN CR) 12.5 mg Tablet, Multiphasic Release Take 12.5 mg by mouth nightly as needed. No facility-administered medications prior to visit. Review of Systems: A focused ROS was completed and was positive as noted in HPI, and otherwise negative. Physical Examination: BP 125/78 Pulse 99 Temp 36.4 ??C (97.5 ??F) (Temporal) Resp 22 Ht 177.8 cm (5' 10) Wt 106.4 kg (234 lb 9.6 oz) SpO2 95% BMI 33.66 kg/m?? GEN: NAD, alert, conversational, somewhat fatigued appearing HEENT: MMM, neck supple, no adenopathy or tenderness CV: RRR, no murmur PULM: normal WOB, no focal crackles or wheezing, no cyanosis or clubbing ABD: soft, NT/ND MSK: no joint swelling, he is ambulatory EXT: trace edema, not tender NEURO: AAO, voice is clear Pulmonary Function Test Results: Not repeated with this visit. Spirometry in 2018 shows moderate airflow obstruction with reduced FEF 25-75 flows, normal DLCO, and normal total lung volume with increased RV and RV/TLC. Labs, Microbiology and Imaging: I personally reviewed relevant laboratory, microbiologic and radiology results which were significant for: Chest CT 02/24/2021: small cavitary lesion right middle chest with air fluid level (2.2x 2.5 cm) with small nodularity; small atelectasis vs scarring bilateral lower lobes and RML, mild ground glass peripherally ECHO 02/2021: normal LVEF, mild upper septal thickening, normal wall motion, normal RV size and function, no valvular disease, mildly dilated ascending aorta 3.8 cm Immunization History: Flu vaccine: COVID-19 vaccine: Pneumovax: Prevnar-13: Impression and Recommendations: Chano Coker is a 60 y/o man with moderate persistent asthma, SHANI on CPAP, and rhinitis, with recent increased dyspnea after covid19 infection concerning for post-covid syndrome vs uncontrolled asthma triggered by covid19 infection, who has also been found to have a small right lung cavity suggestive of bacterial abscess with malignancy not yet excluded. Unfortunately he has not noticed improvement in the past month. He is now on a prolonged course of augmentin for the suspected abscess, and will need repeat imaging in 2 weeks. He is on ICS/LABA and LAMA therapy for asthma, and should continue this. An ECHO showed normal function, and I do not think the mild upper septal thickening is related to his dyspnea given the normal function. Chest CT imaging shows some mild peripheral interstitial changes which are predominantly ground glass and non-specific but which could reflect early ILD, for which I recommended we check inflammatory lab markers and autoimmune antibody markers. He remains on supplemental [place] O2 for hypoxia 2/2 covid19 illness. Summary Recommendations: - continue advair 230-21 two puffs BID and spiriva respimat 125 mcg two inhalations daily, combivent PRN, zyrtec daily - continue nocturnal CPAP use - continue supplemental [place] O2, goal sat >88%, 3 L continuous/5 pulse - continue augmentin through 4 weeks of therapy for lung abscess - repeat chest CT at [facility] in about 2 weeks to f/u abscess, ordered and due around April 13 - labs here today: Orders Placed This Encounter Procedures ??? CT Chest wo Contrast (Generic) ??? CBC (with Diff) ??? Comprehensive metabolic panel (non-fasting) ??? AFUA ([facility]/CGP/APD/NLH) ??? Cytoplasmic Neutrophilic Ab ??? Myeloperoxidase Ab ??? Proteinase-3 Antibody ??? Myositis Antibody Panel Plus ??? Extractable Nuclear Antigen (KURT) Ab ??? Rheumatoid factor, quant ??? Sedimentation rate ??? CRP, acute inflammation ??? Hemogram ??? Differential, Automated ??? Hepatic Function Panel ??? Pulmonary Function Testing - repeat osiris/DLCO with next visit Follow-up with in-office visit in 2 months Thank you for involving me in Mr. Coker's care. Please feel free to contact me with any further questions or concerns. Maine Henley MD [facility] PULMONOLOGY AT [facility] [id number] Dept: [phone] Loc: [phone] documented in this encounter Plan of Treatment Not on file documented as of this encounter Procedures Procedure Name Priority Date/Time Associated Diagnosis Comments HC VENIPUNCTURE Routine 04/01/2021 10:55 AM EDT Interstitial lung disease HC PCH EXTRACTABLE NUCLEAR ANTIGEN Routine 04/01/2021 10:55 AM EDT Interstitial lung disease HC PCH ANTINEUTROPHIL CYTOPLASMIC ABS Routine 04/01/2021 10:55 AM EDT Interstitial lung disease PROTEINASE-3 ANTIBODY Routine 04/01/2021 10:55 AM EDT Interstitial lung disease HC MYELOPEROXIDASE AUTOANTIBODIES Routine 04/01/2021 10:55 AM EDT Interstitial lung disease HC PCH MYOSITIS ANTIBODY PANEL PLUS Routine 04/01/2021 10:55 AM EDT Interstitial lung disease HEMOGRAM Routine 04/01/2021 10:55 AM EDT Moderate persistent asthma, uncomplicated Interstitial lung disease DIFFERENTIAL, AUTOMATED Routine 04/01/20 10:55 AM EDT Moderate persistent asthma, uncomplicated Interstitial lung disease HC ESR-SEDIMENTATION RATE, BLOOD Routine 04/01/2021 10:55 AM EDT Interstitial lung disease HC CBC,PLT & AUTO DIFF Routine 10:55 AM EDT Moderate persistent asthma, uncomplicated Interstitial lung disease HC RHEUMATOID FACTOR Routine 04/01/2021 10:55 AM EDT Interstitial lung disease HC PCH ANATITRE (ANDPATTERN) Routine 04/01/2021 10:55 AM EDT Interstitial lung disease COMPREHENSIVE METABOLIC PANEL Routine 04/01/2021 10:55 AM EDT Post-acute COVID-19 syndrome Interstitial lung disease documented in this encounter Results * Pulmonary Function Testing (06/08/2021 9:02 AM EDT) FVC Actual Pre-BD 3.42 L COMPAS PFT FVC Pre-BD % of Predicted 78 % COMPAS PFT FVC Predicted 4.39 L COMPAS PFT FVC Pre-BD Z-Score -1.50 COMPAS PFT FVC Lower Limits of Normal 3.33 L COMPAS PFT FEV1 Actual Pre-BD 2.44 L COMPAS PFT FEV1 Pre-BD % of Predicted 72 % COMPAS PFT FEV1 Predicted 3.39 L COMPAS PFT FEV1 Pre-BD Z-Score -1.81 COMPAS PFT FEV1 Lower Limits of Normal 2.53 L COMPAS PFT FEV1 / FVC Actual Pre-BD 71 % COMPAS PFT FEV1/FVC Pre-BD Z-Score -0.83 COMPAS PFT FEV1 / FVC LLN 65 % COMPAS PFT [id number] Actual Pre-BD 1.56 L/s COMPAS PFT [id number] Pre-BD % of Predicted 56 % COMPAS PFT [id number] Predicted 2.78 L/s COMPAS PFT [id number] Pre-BD Z-Score -1.34 COMPAS PFT DLCO Hb Actual Pre-BD 18.70 mL/min/mmHg COMPAS PFT DLCO Hb Pre-BD % of Predicted 71 % COMPAS PFT DLCO Hb Pre-BD Z-Score -1.93 COMPAS PFT DLCO Hb Predicted 26.41 mL/min/mmHg COMPAS PFT DLCO UNC ACT PRE-BD 18.70 mL/min/mmHg COMPAS PFT DLCO UNC PRE-BD % of PRED 71 % COMPAS PFT DLCO UNC PRE-BD Z-SCORE -1.93 % COMPAS PFT DLCO UNC Predicted 26.41 mL/min/mmHg COMPAS PFT DLCO/VA Actual Pre-BD 3.15 mL/min/mmHg /L COMPAS PFT DLCO/VA Pre-BD % of Predicted 74 % COMPAS PFT DLCO/VA Pre-BD Z-Score -1.71 COMPAS PFT DLCO/VA Predicted 4.23 mL/min/mmHg /L COMPAS PFT Narrative COMPAS PFT - 06/08/2021 9:02 AM EDT FINDINGS: FEV1 is reduced, FVC and FEV1/VC are normal. Diffusion capacity not adjusted for hemoglobin is reduced. IMPRESSION: Spirometry with non-specific isolated reduction in FEV1. Mild reduction in diffusing capacity (DLCO > 60% and < lower limit of normal). Isolated reduced DLCO suggests the possibility of disease of the pulmonary vasculature, early emphysema, early interstitial disease, anemia, or carboxyhemoglobinemia/heavy tobacco smoking. Procedure Note Olga Douglas MD - 06/12/2021 FINDINGS: FEV1 is reduced, FVC and FEV1/VC are normal. Diffusion capacitynot adjusted for hemoglobin is reduced. IMPRESSION: Spirometry with non-specific isolatedreduction in FEV1. Mild reduction in diffusing capacity (DLCO > 60% and < lower limit ofnormal). Isolated reduced DLCO suggests the possibility of disease of the pulmonary vasculature,early emphysema, early interstitial disease, anemia, or carboxyhemoglobinemia/heavy tobaccosmoking. Maine eHnley MD PFT ORDERABLES COMPAS PFT * Differential, Automated (04/01/2021 10:55 AM EDT) Neutrophil % 67.7 % [facility] Neutrophil Absolute 5.38 1.70 - 6.10 x10(3)/[facility] Lymph % 18.2 % [facility] Lymphocytes Abs 1.4 0.9 - 3.2 x10(3)/[facility] LABOR[facility] Monocyte % 11.6 % [facility] Monocyte Abs 0.9 0.3 - 0.9 x10(3)/[facility] LABOR[facility] Eos % 1.5 % [facility] Eosinophils Abs 0.1 0.0 - 0.4 x10(3)/[facility] Basophil % 0.6 % [facility] Baso Absolute 0.0 0.0 - 0.1 x10(3)/[facility]ORATORY Immature Gran % 0.40 % [facility] Comment: Immature granulocytes(IG's)percentage and absolute count will include metamyelocytes, myelocytes, and promyelocytes. Blood smears from CBCs yielding IG's will be scanned manually for concordance. If this scan disagrees with the automated IG or if promyelocytes are noted, a manual differential will be performed. Immature Gran Absolute 0.03 0.00 - 0.04 x10(3)/mcL [facility] Blood 04/01/2021 10:5 5 AM EDT 04/01/2021 11:07 AM EDT Narrative Resulting Agency Comment Spec In Lab Maine Henley MD HEMATOLOGY ORDERABLE S [facility] [place] [address] * (ABNORMAL) Hemogram (04/01/2021 10:55 AM EDT) White Blood Cell 8.0 4.0 - 9.5 x10(3)/mc L [facility] Red Blood Cell 4.63 4.58 - 5.54 x10(6)/mc L [facility] Hemoglobin 14.9 13.7 - 16.5 gm/dL [facility] Hematocrit 43.4 40.5 - 48.5 % [facility] Mean Cell Volume 93.7(H) 82.9 - 93.1 fL [facility] Mean Cell Hemoglobin 32.2(H) 27.5 - 32.1 pg [facility] Mean Cell Hemoglobin Concentration 34.3 32.0 - 35.7 gm/dL [facility] Platelet 180 145 - 357 x10(3)/mc L [facility] RDW Standard Deviation 52.5(H) 36.0 - 45.0 fL [facility] RDW coefficient of variation 15.1(H) 11.4 - 13.8 % [facility] Mean Platelet Volume 9.5 7.6 - 12.9 fL [facility] NRBC% auto 0.0 % [facility] NRBC Absolute 0.000 0.000 - 0.000 x10(3)/mc L [facility] Blood 04/01/2021 10:5 5 AM EDT 04/01/2021 11:07 AM EDT Narrative Resulting Agency Comment Spec In Lab Maine Henley MD HEMATOLOGY ORDERABLE S Performing Organization Address City/[facility]/ZIP Co de Phone Number [facility] [place] [address] * CRP, acute inflammation (04/01/2021 10:55 AM EDT) C-Reactive Protein <3.0 <=4.9 mg/L [facility] Blood 04/01/2021 10:5 5 AM EDT 04/01/2021 11:07 AM EDT Narrative Resulting Agency Comment Spec In Lab Maine Henley MD CHEMISTRY ORDERABLES Performing Organization Address [facility] Co de Phone Number [facility] [place] [address] * Sedimentation rate (04/01/2021 10:55 AM EDT) Pathologist [facility] Sedimentation Rate Automated 21 2 - 37 mm/hr [facility] Comment: Effective September 17, 2019 new capillary photometric technology has resulted in a change in reference ranges. It is recommended that each ESR result be reviewed with its own age appropriate reference range. Blood 04/01/2021 10:5 5 AM EDT 04/01/2021 11:07 AM EDT Narrative Resulting Agency Comment Spec In Lab Maine Henley MD HEMATOLOGY ORDERABLE S Performing Organization Address City/[facility]/ZIP Co de Phone Number [facility] [place] [address] * Rheumatoid factor, quant (04/01/2021 10:55 AM EDT) Rheumatoid Factor <10 <=14 IU/mL [facility] Blood 04/01/2021 10:5 5 AM EDT 04/01/2021 11:07 AM EDT Narrative Resulting Agency Comment Spec In Lab Maine Henley MD CHEMISTRY ORDERABLES Performing Organization Address [facility]/State/[facility] Co de Phone Number [facility] [place] [address] * Extractable Nuclear Antigen (KURT) Ab (04/01/2021 10:55 AM EDT) KURT Ab Test ?Result ? Flag ??Unit ??RefValue Ab to Extractable Nuclear Ag Eval,S ??SS-A/Ro Ab, IgG, S ?<0.2 ? U ? <1.0 (Negative) ??SS-B/La Ab, IgG, S ?<0.2 ? U ? <1.0 (Negative) ??Sm Ab, IgG, S ? <0.2 ? U ? <1.0 (Negative) ??BELT TENDER Ab, IgG, S ?0.4 ?U ? <1.0 (Negative) ??Scl 70 Ab, IgG, S ? <0.2 ? U ? <1.0 (Negative) ??Carol 1 Ab, IgG, S ? <0.2 ? U ? <1.0 (Negative) ?Test Performed by: ?[facility] ?[address] [place] [address] ?Shed Hand: Barber Henao M.D. Ph.D.; CLIA# [id number] [facility] Blood 04/01/2021 10:5 5 AM EDT 04/01/2021 1:55 PM EDT Narrative Resulting Agency Comment Spec In Lab Maine Henley MD LAB SEND OUT ORDERAB LES [facility] [place] [address] * Myositis Antibody Panel Plus (04/01/2021 10:55 AM EDT) Myositis Ab Panel Test ? Result ? Flag ??Unit ?? RefValue ------- MyoMarker 3 Plus Profile ??Anti-Carol-1 Ab ? <20 ?Units ??<20 ??Anti-PL-7 Ab ? Negative ?Negative ?This test was developed and its performance characteristics ?determined by [facility]. It has not been cleared or ?approved by the Food and Drug Administration. ??Anti-PL-12 Ab ?Negative ?Negative ?This test was developed and its performance characteristics ?determined by [facility]. It has not been cleared or ?approved by the Food and Drug Administration. ??Anti-EJ Ab ? Negative ?Negative ?This test was developed and its performance characteristics ?determined by [facility]. It has not been cleared or ?approved by the Food and Drug Administration. ??Anti-OJ Ab ? Negative ?Negative ?This test was developed and its performance characteristics ?determined by [facility]. It has not been cleared or ?approved by the Food and Drug Administration. ??Anti-SRP Ab ?Negative ?Negative ?This test was developed and its performance characteristics ?determined by [facility]. It has not been cleared or ?approved by the Food and Drug Administration. ??Fcve-Fa-6-Ab ? Negative ?Negative ?This test was developed and its performance characteristics ?determined by [facility]. It has not been cleared or ?approved by the Food and Drug Administration. ??Oyzf-[id number]-[id number] Ab ? <20 ?Units ??<20 ?This test was developed and its performance characteristics ?determined by [facility]. It has not been cleared or ?approved by the Food and Drug Administration. ??Anti-MDA-5 Ab (CADM-140) ? <20 ?Units ??<20 ?This test was developed and its performance characteristics ?determined by [facility]. It has not been cleared or ?approved by the Food and Drug Administration. ??Anti-NXP-2 (P140) Ab ? <20 ?Units ??<20 ?This test was developed and its performance characteristics ?determined by [facility]. It has not been cleared or ?approved by the Food and Drug Administration. ??Anti-SAE1 Ab, IgG ?<20 ?Units ??<20 ?This test was developed and its performance characteristics ?determined by [facility]. It has not been cleared or ?approved by the Food and Drug Administration. ??Anti-PM/Scl-100 Ab ? <20 ?Units ??<20 ?This test was developed and its performance characteristics ?determined by [facility]. It has not been cleared or ?approved by the Food and Drug Administration. ??Anti-Ku Ab ? Negative ?Negative ?This test was developed and its performance characteristics ?determined by [facility]. It has not been cleared or ?approved by the Food and Drug Administration. ??Anti-SS-A 52kD Ab, IgG ? <20 ?Units ??<20 ?This test was developed and its performance characteristics ?determined by [facility]. It has not been cleared or ?approved by the Food and Drug Administration. ??Anti-U1 BELT TENDER Ab ? <20 ?Units ??<20 ?This test was developed and its performance characteristics ?determined by [facility]. It has not been cleared or ?approved by the Food and Drug Administration. ??Anti-U2 BELT TENDER Ab ? Negative ?Negative ?This test was developed and its performance characteristics ?determined by [facility]. It has not been cleared or ?approved by the Food and Drug Administration. ??Anti-U3 BELT TENDER (Fibrillarin) ?Negative ?Negative ?This test was developed and its performance characteristics ?determined by [facility]. It has not been cleared or ?approved by the Food and Drug Administration. ?Interpretation for Anti-Carol-1, [id number], ?Anti-MDA-5, Anti-NXP-2, Anti-SAE1, Anti-PM/Scl-100, ?Anti-SS-A 52 kD, Anti-U1 BELT TENDER: ?Negative: ?<20 ?Weak Positive: ? 20 - 39 ?Moderate Positive: ? 40 - 80 ?Strong Positive: ? >80 ?. ?Test Performed by: ?[facility] ?[address] ?[place] [address] [facility] Blood 04/01/2021 10:5 5 AM EDT 04/01/2021 1:55 PM EDT Narrative Resulting Agency Comment Spec In Lab Maine Henley MD LAB SEND OUT ORDERAB LES [facility] [place] [address] * Proteinase-3 Antibody (04/01/2021 10:55 AM EDT) Proteinase 3 Antibody 2.3 <=20.0 unit(s) [facility] Blood 04/01/2021 10:5 5 AM EDT 04/01/2021 3:06 PM EDT Narrative Resulting Agency Comment Spec In Lab Maine Henley MD IMMUNOLOGY ORDERABLE S Performing Organization Address City/[facility]/ZIP Co de Phone Number [facility] [place] [address] * Myeloperoxidase Ab (04/01/2021 10:55 AM EDT) Myeloperoxidase Antibody 2.2 <=20.0 unit(s) [facility] Blood 04/01/2021 10:5 5 AM EDT 04/01/2021 3:06 PM EDT Narrative Resulting Agency Comment Spec In Lab Maine Henley MD IMMUNOLOGY ORDERABLE S Performing Organization Address City/[facility]/ZIP Co de Phone Number [facility] [place] [address] * Cytoplasmic Neutrophilic Ab (04/01/2021 10:55 AM EDT) C-Anca (FEBRUARY) Negative Negative [facility] Comment: Test Performed by: [facility] [address] [place] [id number] Shed Hand: Barber Henao M.D. Ph.D.; CLIA# [id number] P-Anca (FEBRUARY) Negative Negative [facility] Comment: Negative for cANCA and pANCA patterns by immunofluorescence. ADDITIONAL INFORMATION This test was developed and its performance characteristics determined by [facility] in a manner consistent with CLIA requirements. This test has not been cleared or approved by the U.S. Food and Drug Administration. Test Performed by: [place] [id number] Shed Hand: Barber Henao M.D. Ph.D.; CLIA# [id number] Blood 04/01/2021 10:5 5 AM EDT 04/01/2021 1:55 PM EDT Narrative Resulting Agency Comment Spec In Lab Maine Henley MD LAB SEND OUT ORDERAB LES [facility] [place] [address] * AFUA ([facility]/CGP/APD/NLH) (04/01/2021 10:55 AM EDT) AFUA Ab Screen Test ?Result ? Flag ??Unit ??RefValue Antinuclear Ab, HEp-2 ? <1:80 (Negative) ? <1:80 (Negative) ??Substrate, S ? ADDITIONAL INFORMATION --------- ?Method: Immunofluorescence using HEp-2 cellular substrate. ?Test Performed by: ?[facility] ?[address] [place] [address] ?Shed Hand: Barber Henao M.D. Ph.D.; CLIA# [id number] [facility] Blood 04/01/2021 10:5 5 AM EDT 04/01/2021 1:55 PM EDT Narrative Resulting Agency Comment Spec In Lab Maine Henley MD LAB SEND OUT ORDERAB LES [facility] [place] [address] * (ABNORMAL) Comprehensive metabolic panel (non-fasting) (04/01/2021 10:55 AM EDT) Glucose 189 65 - 199 mg/dL [facility] Comment:Diabetes: >=200 mg/d L plus symptoms Blood Urea Nitrogen 8(L) 10 - 20 mg/dL [facility] Creatinine 1.06 0.80 - 1.50 mg/dL [facility] Sodium 140 135 - 145 mmol/L [facility] Potassium 3.9 3.5 - 5.0 mmol/L [facility] Comment: Please note: ??Patients with WBC >100,000 may have falsely elevated Potassium levels. ??For accurate Potassium quantification in these patients send serum separator tube (gold top) for subsequent determinations. ??Contact the Clinical Chemistry Laboratory if there are any questions. Chloride 102 98 - 107 mmol/L [facility] Carbon Dioxide 24 22 - 31 mmol/L [facility] Anion Gap 14 5 - 15 mmol/L [facility] Calcium 9.5 8.5 - 10.5 mg/dL [facility] Protein, Total 7.4 6.1 - 8.0 gm/dL [facility] Albumin 4.5 3.2 - 5.2 gm/dL [facility] Aspartate Aminotransferase 96(H) 0 - 39 unit/L [facility] Alanine Aminotransferase 105(H) 0 - 55 unit/L [facility] Alkaline Phosphatase 64 40 - 130 unit/L [facility] Bilirubin, Total 1.8(H) 0.2 - 1.3 mg/dL [facility] Est Glomerular Filtration Rate 75 >=60 mL/min/1. 73 m?? [facility] Comment: This patient? s estimated glomerular filtration rate (eGFR) is between 75 mL/min/1.73 m2 (patients with less muscle mass per kg body weight) and 87 mL/min/1.73 m2 (patients with more muscle mass per kg body weight) as determined by the CKD-EPI equation. Assessment of eGFR is not appropriate when creatinine concentrations are rapidly changing. For clinical decisions where creatinine clearance will affect therapy, a 24-hour urine creatinine clearance may be advised. Assignment of CKD stage 1 - 5 for patients with an eGFR near the transition point between stages may be based on clinical assessment of muscle mass and symptoms in addition to eGFR. Blood 04/01/2021 10:5 5 AM EDT 04/01/2021 11:07 AM EDT Narrative Resulting Agency Comment Spec In Lab Maine Henley MD CHEMISTRY ORDERABLES [facility] [place] [id number] documented in this encounter Visit Diagnoses Diagnosis Post-acute COVID-19 syndrome Supplemental oxygen dependent Dependence on supplemental oxygen SHANI on CPAP Obstructive sleep apnea (adult) (pediatric) Moderate persistent asthma, uncomplicated Unspecified asthma Interstitial lung disease Postinflammatory pulmonary fibrosis Abscess of right lung without pneumonia, unspecified part of lung Transaminitis Nonspecific elevation of levels of transaminase or lactic acid dehydrogenase (LDH) Post-acute COVID-19 syndrome Interstitial lung disease Postinflammatory pulmonary fibrosis documented in this encounter Care Teams Basketball Commentator Relationship Specialty Start Date End Date Juliette Hamilton PA [address] [place], [place] [address] PCP - General Family Medicine 02/07/21 documented as of this encounter
--- OUTSIDE RECORDS SUMMARY | 2024-10-06 17:19 | XMS_ITS | Encounter Summary ---
Author Organization [facility] [place] [address] Care Team Providers Care Wallcovering Hanger Name Role Phone Juliette Hamilton Primary Care Provider +1- [phone] Encounter Details Date Type Department Care Team (Latest Contact Info) Description 06/08/2021 8:00 AM EDT - 06/08/2021 11:59 PM EDT Hospital En[place] [address] Post-acute COVID-19 syndrome; Interstitial lung disease Discharge Disposition: Home Social History Tobacco Use [...] Sig Dispensed Refills Start Date End Date Desvenlafaxine 100 mg Tablet Sustained Release 24 hr Take 100 mg by mouth daily. 03/14/2021 tamsulosin (Flomax) 0.4 mg Capsule Take 0.4 mg by mouth daily. 01/11/2021 fluticasone propion-salmeteroL (ADVAIR HFA) 230-21 mcg/actuation HFA Aerosol InhalerIndications:Mode rate persistent asthma, uncomplicated Inhale 2 puffs into the lungs 2 times daily. 3 Inhaler 3 04/15/2020 Combivent Respimat 20-100 mcg/actuation MistIndications:Moderat e persistent asthma, uncomplicated Inhale 1 puff into [...] tablet Take 200 mg by mouth daily. Spiriva Respimat 1.25 mcg/actuation Mist USE 2 INHALATIONS ( 2.5 MCG ) DAILY 4 g 11 06/01/2021 01/18/2022 omeprazole (PriLOSEC) 20 mg Capsule, Delayed Release(E.C.) [...] Diagnosis Comments COMMON PULMONARY FUNCTION TEST Routine 06/08/2021 9:02 AM EDT Post-acute COVID-19 syndrome Interstitial lung [...] / FVC LLN 65 % COMPAS PFT [id number] Actual Pre-BD 1.56 L/s COMPAS PFT [id number] Pre-BD % of Predicted 56 % COMPAS PFT [id number] Predicted 2.78 L/s COMPAS PFT [id number] Pre-BD Z-Score -1.34 COMPAS PFT DLCO Hb [...] interstitial disease, anemia, or carboxyhemoglobinemia/heavy tobaccosmoking. Maine Henley MD PFT ORDERABLES COMPAS PFT documented in this encounter Visit Diagnoses Diagnosis Post-acute COVID-19 syndrome Interstitial lung disease Postinflammatory pulmonary fibrosis documented in this encounter Care Teams Wallcovering Hanger Relationship Specialty Start Date End Date Juliette Hamilton PA [address] [place] [address] PCP - General Family Medicine 02/07/21 documented as of this encounter
--- OUTSIDE RECORDS SUMMARY | 2024-10-06 17:19 | XMS_ITS | Encounter Summary ---
[place] [address] Care Team Providers Care Reservoir Caretaker Name Role Phone Juliette Hamilton Primary Care Provider +1- [phone] Encounter Details Date Type Department Care Team (Late st Contact Info) Description 04/14/2021 Telephone [place] [phone] Suzanne Geller Social History Tobacco Use Types [...] on filedocumented in this encounter Care Teams Reservoir Caretaker Relationship Specialty Start Date End Date Juliette Hamilton PA [address] [place] [address] PCP - General Family Medicine 02/07/21 documented as of this encounter
--- OUTSIDE RECORDS SUMMARY | 2024-10-06 17:19 | XMS_ITS | Encounter Summary ---
Author Organization [facility] [place] [address] Care Team Providers Care Parimutuel Ticket Cashier Name Role Phone Juliette Hamilton Primary Care Provider +1- [phone] Reason for Visit * - Closed Specialty Diagnoses / Procedures Referred By Contjana t Referred To Contact Procedures Film Library- Storage Only CT Chest Juliette Hamilton PA [address] [place] [address] Referral ID Status Reason Start Date Expiration Date Visits Re quested Visits Authorized [id number] Closed 02/24/2021 02/24/2022 1 1 Encounter Details Date Type Department Care Team ([facility] Contact Info) Description 02/24/2021 3:40 PM EDT Ancillary Procedure Radiology Library at [facility] [place] [address] Juliette Hamilton PA [address] [place], [place] [address] Social History Tobacco Use Types Packs/Day Years [...] FILM LIBRARY STORAGE ONLY CT CHEST Routine 02/24/2021 3:39 PM EDT documented in this encounter Results * Film Library- Storage Only CT Chest (02/24/2021 3:39 PM EDT) Narrative [facility] - 02/24/2021 3:39 PM EDT This exam is auto-finalizing. It's purpose is for storage only. Juliette MORA IMG FILM LIBRARY O RDERABLES [place], [place] documented in this encounter Visit Diagnoses Not on filedocumented in this encounter Care Teams Parimutuel Ticket Cashier Relationship Specialty Start Date End Date Juliette Hamilton PA [address] [place] [address] PCP - General Family Medicine 02/07/21 documented as of this encounter
--- OUTSIDE RECORDS SUMMARY | 2024-10-06 17:19 | XMS_ITS | Encounter Summary ---
Author Organization [facility] [place] [address] Care Team Providers Care Records Management Technician Name Role Phone Juliette Hamilton Primary Care Provider +1- [phone] Reason for Visit * Reason Comments Medication Refill Encounter Details Date Type Department Care Team (Late st Contact Info) Description 06/01/2021 [place] [address] Maine Henley MD [facility] [place] [address] Social History Tobacco Use Types Packs/Day Years [...] on filedocumented in this encounter Care Teams Records Management Technician Relationship Specialty Start Date End Date Juliette Hamilton PA [address] [place] [address] PCP - General Family Medicine 02/07/21 documented as of this encounter
--- OUTSIDE RECORDS SUMMARY | 2024-10-06 17:19 | XMS_ITS | Encounter Summary ---
Author Organization [facility] Address [facility] [place] [address] Care Team Providers Care Cad Engineer Name Role Phone Juliette Hamilton Primary Care Provider +1- [phone] Reason for Referral * Rehabilitation (Routine) - Closed Specialty Diagnoses / Procedures Referred By Contact Referred To Contact Pulmonary Rehabilitation Diagnoses Post-acute COVID-19 syndrome Moderate persistent asthma, uncomplicated Maine Henley MD [facility] PULMONARY MEDICINE [place] [id number] Referral ID Status Reason Start Date Expiration Date V isits Requested Visits Authorized [id number] Closed Evaluate and Treat Non PCP 01/02/2022 07/01/2022 36 36 Scheduling Instructions Referral to Pulm Rehab at [facility] in [facility]. Encounter Details Date Type Department Care Team (Late st Contact Info) Description 01/02/2022 11:30 AM EDT Office [place] [address] Maine Henley MD [facility] [place] [address] Post-acute COVID-19 syndrome; Moderate persistent asthma, uncomplicated; SHANI on CPAP Social History Tobacco Use Types Packs/Day Years [...] Sign Reading Time Taken Comments Blood Pressure 133/78 01/02/2022 11:36 AM EDT Pulse 73 01/02/2022 11:36 AM EDT Temperature 36.6 ??C (97.9 ??F) 01/02/2022 1 1:36 AM EDT Respiratory Rate 16 01/02/2022 11:3 6 AM EDT Oxygen Saturation 95% 01/02/2022 11: 36 AM EDT Inhaled Oxygen Concentration - - Weight 113.6 kg (250 lb 6.4 oz) 022 11:36 AM EDT Height 177.8 cm (5' 10) 01/02/2022 11: 36 AM EDT Body Mass Index 35.93 01/02/2022 11:36 AM EDT documented in this encounter Patient Instructions * Patient Instructions* Maine Henley MD - 01/02/2022 12:11 PM EDT Stop the azithromycin. Continue the inhalers. I think with increased exercise and weight loss your shortness of breath might get a lot better. Pulmonary rehab would help you jump-start exercise and guide your breathing with activity. Let's refer you for this now. Use the oxygen with exercise and when short of breath. Goal saturation on the finger probe is >/=88%. documented in this encounter Progress Notes * Maine Henley MD - 01/02/2022 11:30 AM EDT Images from the original note were not included. [facility] Section of Pulmonary and Critical Care Medicine Outpatient Consultation Date of Encounter: 01/02/2022 Reason for Evaluation: Mr. Chano Coker returns [...] abscess, last seen in pulmonary clinic in September 2021. Mr. Coker reports that his health has been pretty stable. He gets short of breath with exertion still, and feels limited by this. No cough, wheezing. No recent infections. He currently denies any chest congestion. He still has sinus congestion. He does not think the azithromycin helped dyspnea at all, took three days weekly for three months. He still has significant fatigue. Remains on advair 230-21 two puffs BID and spiriva respimat 1.25 mcg two inhalations daily, combivent PRN (using 2-3 times a day), zyrtec daily. No recent prednisone. He has started using CPAP again, with good effect. Using 3.5 L O2 through CPAP. Sleeps well 8 hoursper night, but still tired. Not otherwise using oxygen recently. 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 Still feels cognitive function is poor, limited by fatigue and memory issues. No smoke exposure. Current Medications at Start of Encounter: Outpatient Medications Prior to Visit Medication Sig Dispense Refill ??? LORazepam (Ativan) 1 mg Tablet Take 1 mg by mouth daily as needed. ??? Spiriva Respimat 1.25 mcg/actuation Mist USE 2 INHALATIONS ( 2.5 MCG ) DAILY 4 g 11 ??? Desvenlafaxine 100 mg Tablet Sustained Release [...] mg by mouth 2 times daily. ??? cetirizine (ZYRTEC) 10 mg Tablet Take 10 mg by mouth daily. Reported on 03/12/2017 ??? Atomoxetine (Strattera) 80 mg Capsule Take 1 capsule by mouth daily. ??? sildenafiL (VIAGRA) 100 mg Tablet Take 100 mg by mouth as needed for Erectile Dysfunction. ??? lamoTRIgine (LAMICTAL) 100 mg tablet Take 200 mg by mouth daily. ??? azithromycin (Zithromax) 500 mg Tablet Take 1 tablet by mouth three times a week. (Patient not taking: Reported on 01/02/2022) 13 tablet 3 ??? modafinil (PROVIGIL) 200 mg Tablet Take 200 mg by mouth daily. ??? simvastatin (ZOCOR) 20 mg Tablet Take 20 mg by mouth nightly. No facility-administered medications prior to visit. Review of Systems: A focused ROS was completed and was positive as noted in HPI, and otherwise negative. Physical Examination: BP 133/78 Pulse 73 Temp 36.6 ??C (97.9 ??F) (Temporal) Resp 16 Ht 177.8 cm (5' 10) Wt 113.6 kg (250 lb 6.4 oz) SpO2 95% BMI 35.93 kg/m?? GEN: NAD, alert, conversational, generally well appearing, overweight HEENT: MMM, neck supple, no adenopathy or tenderness CV: RRR, no murmur PULM: normal WOB, CTAB, no crackles or wheezing, no cyanosis or clubbing ABD: soft, ND MSK: no joint swelling, he is ambulatory EXT: no edema, not tender NEURO: [...] scarring, minimal atelectasis. Last eosinophils 100 in 03/2021 Immunization History: Flu vaccine: COVID-19 vaccine: has had primary and booster Pneumovax: Prevnar-13: Impression and Recommendations: Chano Coker is a 61 y.o. man with moderate persistent asthma, SHANI on CPAP, resolved pulmonary cavitary pneumonia, rhinitis, with persistent significant exertional dyspnea following covid19 infection in spring 2020 as well as memory impairment and persistent fatigue concerning for post-covid syndrome. Unfortunately a trial of azithromycin was ineffective for his dyspnea. He will stop this now. He has not made much progress over the past few months, and we reviewed the benefit of increasing physical activity. He is now willing to try pulmonary rehab, and I am referring him for this locally ([facility].) On ambulatory O2 testing this winter he still demonstrated severe exertional hypoxia and qualifies for ongoing supplemental O2 with activity. He was encouraged to use this with significant exertion to maintain SpO2 >/=88%. He remains on high dose ICS/LABA and LAMA therapy for asthma, as well as allergy treatments. He does not have significant eosinophilia, and with his concern for memory issues I do not recommend trying singulair as this could impact mood/fatigue/cognition. He remains on nocturnal chronic CPAP for SHANI with NC O2. Summary Recommendations: - Referral to pulmonary rehab in [facility] placed - (Stop azithromycin (ineffective)) - continue advair 230-21 two puffs BID and spiriva respimat 1.25 mcg two inhalations daily, combivent PRN, zyrtec daily - continue nocturnal CPAP use with 3L O2 - should use supplemental NC O2 with exertion, goal sat >88%: 2 pulse dose NC O2 with activity, okay to be on room air at rest - increased physical activity and weight loss strongly advised Follow-up with in-office visit in 6 months Thank you for involving me in Mr. Coker's care. Please feel free to contact me with any further questions or concerns. I personally spent 28 minutes of this encounter with the patient discussing their pulmonary diseaseand treatment recommendations as outlined in my assessment and plan above. This visit involved a total of >35 minutes of clinical time on day of visit. Maine Henley MD [facility] PULMONOLOGY AT [facility] [address] Dept: [phone] Loc: [phone] documented in this encounter Plan of Treatment Scheduled Referrals Name Type Priority Associated Diagnoses Orde r Schedule Referral to Pulmonary Rehab Outpatient Referral Routine Post-acute COVID-19 syndrome Moderate persistent asthma, uncomplicated Ordered: 01/02/2022 documented as of this encounter Visit Diagnoses Diagnosis Post-acute COVID-19 syndrome Moderate persistent asthma, uncomplicated Unspecified asthma SHANI on CPAP Obstructive sleep apnea (adult) (pediatric) documented in this encounter Care Teams Cad Engineer Relationship Specialty Start Date End Date Juliette Hamilton PA [address] [place] [address] PCP - General Family Medicine 02/07/21 documented as of this encounter
--- OUTSIDE RECORDS SUMMARY | 2024-10-06 17:19 | XMS_ITS | Encounter Summary ---
Author Organization [facility] [place] [address] Care Team Providers Care Frame Expander Name Role Phone Juliette Hamilton Primary Care Provider +1- [phone] Encounter Details Date Type Department Care Team (Late st Contact Info) Description 07/05/2021 Telephone [place] [phone] Gisele Sanchez Social History Tobacco Use Types Packs/Day Years [...] encounter Miscellaneous Notes * Telephone Encounter - Gisele Sanchez - 07/05/2021 4:25 PM EDT Chano Coker [id number] Diagnosis/Indication: Personal history of colonic polyps 1. Have you ever had a/an Colonoscopy before? Yes: Date [place], [place] over 1 year ago If yes, did you have any problems with the procedure? No What type of sedation was used: Other: unsure 2. Do you take any blood thinners or have you been diagnosed with a bleeding disorder that increases your risk of bleeding with procedures? No 3. Do you have a Pacemaker or Defibrillator device? No 4. Are you a diabetic? Yes: Controlled by diet or medication? Medication 5. Do you have any Allergies to Eggs, Latex or Medications? No 6. Do you take any Oral Iron Supplements (Including multi-vitamins)? No 7. Do you have a history of three or more abdominal surgeries? No 8. Have you had a problem with sedation or anesthesia? No 9. Do you use a c-pap machine or oxygen tank? Other: Bi-pap and oxygen only at night 10. Do you take prescription narcotic pain medications, including suboxone or methodone? No 11. Do you have a preference regarding the gender of your provider? No Preference 12. Is there any other information you would like to us to note for the provider and nursing team who will perform your case? No 13. Say to patient: You must have a responsible libertarian who will drive you to your procedure, stay [place] for the entire duration of your procedure, and drive you home from your procedure? *Please Verify the height and weight, and adjust if height and/or weight have changed* Estimated body mass index is 33.66 kg/m?? as calculated from the following: Height as of 04/01/21: 177.8 cm (5' 10). Weight as of 04/01/21: 106.4 kg (234 lb 9.6 oz). Age:60 y.o. documented in this encounter Plan of Treatment Not on file documented as of this encounter Visit Diagnoses Not on filedocumented in this encounter Care Teams Frame Expander Relationship Specialty Start Date End Date Juliette Hamilton PA [address] [place] [address] PCP - General Family Medicine 02/07/21 documented as of this encounter
--- OUTSIDE RECORDS SUMMARY | 2024-10-06 17:19 | XMS_ITS | Encounter Summary ---
Author [facility] [place] [address] Care Team Providers Care Sharepoint Application Developer Name Role Phone Juliette Hamilton Primary Care Provider +1- [phone] Reason for Visit * Reason Onset Date Comments Other 05/13/2021 Message left on Nurse Triage Line requested a return call. Encounter Details Date Type Department Care Team ([facility] Contact Info) Description 05/13/2021 Tele[place] [phone] Sydnee Cloud V, RN Other (Message left on Nurse Triage Line requested a return call.) Social History Tobacco Use Types Packs/Day Years [...] Telephone Encounter - Maine Henley MD - 05/13/2021 5:18 PM EDT Received message about lower oxygen sats, initiation of prednisone by PCP, which sounds fine. He recently had a lung abscess which resolved on imaging after a prolonged course of antibiotics. It is possible if his oxygenation is getting worse that the infection has returned. I called his phone, went to voicemail, I left a message indicating I had called, that I was aware of the prednisone and in agreement with that plan, and that if symptoms are worsening over the next couple days we should consider repeat chest x-ray and possible antibiotics. I encouraged him to call back with any questions and with an update in a couple days. Maine Henley MD * Telephone Encounter - Sydnee Cloud RN - 05/13/2021 2:41 PM EDT TC from Chano - # [phone] - Message left requesting a return call TC to Chano # [phone] - He voiced concern that his oxygen level is not going above 91% at rest. He stated that his PCP prescribed Prednisone 20 mg daily X 14 days. (Prescribed by TC today). Chano will take Prednisone as ordered starting today. He will call with an update if no improvement over the next few days. Return to clinic on 06/08/21 with PFT's prior to being seen. documented in this encounter Plan of Treatment Not on file documented as of this encounter Visit Diagnoses Not on filedocumented in this encounter Care Teams Sharepoint Application Developer Relationship Specialty Start Date End Date Juliette Hamilton PA [address] [place] [address] PCP - General Family Medicine 02/07/21 documented as of this encounter
--- OUTSIDE RECORDS SUMMARY | 2024-10-06 17:19 | XMS_ITS | Encounter Summary ---
[place] [address] Care Team Providers Care Learning And Development Manager Name Role Phone Juliette Hamilton Primary Care Provider +1- [phone] Reason for Visit * Reason Onset Date Comments Medication Refill 02/10/2020 Encounter Details Date Type Department Care Team (Late st Contact Info) Description 02/10/2020 [place] [address] Jose Yost RN Moderate persistent asthma, uncomplicated Social History Tobacco Use Types Packs/Day Years [...] asthma documented in this encounter Care Teams Learning And Development Manager Relationship Specialty Start Date End Date Juliette Hamilton PA [address] [place] [address] PCP - General 12/21/14 05/25/20 documented as of this encounter
--- OUTSIDE RECORDS SUMMARY | 2024-10-06 17:19 | XMS_ITS | Encounter Summary ---
[place] [address] Care Team Providers Care Program Clinician Name Role Phone Juliette Hamilton Primary Care Provider +1- [phone] Encounter Details Date Type Department Care Team (Late st Contact Info) Description 02/24/2021 Tele[place] [phone] Suzanne Geller Social History Tobacco Use Types [...] on filedocumented in this encounter Care Teams Program Clinician Relationship Specialty Start Date End Date Juliette Hamilton PA [address] [place] [address] PCP - General Family Medicine 02/07/21 documented as of this encounter
--- OUTSIDE RECORDS SUMMARY | 2024-10-06 17:19 | XMS_ITS | Encounter Summary ---
Author Organization [facility] [place] [address] Care Team Providers Care Preparatory Technician Name Role Phone Juliette Hamilton Primary Care Provider +1- [phone] Encounter Details Date Type Department Care Team (Late st Contact Info) Description 04/27/2021 Tele[place] [phone] Maine Henley MD [facility] [address] [place] [address] Social History Tobacco Use Types Packs/Day Years [...] Telephone Encounter - Maine Henley MD - 04/27/2021 5:54 PM EDT Received written results of chest CT and called patient to review. Prior pulmonary abscess is essentially resolved; OSH radiology report notes there is some residual scar in this region but fluid and cystic component are gone. Previously seen diffuse inflammatory changes are also resolved. Mr. Coker completed his antibiotics for pulmonary abscess, and denies any fevers or other new infectious symptoms. He is still short of breath with light exertion, this has been the case since his covid19 illness. He is still on oxygen. Sats low 90s on RA when stationary. Labs also reviewed; inflammatory ILD labs are all returning negative. No new recommendations at this time. I did encourage him to start resuming some activity as tolerated to recondition. F/u is scheduled in June. Maine Henley MD documented in this encounter Plan of Treatment Not on file documented as of this encounter Visit Diagnoses Not on filedocumented in this encounter Care Teams Preparatory Technician Relationship Specialty Start Date End Date Juliette Hamilton PA [address] [place] [address] PCP - General Family Medicine 02/07/21 documented as of this encounter
--- OUTSIDE RECORDS SUMMARY | 2024-10-06 17:19 | XMS_ITS | Encounter Summary ---
Author Organization [facility] Address [facility] [place] [address] Care Team Providers Care Pipe Fitter Helper Name Role Phone Juliette Hamilton Primary Care Provider +1- [phone] Encounter Details Date Type Department Care Team (Latest Contact Info) Description 06/08/2021 9:00 AM EDT Office [place] [phone] Maine Henley MD [facility] [place] [address] Post-acute COVID-19 syndrome; Supplemental oxygen dependent; Moderate persistent asthma, uncomplicated Social History Tobacco [...] Sign Reading Time Taken Comments Blood Pressure 132/88 06/08/2021 9:11 AM EDT Pulse 59 06/08/2021 9:11 AM EDT Temperature 36.3 ??C (97.3 ??F) 06/08/2021 9:11 AM ED T Respiratory Rate 16 06/08/2021 9:11 AM EDT Oxygen Saturation 96% 06/08/2021 9:11 AM EDT 3.5L Inhaled Oxygen Concentration - - Weight - - Height - - Body Mass Index - - documented in this encounter Progress Notes * Maine Henley MD - 06/08/2021 9:00 AM EDT Images from the original note were not included. [facility] Section of Pulmonary and Critical Care Medicine Outpatient Consultation Date of Encounter: 06/08/2021 Reason for Evaluation: Mr. Chano Coker returns [...] abscess, last seen in pulmonary clinic in March 2021. Mr. Coker reports that his dyspnea remains pretty similar. He is still very short of breath with activity. He is also having trouble with his memory. No chest congestion currently. Is coughing some, but dry. No allergies or sinus congestion. No chest pain. No LE edema. Not wheezing. No fevers. Does feel cold frequently. No night sweats. A little GERD. He is still fatigued, gets tired quickly. He completed a course of augmentin for his pulmonary abscess, and repeat chest CT showed near complete resolution. He did have an increase in chest congestion a month ago, treated with prednisone x 5 days by PCP with improvement. He is taking advair BID with spacer and spiriva daily, denies any side effects. Not sure they are helping. On O2 3L continuous and 5 pulse during the day. Sats mid to low 90s. He has started using CPAP again, with good effect. Using 3.5 L O2 through CPAP. Sleeps well 8 hoursper night, but still tired. He remains on residential disability related to his covid19 illness. No smoke exposure. Current Medications at Start of Encounter: Outpatient Medications Prior to Visit Medication Sig Dispense Refill ??? Spiriva Respimat 1.25 mcg/actuation Mist USE [...] HPI, and otherwise negative. Physical Examination: BP 132/88 Pulse 59 Temp 36.3 ??C (97.3 ??F) (Temporal) Resp 16 SpO2 96% Comment: 3.5L GEN: NAD but somewhat chronically ill appearing, alert, conversational HEENT: MMM, neck supple, no adenopathy or tenderness CV: RRR, no murmur PULM: normal WOB, lungs clear, no crackles or wheezing ABD: soft, ND MSK: no joint swelling, he is ambulatory EXT: no significant edema, not tender NEURO: AAO, voice is [...] lesion, with some residual scarring, minimal atelectasis. Prior imaging: Chest CT 02/24/2021: small cavitary lesion right [...] asthma, SHANI on CPAP, and rhinitis, with increased dyspnea since spring 2020 following covid19 infection concerning for post-covid syndrome. His recent right cavitary lung lesion concerning for abscess has resolved with antibiotic therapy. Updated chest CT imaging in April showed resolution of previous peripheral inflammatory findings, and at this point he does not have evidence of ILD. Unfortunately he has not noticed much respiratory improvement over the past few months. We discussed the uncertain timely for recovery from post-covid illness, and the importance of working on gradually increasing physical activity and re- conditioning. Prior ECHO following covid19 infection was reassuring. We will continue to follow his symptoms this year, and I am hopeful he will notice improvements with time. He remains on ICS/LABA and LAMA therapy for asthma. He remains on supplemental NC O2 for hypoxia 2/2 covid19 illness, and on nocturnal CPAP for SHANI. Summary Recommendations: - continue advair 230-21 two puffs BID and spiriva respimat 1.25 mcg two inhalations daily, combivent PRN, zyrtec daily - continue nocturnal CPAP use with O2 - continue supplemental NC O2, goal sat >88%, 3 L continuous/5 pulse; can likely wean some at home based on finger probe measurements - gradual reintroduction of exercise recommended - no further chest imaging planned at this time given resolution of prior findings - will repeat formal in-office ambulatory oxygen assessment with next visit Follow-up with in-office visit in 3 months Thank you for involving me in Mr. Coker's care. Please feel free to contact me with any further questions or concerns. Maine Henley MD [facility] PULMONOLOGY AT [facility] [address] Dept: [phone] Loc: [phone] documented in this encounter Plan of Treatment Not on file documented as of this encounter Visit Diagnoses Diagnosis Post-acute COVID-19 syndrome Supplemental oxygen dependent Dependence on supplemental oxygen Moderate persistent asthma, uncomplicated Unspecified asthma documented in this encounter Care Teams Pipe Fitter Helper Relationship Specialty Start Date End Date Juliette Hamilton PA [address] [place] [address] PCP - General Family Medicine 02/07/21 documented as of this encounter
--- OUTSIDE RECORDS SUMMARY | 2024-10-06 17:19 | XMS_ITS | Encounter Summary ---
Author Organization [facility] Address [facility] [place] [address] Care Team Providers Care Advertising Material Distributor Name Role Phone Juliette Hamilton Primary Care Provider +1- [phone] Reason for Visit * Reason Comments Follow-up Encounter Details Date Type Department Care Team (Latest Contact Info) Description 12/26/2018 11:30 AM EDT Office [place] [address] Yehuda Light MD [facility] [place] [address] Moderate persistent asthma, uncomplicated Social History Tobacco [...] Sign Reading Time Taken Comments Blood Pressure 136/78 12/26/2018 11:34 AM EDT Pulse 65 12/26/2018 11:34 AM EDT Temperature - - Respiratory Rate 16 12/26/2018 11:34 AM EDT Oxygen Saturation 95% 12/26/2018 11:34 AM EDT Inhaled Oxygen Concentration - - Weight 109.3 kg (241 lb) 12/26/2018 11:34 AM EDT Height 177.8 cm (5' 10) 12/26/2018 11:34 AM EDT Body Mass Index 34.58 12/26/2018 11:34 AM EDT documented in this encounter Progress Notes * Yehuda Light MD - 12/26/2018 11:30 AM EDT CLINIC Follow up Note Original consult: Last visit: 05/28/2018 I have personally interviewed and examined the patient, reviewed history, radiographic studies( if any) and laboratory data(if any). Pulmonary problems : -moderate persistent asthma Other issues: -SHANI on bipap - HPI: This is a 58 y.o. male, here presents for a scheduled follow-up visit. The following is a summary from the previous visit. -57 yo man, a former smoker, here for follow up on his asthma. -his asthma control is now excellent. No albuterol use. No active sx at this time. Will continue the dose for now. We could consider de-escalation on the next visit. -We have checked lung volume, DLco and geoffrey panel. This is because he has birds at home and his spirometry showed restriction. LV showed no true restriction. It however showed air trapping. DLco wasnormal. Geoffrey panel was negative. Overall, dx consistent with asthma. No evidence to suggest birds'fancier disease. -f/u in 6 months. Advised to have flu shot. Today's visit; -doing well. Minimal rescue use. 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 No regular exercise however. Sometimes he however feels limitation from asthma. -He has been on Advair 230 2 puffs twice daily and uses combivent as rescue. PMHx: Patient Active Problem List Diagnosis Code ??? SHANI on CPAP G47.33, Z99.89 ??? Insufficient sleep syndrome F51.12 ??? Insomnia G47.00 ??? Depression F32.9 ??? 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 Osteoarthritis of left wrist M19.032 Social Hx: Social History Tobacco Use ??? Smoking status: Former Smoker Last attempt to quit: 12/22/1987 Years since quittin.0 ??? Smokeless tobacco: Never Used Substance Use Topics ??? Alcohol use: Yes Comment: rarely ??? Drug use: No Allergy: Allergies Allergen Reactions ? ? Dust & Pollen Filter Mask [Facial Mask] Medications: Outpatient Medications Marked as Taking for the 12/26/18 encounter (Office Visit) with Yehuda Light MD Medication Sig Dispense Refill ??? zolpidem (AMBIEN CR) 12.5 mg Tablet, Multiphasic Release ??? ARIPiprazole (ABILIFY) 10 mg Tablet ??? celecoxib (CELEBREX) 100 mg Capsule ??? modafinil (PROVIGIL) 200 mg Tablet ??? fluticasone-salmeterol (ADVAIR HFA) 230-21 mcg/actuation HFA Aerosol Inhaler Inhale 2 puffs into the lungs 2 times daily. 3 Inhaler 3 ??? ipratropium-albuterol (DUONEB) 0.5 mg-3 mg(2.5 mg base)/3 mL Solution for Nebulization ??? metFORMIN (GLUCOPHAGE-XR) 500 mg Tablet Sustained Release 24 hr ??? simvastatin (ZOCOR) 20 mg Tablet Take 20 mg by mouth nightly. ??? Atomoxetine (STRATTERA) 80 mg Capsule Take 1 capsule by mouth daily. ??? sildenafil (VIAGRA) 100 mg Tablet Take 100 mg by mouth as needed for Erectile Dysfunction. Vitals and Physical Exam: BP 136/78 Pulse 65 Resp 16 Ht 177.8 cm (5' 10) Wt 109.3 kg (241 lb) SpO2 95% BMI 34.58kg/m?? Gen: comfortable. HEENT: No pallor, no icteric sclerae. No thrush Neck: No stridor. Chest: CTA Symmetric excursion. Cor: RRR, S1S2, No MRG. Abd: ND Extrem: no C/C/E. Diagnostic studies: ?? -CXR: 04/26/2018 FINDINGS: The lungs are clear. The heart size is normal. No pleural effusion, pneumothorax, pneumomediastinum or significant bone abnormality is seen. ? IMPRESSION No significant abnormality. -CT: ?? -PFTs: date FVC FEV1 FEV/FVC VC TLC RV RV/TLC Dsb SpO2 ?? 04.26.2018 3.35 72 2.24 63 67 ?05/28/2018 ?4.03 87 ??7.40 107 ??147 ??138 ??27.01 96 ? -ECHO: -Serology: -PET: -Biopsy: -Other:? Labs ??04/26/2018 Geoffrey Panel ?? [place] Sera ?Negative ?? [place] ?Negative ?? Cockatiel ?Negative ?? Parakeet ? Negative ?? Parrot ? Negative ?? Summary: -moderate persistent asthma Impression/recommendation: -58 yo man with moderate persistent asthma, here for follow up. -doing very well. On Advair 230 . NO flare ups but occasional daily variation of symptoms at work, for which he uses combivent respimat with good effect. I don't think we need to increase his controller but would probably not reduce at this time. -f/u in 6months. -not washed the spacer for one years. Does not rinse mouth after inhaler use. We discussed and fixed this. Gave him a new spacer today. 21 mins were spent in a face to face conversation with the patient (and accompanying family members, if present) regarding my impressions and recommendations and providing counseling. All the questions were answered. . Separately, I have spent an additional time in reviewing charts/records/labs/tests, or discussion with other health care providers. This above does NOT include the time spent in ( ) Smoking cessation counseling ( ) inhaler technique demonstration and teaching. ( checked if applicable) - I personally reviewed ( ) radiographic images. ( ) pulmonary function testing DATA ( ) Laboratory DATA ( apply if checked ) documented in this encounter Plan of Treatment Not on file documented as of this encounter Visit Diagnoses Diagnosis Moderate persistent asthma, uncomplicated Unspecified asthma documented in this encounter Care Teams Advertising Material Distributor Relationship Specialty Start Date End Date Juliette Hamilton PA [address] [place] [address] PCP - General 12/21/14 05/25/20 documented as of this encounter
--- OUTSIDE RECORDS SUMMARY | 2024-10-06 17:19 | XMS_ITS | Encounter Summary ---
Author Organization [facility] Address [facility] [place] [address] Care Team Providers Care Clearance Center Manager Name Role Phone Juliette Hamilton Primary Care Provider +1- [phone] Encounter Details Date Type Department Care Team (Latest Contact Info) Description 04/26/2018 12:44 PM EDT - 04/26/2018 12:59 PM EDT Hospital Encounter XRay at [address] [place] [address] Yehuda Light MD [facility] [place] [address] Asthma, unspecified asthma severity, unspecified whether complicated, [...] 02/11/2021 COMBIVENT RESPIMAT 20-100 mcg/actuation Mist 11/14/2017 9 cetirizine (ZYRTEC) 10 mg Tablet Take 10 [...] Procedure Name Priority Date/Time Associated Diagnosis Comments XR CHEST PA AND LATERAL Routine 04/26/2018 12:52 PM EDT Asthma, unspecified asthma severity, unspecified whether complicated, unspecified whether persistent documented in this encounter Results * XR Chest PA & Lateral (Generic) [...] bone abnormality is seen. Procedure Note Barber oDwney MD - 04/26/2018 EXAMINATION: XR CHEST PA [...] persistent documented in this encounter Care Teams Clearance Center Manager Relationship Specialty Start Date End Date Juliette Hamilton PA [address] [place] [address] PCP - General 12/21/14 05/25/20 documented as of this encounter
--- OUTSIDE RECORDS SUMMARY | 2024-10-06 17:19 | XMS_ITS | Encounter Summary ---
Author Organization [facility] Address [facility] [place] [address] Care Team Providers Care Supervisor Frame Assembly Name Role Phone Juliette Hamilton Primary Care Provider +1- [phone] Reason for Visit * Reason Onset Date Comments Medication Refill 04/15/2020 Encounter Details Date Type Department Care Team (Late st Contact Info) Description 04/15/2020 [place] [address] Maine Henley MD [facility] [place] [address] Moderate persistent asthma, uncomplicated (Primary Dx) Social [...] asthma documented in this encounter Care Teams Supervisor Frame Assembly Relationship Specialty Start Date End Date Juliette Hamilton PA [address] [place] [address] PCP - General 12/21/14 05/25/20 documented as of this encounter
--- OUTSIDE RECORDS SUMMARY | 2024-10-06 17:19 | XMS_ITS | Encounter Summary ---
Author Organization [facility] [place] [address] Care Team Providers Care Metal Moulder Name Role Phone Juliette Hamilton Primary Care Provider +1- [phone] Reason for Visit * Reason Comments Follow-up Encounter Details Date Type Department Care Team ([facility] st Contact Info) Description 02/11/2021 1:00 PM EDT Office [place] [address] Lindsay Zamora, RT Moderate persistent asthma, uncomplicated; [id number] condition also select symptom Social History Tobacco Use Types Packs/Day Years [...] Sign Reading Time Taken Comments Blood Pressure 119/76 02/11/2021 12:56 PM EDT Pulse 99 02/11/2021 12:56 PM EDT Temperature 35.9 ??C (96.7 ??F) 02/11/2021 12:56 PM E DT Respiratory Rate 20 02/11/2021 12:56 PM EDT Oxygen Saturation 95% 02/11/2021 12:56 PM EDT Inhaled Oxygen Concentration - - Weight 106.6 kg (235 lb) 02/11/2021 12:56 PM EDT Height 177.8 cm (5' 10) 02/11/2021 12:56 PM EDT Body Mass Index 33.72 02/11/2021 12:56 PM EDT documented in this encounter Progress Notes * Lindsay Zamora, RT - 02/11/2021 1:00 PM EDT Home Oxygen Evaluation for Chano Coker Resting SpO2 on room air: 92 % HR: 98 bpm Walked 150 feet on room air, SpO2: 86 % HR: 106 bpm Placed on O2 at 2 lpm: Resting SpO2 on 2 lpm O2: 93 % HR:107 bpm Walked 300 feet on 2 lpm O2, SpO2: 88 % HR: 109 bpm Increased to 3 lpm O2: Resting SpO2 on 3 lpm O2: 93 % HR: 112 bpm Walked 250 feet on 3 lpm O2, SpO2: 90 % HR: 107 bpm Changed to Pulse Dose O2: Resting SpO2 on 4 pulse dose O2: 94 % HR: 110 bpm Walked 250 feet on 4 pulse dose O2, SpO2: 89 % HR: 115 bpm Desaturated to 87% during recovery., Increased to 5 pulse dose O2 at rest with SpO2 = 95% HR= 104 O2 DME provider: [facility] Home concentrator- low flow He noted portable oxygen concentrator to be delivered today from [facility] Current Respiratory Regimen: Combivent respimat 1 puff 1-2 times per day - Advair HFA 1 puffs 2 times per day - Spiriva respimat 1 puff 2 times per day Prednisone, completing taper, currently at 10 mg per day MDI/DPI instruction for Chano Gann John Paul: -Reviewed MDI with valved holding chamber technique: Chano noted that he wasn't doing a breath hold after his inhaler doses. After review Chano Coker Able to demonstrate technique correctly, slow deep breath in with 8-10 second breath hold. ( barelyhear the whistle throughout the breath in) -Respimat: Instructed in assembly, priming and technique: Chano Combivent respimat canister wasn'tloaded completely. Chano Sanjuanita Coker Able to demonstrate proper technique of Respimat, Inspiratory flow after instruction: Slow deep breath in with 8-10 second breath hold. ( don't cover the air inlet slots) - Valved holding chamber provided to Chano Coker to utilize with Advair HFA. He had been utilizing the same chamber since his covid -19 and no cleaning. Reviewed importance of rinsing the mouth after the Advair HFA Reviewed cleaning instructions for Valved holding chamber to be done a minimum of weekly: - remove inhaler holding end and mouth piece - soak in hot soapy ( dish detergent) water for 10 minutes - Rinse all parts well with hot water -Air dry overnight documented in this encounter Plan of Treatment Not on file documented as of this encounter Visit Diagnoses Diagnosis Moderate persistent asthma, uncomplicated Unspecified asthma [id number] condition - also select symptom documented in this encounter Care Teams Metal Moulder Relationship Specialty Start Date End Date Juliette Hamilton PA [address] [place] [address] PCP - General Family Medicine 02/07/21 documented as of this encounter
--- OUTSIDE RECORDS SUMMARY | 2024-10-06 17:19 | XMS_ITS | Encounter Summary ---
Author Organization [facility] [place] [address] Care Team Providers Care Corporate Sales Manager Name Role Phone Juliette Hamilton Primary Care Provider +1- [phone] Encounter Details Date Type Department Care Team (Late st Contact Info) Description 11/14/2021 Ancillary Procedure Radiology at [facility] [address] [place] [phone] Alejandra Eagle MD [address] [address] Social History Tobacco Use Types Packs/Day Years [...] Associated Diagnosis Comments FILM LIBRARY STORAGE ONLY MR SPINE Routine 11/14/2021 12:00 AM EST documented in this encounter Results * Film Library- Storage Only MR Spine (11/14/2021 12:00 AM EST) Narrative DH RAD - 12/08/2021 2:37 PM EST This exam is auto-finalizing. It's purpose is for storage only. Alejandra Eagle MD IMG FILM LIBRARY ORDERABLES [place], [place] documented in this encounter Visit Diagnoses Not on filedocumented in this encounter Care Teams Corporate Sales Manager Relationship Specialty Start Date End Date Juliette Hamilton PA [address] [place] [address] PCP - General Family Medicine 02/07/21 documented as of this encounter
--- OUTSIDE RECORDS SUMMARY | 2024-10-06 17:19 | XMS_ITS | Encounter Summary ---
Author Organization [facility] Address [facility] [place] [address] Care Team Providers Care Fish Hatchery Worker Name Role Phone Juliette Hamilton Primary Care Provider +1- [phone] Encounter Details Date Type Department Care Team (Latest Contact Info) Description 02/11/2021 2:35 PM EDT - 02/11/2021 11:59 PM EDT Hospital Encounter XRay at [address] [place] [address] Maine Henley MD [facility] [address] Post-acute COVID-19 syndrome; Supplemental oxygen dependent Discharge Disposition: Home Social [...] Sig Dispensed Refills Start Date End Date tamsulosin (Flomax) 0.4 mg Capsule Take 0.4 [...] 20 mg by mouth daily. 01/21/2021 08/20/2023 predniSONE (Deltasone) 10 mg Tablet 02/02/2021 04/01/2021 dextroamphetamine-amphet amine (Adderall) 10 mg Tablet TAKE 1 TABLET BY MOUTH TWICE DAILY WITH 5MG TABLET 12/14/2020 04/01/2021 tiotropium bromide (Spiriva Respimat) 1.25 mcg/actuation Mist Inhale 2.5 mcg into the lungs daily. 4 g 11 04/02/2020 06/01/2021 ARIPiprazole (ABILIFY) 10 mg Tablet Take 10 [...] Comments XR CHEST PA AND LATERAL Routine 02/11/2021 2:48 PM EDT Post-acute COVID-19 syndrome Supplemental oxygen dependent documented in this encounter Results * (ABNORMAL) XR Chest [...] who have questions please contact the health managed care nurse that requested your imaging first. ? Electronically signed by: Maria Luisa Mayfield MD, [facility] ([phone]), at 02/11/2021 3:15 PM Narrative 02/11/2021 3:15 PM EDT EXAMINATION: XR [...] oxygen documented in this encounter Care Teams Fish Hatchery Worker Relationship Specialty Start Date End Date Juliette Hamilton PA [address] [place] [address] PCP - General Family Medicine 02/07/21 documented as of this encounter
--- OUTSIDE RECORDS SUMMARY | 2024-10-06 17:19 | XMS_ITS | Encounter Summary ---
[place] [address] Care Team Providers Care Analytical Tech Name Role Phone Juliette Hamilton Primary Care Provider +1- [phone] Encounter Details Date Type Department Care Team (Late st Contact Info) Description 02/17/2021 Telephone [place] [phone] Brandy Reina Social History Tobacco Use Types [...] on filedocumented in this encounter Care Teams Analytical Tech Relationship Specialty Start Date End Date Juliette Hamilton PA [address] [place] [address] PCP - General Family Medicine 02/07/21 documented as of this encounter
--- OUTSIDE RECORDS SUMMARY | 2024-10-06 17:19 | XMS_ITS | Encounter Summary ---
Author Organization [facility] Address [facility] [place] [address] Care Team Providers Care Mercerizer Name Role Phone Juliette Hamilton Primary Care Provider [phone]- [phone] Encounter Details Date Type Department Care Team (Late st Contact Info) Description 09/28/2021 10:00 AM EST Office [place] [phone] Maine Henley MD [facility] [place] [address] Post-acute COVID-19 syndrome; Moderate persistent asthma, uncomplicated; [...] Sign Reading Time Taken Comments Blood Pressure 137/79 09/28/2021 10:06 AM EST Pulse 99 09/28/2021 10:06 AM EST Temperature 36 ??C (96.8 ??F) 09/28/2021 10: 06 AM EST Respiratory Rate 18 09/28/2021 10:0 6 AM EST Oxygen Saturation 95% 09/28/2021 10: 06 AM EST Inhaled Oxygen Concentration - - Weight 101.9 kg (224 lb 9.6 oz) 021 10:06 AM EST Height 177.8 cm (5' 10) 09/28/2021 10: 06 AM EST Body Mass Index 32.23 09/28/2021 10:06 AM EST documented in this encounter Progress Notes * Maine Henley MD - 09/28/2021 10:00 AM EST Images from the original note were not included. [facility] Section of Pulmonary and Critical Care Medicine Outpatient Consultation Date of Encounter: 09/28/2021 Reason for Evaluation: Mr. Chano Coker returns to the pulmonary clinic for follow-up of asthmaand recent covid19 infection. I independently interviewed the patient, have examined the patient ifthis visit was conducted in the office and have reviewed available records. Dear MORGAN Marin, As you know, Chano Coker is a 60 y.o. male with asthma and covid19 pneumonia spring 2020, and pulmonary abscess, last seen in pulmonary clinic in May 2021. Mr. Coker reports that he is still feeling pretty tired, still having some brain fog (describedas hard to remember what he already told people, being forgetful.) Still has dyspnea with exertion,but has found oxygen numbers are much better at home typically (94-97 at rest) and is no longer using oxygen with activity. He is still using O2 at night through CPAP. 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 Has some clear mucous. Not much coughing or wheezing. No chest pain. Overall feels he is slowly getting better. He is more easily fatigued with activity. Mood is okay. 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 Remains on advair 230-21 two puffs BID and spiriva respimat 1.25 mcg two inhalations daily, combivent PRN (using 2-3 times a day), zyrtec daily. Last prednisone was in May, only for 5 days. Has been able to lose 5 lbs recently. More active overall. As you will recall, this summer he completed a course of augmentin for his pulmonary abscess, and repeat chest CT showed near complete resolution. He has started using CPAP again, with good effect. Using 3.5 L O2 through CPAP. Sleeps well 8 hoursper night, but still tired. He remains on retirement disability related to his covid19 illness. No [...] CR) 12.5 mg Tablet, Multiphasic Release Take 6.5 mg by mouth nightly as needed. ??? [...] Take 200 mg by mouth daily. ??? LORazepam (Ativan) 1 mg Tablet Take 1 mg by mouth daily as needed. ??? sildenafil (VIAGRA) 100 mg Tablet Take 100 mg by mouth as needed for Erectile Dysfunction. No facility-administered medications prior to visit. Review of Systems: A focused ROS was completed and was positive as noted in HPI, and otherwise negative. Physical Examination: BP 137/79 Pulse 99 Temp 36 ??C (96.8 ??F) (Temporal) Resp 18 Ht 177.8 cm (5' 10) Wt 101.9 kg (224 lb 9.6 oz) SpO2 95% BMI 32.23 kg/m?? GEN: NAD, alert, conversational HEENT: MMM, neck supple, no adenopathy or tenderness CV: RRR, no murmur PULM: normal WOB, lungs remain clear, no crackles or wheezing, no cyanosis or clubbing ABD: soft, ND MSK: no joint swelling, he is ambulatory EXT: no edema NEURO: AAO, voice is clear; formal memory testing not done during pulmonary visit Pulmonary Function Test Results: 06/08/2021: Findings: FEV1 [...] lesion, with some residual scarring, minimal atelectasis. 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 Unfortunately he has continued exertional dyspnea from his covid19 infection. We again reviewed theimportance of gradually increasing exercise tolerance/reconditioning. He felt his oxygenation was significantly improved, but on ambulatory O2 testing with his visit today he still demonstrates severe exertional hypoxia and qualifies for ongoing supplemental O2 with activity. He has some chronic sputum production, and I recommended a trial of chronic azithromycin to see if this reduces sputum production and overall air trapping. He remains on ICS/LABA and LAMA therapy for asthma. He remains on supplemental nocturnal NC O2 given development of hypoxia with covid19 illness via nocturnal chronic CPAP for SHANI. Summary Recommendations: - start trial of chronic azithromycin 500 mg po three times weekly - continue advair 230-21 two puffs BID and spiriva respimat 1.25 mcg two inhalations daily, combivent PRN, zyrtec daily - continue nocturnal CPAP use with 3L O2 - continue supplemental NC O2 with exertion, goal sat >88%: now needs 2 pulse dose NC O2 with activity, okay to be on room air at rest - gradual reintroduction of exercise again recommended; pulmonary rehab recommended, and he is considering participating in this online Follow-up with in-office visit in 3 months Thank you for involving me in Mr. Coker's care. Please feel free to contact me with any further questions or concerns. 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 However, the portable oxygen concentrator was removed in December. I encouraged Chano to use 2 pulse dose with activity. I informed Chano to not make any changes to his oxygen nocturnally without further testing and/or instruction from Dr. Henley. I reviewed energy conservation with Chano. I inquired about his interest in participating in the pulmonary support group. He reported that he has computer access. Nay encouraged him to participate. He provided the e-mail address [email or web address] for participation. We will provide [facility] with an updated oxygen order. RT Rhonda documented in this encounter Plan of Treatment Not on file documented as of this encounter Visit Diagnoses Diagnosis Post-acute COVID-19 syndrome Moderate persistent asthma, uncomplicated Unspecified asthma SHANI on CPAP Obstructive sleep apnea (adult) (pediatric) documented in this encounter Care Teams Mercerizer Relationship Specialty Start Date End Date Juliette Hamilton PA [address] [place] [address] PCP - General Family Medicine 02/07/21 documented as of this encounter
--- OUTSIDE RECORDS SUMMARY | 2024-10-06 17:19 | XMS_ITS | Encounter Summary ---
[place] [address] Care Team Providers Care Human Resources Hr Representative Name Role Phone Juliette Hamilton Primary Care Provider [phone]- [phone] Encounter Details Date Type Department Care Team (Late st Contact Info) Description 03/01/2021 Telephone [place] [phone] Brandy Reina Social History Tobacco Use Types [...] on filedocumented in this encounter Care Teams Human Resources Hr Representative Relationship Specialty Start Date End Date Juliette Hamilton PA [address] [place] [address] PCP - General Family Medicine 02/07/21 documented as of this encounter
--- OUTSIDE RECORDS SUMMARY | 2024-10-06 17:19 | XMS_ITS | Encounter Summary ---
[place] [address] Care Team Providers Care Trust Manager Name Role Phone Juliette Hamitlon Primary Care Provider [phone]- [phone] Reason for Visit * Reason Onset Date Comments Oxygen Dependence 10/17/2021 [place] O2 or ders Encounter Details Date Type Department Care Team (Late st Contact Info) Description 10/17/2021 [place] [phone] Jose Yost RN Oxygen Dependence ([place] O2 orders) Social History Tobacco Use Types Packs/Day Years [...] Telephone Encounter - Jose Yost RN - 10/23/2021 2:53 PM EST Faxed completed Home Oxygen Orders, signed by Dr. Henley, to [facility]. Attached to this was the following items: Patient Demographics, Office Visit Notes dated 09/28/2021, Fax submission confirmation time stamped for 10/17/2021 @ 5136. 11 pages with cover sheet. documented in this encounter Plan of Treatment Not on file documented as of this encounter Visit Diagnoses Not on filedocumented in this encounter Care Teams Trust Manager Relationship Specialty Start Date End Date Juliette Hamilton PA [address] [place] [address] PCP - General Family Medicine 02/07/21 documented as of this encounter
--- OUTSIDE RECORDS SUMMARY | 2024-10-06 17:19 | XMS_ITS | Encounter Summary ---
Author Organization [facility] Address [facility] [place] [address] Care Team Providers Care Chain Tender Name Role Phone Juliette Hamilton Primary Care Provider [phone]- [phone] Reason for Visit * Reason Comments Follow-up Encounter Details Date Type Department Care Team (Latest Contact Info) Description 05/28/2018 2:30 PM EDT [place] [address] Yehuda Light MD [facility] [place] [address] Moderate persistent asthma, uncomplicated Social History Tobacco [...] Sign Reading Time Taken Comments Blood Pressure 136/80 05/28/2018 1:59 PM EDT Pulse 84 05/28/2018 1:59 PM EDT Temperature - - Respiratory Rate 16 05/28/2018 1:59 PM EDT Oxygen Saturation 94% 05/28/2018 1:59 PM EDT Inhaled Oxygen Concentration - - Weight 117 kg (258 lb) 05/28/2018 1:59 PM EDT Height 175.3 cm (5' 9) 05/28/2018 1:59 PM EDT Body Mass Index 38.1 05/28/2018 1:59 PM EDT documented in this encounter Progress Notes * Yehuda Light MD - 05/28/2018 2:30 PM EDT CLINIC Follow up Note Original consult: 03/27/2018 Last visit: 03/27/2018 I have personally interviewed and examined the patient, reviewed history, radiographic studies( if any) and laboratory data(if any). Problems : -moderate persistent asthma -CROWDER -restriction on PFT, rule out other pulmonary pathology. Other notable issues: - HPI: This is a 57 y.o. male, here presents for a scheduled follow-up visit. The following is a summary from the previous visit. -57 yo man, a former smoker with [...] lung volume DLco, FENO. Geoffrey serology today. Today's visit; -He had a lung volume study today, which showed normal TLC with elevated RV/TLC, c/w air tarpping. -his DLco was absolutely normal at 96% -Geoffrey panel on 04/26/2018 was negative. -He has been doing very well without any albuterol needs. We have switched his advair from 250 discus to HFA 230 via spacer. ? Yes/No remark Past hospitalization ? Mechanical ventilation ? Environmental allergy y ?? Rhinitis/sinusitis y ?? Asa sensitivity n ?? smoking y ?? pets y Dogs. 3 birds. Childhood asthma ? Obesity ? Eosinophilia ?? ( ) Eos > 0.3 ? IgE elevation ?? ( ) IgE 30-700 ? FeNO elevation ? A1AT ? ANCA ? Asp F IgG ? CF sweat CL testing ? Family history of lung diseases ? Yes/No remark Nocturnal symptoms ? Exercise induced symptoms ? Frequent MYRON use ( >2/wk) ? Rhinitis/sinusitis sx ? Airway sensitivity ? Prednisone in last 6 months ? yes note Albuterol MDI ? Combivent Respimat ? Duoneb ? Albuterol neb ? Budesonide neb ? Formoterol neb ? Asmanex ? Qvar ? Flovent ? Pulmicort ? Arnuity Ellipta ? Advair ? Symbicort ? Dulera ? Breo Ellipta ? Spiriva ? Tudorza ? Incruse Ellipta ? Anoro Ellipta ? Stiolto ? PMHx: Patient Active Problem List Diagnosis Code ??? SHANI on CPAP G47.33, Z99.89 ??? Insufficient sleep syndrome F51.12 ??? Insomnia G47.00 ??? Depression F32.9 ??? 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 Smoking status: Former Smoker Quit date: 12/22/1987 ??? Smokeless tobacco: Never Used ??? Alcohol use Yes Comment: rarely Allergy: Allergies Allergen Reactions ? ? Dust & Pollen Filter Mask [Facial Mask] Medications: Outpatient Prescriptions Marked as Taking for the 05/28/18 encounter (Office Visit) with Yehuda Light MD Medication Sig Dispense Refill ??? armodafinil (NUVIGIL) 200 mg Tablet Take 200 mg by mouth daily. ??? COMBIVENT RESPIMAT 20-100 mcg/actuation Mist ??? fluticasone-salmeterol (ADVAIR HFA) 230-21 mcg/actuation HFA Aerosol Inhaler Inhale 2 puffs into the lungs 2 times daily. 1 Inhaler 12 ??? metFORMIN (GLUCOPHAGE-XR) 500 mg Tablet Sustained [...] Take 200 mg by mouth daily. ROS: : positive. Vitals and Physical Exam: BP 136/80 Pulse 84 Resp 16 Ht 175.3 cm (5' 9) Wt 117 kg (258 lb) SpO2 94% BMI 38.1 kg/m2 Gen: comfortable. Normal breathing pattern and rate. HEENT: No thrush Neck: No stridor. Chest: CTA without wheezing/rhonchi/crackles Symmetric excursion. Abd: ND Extrem: no C/C/E. Diagnostic studies: -CXR: 04/26/2018 FINDINGS: The lungs [...] ??27.01 96 ? -ECHO: -Serology: -PET: -Biopsy: -Other: ?? Labs ??04/26/2018 Geoffrey Panel ?? [place] Sera ?Negative ?? [place] ?Negative ?? Cockatiel ?Negative ?? Parakeet ? Negative ?? Parrot ? Negative Summary: -moderate persistent asthma Other notable issues: - Impression/recommendation: -57 yo man, a former smoker, here [...] 6 months. Advised to have flu shot. 22 mins were spent in a face to [...] Laboratory DATA ( apply if checked ) * Nikos Weinstein RN - 05/28/2018 2:30 PM EDT Prevnar 13 vaccination ordered for patient. Clinic supplied. Lot [id number] Exp 11/27. Air Pollution Inspector CRAVE. 0.5 mL of Prevnar 12 injected into patients left upper arm. No reaction noted. Patientambulated out of clinic when finished. documented in this encounter Plan of Treatment Not on file documented as of this encounter Visit Diagnoses Diagnosis Moderate persistent asthma, uncomplicated Unspecified asthma documented in this encounter Care Teams Chain Tender Relationship Specialty Start Date End Date Juliette Hamilton PA [address] [place] [address] PCP - General 12/21/14 05/25/20 documented as of this encounter
--- OUTSIDE RECORDS SUMMARY | 2024-10-06 17:20 | XMS_ITS | Encounter Summary ---
Author Organization [facility] [place] [address] Care Team Providers Care Sports Medicine Physician Name Role Phone Juliette Hamilton Primary Care Provider [phone]- [phone] Reason for Referral * Occupational Therapy (Routine) - Closed Specialty Diagnoses / Procedures Referred By Contac t Referred To Contact Occupational Therapy Diagnoses Osteoarthritis of right wrist, unspecified osteoarthritis type Osteoarthritis of left wrist, unspecified osteoarthritis type Kamilah Puentes PA [address] [place] [address] [place] [address] [facility] [place] [address] Referral ID Status Reason Start Date Expiration Date V isits Requested Visits Authorized [id number] Closed Evaluate and Treat 12/15/2015 12/14/2016 12 12 Reason for Visit * Reason Comments Bilateral Wrist Pain Encounter Details Date Type Department Care Team (Latest Contact Info) Description 12/15/2015 3:10 PM EST Office [place] [address] Garcia Campos MD [facility] [place] [address] Osteoarthritis of right wrist, unspecified osteoarthritis type; [...] Sign Reading Time Taken Comments Blood Pressure 138/83 12/15/2015 3:01 PM EST Pulse 64 12/15/2015 3:01 PM EST Temperature - - Respiratory Rate - - Oxygen Saturation - - Inhaled Oxygen Concentration - - Weight 113.4 kg (250 lb) 12/15/2015 3:01 PM EST verbal Height 179.1 cm (5' 10.5) 12/15/2015 3:01 PM ES T verbal Body Mass Index 35.36 12/15/2015 3:01 PM EST documented in this encounter Progress Notes * Kamilah Puentes PA - 12/15/2015 4:00 PM EST Wilmer comes in today accompanied by his status post right proximal row carpectomy on 01/29/2015, Dr. Campos. He comes in for followup bilateral wrist pain. Right wrist was doing well up until about four months ago when he has had increased wrist discomfort, over the past two to three months he has had some increased left wrist pain mostly on the radial side and into the thumb. There has been no re-injury. No numbness or tingling in the fingers. He uses Aleve on an as-needed basis. He also obtained toev-mww-mpodxyn wrist splints, which helped somebody finds that they do not last for very long. Examination today with Dr. Campos shows mild generalized swelling of both hands and wrists. No erythema or warmth. Full range of motion of the fingers without any clicking, catching or locking. He is tender over the radiocarpal joint on the right. He has pain with flexion more so than extension. On the left side mild swelling also with no erythema or warmth. Tenderness over the radioscaphoid joint. He is tender in the first dorsal compartment with a positive Romulo's. X-rays taken today show that he is developing some arthritic changes on the right wrist and on the left he has some mild scapholunate widening. More evident today than on previous films. IMPRESSION: 1. Status post right proximal row carpectomy with increasing post surgical arthritic changes. 2. Left wrist scapholunate widening with De Quervain's. TREATMENT: At this point, we have recommended conservative measures with topical ointments, nonsteroidals, and Tylenol as-needed. We will have him meet with OT today to be fitted with volar wrist splints to be worn as-needed for activities. Heat and/or ice. We discussed trying OT for the De Quervain's on the left and he would like to hold off on that at this point. He is not interested in any cortisone injections for either the wrist arthritis or the tendinitis. If his right wrist continues to be problematic treatment option would be total wrist fusion. If the left wrist continues to be problematic from the arthritis, scaphoid excision with four corner effusion would be indicated. The patient and voiced understanding and will follow up here on an as-needed basis. documented in this encounter Plan of Treatment Scheduled Referrals Name Type Priority Associated Diagnoses Orde r Schedule Referral to Occupational Therapy Outpatient Referral Routine Osteoarthritis of right wrist, unspecified osteoarthritis type Osteoarthritis of left wrist, unspecified osteoarthritis type Ordered: 12/15/2015 documented as of this encounter Visit Diagnoses Diagnosis Osteoarthritis of right wrist, unspecified osteoarthritis type Osteoarthritis of left wrist, unspecified osteoarthritis type documented in this encounter Care Teams Sports Medicine Physician Relationship Specialty Start Date End Date Juliette Hamilton PA [address] [place] [address] PCP - General 12/21/14 05/25/20 documented as of this encounter
--- OUTSIDE RECORDS SUMMARY | 2024-10-06 17:20 | XMS_ITS | Encounter Summary ---
Author Organization [facility] [place] [place] [address] Care Team Providers Care Plush Dresser Name Role Phone Gay Serrano MD Primary Care Provider [phone] Encounter Details Date Type Department Care Team (Late st Contact Info) Description 06/25/2013 Orders Only [place] [address] Garcia Campos MD [facility] [place] [address] Social History Tobacco Use Types Packs/Day Years Used Date Smoking Tobacco: Former Sex and Gender Information Value Date Recorded Sex Assigned at Not on file Gender Identity Not on file Sexual Orientation Not on file documented as of this encounter Plan of Treatment Not on file documented as of this encounter Procedures Procedure Name Priority Date/Time Associated Diagnosis Comments FILM LIBRARY STORAGE ONLY DX WRIST Routine 06/25/2013 9:01 AM EDT documented in this encounter Results * Film Library- Storage only DX Wrist (06/25/2013 9:01 AM EDT) Anatomical Region Laterality Modality Other 06/25/2013 9:01 AM EDT Narrative 11/27/2014 9:06 AM EST This is a Non-reportable exam Procedure Note SHARON, UNSIGNED REPORT - 11/27/2014 This is a Non-reportable exam Garcia Campos MD IMG FILM LIBRARY ORD ERABLES documented in this encounter Visit Diagnoses Not on filedocumented in this encounter Care Teams Plush Dresser Relationship Specialty Start Date End Date Gay Serrano MD [facility] [address] [place] [address] [place] [address] PCP - General 08/30/10 12/20/14 documented as of this encounter
--- OUTSIDE RECORDS SUMMARY | 2024-10-06 17:20 | XMS_ITS | Encounter Summary ---
Author Organization [facility] [place] [address] Care Team Providers Care Coal Handling Supervisor Name Role Phone Juliette Hamilton Primary Care Provider +1- [phone] Encounter Details Date Type Department Care Team (Latest Contact Info) Description 02/10/2015 7:30 AM EDT Office Visit [place] [id number] Brandy Shah OT Warhold, Lance G, MD [facility] [place] [address] Post-traumatic osteoarthritis of right wrist Discharge Disposition: Home Social History Tobacco Use [...] as of this encounter Progress Notes * Brandy Shah OT - 02/15/2015 7:32 AM EDT I was present throughout today's treatment of the patient with my student participating. Following treatment I've reviewed, discussed and provided feedback to my occupational therapy student in whichupdates to the note were made. I concur with the note as written and recommend continuing treatmentper Plan of Care as written. * Anitra Magaña - 02/11/2015 2:53 PM EDT OCCUPATIONAL THERAPY SPLINTING EVALUATION REFERRAL SOURCE: Garcia Campos MD DIAGNOSIS: 1. Post-traumatic osteoarthritis of right wrist DATE OF INJURY: Ongoing over the past year DATE OF SURGERY: 01/29/15 NEXT MD FOLLOW UP: 03/10/15 TOTAL TREATMENT TIME: 30 Minutes TIMED CODE TREATMENT TIME: 30 minutes CURRENT HISTORY: Chano Coker is a 54 y.o. year old male who underwent a right proximal row carpectomy on 01/29/15. Chano Coker was seen by Dr. Campos for recheck today. Chano Coker is referred to Occupational Therapy for evaluation and treatment to include splinting. Patient presentstoday alone. Mechanism of Injury: Patient's symptoms come from use over time. Current Symptoms/functional impairments: Patient presents with swelling, limited strength, stiffness, and limited mobility/ROM. 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 HAND DOMINANCE: Right PAIN: At Rest: 0/10 With Activity: 0/10 FUNCTIONAL LIMITATIONS: Chano Coker identifies difficulty with the following functional activities using the Patient Specific Functional Scale (PSFS): 0/10 (unable to perform) to 10/10 (Able to perform without difficulty) Activity At Evaluation 1.) Sleeping 10/10 2.) Bathing 5/10 3.) Gripping 0/10 4.) Meal Prep. don't do very much TREATMENT TODAY: Ortho management and training ([address]) Educated patient in etiology and biomechanics as related to patient's symptoms Fabricated volar wrist cock up splint Instructed in splint wear and care, splint to be worn roustabout crew pusher. ASSESSMENT: Chano Coker presents today with functional limitations due to swelling, limited strength, stiffness, and limited mobility/Rom. Patient has a well fitting splint post therapy. Chano Coker is able to demonstrate his home exercises with written instructions provided today. Codie Coker has good potential for gains with therapy. Patient knows to call with any questions or concerns. Chemistry Lab Instructor Goals (to be met by discharge): Date Goal Met: 1.) Chano Coker will complete activities of daily living independently at a 10/10 level. Goal Status: 2.) Chano Coker will be able to resume all occupational roles independently without restriction. Goal Status: Short Term Goals (to be met by end of the visit today): Date Goal Met: 1. Chano Coker will be independent with home exercises as evident with demonstration in therapy. Goal Status: 02/10/15 2. Chano Coker will demonstrate independence with donning and doffing of splint and verbalization of splinting purpose. Goal Status: GOAL MET PLAN: Splinting to provide support and protection to the joint (X) Chano Coker participated in the evaluation, collaborated on treatment goals, and agrees tothe treatment plan . 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
--- OUTSIDE RECORDS SUMMARY | 2024-10-06 17:20 | XMS_ITS | Encounter Summary ---
Author Organization [facility] Address [facility] [place] [address] Care Team Providers Care Content Specialist Name Role Phone Juliette Hamilton Primary Care Provider [phone]- [phone] Encounter Details Date Type Department Care Team (Latest Contact Info) Description 02/10/2015 11:52 AM EDT - 02/10/2015 11:59 PM EDT Hospital Encounter XRay at [address] [place] [address] Pain in right wrist Social History Tobacco Use Types Packs/Day [...] Sig Dispensed Refills Start Date End Date simvastatin (ZOCOR) 20 mg Tablet Take 40 mg by mouth nightly. lamoTRIgine (LAMICTAL) 100 mg tablet Take 200 mg by mouth daily. fluticasone (FLONASE) 50 mcg/actuation Fountain, Suspension 2 sprays by Each Nare route daily. 04/26/2018 cetirizine (ZYRTEC) 10 mg Tablet Take 10 mg by mouth daily. Reported on 03/12/2017 08/20/2023 fluticasone (FLOVENT) 220 mcg/actuation HFA Aerosol Inhaler Inhale 2 puffs into the lungs 2 times daily. Reported on 03/12/2017 04/26/2018 albuterol (PROVENTIL HFA;VENTOLIN HFA;PROAIR) 90 mcg/actuation HFA Aerosol Inhaler Inhale 2 puffs into the lungs every 4 hours as needed for Wheezing. Use with spacer 12/15/2015 loratadine (CLARITIN) 10 mg Tablet Take 10 mg by mouth daily. 12/15/2015 Atomoxetine (Strattera) 80 mg Capsule Take 1 capsule by mouth daily. 08/20/2023 sildenafiL (VIAGRA) 100 mg Tablet Take 100 mg by mouth as needed for Erectile Dysfunction. PRN 08/20/2023 documented as of this encounter Plan of Treatment Not on file documented as of this encounter Procedures Procedure Name Priority Date/Time Associated Diagnosis Comments XR WRIST COMPLETE MINIMUM 3 VIEWS Routine 02/10/2015 12:15 PM EDT Pain in right wrist documented in this encounter Results * XR wrist complete minimum 3 views (02/10/2015 12:15 PM EDT) Anatomical Region Laterality Modality N/A Radiographic Ethel ging 02/10/2015 12:1 5 PM EDT Impressions 02/10/2015 2:03 PM EDT IMPRESSION: Resection of the proximal carpal row without acute complication. Narrative 02/10/2015 2:03 PM EDT EXAMINATION: WRIST COMPLETE MINIMUM 3 VIEWS/RIGHT CLINICAL HISTORY: 01/29/15 RIGHT WRIST CARPECTOMY TECHNIQUE: 3 views COMPARISON: 12/21/2014 FINDINGS: Following resection of the proximal carpal row the proximal pole of the capitate now articulates with the lunate facet. No acute complication is identified. Again noted is deformity of the first metacarpal head presumably related to remote trauma. The appearance is unchanged. Procedure Note Morales Pickard MD - 02/10/2015 EXAMINATION: WRIST COMPLETE MINIMUM 3 VIEWS/RIGHT CLINICAL HISTORY: 01/29/15 RIGHT WRIST CARPECTOMY TECHNIQUE: 3 views COMPARISON: 12/21/2014 FINDINGS: Following resection of the proximal carpal row the proximal pole of thecapitate now articulates with the lunate facet. No acute complication isidentified. Again noted is deformity of the first metacarpal head presumably relatedto remote trauma. The appearance is unchanged. IMPRESSION IMPRESSION: Resection of the proximal carpal row without acute complication. Garcia Campos MD IMG DX ORDERABLES documented in this encounter Visit Diagnoses Diagnosis Pain in right wrist Pain in joint, forearm documented in this encounter Care Teams Content Specialist Relationship Specialty Start Date End Date Juliette Hamilton PA [address] [place] [address] PCP - General 12/21/14 05/25/20 documented as of this encounter
--- OUTSIDE RECORDS SUMMARY | 2024-10-06 17:20 | XMS_ITS | Encounter Summary ---
Author Organization [facility] [place] [address] Care Team Providers Care Personal Injury Specialist Name Role Phone Juliette Hamilton Primary Care Provider +1- [phone] Reason for Visit * Reason Comments Right Wrist Pain Encounter Details Date Type Department Care Team (Latest Contact Info) Description 01/25/2015 8:40 AM EDT Office [place] [address] Garcia Campos MD [facility] DR ORTHOPAEDIC [place] [address] Primary osteoarthritis of right wrist Discharge Disposition: Home [...] Sign Reading Time Taken Comments Blood Pressure 145/97 01/25/2015 8:31 AM EDT Pulse 70 01/25/2015 8:31 AM EDT Temperature - - Respiratory Rate - - Oxygen Saturation - - Inhaled Oxygen Concentration - - Weight 113.4 kg (250 lb) 01/25/2015 8:31 AM EDT stated Height 175.8 cm (5' 9.21) 01/25/2015 8:31 AM ED T stated Body Mass Index 36.69 01/25/2015 8:31 AM EDT documented in this encounter Progress Notes * Berkley Colmenares RN - 01/25/2015 9:12 AM EDT Pro op teaching for general hand/wrist surgery(right wrist ) . Emphasis placed on post op hand elevation with hand above heart,fingers above palm,palm above wrist and wrist above elbow. This was demonstrated. Stressed no lifting of operative hand. Reviewed suggestions for taking post op pain medication. Questions solicited and answered to patient satisfaction. Written material provided. Patient knows to call with any additional questions or concerns. * Garcia Campos MD - 01/25/2015 8:49 AM EDT John Paul Madden returns for evaluation of his right wrist. He has ongoing wrist pain as well as somepain in his thumb. Most of his thumb pain seems to be in the region of his MCP joint. Most of his wrist pain is over the radioscaphoid interval. He has limited wrist extension to about 20 degrees and flexion to about 30 degrees. He is tender to palpation at the radioscaphoid interval. His hand is sensate and is well perfused. 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 The midcarpal joint appears to be in good condition. He feels though his symptoms are severe enough that he would like to proceed with a salvage procedure. He was offered a proximal row carpectomy. He is aware that persistent pain, neurovascular injury, wrist stiffness and loss of motion compared to its current baseline, and the potential need for fusion in the future are risks of this procedure. He wishes to proceed. We will schedule this to be done later this week. documented in this encounter Plan of Treatment Not on file documented as of this encounter Visit Diagnoses Diagnosis Primary osteoarthritis of right wrist Primary localized osteoarthrosis, forearm documented in this encounter Care Teams Personal Injury Specialist Relationship Specialty Start Date End Date Juliette Hamilton PA [address] [place] [address] PCP - General 12/21/14 05/25/20 documented as of this encounter
--- OUTSIDE RECORDS SUMMARY | 2024-10-06 17:20 | XMS_ITS | Encounter Summary ---
[place] [address] Care Team Providers Care Tamper Operator Name Role Phone Juliette Hamilton Primary Care Provider +1- [phone] Reason for Visit * Reason Onset Date Comments Referral 11/26/2014 Encounter Details Date Type Department Care Team (Late st Contact Info) Description 11/26/2014 [place] [id number] Marily Osborne Referral Social History Tobacco Use Types Packs/Day Years Used Date Smoking Tobacco: Former Sex and Gender Information Value Date Recorded Sex Assigned at Not on file Gender Identity Not on file Sexual Orientation Not on file documented as of this encounter Miscellaneous Notes * Telephone Encounter - Tiffanie Anders - 12/02/2014 9:37 AM EST Received 1 page from [facility] report. * Telephone Encounter - Marily Osborne - 11/26/2014 1:48 PM EST CHRISTIAN sent to patient 11/26/13. * Telephone Encounter - Marily Osborne - 11/26/2014 1:41 PM EST Ask the patient to verify the following: Full Name: Chano Coker : 1960 Phone number: [phone] (home) [facility] [address] Age: 53 y.o. Appointment date: TBD Appointment is with: TBD Reason #1 Injury/Complaint: BILATERAL WRIST OA Date of injury/complaint: N/A Is this a new injury? No Is this a 2nd opinion? Yes Appointment type: 18-100 Adult - Not sports related Is this Workers Comp? No How long have you had these symptoms? 3 years Records Retrieval Most recent physical exam: No X-rays: Yes - When? Where? Notes: 2013 [place], [place] PH: [phone] FAX: [phone] IMG PUSH MRI: No CT Scan: No Physical therapy: No Injection: Yes - When? Where? Who? Notes: 2012 [place], [place] PH: [phone] FAX: [phone] SHELLEY Other diagnostic studies: No Other therapies: No Other specialist(s): No If 2nd (+) opinion get info on previous: Yes - What? When? Where? Who? Notes: OFFICE VISIT SINCE THE PAIN BEGAN 3-4 YEARS AGO [place], [place] PH: [phone] FAX: [phone] SHELLEY Have you had any surgeries for this issue? No Did surgery include placement of implant/hardware or fixation of any kind? No Do you use any type of orthotics? No MyDH Do you have a MyDH account? Yes documented in this encounter Plan of Treatment Not on file documented as of this encounter Visit Diagnoses Not on filedocumented in this encounter Care Teams Tamper Operator Relationship Specialty Start Date End Date Juliette Hamilton PA [address] [place] [address] PCP - General 12/21/14 05/25/20 documented as of this encounter
--- OUTSIDE RECORDS SUMMARY | 2024-10-06 17:20 | XMS_ITS | Encounter Summary ---
Author Organization [facility] [place] [address] Care Team Providers Care Regional Account Director Name Role Phone Juliette Hamilton Primary Care Provider +1- [phone] Reason for Visit * Reason Comments Follow Up Surgery sp proximal row carp ectomy, right wrist dos 01/29/15 Encounter Details Date Type Department Care Team (Latest Contact Info) Description 03/10/2015 10:40 AM EDT Office [place] [address] Garcia Campos MD [facility] DR [place] [address] Post-traumatic osteoarthritis of right wrist Discharge Disposition: [...] Sign Reading Time Taken Comments Blood Pressure 134/87 03/10/2015 10:07 AM EDT Pulse 72 03/10/2015 10:07 AM EDT Temperature - - Respiratory Rate - - Oxygen Saturation - - Inhaled Oxygen Concentration - - Weight 113.4 kg (250 lb) 03/10/2015 10:07 AM EDT stated Height 177.8 cm (5' 10) 03/10/2015 10:07 AM EDT stated Body Mass Index 35.87 03/10/2015 10:07 AM EDT documented in this encounter Progress Notes * Garcia Campos MD - 03/10/2015 10:24 AM EDT Chano Coker is approximately six weeks following a right proximal row carpectomy. His pain has dramatically improved compared to preoperatively in his right wrist. His range of motion is about 20 degrees extension and 20 degrees flexion. He is no longer wearing a brace. His hand is sensate and well perfused. His fingers do feel tight, but he could flex his fingers into his palm and can extend them. X-rays of his right wrist were done and showed the capitate to be nicely centered over the lunate facet of his radius. At this point, he will progress the use of his hand to the limits of his comfort. He may return to work on 03/15/2015 with a 25-pound lifting restriction. I will plan on seeing him back with the new x-ray of his right wrist in about eight weeks for what may be a final check. 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 We will assess this at a future time. No further intervention will be done for this at the current time. documented in this encounter Plan of Treatment Not on file documented as of this encounter Results * XR wrist complete minimum 3 views (05/17/2015 1:07 PM EDT) Anatomical Region Laterality Modality N/A Radiographic Ethel ging 05/17/2015 1:07 PM EDT Impressions 05/17/2015 3:10 PM EDT IMPRESSION: Following proximal row carpectomy there is normal alignment with the proximal pole of the capitate with the lunate facet. Narrative 05/17/2015 3:10 PM EDT EXAMINATION: WRIST COMPLETE MINIMUM 3 VIEWS/RIGHT CLINICAL HISTORY: Right proximal row carpectomy; ??assess joint reduction TECHNIQUE: 4 views right wrist COMPARISON: 03/10/2015 FINDINGS: As seen on the previous study the proximal row of the wrist is been resected and the proximal pole of the capitate now articulates with the lunate facet. I do not see an acute change in alignment. No fracture or other acute complication is identified. Procedure Note Morales Pickard MD - 05/17/2015 EXAMINATION: WRIST COMPLETE MINIMUM 3 VIEWS/RIGHT CLINICAL HISTORY: Right proximal row carpectomy; assess joint reduction TECHNIQUE: 4 views right wrist COMPARISON: 03/10/2015 FINDINGS: As seen on the previous study the proximal row of the wrist is beenresected and the proximal pole of the capitate now articulates with the lunate facet. Joey not see an acute change in alignment. No fracture or other acutecomplication is identified. IMPRESSION IMPRESSION: Following proximal row carpectomy there is normal alignment with theproximal pole of the capitate with the lunate facet. 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
--- OUTSIDE RECORDS SUMMARY | 2024-10-06 17:20 | XMS_ITS | Encounter Summary ---
Author Organization [facility] [place] [address] Care Team Providers Care Director Operations Name Role Phone Juliette Hamilton Primary Care Provider [phone]- [phone] Encounter Details Date Type Department Care Team (Late st Contact Info) Description 01/29/2015 9:00 AM EDT - 01/29/2015 11:15 AM EDT Surgery [place] [address] Garcia Campos MD [facility] [place] [address] CARPECTOMY, ALL BONES OF PROXIMAL ROW (WRVU 8.14) Social History Tobacco Use Types Packs/Day Years [...] Sign Reading Time Taken Comments Blood Pressure 155/78 01/29/2015 11:15 AM EDT Pulse 60 01/29/2015 11:15 AM EDT Temperature 36.1 ??C (97 ??F) 01/29/2015 10:41 AM EDT Respiratory Rate 18 01/29/2015 11:45 AM EDT Oxygen Saturation 91% 01/29/2015 11:15 AM EDT Inhaled Oxygen Concentration - - Weight 113.4 kg (250 lb) 01/29/2015 7:39 AM EDT Height 180.3 cm (5' 11) 01/29/2015 7:39 AM EDT Body Mass Index 34.87 01/29/2015 7:39 AM EDT documented in this encounter Discharge Instructions * Discharge Instructions* Eleanor Martinez RN - 01/29/2015 9:16 AM EDT What to expect after a nerve block Nerve blocks affect many types of nerves. The affected nerves control movement, pain, and normal sensation. This causes feelings such as: ?? Weakness ?? Numbness ?? Tingling ?? Heaviness ?? A feeling that your arm or leg has fallen asleep. A nerve block can last from about 2 to 48 hours, depending on the medications used. Usually the weakness wears off first, then you will feel a numb or tingly sensation. Finally, the pain may come back. This can happen in any order. If you had a shoulder block, you may have other symptoms such as: 1. Mild shortness of breath 2. A hoarse voice 3. Blurry vision 4. Unequal pupils 5. Drooping of your face on the same side as the nerve block. These are common and expected side effects of this type of nerve block. Symptoms usually go away within 12 hours. If these symptoms do not go away, please call the Anesthesiology Department at . If you have severe or prolonged shortness of breath, please go to the nearest emergency department. If you continue to feel the effects of the nerve block for longer than 48 hours, please call the Anesthesiology department at . Pain Medication If needed, your surgeon will give you a prescription for pain medication. Start taking this medication before the nerve block wears off. Nerve blocks sometimes wear off during the night. It is a goodidea to take your pain medicine as prescribed before going to sleep so you won't wake up with pain.The idea is to have pain medicine in your body before the nerve block wears off. To help prevent nausea, eat something before taking the pain medicine. Once a nerve block starts to wear off, it is usually completely gone within 60 minutes. It is important to have pain medicine in your system before the block wears off completely. Helpful tips to protect the part of your body that is numb. After a nerve block, you cannot feel pain, pressure, or extremes in temperature. Because your arm or leg is numb, it is more at risk for injury. For example, if working near a hot oven, you could burn your arm or leg without knowing it. Here are some hints to help protect your limb while it is numb ?? While you are awake, try to change positions of your arm or leg often. This will help you avoid putting too much pressure on the limb for long periods of time. ?? While sleeping, pad the blocked limb with pillows to avoid placing too much pressure on the limb. ?? If you have a cast or a tight dressing, check the color of your fingers or toes every couple of hours. Call your doctor if any look discolored. ?? If you had a shoulder, arm, or hand nerve block, you may go home with a sling. The sling will help to keep your arm in the ideal position. Wear the sling at all times until feeling returns. If youdo not have a sling, watch the position of the blocked arm to make sure it is in a safe location. ?? Ask your family or support people to help with the above hints. QUESTIONS? Please call the Anesthesiology department at with concerns or after hours and ask for the anesthesiologist director of land acquisition. Moderate Sedation You may have received medication before and/or during your procedure, which affects your judgement and reaction time. Do not drive, operate machinery, drink alcoholic beverages, or make any legal decisions for 24 hours. Be careful on stairs, as you may be unsteady on your feet. You may eat a regular diet as tolerated. Do not smoke if you are alone. IV site -- slight redness, or tenderness is normal, you can use a warm compress. If tenderness and redness increases or foul drainage occurs, please contact your M. D. Questions or problems after 5pm or on a weekend: Call the [facility] stacker operator and ask for the physician director of land acquisition covering for your doctor. * Patient Instructions* Mando Ny MD - 01/29/2015 8:33 AM EDT Orthopaedic Hand Surgery Same Day Discharge Instructions: General Activities ?? Diet: Start light and progress as tolerated. No alcoholic beverages on the day of surgery or while taking narcotics. If taking narcotics, make sure you are getting plenty of fluids and fiber. ?? In general, care should be taken the first several days following surgery to limit strenuous activity. You want to avoid any activities that you may lose your balance, slip, trip, fall or re-injure your surgery. ?? You may shower tomorrow. Cover your dressing/cast with a plastic bag to keep it dry. ?? No driving while taking narcotic medications or wearing a device (splint, cast, sling, brace) that limits joint mobility. When you feel you can safely control your vehicle and respond to unpredictable situations you may resume driving. Hand Use ?? Decreased sensation for several hours following surgery is often from the local anesthesia used during the procedure. This will resolve on its own. ?? If a regional anesthetic was used, wear your sling until you regain full function of your limb, and keep a close eye on the positioning of your arm and hand. When you have regained function and sensation you may then remove the sling. ?? Do not use your operative hand for any lifting, pushing or pulling. You may move your elbow and shoulder as tolerated. ?? Gentle exercises with any exposed fingers are encouraged and gently opening and closing the digits will keep the joints flexible. Specific activities and exercises will be discussed at your first postoperative visit. Ice and elevation ?? Some swelling is expected after surgery. Ice and elevation are the best remedies to reduce swelling and pain. Keep your hand properly elevated above the level of the heart i.e., fingers above palm, palm above the wrist, wrist above the elbow. Use pillows to increase elevation. ?? Intermittently apply ice to the outside of the dressing for 20 minutes 6-8 times a day. You will want to ice and elevate for 5-7 days after surgery or as long as it hurts. ?? Do not rely on a sling as it does not sufficiently elevate your hand. For proper elevation whilewalking around place your surgical hand on your opposite shoulder. Dressing/ Wound: ?? The post-op dressing, splint or cast is a very important part of your treatment. If you have anyquestions please call us for clarification. If your dressing becomes wet or damaged please call theoffice. ?? No creams, lotions or ointments on your incision. Keep steri-strips in place. They will fall offon their own Keep your dressing clean and DRY until your follow-up appointment. Do not change your dressing. Pain Management ?? Most patients only require narcotics for a short period of time. Ice and elevation is an effective and important modality to use in conjunction with your oral pain medication. In a day or two you may be ready to start decreasing the amount of pain medication your taking. Pain medication is to betaken on an ???as needed?if needed?? basis. Remember to start with the least amount and evaluate its effectiveness. ?? You should not drink alcoholic beverages while on pain medication. ?? If tolerated, please take Tylenol three times a day in conjunction with the narcotic as they complement each other. Once pain is better controlled, you may simply take extra strength Tylenol, one to two tablets every six hours as needed. Do not exceed 3,000 mg in 24 hours. ?? The most common side effects of narcotic pain medications are nausea and constipation. To decrease nausea always take pain medication with food. If you are experiencing vomiting, please call us right away. To minimize constipation, drink plenty of fluids, eat a high fiber diet with plenty of fruits and vegetables, and take a stool softener or laxative as needed. ?? You may take an anti-inflammatory medication such as Ibuprofen/Advil/Motrin or Naproxen/Aleve. Refer to the medication bottles for daily allowance and dosing. Discontinue if it causes stomach upset. Contact Information: During clinic hours M-F 8-4:30 please call [phone] If it is after 5:00PM on a weekday or a weekend and it is of an urgent nature please call [phone] and ask for the on-call orthopaedic resident. Call if: 1. You have a fever greater than 101 F or experience chills 2. Increased drainage from incision 3. Redness or extreme swelling around incision 4. Increased pain or change in pain that is not controlled with elevation, ice and your pain medication. 5. Any questions concerns related to surgery documented in this encounter Medications at Time of Discharge Medication Sig Dispensed Refills Start Date End Date simvastatin (ZOCOR) 20 mg Tablet Take 40 mg by mouth nightly. lamoTRIgine (LAMICTAL) 100 mg tablet Take 200 mg by mouth daily. oxyCODONE (ROXICODONE) 5 mg Tablet Take 1-2 tablets by mouth every 4 hours as needed for Pain. 40 tablet 0 01/29/2015 02/10/2015 fluticasone (FLONASE) 50 mcg/actuation [place], Suspension 2 sprays by Each Nare route [...] PRN 08/20/2023 documented as of this encounter Progress Notes * Eleanor Martinez RN - 01/29/2015 12:14 PM EDT Pt tolerating po fluids and crackers. Discharge instructions given to patient and who verbalize understanding. * Eleanor Martinez RN - 01/29/2015 9:13 AM EDT Block end * Eleanor Martinez RN - 01/29/2015 9:12 AM EDT Block Start documented in this encounter H&P Notes * Mando Ny MD - 01/29/2015 8:24 AM EDT The patient's history and physical exam have been reviewed and completed. There has been no interval change from that of the pre-operative history and physical exam done within the last 30 days. * Garcia Campos MD - 01/28/2015 7:16 PM EDT Patient Name: Chano Coker Patient Age: 54 y.o. Birthdate: 1960 Admit date: (Not on file) Attending Physician: Garcia Campos MD See scanned document for pre-procedural H&P completed on 01/11/15. documented in this encounter Miscellaneous Notes * Op Note - Garcia Campos MD - 01/29/2015 10:30 AM EDT [facility] Operative Note Patient Name: Chano Coker : [id number] MR#: [id number] Case Date: 01/29/2015 Surgeon: Surgeon(s) and Role: * Garcia Campos MD - Primary * Mando Ny MD - Resident Preoperative Diagnosis: Radioscaphoid arthritis right Wrist Postoperative Diagnosis: Radioscaphoid arthritis right Wrist Procedure Performed: Proximal Row Carpectomy, right Wrist. 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 He has failed to respond to conservative treatment. He was brought to the operating room for a proximal row carpectomy. Summary of Procedure: After 2 g of intravenous cefazolin was administered and right supraclavicularblock and general anesthesia were performed, the patient's right upper extremity was prepped with aHibiclens scrub and a ChloraPrep. His right arm was draped in a sterile fashion. A preoperative timeout was performed as per [facility] protocol. The patient's right arm was then exsanguinated with an Esmarch bandage. A brachial tourniquet was inflated to 250 mmHg. An incision was made in the dorsal midline over the fourth extensor compartment of His right wrist.Subcutaneous spreading was performed in a blunt fashion. Care was taken to avoid injury to the longitudinal draining veins. The fourth extensor compartment was incised, and the tendons were retracted. The posterior interosseous nerve was crushed in two places, and a section was resected. The septumbetween the third and fourth extensor compartment was incised, and the EPL tendon was retracted radially. The septum between the fourth and fifth extensor compartments was incised, and the extensor digiti minimi tendon was retracted ulnarly. A transverse incision was made in the dorsal wrist capsule distal to the distal edge of the distal radius. A full thickness capsulotomy was made. The wrist was flexed and the proximal carpal row was visualized. The scapholunate and lunatotriquetral intrinsic ligaments were incised. Care was taken throughout this procedure to avoid injury to the triangular fibrocartilage complex as well as to the volar wrist ligaments, especially the radioscaphocapitate ligament. The capsular attachments to the scaphoid were removed from the surface of the scaphoid with great care being taken to avoid injury to the radioscaphocapitate ligament. The scaphoid was removed in itsentirety. The lunate was next removed. The dorsal capsular attachments were removed from the lunate with blunt and sharp dissection and the lunate was removed from the wrist. The triquetrum was now removed. Using sharp and blunt dissection, the pisotriquetral ligaments and the dorsal capsular attachments were elevated from the triquetrum. There was no evidence of injury to the cartilage of the capitate or the lunate and both were found to be pristine. The site was now copiously irrigated. All loose fragments of bone with cartilage were removed from the wrist. The capitate was found to seat very nicely in the lunate facet and the wrist appeared to be very stable. The dorsal capsule was repaired using a 0 Vicryl suture. The fourth extensor compartment was repaired after all the tendons were placed beneath the retinaculum using 0 Vicryl sutures. The extensor pollicis longus tendon was left in an extra-retinacular position. Skin was closed in layers using 4-0 undyed Vicryl and 4-0 nylon. A sterile soft dressing was applied. The tourniquet was released with a tourniquet time of 66 minutes. All digits rapidly became pink and warm with brisk capillary refill. A palmar plaster splint was applied. The patient was then transferred to the recovery room in stable condition. Estimated blood loss wasnone. IV replacement was 650 mL of crystalloid. He tolerated the procedure well without apparent complications. Attestation: Case Date: 01/29/2015 I was present and I participated during the entire procedure (does not need to include opening and closing). Garcia Campos MD 01/29/2015 * Brief Op Note - Garcia Campos MD - 01/29/2015 10:29 AM EDT Brief Operative Note Patient Name: Chano Coker : [id number] MR#: [id number] Case Date: 01/29/2015 Surgeon: Surgeon(s) and Role: * Garcia Campos MD - Primary * Mando Ny MD - Resident Preoperative diagnosis: Right wrist arthritis Postoperative diagnosis: Right wrist arthritis Procedure(s): CARPECTOMY, ALL BONES OF PROXIMAL ROW Anesthesia: General, Regional Complications: none Fluids: 650cc crystalloid Estimated Blood Loss: * No values recorded between 01/29/2015 9:21 AM and 01/29/2015 10:29 AM * Drains: none Disposition: awakened from anesthesia, extubated and taken to the recovery room in a stable condition, having suffered no apparent untoward event. Condition: doing well without problems Attestation: Case Date: 01/29/2015 I was present and I participated during the entire procedure (does not need to include opening and closing). (Please see the Surgical Encounter Summary for any Implant and Specimen details pertinent to this patient.) documented in this encounter Plan of Treatment Pending Results Name Type Priority Associated Diagnoses Date /Time XR Fluoro OR c-arm storage only Imaging Routine 01/29/2015 10:20 AM EDT Scheduled Orders Name Type Priority Associated Diagnoses Orde r Schedule XR Fluoro OR c-arm storage only Imaging Routine Once PRN (for Ra diant use) for 1 Occurrences starting 01/29/2015 until 01/29/2015 documented as of this encounter Procedures Procedure Name Priority Date/Time Associated Diagnosis Comments CARPECTOMY, ALL BONES OF PROXIMAL ROW (WRVU 8.14) 01/29/2015 9:02 AM EDT Right wrist arthritis CARPECTOMY, ALL BONES OF PROXIMAL ROW Routine 01/29/2015 7:34 AM EDT documented in this encounter Visit Diagnoses Not on filedocumented in this encounter Administered Medications Inactive Administered Medications - up to 3 most recent administrations Medication Order MAR Action Action Date Dose Rate Site acetaminophen (TYLENOL) tablet 1,000 mg 1,000 mg, Oral, ONCE, 1 dose, On Sun01/29/15 at 0800, Maximum dose of acetaminophen is 4000 mg from all sources in 24 hours., Day of Surgery (Day of Procedure), Routine Given 01/29/2015 8:00 AM EDT 1,000 mg fentaNYL 50 mcg/mL multi-dose injection 50 mcg, Intravenous, EVERY 5 MIN PRN, Starting on Sun01/29/15 at 0737, Until Sun01/29/15 at 1212, Pain, or prior to injection of local anesthetic., Hold for respiratory rate less than 8 breaths per minute. (maximum dose 200 mcg), Day of Surgery (Day of Procedure), Routine Given 01/29/2015 11:05 AM EDT 37.5 mcg Given 01/29/2015 10:53 AM EDT 37.5 mcg gabapentin (NEURONTIN) capsule 600 mg 600 mg, Oral, ONCE, 1 dose, On Sun01/29/15 at 0800, Day of Surgery (Day of Procedure), Routine Given 01/29/2015 8:00 AM EDT 600 mg lactated ringers infusion 1,000 mL 1,000 mL, at 100 mL/hr, Intravenous, CONTINUOUS, Starting on Sun01/29/15 at 0800, Until Sun01/29/15 at 1212, Day of Surgery (Day of Procedure) New Bag 01/29/2015 8:00 AM EDT 1,000 mLs 100 mL/hr midazolam (PF) (VERSED) 1 mg/mL injection 1 mg 1 mg, Intravenous, EVERY 5 MIN PRN, Starting on Sun01/29/15 at 0737, Until Sun01/29/15 at 1212, Sleep, or prior to injection of local anesthetic, Hold for delirium/agitation. (Maximum dose 5 mg)., Day of Surgery (Day of Procedure), Routine Given 01/29/2015 8:52 AM EDT 1 mg Given 01/29/2015 8:50 AM EDT 1 mg Given 01/29/2015 8:45 AM EDT 1 mg oxyCODONE (ROXICODONE) immediate release tablet 10 mg 10 mg, Oral, EVERY 4 HOURS PRN, Starting on Sun01/29/15 at 0833, Until Sun01/29/15 at 1426, Pain, Routine Given 01/29/2015 11:30 AM EDT 5 mg documented in this encounter Active and Recently Administered Medications Times are shown in EDT. Scheduled Medication Order 01/27/2015 01/28/2015 01/29/2015 acetaminophen (TYLENOL) tablet 1,000 mg (COMPLETED) 1,000 mg, Oral, ONCE, 1 dose, On Sun01/29/15 at 0800, Maximum dose of acetaminophen is 4000 mg from all sources in 24 hours., Day of Surgery (Day of Procedure), Routine 0800 (Given - Provid er: Eleanor Martinez RN) ceFAZolin (ANCEF) 2,000 mg in dextrose 5% 106.06 mL (COMPLETED) 2,000 mg (2 g), Intravenous, EVERY 3 HOURS, 1 dose, First dose on Sun01/29/15 at 0800, Redose after 3 hours., Intra-Operative (Intra-Procedure), Indication for (Active or Suspected): Prophylaxis 910 (Given - Provid er: Amanda Combs CRNA) gabapentin (NEURONTIN) capsule 600 mg (COMPLETED) 600 mg, Oral, ONCE, 1 dose, On Sun01/29/15 at 0800, Day of Surgery (Day of Procedure), Routine 0800 (Given - Provid er: Eleanor Martinez RN) Continuous Medication Order 01/27/2015 01/28/2015 01/29/2015 lactated ringers infusion 1,000 mL (CANCELED) 1,000 mL, at 100 mL/hr, Intravenous, CONTINUOUS, Starting on Sun01/29/15 at 0800, Until Sun01/29/15 at 1212, Day of Surgery (Day of Procedure) 0800 (New Bag - Prov ider: Eleanor Martinez RN)0947 (Anesthesia Volume Adjustment - Provider: Amanda Combs CRNA)1034 (Anesthesia Volume Adjustment - Provider: Amanda Combs CRNA) PRN Medication Order 01/27/2015 01/28/2015 01/29/2015 fentaNYL 50 mcg/mL multi-dose injection (CANCELED) 50 mcg, Intravenous, EVERY 5 MIN PRN, Starting on Sun01/29/15 at 0737, Until Sun01/29/15 at 1212, Pain, or prior to injection of local anesthetic., Hold for respiratory rate less than 8 breaths per minute. (maximum dose 200 mcg), Day of Surgery (Day of Procedure), Routine 1053 (Given - Provid er: Eleanor Martinez RN)1105 (Given - Provider: Eleanor Martinez RN) midazolam (PF) (VERSED) 1 mg/mL injection 1 mg (CANCELED) 1 mg, Intravenous, EVERY 5 MIN PRN, Starting on Sun01/29/15 at 0737, Until Sun01/29/15 at 1212, Sleep, or prior to injection of local anesthetic, Hold for delirium/agitation. (Maximum dose 5 mg)., Day of Surgery (Day of Procedure), Routine 0845 (Given - Provid er: Eleanor Martinez RN)0850 (Given - Provider: Eleanor Martinez RN)0852 (Given - Provider: Eleanor Martinez RN) oxyCODONE (ROXICODONE) immediate release tablet 10 mg 10 mg, Oral, EVERY 4 HOURS PRN, Starting on Sun01/29/15 at 0833, Until Sun01/29/15 at 1426, Pain, Routine 1130 (Given - Provid er: Eleanor Martinez RN) documented in this encounter Care Teams Director Operations Relationship Specialty Start Date End Date Juliette Hamilton PA [address] [place] [address] PCP - General 12/21/14 05/25/20 documented as of this encounter
--- OUTSIDE RECORDS SUMMARY | 2024-10-06 17:20 | XMS_ITS | Encounter Summary ---
Author Organization [facility] Address [facility] [place] [address] Care Team Providers Care Equine Pharmacology Technician Name Role Phone Juliette Hamilton Primary Care Provider +1- [phone] Encounter Details Date Type Department Care Team (Latest Contact Info) Description 12/15/2015 2:05 PM EST - 12/15/2015 11:59 PM [facility] Hospital Encounter XRay at [address] [place] [address] Garcia Campos MD [facility] [place] [address] Bilateral wrist pain Discharge Disposition: Home Social History Tobacco Use [...] tablet Take 200 mg by mouth daily. fluticasone-salmeterol (ADVAIR) 100-50 mcg/dose Disk with Device Inhale 1 puff into the lungs every 12 hours. 04/26/2018 fluticasone (FLONASE) 50 mcg/actuation [place], Suspension 2 sprays by Each Nare route daily. 04/26/2018 cetirizine (ZYRTEC) 10 mg Tablet Take 10 mg by mouth daily. Reported on 03/12/2017 08/20/2023 fluticasone (FLOVENT) 220 mcg/actuation HFA Aerosol Inhaler Inhale 2 puffs into the lungs 2 times daily. Reported on 03/12/2017 04/26/2018 Atomoxetine (Strattera) 80 mg Capsule Take 1 capsule by mouth daily. 08/20/2023 sildenafiL (VIAGRA) 100 mg Tablet Take 100 mg by mouth as needed for Erectile Dysfunction. PRN 08/20/2023 documented as of this encounter Plan of Treatment Not on file documented as of this encounter Procedures Procedure Name Priority Date/Time Associated Diagnosis Comments XR WRIST BILAT MINIMUM 3 VIEWS Routine 12/15/2015 2:44 PM EST Bilateral wrist pain documented in this encounter Results * XR wrist bilateral minimum 3 views (12/15/2015 2:44 PM EST) Anatomical Region Laterality Modality Bilateral Digital Radiogra phy Narrative 12/15/2015 3:19 PM EST EXAMINATION: XR WRIST BILATERAL MINIMUM ??3 VIEWS CLINICAL HISTORY: BILATERAL WRIST PAIN TECHNIQUE: XR WRIST BILATERAL MINIMUM ??3 VIEWS COMPARISON: Right wrist: 05/17/2015. FINDINGS: Right wrist: The patient is status post resection of the proximal carpal row. No interval change in position or alignment. No fracture is seen. Again noted is the deformity of the first metacarpal head, presumably due to remote trauma and degenerative joint disease at the first carpal/metacarpal joint. Left wrist: There is mild widening of the space between the scaphoid and the lunate. Degenerative joint disease is present at the first carpal metacarpal joint and at the first MCP joint. Procedure Note Medardo Trent MD - 12/15/2015 EXAMINATION: XR WRIST BILATERAL MINIMUM 3 VIEWS CLINICAL HISTORY: BILATERAL WRIST PAIN TECHNIQUE: XR WRIST BILATERAL MINIMUM 3 VIEWS COMPARISON: Right wrist: 05/17/2015. FINDINGS: Right wrist: The patient is status post resection of theproximal carpal row. No interval change in position or alignment. No fracture isseen. Again noted is the deformity of the first metacarpal head, presumably dueto remote trauma and degenerative joint disease at the firstcarpal/metacarpal joint. Left wrist: There is mild widening of the space between the scaphoid andthe lunate. Degenerative joint disease is present at the first carpalmetacarpal joint and at the first MCP joint. Garcia Campos MD IMG DX ORDERABLES documented in this encounter Visit Diagnoses Diagnosis Bilateral wrist pain Pain in joint, forearm documented in this encounter Care Teams Equine Pharmacology Technician Relationship Specialty Start Date End Date Juliette Hamilton PA [address] [place] [address] PCP - General 12/21/14 05/25/20 documented as of this encounter
--- OUTSIDE RECORDS SUMMARY | 2024-10-06 17:20 | XMS_ITS | Encounter Summary ---
Author Organization [facility] [place] [address] Care Team Providers Care Heavy Equipment Rental Manager Name Role Phone Juliette Hamilton Primary Care Provider +1- [phone] Encounter Details Date Type Department Care Team (Late st Contact Info) Description 01/11/2015 Orders [place] [address] Garcia Campos MD [facility] DR ORTHOPAEDIC SURGERY [address] Pain in right wrist Social History Tobacco [...] in right wrist Pain in joint, forearm Pain in right wrist Pain in joint, forearm documented in this encounter Care Teams Heavy Equipment Rental Manager Relationship Specialty Start Date End Date Juliette Hamilton PA [address] [place] [address] PCP - General 12/21/14 05/25/20 documented as of this encounter
--- OUTSIDE RECORDS SUMMARY | 2024-10-06 17:20 | XMS_ITS | Encounter Summary ---
Author Organization [facility] [place] [address] Care Team Providers Care Senior Marketing Engineer Name Role Phone Juliette Hamilton Primary Care Provider +1- [phone] Encounter Details Date Type Department Care Team (Late st Contact Info) Description 12/28/2014 2:46 PM EDT [place] [id number] Marily Hooker, [facility] [place] [address] Primary osteoarthritis involving multiple joints Discharge Disposition: Home Social History Tobacco Use [...] as of this encounter Progress Notes * Marily Hooker DO - 12/29/2014 7:29 AM EDT MUSCULOSKELETAL ULTRASOUND REPORT EXAM: Right Hand Date of service: 12/29/2014 Indication for Exam: Right wrist swelling, subtle 2nd and 3rd MCP swelling, ?synovitis B-mode ultrasound is performed utilizing an 8-18 mHz linear probe. Static real- time views in longitudinal and transverse (short axis) orientation were obtained in this 54 y.o. male. Images are available on the Rheumatology USB Archive. Images of the 2nd and 3rd Metacarpo-phalangeal joints and 2nd and 3rd PIP joints demonstrate no cortical irregularity or destruction. Synovial fluid and/or hypertrophy are not noted at the joint margins. Osteophytes are present in all joints examined. Power doppler signal is absent is all joints examined. One dorsal longitudinal view of the right wrist also shows no synovitis. There appears to be a small cyst in the capitate. IMPRESSION: osteoarthritis of the hands and wrist. documented in this encounter Plan of Treatment Not on file documented as of this encounter Visit Diagnoses Diagnosis Primary osteoarthritis involving multiple joints documented in this encounter Care Teams Senior Marketing Engineer Relationship Specialty Start Date End Date Juliette Hamilton PA [address] [place] [address] PCP - General 12/21/14 05/25/20 documented as of this encounter
--- OUTSIDE RECORDS SUMMARY | 2024-10-06 17:20 | XMS_ITS | Encounter Summary ---
Author Organization [facility] [place] [address] Care Team Providers Care National Account Representative Name Role Phone Juliette Hamilton Primary Care Provider +1- [phone] Encounter Details Date Type Department Care Team (Latest Contact Info) Description 01/29/2015 7:20 AM EDT - 01/29/2015 12:10 PM EDT Hospital Encounter [place] [address] Garcia Campos MD [facility] [place] [address] Discharge Disposition: Home Social History Tobacco Use [...] encounter Discharge Instructions * Discharge Instructions* Eleanor Martinez, RN - 01/29/2015 9:16 AM EDT What [...] after hours and ask for the anesthesiologist conveyor line battery charger. Moderate Sedation You may have received medication [...] 5pm or on a weekend: Call the [facility] foil operator and ask for the physician conveyor line battery charger covering for your doctor. * Patient Instructions* [...] During clinic hours M-F 8-4:30 please call [phone] If it is after 5:00PM on a weekday or a weekend and it is of an urgent nature please call [phone] and ask for the on-call orthopaedic resident. [...] 0 01/29/2015 02/10/2015 fluticasone (FLONASE) 50 mcg/actuation [place], Suspension 2 sprays by Each Nare route [...] documented in this encounter H&P Notes * Mnado Ny MD - 01/29/2015 8:24 AM EDT [...] Campos MD - 01/29/2015 10:30 AM EDT [facility] Operative Note Patient Name: Chano Coker : [id number] MR#: [id number] Case Date: 01/29/2015 Surgeon: Surgeon(s) and Role: [...] A preoperative timeout was performed as per [facility] protocol. The patient's right arm was then [...] Operative Note Patient Name: Chano Coker : [id number] MR#: [id number] Case Date: 01/29/2015 Surgeon: Surgeon(s) and Role: [...] (Intra-Procedure), Indication for (Active or Suspected): Prophylaxis 0911 (Given - Provid er: Amanda Combs CRNA) [...] RN) documented in this encounter Care Teams National Account Representative Relationship Specialty Start Date End Date Juliette Hamilton PA [address] [place] [address] PCP - General 12/21/14 05/25/20 documented as of this encounter
--- OUTSIDE RECORDS SUMMARY | 2024-10-06 17:20 | XMS_ITS | Encounter Summary ---
Author Organization [facility] [place] [address] Care Team Providers Care Implementation Project Coordinator Name Role Phone Juliette Hamilton Primary Care Provider +1- [phone] Reason for Visit * Reason Comments Referral Encounter Details Date Type Department Care Team (Late st Contact Info) Description 12/28/2014 2:45 PM EDT Office [place] [address] Barber Lynch MD [facility] [place] [address] Pain in right wrist; Rheumatoid arthritis(254.0); Insomnia, unspecified Discharge Disposition: Home Social History Tobacco Use [...] Sign Reading Time Taken Comments Blood Pressure 146/81 12/28/2014 2:37 PM EDT Pulse 73 12/28/2014 2:37 PM EDT Temperature 36.7 ??C (98 ??F) 12/28/2014 2:37 PM EDT Respiratory Rate - - Oxygen Saturation 94% 12/28/2014 2:37 PM EDT Inhaled Oxygen Concentration - - Weight 113.9 kg (251 lb) 12/28/2014 2:37 PM EDT Height 177.8 cm (5' 10) 12/28/2014 2:37 PM EDT Body Mass Index 36.01 12/28/2014 2:37 PM EDT documented in this encounter Progress Notes * Barber Lynch MD - 12/28/2014 2:51 PM EDT Chief Complaint: Please make most of my joints better! 54 yo man who reports the development of right wrist pain about 4-5 years ago and was seeing Dr. Hilliard for injections every 3 months with benefit until 2013, last was in early 2014 without benefit. Was scheduled for a fusion by Dr. Hilliard, then got a second opinion from Dr. Campos who was concerned that he may have untreated rheumatoid arthritis. Right ankle and left big toe for the past 2 months. Soreness without swelling. No am stiffness. Left wrist aching has been going on for some time but not wearing splint but has lost strength in left wrist. Review of Systems Constitutional: No fevers, chills, malaise. Skin: no rashes HEENT: + sicca sx, change in hearing, taste sinus pain, RODRIGUEZ, change in taste. Respiratory: no chest pain, shortness of breath+ using Flovent CV: no CROWDER, angina sx, claudication Back: No sciatica, pain with standing GI: no abd pain, normal bowel movements : no dysuria, normal voiding, no nocturia Neuro: no focal deficit Patient Active Problem List Diagnosis Code ??? SHANI on CPAP 327.23 ??? Insufficient sleep syndrome 307.44 ??? Insomnia 780.52 ??? Depression 311 ??? Osteoarthritis of right wrist 715.93 Chronic low back Sees chiropracter no sciatica Attention Deficit/Depression: On Strattera On Flovent/Flonase Social History: Currently lives in [place] where he works at [employer]. Makes [employer] with kids from first . No smoke, occasional nights. Stopped smoking 25 years ago ~20years, driving. Family History: Kids healthy, sister is 62 and healthy, brother 63 had some hand and knee osteoarthritis. Mother had RA Physical Examination: General-very pleasant obese male who is alert and in no apparent distress at rest. Blood pressure 146/81, pulse 73, temperature 36.7 ??C (98 ??F), temperature source Oral, height 177.8 cm (5' 10), weight 113.853 kg (251 lb), SpO2 94 %. Skin-No clubbing, cyanosis, rubor, edema, rash, tophi, nodules HEENT: No temporal artery, sinus or TMJ tenderness. Mucus membranes moist, normal salivary pooling without lesions.Normal parotid, submental and submandibular nodes Neck-Supple no bruits Chest: clear to auscultation, good air movement without wheezes Cor: RR no M,G,R Abd: Normal BS, non tender no masses. Back: No tenderness to punch, normal SLR Ext: Extremities warm w// normal pulses Musculoskeletal: Trigger points not present. Shoulders: FROM, no AC/subacromial tenderness. Elbows: Full motion, no joint or epicondylar swelling or tenderness. Wrists: Right: Dorsal swelling and mild tenderness with decreased range of motion 60/60 degrees of flexion and extension Left: Dorsal swelling and mild tenderness with full motion Hands + tenderness over 2nd and 3rd MCP joints bilaterally, trace swelling. Normal fisher mussel and claw. Hips: Full motion, no trochanteric tenderness Knees: Full motion, no swelling, no popliteal or joint line tenderness. No patellar tenderness or crepitance. Ankles: No warmth, swelling, normal motion. No Achilles or plantar fascia tenderness. Feet: No deformity. Normal MTPJs no compression tenderness. Neuro: No focal weakness, normal sensation, including JPS. Romberg normal Tandem gait normal Outside Labs [facility]: ESR 9, Uric acid 5.4, RF/CCP pending, subsequently both negative as was AFUA Assessment: This is not the presentation of rheumatoid arthritis. There is some trace swelling and tenderness in the MCPs, but the motion is completely normal in his hands and his feet are spared. Gout seems unlikely as well by history as well as with a normal Uric Acid. I think OA is more likely or some atypical process going on in his wrists and the best strategy is to try to get an ultrasound to define this. Plan 1. Reassure 2. Obtain Ultrasound to confirm the absence of Doppler signal in MCPs and wrists. 3. Letter to PCP and Dr. Campos when ultrasound completed. 4. Mention to Dr. Hart the sleep disturbance reported by the patient (staying asleep) Level 5 consultation Barber Lynch M.D. Addendum: Ultrasound of right hand and wrist show no synovitis at either site. Osteophytes were seen e.g. Consistent with this being OA. documented in this encounter Plan of Treatment Not on file documented as of this encounter Visit Diagnoses Diagnosis Pain in right wrist Pain in joint, forearm Rheumatoid arthritis(714.0) Rheumatoid arthritis Insomnia, unspecified documented in this encounter Care Teams Implementation Project Coordinator Relationship Specialty Start Date End Date Juliette Hamilton PA [address] [place] [address] PCP - General 12/21/14 05/25/20 documented as of this encounter
--- OUTSIDE RECORDS SUMMARY | 2024-10-06 17:20 | XMS_ITS | Encounter Summary ---
Author Organization [facility] [place] [address] Care Team Providers Care Plunger Shovel Operator Name Role Phone Juliette Hamilton Primary Care Provider +1- [phone] Encounter Details Date Type Department Care Team (Late st Contact Info) Description 01/11/2015 External Results [place] [id number] Social History Tobacco Use Types Packs/Day Years [...] Procedure Name Priority Date/Time Associated Diagnosis Comments EKG 12-LEAD Routine 01/11/2015 documented in this encounter Results * EKG 12 Lead (01/11/2015) Historical Provider ECG ORDERABLES documented in this encounter Visit Diagnoses Not on filedocumented in this encounter Care Teams Plunger Shovel Operator Relationship Specialty Start Date End Date Juliette Hamilton PA [address] [place] [address] PCP - General 12/21/14 05/25/20 documented as of this encounter
--- OUTSIDE RECORDS SUMMARY | 2024-10-06 17:20 | XMS_ITS | Encounter Summary ---
Author Organization [facility] Address [facility] [place] [address] Care Team Providers Care Senior Information Security Architect Name Role Phone Juliette Hamilton Primary Care Provider +1- [phone] Encounter Details Date Type Department Care Team (Latest Contact Info) Description 03/10/2015 9:23 AM EDT - 03/10/2015 11:59 PM EDT Hospital Encounter XRay at [address] [place] [address] Post-traumatic osteoarthritis of right wrist Social History Tobacco Use Types [...] by mouth daily. fluticasone (FLONASE) 50 mcg/actuation [place], Suspension 2 sprays by Each Nare route [...] XR WRIST COMPLETE MINIMUM 3 VIEWS Routine 03/10/2015 9:34 AM EDT Post-traumatic osteoarthritis of right wrist documented in this encounter Results * XR wrist complete minimum 3 views (03/10/2015 9:34 AM EDT) Anatomical Region Laterality Modality N/A Radiographic Ethel ging 03/10/2015 9:34 AM EDT Impressions 03/10/2015 3:11 PM EDT IMPRESSION: 1. ??Status post proximal row carpectomy without radiographic location. 2. ??Unchanged posttraumatic osteoarthritis as above. This report was reviewed by Iveth Gardiner at 03/10/2015 3:06 PM Film and interpretation reviewed by the attending Narrative 03/10/2015 3:11 PM EDT EXAMINATION: WRIST COMPLETE MINIMUM 3 VIEWS/RIGHT CLINICAL HISTORY: Right proximal row carpectomy TECHNIQUE: PA, oblique, and lateral views of the right wrist. COMPARISON: 12/21/2014, and 02/10/2015. FINDINGS: Patient status post proximal row carpectomy. The capitate is again noted to articulate with the lunate facet. Soft tissue swelling is noted about the wrist. No acute complication identified. Unchanged subchondral sclerosis and marginal osteophytes at the first carpometacarpal joint and first metacarpophalangeal joint. Procedure Note Iveth Gardiner MD - 03/10/2015 EXAMINATION: WRIST COMPLETE MINIMUM 3 VIEWS/RIGHT CLINICAL HISTORY: Right proximal row carpectomy TECHNIQUE: PA, oblique, and lateral views of the right wrist. COMPARISON: 12/21/2014, and 02/10/2015. FINDINGS: Patient status post proximal row carpectomy. The capitate is again notedto articulate with the lunate facet. Soft tissue swelling is noted about thewrist. No acute complication identified. Unchanged subchondral sclerosis andmarginal osteophytes at the first carpometacarpal joint and firstmetacarpophalangeal joint. IMPRESSION IMPRESSION: 1. Status post proximal row carpectomy without radiographic location. 2. Unchanged posttraumatic osteoarthritis as above. 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
--- OUTSIDE RECORDS SUMMARY | 2024-10-06 17:20 | XMS_ITS | Encounter Summary ---
Author Organization [facility] [place] [address] Care Team Providers Care Funeral Prearrangement Counselor Name Role Phone Juliette Hamilton Primary Care Provider +1- [phone] Reason for Visit * Reason Comments Follow Up Surgery sp proximal row carp ectomy, right wrist dos 01/29/15 Encounter Details Date Type Department Care Team (Latest Contact Info) Description 05/17/2015 1:50 PM EDT [place] [address] Garcia Campos MD [facility] [place] [address] Primary osteoarthritis of left wrist; Osteoarthritis of right wrist, unspecified osteoarthritis type Discharge Disposition: Home Social History Tobacco Use [...] Sign Reading Time Taken Comments Blood Pressure 145/79 05/17/2015 1:17 PM EDT Pulse 69 05/17/2015 1:17 PM EDT Temperature - - Respiratory Rate - - Oxygen Saturation - - Inhaled Oxygen Concentration - - Weight 113.4 kg (250 lb) 05/17/2015 1:17 PM EDT stated Height 180.3 cm (5' 11) 05/17/2015 1:17 PM EDT stated Body Mass Index 34.87 05/17/2015 1:17 PM EDT documented in this encounter Progress Notes * Garcia Campos MD - 05/17/2015 1:30 PM EDT Chano Coker is three and half months following a proximal row carpectomy of his right wrist. Overall, he has zero pain and he is happy with his outcome. His flexion is to about 25 or 30 degrees, extension is to about 10 degrees. His wrist is stable. X-rays were done today and show his right wrist to be well aligned. He may use his right hand and progress his level of activity as tolerated. He will call us for a release to full duty once he feels as though he is capable of doing so. He will follow up with me in a year with an x-ray for this. With regard to his left wrist, he is having some similar pain. He has not had x- rays of this done recently. He will return to see me in a year also with x-rays of his left wrist to evaluate for any progression of degeneration of this wrist. I will be happy to seen him sooner if needed. documented in this encounter Plan of Treatment Not on file documented as of this encounter Visit Diagnoses Diagnosis Primary osteoarthritis of left wrist Primary localized osteoarthrosis, forearm Osteoarthritis of right wrist, unspecified osteoarthritis type documented in this encounter Care Teams Funeral Prearrangement Counselor Relationship Specialty Start Date End Date Juliette Hamilton PA [address] [place] [address] PCP - General 12/21/14 05/25/20 documented as of this encounter
--- OUTSIDE RECORDS SUMMARY | 2024-10-06 17:20 | XMS_ITS | Encounter Summary ---
Author Organization [facility] Address [facility] [place] [address] Care Team Providers Care Community Leader Name Role Phone Juliette Hamilton Primary Care Provider +1- [phone] Encounter Details Date Type Department Care Team (Latest Contact Info) Description 05/17/2015 12:57 PM EDT - 05/17/2015 11:59 PM EDT Hospital Encounter XRay at [address] [place] [address] Post-traumatic osteoarthritis of right wrist Social History [...] by mouth daily. fluticasone (FLONASE) 50 mcg/actuation [place], Suspension 2 sprays by Each Nare route [...] XR WRIST COMPLETE MINIMUM 3 VIEWS Routine 05/17/2015 1:07 PM EDT Post-traumatic osteoarthritis of right wrist documented [...] forearm documented in this encounter Care Teams Community Leader Relationship Specialty Start Date End Date Juliette Hamilton PA [address] [place] [address] PCP - General 12/21/14 05/25/20 documented as of this encounter
--- OUTSIDE RECORDS SUMMARY | 2024-10-06 17:20 | XMS_ITS | Encounter Summary ---
Author Organization [facility] [place] [address] Care Team Providers Care Amusement Ride Operator Name Role Phone Juliette Hamilton Primary Care Provider [phone]- [phone] Encounter Details Date Type Department Care Team (Late st Contact Info) Description 01/29/2015 9:01 AM EDT Anesthesia Event [facility] [place] [address] Allyson Vital MD [facility] DR [place] [address] Yoan Ochoa MD Anesthesia Record Procedure Summary Procedure Name Responsible Anesthesiologist Anesthesia Start Time Anesthesia Stop Time CARPECTOMY, ALL BONES OF PROXIMAL ROW (WRVU 8.14) (Right: Wrist) Allyson Vital MD 01/29/15 0901 01/29/15 1036 Events Date Time Event Comment 01/29/2015 0857 0900 AN Verify 0901 Start 0905 An Start Data 0907 An Induction 0909 An Intubation 0911 Anesthesia Ready 0917 An Tourn Inflated 1027 An Tourn Deflated 1032 Extubation/LMA Out 1032 an stop data 1036 Stop 1036 Handoff Anesthesia care was transferred after review of the patient's history, current anesthetic/surgical status and plan, according to the Provider Handoff Checklist. Meds Name Total IV Lidocaine 50 mg Propofol 325 mg Ondansetron 4 mg Dexamethasone 8 mg Ketorolac 30 mg ceFAZolin (ANCEF) 2,000 mg in dextrose 5 % 106.06 mL 2 g Propofol INF 635.04 mg lactated ringers infusion 1,000 mL 650 m L * Agents Name O2 Air N2O Sevoflurane (et) * Blood No blood administrations on file. Lines, Drains, and Airways Type Details Placement Removal Supraglottic Oral Airway: 100 mm (5) 01/29/15 1032 by Amanda Combs CRNA Incision 01/29/15; wrist; 06/05/22 (LDA cleanup utility RA#[id number]); 1715 (LDA cleanup utility RA#[id number]) 01/29/15 0000 by Tanner Thrasher RN 06/05/22 1715 by Janet Andres (RETIRED) Peripheral IV Line - Single Lumen 01/29/15; 0755; metacarpal vein left (top of hand); [id number] catheter system; 20 gauge, 1 in length; 01/29/15; 1200 01/29/15 0755 by Eleanor Martinez APRN 01/29/15 1200 by Eleanor Martinez APRN Supraglottic Mask Ventilation: Adjunct (2); LMA Type: iGel; LMA Size: 5; Inserted by: Lauryn ARREGUIN; Removal Date: 01/29/15; Removal Time: 1032 01/29/15 0909 by Amanda Combs CRNA 01/29/15 1032 by Amanda Combs CRNA NG/OG Tube orogastric; 12 Fr; v ia LMA port; 01/29/15; 1014 01/29/15 0928 by 01/29/15 1014 by Amanda Combs CRNA documented in this encounter Social History Tobacco [...] OR Notes * Anesthesia Postprocedure Evaluation - Allyson Vital MD - 01/29/2015 11:04 AM EDT Patient: Chano Coker Procedure(s) Performed: Procedure(s): CARPECTOMY, ALL BONES OF PROXIMAL ROW Actual Anesthetic: general, regional Patient location: PACU Post-op pain: Adequate analgesia Post-op nausea: no nausea or vomiting Last Vitals: Filed Vitals: 01/29/15 1041 BP: 170/74 Pulse: 60 Temp: 36.1 ??C (97 ??F) Resp: 18 Post-op cardiovascular and respiratory status: is stable Level of consciousness: awake, alert and oriented Complications: no apparent complications and tolerated the procedure well Fluid Status: normal * Anesthesia Procedure Notes - Christina De Leon MD - 01/29/2015 9:03 AM EDT Associated Order(s): ANESTHESIA BLOCK Procedure: Anesthesia Block Block: Post-op Pain Control, supraclavicular nerve block Post-op pain management at the request of surgeon. Start time: 01/29/2015 8:45 AM End time: 01/29/2015 8:55 AM This patient was greeted in the block room and the risks and benefits of the anesthetic block were reviewed. The risks of infection, bleeding, local anesthetic toxicity, and nerve injury were discussed. Specifically, the approximate risk of nerve injury (10/2999-10/4999) including neuropathy, loss of sensation and motor function, whether permanent or temporary, was discussed as well as the fact that post-surgical nerve injury can be unrelated to the actual injection and may be related to intra-operative issues such as positioning and tourniquet usage. The sedation plan, its benefits, risks and alternatives were discussed with the patient. The patient has consented to the procedure. The timeout was performed prior to procedure start. Standard ASA monitors were applied. Indication/Prep Position: supine Prep: chlorhexidine, patient draped Laterality: right Ultrasound Guidance: live and in-plane Skin Medication lidocaine 1% 5 ml Injection Injection technique:single-shot Needle Length: 5 cm Gauge: 22 Needle Type: [id number]-[id number] Medication injection made incrementally with aspirations. Nerve infiltration solution through a needle Ropivicaine 0.5% 25 mL Additional Notes Area prepped and draped in usual sterile fashion. Prep allowed to dry completely. Total of 25 ml of0.5% Ropivacaine injected with negative aspirations throughout. Patient tolerated the procedure well. Hemodynamically stable throughout. There were no complications. Resident: Fellow: Haley SALOMON Attending Physician: Amanuel SALOMON ~~~~~~~~~~~~~~~~~~~~~~~~~~~~~~~~~~~~~~~~~~~~~~~~~~~~~~~~~~~~ * Anesthesia Preprocedure Evaluation - Allyson Vital MD - 01/28/2015 3:28 PM EDT Pre-Anesthesia Evaluation for: Chano Coker a 54 y.o. male. Procedure(s): CARPECTOMY, ALL BONES OF PROXIMAL ROW ARTHRODESIS, WRIST, LTD W/ AUTOGRAFT CARPECTOMY, ONE BONE Patient Active Problem List Diagnosis ??? Osteoarthritis of left wrist ??? Osteoarthritis of right wrist ??? Insufficient sleep syndrome 7 hours per night perhaps ??? Insomnia was Ambien CR previously but didn't work, now on lunesta which is working ??? Depression Controlled on Prozac previously ??? SHANI on CPAP Severe (AHI 75) on split study 02/12/09 placed on CPAP 16 originally but reduced to 14. Seen in f/u 07/2010 and continued to have insufficient sleep (7 hours) but symptoms improved as on dextroamphetamine. Past Medical History Diagnosis Date ??? SHANI on CPAP 05/16/2009 ??? Insufficient sleep syndrome 07/31/2011 ??? Insomnia 07/31/2011 ??? Depression 07/31/2011 No past surgical history on file. History Substance Use Topics ??? Smoking status: Former Smoker Quit date: 12/22/1987 ??? Smokeless tobacco: Never Used ??? Alcohol Use: Yes Comment: rarely History Drug Use No Allergies Allergen Reactions ? ? Dust & Pollen Filter Mask [Facial Mask] Medications: MAR and/or home medications have been reviewed. Physical Exam: There were no vitals filed for this visit. There is no weight on file to calculate BMI. Airway Assessment: Mallampati: II TM distance: >3 FB Neck ROM: full No prior intubation history on file. Cardiovascular Assessment: Rhythm: regular Rate: normal PE comment: EKG 01/11/15: SB (54), otherwise normal. Pulmonary Assessment: breath sounds clear to auscultation Dental Assessment: - normal exam Mis Assessment: IV access: Peripheral line Anesthesia Plan: ASA 3 general and regional, with a(n) intravenous induction 113kg 54M with PMH per above significant for SHANI on CPAP (compliant), depression (on lamictal), on viagra with most recent use last night, and obesity with RIGHT wrist arthritis to OR on 01/29/15 for RIGHT wrist carpectomy of all bones of proximal row and arthrodesis with autograft. All: NKDA Labs: No labs on file. NPO status: Appropriately NPO Code status: Full code Anesthesia plan: Pre-operative supraclavicular block for post-operative analgesia, MAC vs GA with LMA vs GETA, standard ASA monitors. Christina De Leon MD Regional Anesthesia Fellow [id number] Region - Other Informed Consent: Anesthetic plan and risks discussed with patient and spouse. Plan discussed with COGNOS DEVELOPER and attending. [facility]. Assessment: documented in this encounter Plan of Treatment Not on file documented as of this encounter Procedures Procedure Name Priority Date/Time Associated Diagnosis Comments ANESTHESIA BLOCK Routine 01/29/2015 9:04 AM EDT documented in this encounter Results * Anesthesia Block (01/29/2015 9:04 AM EDT) Narrative Christina De Leon MD - 01/29/2015 9:04 AM EDT Christina De Leon MD ? 01/29/2015 ??9:04 AM Procedure: ??Anesthesia Block Block: Post-op Pain Control, supraclavicular nerve block Post-op pain management at the request of surgeon. Start time: 01/29/2015 8:45 AM End time: 01/29/2015 8:55 AM This patient was greeted in the block room and the risks and benefits of the anesthetic block were reviewed. ??The risks of infection, bleeding, local anesthetic toxicity, and nerve injury were discussed. ??Specifically, the approximate risk of nerve injury (10/2999-10/4999) including neuropathy, loss of sensation and motor function, whether permanent or temporary, was discussed as well as the fact that post-surgical nerve injury can be unrelated to the actual injection and may be related to intra-operative issues such as positioning and tourniquet usage. ?? The sedation plan, its benefits, risks and alternatives were discussed with the patient. ??The patient has consented to the procedure. ??The timeout was performed prior to procedure start. ?? Standard ASA monitors were applied. Indication/Prep Position: supine Prep: chlorhexidine, patient draped Laterality: right Ultrasound Guidance: live and in-plane Skin Medication lidocaine 1% 5 ml Injection Injection technique:single-shot Needle Length: 5 cm Gauge: 22 Needle Type: S-dbfrr-efyuo Medication injection made incrementally with aspirations. Nerve infiltration solution through a needle Ropivicaine 0.5% 25 mL Additional Notes Area prepped and draped in usual sterile fashion. Prep allowed to dry completely. Total of 25 ml of 0.5% Ropivacaine injected with negative aspirations throughout. Patient tolerated the procedure well. Hemodynamically stable throughout. There were no complications. Resident: Fellow: Haley SALOMON Attending Physician: ??Amanuel SALOMON ~~~~~~~~~~~~~~~~~~~~~~~~~~~~~~~~~~~~~~~~~~~~~~~~~~~~~~~~~~~~ Christina De Leon MD [facility] documented in this encounter Visit Diagnoses Not on filedocumented in this encounter Administered Medications Inactive Administered Medications - up to 3 most recent administrations Medication Order MAR Action Action Date Dose Rate Site ceFAZolin (ANCEF) 2,000 mg in dextrose 5% 106.06 mL 2,000 mg (2 g), Intravenous, EVERY 3 HOURS, 1 dose, First dose on Sun01/29/15 at 0800, Redose after 3 hours., Intra-Operative (Intra-Procedure), Indication for (Active or Suspected): Prophylaxis Given 01/29/2015 9:11 AM EDT 2 g dexamethasone (DECADRON) injection PRN, Starting on Sun01/29/15 at 0908, Until Sun01/29/15 at 1036, Anesthesia Intra-op, Routine Given 01/29/2015 9:08 AM EDT 8 mg ketorolac (TORADOL) injection PRN, Starting on Sun01/29/15 at 1036, Until Sun01/29/15 at 1105, Pain, Anesthesia Intra-op, Routine Given 01/29/2015 10:36 AM EDT 30 mg lidocaine (PF) (XYLOCAINE) 100 mg/5 mL (2 %) injection PRN, Starting on Sun01/29/15 at 0907, Until Sun01/29/15 at 1036, Anesthesia Intra-op, Routine Given 01/29/2015 9:07 AM EDT 50 mg ondansetron (ZOFRAN) injection PRN, Starting on Sun01/29/15 at 1012, Until Sun01/29/15 at 1036, Nausea, Anesthesia Intra-op, Routine Given 01/29/2015 10:12 AM EDT 4 mg propofol (DIPRIVAN) 10 mg/mL bolus injection (Anesthesia) PRN, Starting on Sun01/29/15 at 0907, Until Sun01/29/15 at 1036, Anesthesia Intra-op Given 01/29/2015 9:08 AM EDT 25 mg Given 01/29/2015 9:07 AM EDT 300 mg propofol (DIPRIVAN) infusion CONTINUOUS PRN, Starting on Sun01/29/15 at 0921, Until Sun01/29/15 at 1036, Anesthesia Intra-op, Routine New Bag 01/29/2015 9:21 AM EDT 100 mcg/kg/m in 68 mL/hr documented in this encounter Care Teams Amusement Ride Operator Relationship Specialty Start Date End Date Juliette Hamilton PA [address] [place] [address] PCP - General 12/21/14 05/25/20 documented as of this encounter
--- OUTSIDE RECORDS SUMMARY | 2024-10-06 17:20 | XMS_ITS | Encounter Summary ---
Author Organization [facility] [place] [address] Care Team Providers Care Wall Washer Name Role Phone Juliette Hamilton Primary Care Provider [phone]- [phone] Encounter Details Date Type Department Care Team (Late st Contact Info) Description 01/05/2015 Orders Only [place] [address] Garcia Campos MD [facility] [place] [address] Primary osteoarthritis of left wrist Social History [...] Type Priority Associated Diagnoses Orde r Schedule CARPECTOMY, ALL BONES OF PROXIMAL ROW Procedures Routine One Time for 1 Occurrences starting 01/05/2015 until 01/05/2015 documented as of this encounter Visit Diagnoses Diagnosis Primary osteoarthritis of left wrist Primary localized osteoarthrosis, forearm documented in this encounter Care Teams Wall Washer Relationship Specialty Start Date End Date Juliette Hamilton PA [address] [place] [address] PCP - General 12/21/14 05/25/20 documented as of this encounter
--- OUTSIDE RECORDS SUMMARY | 2024-10-06 17:20 | XMS_ITS | Encounter Summary ---
Author Organization [facility] [place] [address] Care Team Providers Care Ground Control Approach Technician Name Role Phone Juliette Hamilton Primary Care Provider [phone]- [phone] Reason for Referral * Occupational Therapy (Routine) - Closed Specialty Diagnoses / Procedures Referred By Contac t Referred To Contact Occupational Therapy Diagnoses Post-traumatic osteoarthritis of right wrist Garcia Campos MD [facility] [place] [address] [facility] [address] Referral ID Status Reason Start Date Expiration Date V isits Requested Visits Authorized [id number] Closed Evaluate and Treat 02/10/2015 02/10/2016 12 12 Reason for Visit * Reason Comments Follow Up Surgery sp proximal row carp ectomy, right wrist dos 01/29/15 Encounter Details Date Type Department Care Team (Latest Contact Info) Description 02/10/2015 1:15 PM EDT Office Visit [place] [address] Garcia Campos MD [facility] [place] [address] Post-traumatic osteoarthritis of right wrist Discharge Disposition: [...] Sign Reading Time Taken Comments Blood Pressure 132/85 02/10/2015 12:52 PM EDT Pulse 66 02/10/2015 12:52 PM EDT Temperature - - Respiratory Rate - - Oxygen Saturation - - Inhaled Oxygen Concentration - - Weight 113.4 kg (250 lb) 02/10/2015 12:52 PM EDT stated Height 177.8 cm (5' 10) 02/10/2015 12:52 PM EDT stated Body Mass Index 35.87 02/10/2015 12:52 PM EDT documented in this encounter Progress Notes * Garcia Campos MD - 02/10/2015 1:11 PM EDT Chano Coker presents following right proximal row carpectomy done just under two weeks ago. He has had absolutely no pain since surgery and he is very happy with the results so far. His right hand is sensate, and it is well perfused. His hand is modestly swollen. He has excellent digital mobility. His incision is healing in a benign fashion. Sutures were removed and Steri-Strips were applied. He will be seen by our hand therapist today for a cock-up splint and he will begin protective range of motion. I will see him back in a month with the new x-ray. X-rays of his wrist were done today and show excellent carpal alignment without any residual or retained bone fragments. documented in this encounter Plan of Treatment Scheduled Referrals Name Type Priority Associated Diagnoses Orde r Schedule Referral to Occupational Therapy Outpatient Referral Routine Post-traumatic osteoarthritis of right wrist Ordered: 02/10/2015 documented as of this encounter Results * [...] forearm documented in this encounter Care Teams Ground Control Approach Technician Relationship Specialty Start Date End Date Juliette Hamilton PA [address] [place] [address] PCP - General 12/21/14 05/25/20 documented as of this encounter
--- OUTSIDE RECORDS SUMMARY | 2024-10-06 17:20 | XMS_ITS | Encounter Summary ---
Author Organization [facility] [place] [address] Care Team Providers Care Television Receiver Analyzer Name Role Phone Gay Serrano MD Primary Care Provider [phone] Reason for Visit * Reason Comments Obstructive Sleep Apnea Encounter Details Date Type Department Care Team (Late st Contact Info) Description 08/01/2011 1:35 PM EDT [place] [address] Jose Gracia MD SHANI (obstructive sleep apnea) (Primary Dx); Insomnia; SHANI on CPAP Social History Tobacco Use Types Packs/Day Years Used Date Smoking Tobacco: Former Sex and Gender Information Value Date Recorded Sex Assigned at Not on file Gender Identity Not on file Sexual Orientation Not on file documented as of this encounter Last Filed Vital Signs Vital Sign Reading Time Taken Comments Blood Pressure 136/78 08/01/2011 2:14 PM EDT Pulse 67 08/01/2011 2:14 PM EDT Temperature - - Respiratory Rate - - Oxygen Saturation - - Inhaled Oxygen Concentration - - Weight 100.2 kg (221 lb) 08/01/2011 2:14 PM EDT Height 176.5 cm (5' 9.5) 08/01/2011 2:14 PM EDT Body Mass Index 32.17 08/01/2011 2:14 PM EDT documented in this encounter Progress Notes * Fior Du MD - 08/07/2011 9:21 PM EDT I evaluated this Mr. Chano Coker with Dr. Gracia and performed mcconnell aspects of the history andexamination. I actively participated in the formulation of the management strategy. I have reviewedDr. Barkham's note and agree with the assessment and recommendations. FIOR DU MD * Jose Gracia MD - 08/01/2011 2:20 PM EDT Sleep Medicine Follow-Up Note HPI: Chano Coker is a 50 y.o. male seen for follow-up of obstructive sleep apnea. Severe (AHI 75) on split study 02/12/09 placed on CPAP 16 originally but reduced to 14. Seen in f/u 07/2010 and continued to have insufficient sleep (7 hours) but symptoms improved as on dextroamphetamine. -the patient recently got a new mask about 2 weeks now, nasal pillow, has leak, may not be large enough. Patient continues to have EDS, has a couple good weeks the a couple off weeks. 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 SHANI on CPAP 05/16/2009 ??? Insufficient sleep syndrome 07/31/2011 ??? Insomnia 07/31/2011 ??? Depression 07/31/2011 PE:Filed Vitals: 08/01/11 1414 BP: 136/78 Pulse: 67 Body mass index is 32.17 kg/(m^2). General: pleasant 50 y.o. male, no distress Psyche: affect appropriate Lungs: normal effort PAP compliance card reviewed: Dates:02/02/2011 to 07/31/2011 Pressure: 14 % days used: 100 Average usage on days used: 6 hours and 43 minutes % Night s used 4 or more hours : 98.9 Average residual AHI: 3.9 Leak: 16 minutes and 23 seconds Assessment: Chano Coker is a 50 y.o. male with hx of SHANI and insufficient sleep seen in follow-up for obstructive sleep apnea. He has done well with compliance, though subjectively not perfect. He continuesto use Rx stimulants but we did not have sufficient time to discuss this further. I discussed with him that perhaps he would not have insomnia if he werent napping during the day, and that overall he may have insufficient sleep. He agreed with this thought, but pointed out that if he doesn't keep this schedule he doesn't get to see his (gets home at 5 PM), and that there is no room for compromise with this. I doubt that any residual sleepiness is from untreated SHANI, and more likely is explained by insufficient sleep. Additionally he may have some shift work sleep problems and insomnia caused by reduction of sleep pressure from the nap in the afternoon. Depression and medications may also be contributing, however it is not clear to what extent as he reports his depression is under control. Recommendations -extend sleep time to at least 8 hours -avoid napping if possible -driving safety discussed, if drowsy dont drive, if drowsy while driving cake puller and take a nap -f/u in 1 year Diagnostic Codes: 327.23; Obstructive sleep apnea, insomnia Time spent face to face: 30 minutes Time spent devoted to counseling and discussion: 15 minutes This case was supervised by Dr. Du who saw the patient and participated in the formulation and decision making. documented in this encounter Plan of Treatment Not on file documented as of this encounter Visit Diagnoses Diagnosis SHANI (obstructive sleep apnea)- Primary Obstructive sleep apnea (adult) (pediatric) Insomnia Insomnia, unspecified SHANI on CPAP Obstructive sleep apnea (adult) (pediatric) documented in this encounter Care Teams Television Receiver Analyzer Relationship Specialty Start Date End Date Gay Serrano MD [facility] [address] [place] [address] [place] [address] PCP - General 08/30/10 12/20/14 documented as of this encounter
--- OUTSIDE RECORDS SUMMARY | 2024-10-06 17:20 | XMS_ITS | Encounter Summary ---
Author Organization [facility] Address [facility] [place] [address] Care Team Providers Care Livestock Producer Name Role Phone Juliette Hamilton Primary Care Provider [phone]- [phone] Reason for Visit * Reason Onset Date Comments Disability Paperwork 03/24/2015 Encounter Details Date Type Department Care Team (Late st Contact Info) Description 03/24/2015 Telephone [place] [address] Garcia Campos MD [facility] [place] [address] Disability Paperwork Social History Tobacco Use Types [...] encounter Miscellaneous Notes * Telephone Encounter - Savannah Chao - 03/24/2015 4:07 PM EDT Spoke to patient and Dr. Campos, letter completed and faxed. 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 Patient went back to work to early and is not completely as ready as he thought. Gisele Le Milo Cross Milo Jalloh documented in this encounter Plan of Treatment Not on file documented as of this encounter Visit Diagnoses Not on filedocumented in this encounter Care Teams Livestock Producer Relationship Specialty Start Date End Date Juliette Hamilton PA [address] [place] [address] PCP - General 12/21/14 05/25/20 documented as of this encounter
--- OUTSIDE RECORDS SUMMARY | 2024-10-06 17:20 | XMS_ITS | Encounter Summary ---
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 Kamilah Puentes PA [address] [place] [address] [place] [address] [facility] [address] [place] [address] Referral ID Status Reason Start Date Expiration Date V isits Requested Visits Authorized [id number] Closed Consult, Test & Treat 12/21/2014 12/21/2015 3 3 Reason for Visit * Reason Comments Bilateral Wrist Pain Encounter Details Date Type Department Care Team (Latest Contact Info) Description 12/21/2014 3:25 PM EDT [place] [address] Garcia Campos MD [facility] DR ORTHOPAEDIC [place] [address] Primary osteoarthritis of right wrist; Primary osteoarthritis of left wrist Discharge Disposition: Home Social History Tobacco [...] Sign Reading Time Taken Comments Blood Pressure 140/82 12/21/2014 3:26 PM EDT Pulse 66 12/21/2014 3:26 PM EDT Temperature - - Respiratory Rate - - Oxygen Saturation - - Inhaled Oxygen Concentration - - Weight 108.9 kg (240 lb) 12/21/2014 3:26 PM EDT STATED Height 177.8 cm (5' 10) 12/21/2014 3:26 PM EDT STATED Body Mass Index 34.44 12/21/2014 3:26 PM EDT documented in this encounter Progress Notes * Kamilah Puentes PA - 12/21/2014 4:56 PM EDT This 53-year-old gentleman comes in today accompanied by his for opinion regarding wrist pain, right worse than left. He is left hand dominant gentleman who works at [employer], but does not really do a lot of heavy lifting or pushing or pulling with it. He states about a year or worsening symptoms, really more so on the right side with pain in the wrist, he has had several cortisone injections, which initially were giving him some temporary relief, but the ???last couple did not help.?? The patient has pain in his wrist, does not really radiate out of this area. There has been no history of injury. He denies any numbness or tingling in the fingers. He has a history of chronic back pain and that causes some morning stiffness, but overall aside from his wrists and his low back, he does not complain of other joint pain today. There is a family history of rheumatoid arthritis in his mother and sister. PHYSICAL EXAMINATION: Examination today shows an overweight gentleman in no acute distress. The patient seen in conjunction with Dr. Campos. Examination of his right wrist shows [id number] effusion, no erythema or warmth. He has generalized tenderness along the distal radial ulnar joint at the radioscaphoid joint. He lacks about 10 degrees of flexion and extension due to pain. No pain with radial or ulnar deviation. He does also have some basal joint tenderness. He admits to normal sensation in all fingers and the hand is well perfused. Left hand shows just trace effusion of the wrist, no erythema or warmth, some minimal tenderness, near full range of motion of the wrist with just mild discomfort. X-rays token today show mild degenerative changes at the left wrist. On the right wrist, there is loss of joint space at the radioscaphoid joint. He also has mild basal joint arthritis. IMPRESSION: 1. Right wrist osteoarthritis. 2. Rule out underlying inflammatory process. TREATMENT: Nature of his problem was discussed with him. We had previously discussed having wrist fusion done. This was again discussed with him either in the form of proximal row carpectomy with scaphoid excision with four-corner fusion, but our feelings with this effusion and pain and nondramatic arthritis is to make sure that there is not an underlying inflammatory process that maybe causing his wrist arthritis and to have that treated initially, the patient will be sent for lab work for general screening and then Rheumatology consult to rule out any underlying inflammatory process. We will see him back afterwards to discuss further treatment. In the meantime, ibuprofen, Tylenol, heat or ice as needed. 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
--- OUTSIDE RECORDS SUMMARY | 2024-10-06 17:20 | XMS_ITS | Encounter Summary ---
Author Organization [facility] Address [facility] [place] [address] Care Team Providers Care Body Mechanic Name Role Phone Juliette Hamilton Primary Care Provider +1- [phone] Encounter Details Date Type Department Care Team (Latest Contact Info) Description 12/21/2014 4:14 PM EDT - 12/21/2014 11:59 PM EDT Hospital Encounter XRay at [address] [place] [address] Primary osteoarthritis of right wrist; Primary osteoarthritis [...] Sig Dispensed Refills Start Date End Date lamoTRIgine (LAMICTAL) 100 mg tablet Take 200 mg by mouth daily. loratadine (CLARITIN) 10 mg Tablet Take 10 mg by mouth daily. 12/15/2015 Atomoxetine (Strattera) 80 mg Capsule Take 1 capsule by mouth daily. 08/20/2023 sildenafiL (VIAGRA) 100 mg Tablet Take 100 mg by mouth as needed for Erectile Dysfunction. PRN 08/20/2023 eszopiclone (LUNESTA) 3 mg Tab Take 3 mg by mouth daily. 12/28/2014 documented as of this encounter Plan of Treatment Not on file documented as of this encounter Procedures Procedure Name Priority Date/Time Associated Diagnosis Comments XR WRIST BILAT MINIMUM 3 VIEWS Routine 12/21/2014 4:20 PM EDT documented in this encounter Results * XR wrist bilateral minimum 3 views (12/21/2014 4:20 PM EDT) Anatomical Region Laterality Modality Bilateral Radiographic Ethel ging 12/21/2014 4:20 PM EDT Impressions 12/21/2014 5:18 PM EDT IMPRESSION: 1. No acute fracture or dislocation. 2. 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 3. Mild left radioscaphoid joint space narrowing. 4. Bilateral first CMC joint and first MCP joint degenerative change. Narrative 12/21/2014 5:18 PM EDT EXAMINATION: WRIST BILAT MIN 3VIEWS CLINICAL HISTORY: pain and swelling *tn* TECHNIQUE: 3 views bilateral wrists COMPARISON: Right wrist radiographs of 06/25/2013 FINDINGS: Right wrist: No acute fracture or dislocation is detected. There is widening of the scapholunate interval as well as apparent widening of the scapholunate angle and capitolunate angle compatible with a DISI deformity. There has been progressive now severe radioscaphoid joint space narrowing since prior. There are small osteophytes the first CMC joint compatible with mild osteoarthritis. There is deformity of the distal aspect of the first metacarpal which may be due to prior injury and associated with superimposed secondary osteoarthritis Left wrist: No acute fracture or dislocation is identified. There is perhaps minimal radioscaphoid joint space narrowing. There is minimal joint space narrowing with mild radial subluxation and small osteophytes at the first CMC joint compatible with mild osteoarthritis. Additional degenerative changes at the first MCP joint also noted. Procedure Note Dash Jimenez MD - 12/21/2014 EXAMINATION: WRIST BILAT MIN 3VIEWS CLINICAL HISTORY: pain and swelling *tn* TECHNIQUE: 3 views bilateral wrists COMPARISON: Right wrist radiographs of 06/25/2013 FINDINGS: Right wrist: No acute fracture or dislocation is detected. There iswidening of the scapholunate interval as well as apparent widening of the scapholunateangle and capitolunate angle compatible with a DISI deformity. There has been progressive now severe radioscaphoid joint space narrowing since prior.There are small osteophytes the first CMC joint compatible with mildosteoarthritis. There is deformity of the distal aspect of the first metacarpal which maybe due to prior injury and associated with superimposed secondaryosteoarthritis Left wrist: No acute fracture or dislocation is identified. There isperhaps minimal radioscaphoid joint space narrowing. There is minimal jointspace narrowing with mild radial subluxation and small osteophytes at the firstCMC joint compatible with mild osteoarthritis. Additional degenerative changesat the first MCP joint also noted. IMPRESSION IMPRESSION: 1. No acute fracture or dislocation. 2. Severe right radioscaphoid joint space narrowing with suspectedscapholunate dissociation and DISI deformity. 3. Mild left radioscaphoid joint space narrowing. 4. Bilateral first CMC joint and first MCP joint degenerative change. 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
--- OUTSIDE RECORDS SUMMARY | 2024-10-06 17:20 | XMS_ITS | Encounter Summary ---
Author Organization [facility] [place] [address] Care Team Providers Care Senior Medical Transcriptionist Name Role Phone Juliette Hamilton Primary Care Provider +1- [phone] Reason for Visit * Reason Onset Date Comments Other 01/04/2015 Encounter Details Date Type Department Care Team (Late st Contact Info) Description 01/04/2015 Telephone [place] [id number] Garcia Campos MD [facility] [address] [place] [address] Other Social History Tobacco Use Types Packs/Day [...] encounter Miscellaneous Notes * Telephone Encounter - Danette Valentin - 01/11/2015 4:07 PM EDT Patient scheduled for surgery on 01/26/[address] Campos. * Telephone Encounter - Angela Traylor - 01/04/2015 3:35 PM EDT I have called patient to let him know I have sent Dr. Campos a message asking him to put in the electronic booking order for surgery. I let him know as soon as Dr. Campos places the orders someone on the OR scheduling team would call to get him on the surgery schedule. * Telephone Encounter - Tiesha Adorno - 01/04/2015 1:43 PM EDT Patient has seen the classification counselor and he does not have rheumatoid arthritis, so would like to go ahead and schedule surgery with Dr Campos. Orders need to be entered Please call Chano [phone] documented in this encounter Plan of Treatment Not on file documented as of this encounter Visit Diagnoses Not on filedocumented in this encounter Care Teams Senior Medical Transcriptionist Relationship Specialty Start Date End Date Juliette Hamilton PA [address] [place] [address] PCP - General 12/21/14 05/25/20 documented as of this encounter
--- OUTSIDE RECORDS SUMMARY | 2024-10-06 17:20 | XMS_ITS | Encounter Summary ---
Author Organization [facility] [place] [address] Care Team Providers Care Lost Charge Card Clerk Name Role Phone Juliette Hamilton Primary Care Provider +1- [phone] Reason for Referral * Occupational Therapy (Routine) - Closed Specialty Diagnoses / Procedures Referred By Contac t Referred To Contact Occupational Therapy Diagnoses Osteoarthritis of right wrist, unspecified osteoarthritis type Danita Cisneros PA [facility] [place] [address] [facility] [address] [place] [address] Referral ID Status Reason Start Date Expiration Date V isits Requested Visits Authorized [id number] Closed Evaluate and Treat 03/12/2017 03/12/2018 1 1 Reason for Visit * Reason Comments Wrist Pain Proximal Row Carpect vanessa, right Wrist. DOS 01/29/2015 Encounter Details Date Type Department Care Team (Latest Contact Info) Description 03/12/2017 9:20 AM EDT Office [place] [address] Garcia Campos MD [facility] [place] [address] Osteoarthritis of right wrist, unspecified osteoarthritis type Social History Tobacco [...] Reading Time Taken Comments Blood Pressure 145/79 03/12/2017 9:19 AM EDT Pulse 89 03/12/2017 9:19 AM EDT Temperature - - Respiratory Rate - - Oxygen Saturation - - Inhaled Oxygen Concentration - - Weight 113.4 kg (250 lb) 03/12/2017 9:19 AM EDT pt reported Height 177.8 cm (5' 10) 03/12/2017 9:19 AM EDT pt reported Body Mass Index 35.87 03/12/2017 9:19 AM EDT documented in this encounter Progress Notes * Garcia Campos MD - 03/12/2017 9:20 AM EDT Chano Coker presents with persistent symptomatic right wrist arthritis following a prior proximal row carpectomy. He was seen in conjunction with MORGAN La, today. His right wrist is swollen. He has limited motion. Last x-rays were done in December of 2015 and show radiocapitate arthritis. He was again offered the option of either corticosteroid injection, new splints, or/or total wrist fusion. I did tell him total wrist fusion would likely alleviate his pain, although there is a risk that it may not. I also told him about the potential risks of the procedure include risks of things like infection, nerve injury, malunion, nonunion, and delayed union, hardware failure, hardware migration requiring the possibility of needing addition surgery. Tendon rupture was also explained as a risk. He understands and will talk to his human resources department. He will have new braces provided for his wrists today. He will see me for this as needed. Surgery was offered and he will make a decision in terms of whether he would like to proceed with right total wrist fusion using both allograft and autograft bone from his distal radius. documented in this encounter Plan of Treatment Scheduled Referrals Name Type Priority Associated Diagnoses Orde r Schedule Referral to Occupational Therapy Outpatient Referral Routine Osteoarthritis of right wrist, unspecified osteoarthritis type Ordered: 03/12/2017 documented as of this encounter Visit Diagnoses Diagnosis Osteoarthritis of right wrist, unspecified osteoarthritis type documented in this encounter Care Teams Lost Charge Card Clerk Relationship Specialty Start Date End Date Juliette Hamilton PA [address] [place] [address] PCP - General 12/21/14 05/25/20 documented as of this encounter
[2024-10-10 12:06] LABS: O-desmethyltramadol 2758 ng/mL (Cutoff:25); Tramadol 6367 ng/mL (Cutoff:25)
== END 2024-10-06 17:16 | disposition home or self-care (01) ==
LOC: NCHCN 17:15
PROVIDERS: PCP Physician Assistant Medical; Visit Provider Physician Assistant Medical
DX: Z01.818 Encounter for other preprocedural examination (principal); E11.9 Type 2 diabetes mellitus without complications
CPT/HCPCS: 80373

== ENCOUNTER 2024-12-31 20:37 | Outpatient (REF) | payer OTHER, SELFPAY ==
[2024-12-31 20:43] LABS: Abs Immature Grans 0.04 10^3/uL (0.0-0.06); Absolute Basophil Count 0.06 10^3/uL (0.0-0.2); Absolute Eosinophil Count 0.08 10^3/uL (0.0-0.7); Absolute Lymphocyte Count 0.96 10^3/uL (1.2-3.4); Absolute Monocyte Count 0.68 10^3/uL (0.1-0.8); Absolute Neutrophil Count 4.63 10^3/uL (1.2-6.7); Basophils % 0.9 %; Eosinophils % 1.2 %; HCT 48.7 % (40.0-50.0); HGB 16.4 g/dL (13.5-17.5); Immature Grans % 0.6 %; Lymphocytes % 14.9 %; MCH 33.5 pg (27.0-33.0); MCHC 33.7 % (32.0-36.0); MCV 99 fL (80-95); MPV 9.4 fL (8.0-11.0); Monocytes % 10.5 %; Neutrophils % 71.9 %; Platelet Count 154 10^3/uL (130-400); RDW 14.6 % (11.8-14.1); RDW-SD 53.5 fL; WBC 6.45 10^3/uL (4.4-10.8)
[2024-12-31 20:57] LABS: Hemoglobin A1C 6.5 % (<5.7)
[2024-12-31 20:58] LABS: ALT 82 U/L (16-63); AST 111 U/L (15-37); Albumin 3.9 g/dL (3.4-5.0); Alkaline Phosphatase 99 U/L (46-116); Anion Gap 9.7 mmol/L (3-11); BUN 10 mg/dL (7-18); Bilirubin, Total 2.1 mg/dL (0.2-1.0); CO2 27.3 mmol/L (21.0-32.0); Calcium 9.8 mg/dL (8.5-10.1); Calculated LDL 65 mg/dL (<100); Chloride 104 mmol/L (98-107); Cholesterol 176 mg/dL (<200); Estimated GFR 83.01 (mL/min/1.73m2); Glucose 120 mg/dL (74-106); HDL Cholesterol 99 mg/dL (>or=40); Potassium 4.7 mmol/L (3.5-5.1); Sodium 141 mmol/L (136-145); Total Protein 8.2 g/dL (6.4-8.2); Triglyceride 60 mg/dL (<150)
== END 2024-12-31 20:38 | disposition home or self-care (01) ==
LOC: NCHCN 20:37
PROVIDERS: PCP Physician Assistant Medical; Visit Provider Physician Assistant Medical
DX: E11.9 Type 2 diabetes mellitus without complications (principal); E78.2 Mixed hyperlipidemia; F10.20 Alcohol dependence, uncomplicated
CPT/HCPCS: 80053; 80061; 83036; 85025